=== PATIENT | female | born 1955 | race Caucasian/White ===

== ENCOUNTER 2020-07-20 06:35 | Outpatient (REF) | payer OTHER, SELFPAY | END 2020-07-20 06:36 | disposition home or self-care (01) | LOC: HO.LAB 06:35 | PROVIDERS: Visit Provider Internal Medicine | DX: Z20.828 Contact with and (suspected) exposure to other viral communicable diseases (principal) | CPT/HCPCS: C9803; U0003 ==

== ENCOUNTER 2020-08-06 17:52 | Emergency (ER) | payer BC, SELFPAY ==
[2020-08-06 18:12] VITALS: BP 183/122; PULSE 113; RESP 20; TEMP 36.9; O2SAT 100; BMI 35.5
--- NOTE | 2020-08-06 18:21 | ED.GENADULT ---
HPI - General Adult General Chief complaint: General Medical Stated complaint: Covid Test Time Seen by Provider: 08/06/20 18:16 Source: patient Mode of arrival: ambulatory Limitations: no limitations History of Present Illness HPI narrative: 65-year-old female presents to the emergency department for COVID-19 testing after learning that she has had multiple COVID-19 positive contacts. She does have mild upper respiratory symptoms, nasal congestion, and a dry cough. She does not report any fevers or chills, denies chest pain or pressure, palpitations, shortness of breath, abdominal pain, abdominal distention, dysuria, or hematuria. Onset (ago): day(s) (1) Severity: mild Treatments prior to arrival: NSAID Related Data Previous Rx's Medication Instructions Recorded lisinopril 2.5 mg tablet 2.5 mg PO DAILY 90 Days #90 tab 05/13/20 Allergies Allergy/AdvReac Type Severity Reaction Status Date / Time rivaroxaban [Xarelto] Allergy Unknown confusion Verified 08/06/20 18:11 No Known Allergies Allergy Unverified 04/09/20 17:21 [No Known Allergies*] Review of Systems Review of Systems: Constitutional: No Fever, no Chills, no fatigue, no Malaise ENT/Mouth: No sore throat, positive runny nose Eyes: No Discharge Cardiovascular: No Chest Pain, No SOB Respiratory: Positive Cough, No Sputum, No Wheezing, No Smoke Exposure, No Dyspnea Gastrointestinal: No Nausea, No Vomiting, No Diarrhea Genitourinary: no irregular bleeding, No Dysuria, No Urinary Frequency, No Hematuria, No Urinary Incontinence, No Urgency, No Flank Pain, Musculoskeletal: positive Myalgia Skin: No rash Neuro: No Headache Yes all other systems are reviewed and are negative [facility] Past Medical History Attestation statement: The following information was validated with the patient. Medical History Hypertension Social History Social History Advance Directives: No Advance Directives Information Provided: No Physical Exam Vital Signs: Vital Signs: Last Vital Signs Temp 98.5 F 08/06/20 18:12 Pulse 113 H 08/06/20 18:12 Resp 20 08/06/20 18:12 BP 179/92 H 08/06/20 18:24 Pulse Ox 100 08/06/20 18:12 Body Mass Index 35.5 Appearance: Alert. Oriented X3. Mild distress. Eyes: Pupils equal, round and reactive to light. ENT: Pharynx normal. Neck: Normal inspection. Neck supple. CVS: Normal heart rate and rhythm. Pulses normal. Respiratory: Positive cough, positive nasal congestion, No respiratory distress. Breath sounds normal. Abdomen: Soft and nontender. Skin: Skin warm and dry. Normal skin color. Normal skin turgor. Extremities: No lower extremity edema. Neuro: No motor deficit. No sensory deficit. Course Course Course Narrative: 65-year-old female presents for COVID-19 testing after learning that she has had multiple COVID-19 contacts. She does have a cough and some mild nasal congestion, O2 sats 100% on room air, afebrile and appears nontoxic. Lung sounds are clear, no focal neuro deficit. Plan of care is to test for COVID-19 and discharged home. Patient verbalized understanding of and agrees to plan of care discharge home. Medical Decision Making Differential Diagnosis Differential Diagnosis: Acute viral syndrome, COVID-19, influenza, RSV Medical Records Medical records reviewed: Yes I reviewed the patient's medical records. Lab Data Lab results reviewed: Yes I reviewed the patient's lab results. Labs: Lab Results 08/06/20 Range/Units 18:33 Coronavirus (PCR) NEGATIVE (Negative) Influenza Type A (PCR) NEGATIVE (Negative) Influenza Type B (PCR) NEGATIVE (Negative) RSV RNA Qual (PCR) NEGATIVE (Negative) Discharge Plan Discharge Clinical Impression: COVID-19, Acute viral syndrome, Upper respiratory infection, acute Patient Disposition: Home, Self-Care Instructions: Viral Syndrome (ED), COVID-19 (Coronavirus Disease 2019) (ED) Additional Instructions: You were evaluated for symptoms consistent with COVID-19 and or COVID-19 positive exposure. Please maintain social isolation per State and Federal guidelines. Is your responsibility to maintain these guidelines. Your test results are pending. We will call you with the results. You must treat yourself as if you are positive until your test results come back. Thank you for choosing this emergency department for evaluation. Please follow-up with primary care physician as needed. Return to the emergency department for any new, concerning, or worsening symptoms. Prescriptions: No Action lisinopril 2.5 mg tablet 2.5 mg PO DAILY 90 Days Qty: 90 RF: 3 Interventions: ED Discharge Assessment Last Done: 08/06/20 18:37 Discharge Date/Time: 08/06/20 18:37
[2020-08-06 18:24] VITALS: BP 179/92
[2020-08-06 19:22] LABS: Influenza A PCR NEGATIVE (Negative); Influenza B PCR NEGATIVE (Negative); Resp Syncy Virus RNA Qual PCR NEGATIVE (Negative); SARS COV2 PCR INHOUSE NEGATIVE (Negative)
== END 2020-08-06 18:37 | disposition home or self-care (01) ==
PROVIDERS: Nurse Practitioner Family; Emergency Provider Internal Medicine; PCP Internal Medicine
DX: U07.1 COVID-19 (principal); J06.9 Acute upper respiratory infection, unspecified; R05 Cough; I10 Essential (primary) hypertension; Z79.899 Other long term (current) drug therapy
CPT/HCPCS: 0241U; 36415; 99283

== ENCOUNTER 2022-05-27 07:28 | Outpatient (REF) | payer MEDICARE, SELFPAY ==
[2022-05-27 07:35] LABS: MANUAL DIFF FLAG NO
[2022-05-27 08:10] LABS: Basophils Absolute Auto 0.1 X10*3/uL (0.0-0.2); Eosinophils Absolute Auto 0.1 X10*3/uL (0.0-0.4); Eosinophils Percent Auto 1.1 % (0-4); Hematocrit 52.9 % (37.0-47.0); Hemoglobin 17.2 g/dl (12.0-16.0); Imm Gran Abs Auto 0.03 X10*3/uL (0.00-0.03); Imm Gran Pct Auto 0.3 % (0.0-0.4); Lymphocytes Absolute Auto 2.9 X10*3/uL (1.2-4.9); Lymphocytes Percent Auto 31.1 % (20-40); Mean Corpuscular HGB Conc 32.5 g/dl (31.0-35.0); Mean Corpuscular Hemoglobin 30.4 pg (27.0-33.0); Mean Corpuscular Volume 93.5 fL (80.0-98.0); Mean Platelet Volume 10.3 fL (9.4-12.3); Monocytes Absolute Auto 0.6 X10*3/uL (0.1-1.2); Monocytes Percent Auto 6.9 % (2-11); Neutrophils Absolute Auto 5.5 x10*3/uL (2.0-8.3); Neutrophils Percent Auto 59.6 % (45-73); Platelet Count 209 X10*3/uL (160-400); Red Blood Count 5.66 X10*6/uL (4.20-5.50); Red Cell Distribution Width 13.6 % (11.0-16.0); White Blood Count 9.3 X10*3/uL (4.8-10.8)
[2022-05-27 08:50] LABS: Alanine Aminotransferase 78 U/L (0-31); Albumin Level 3.9 g/dL (3.5-5.0); Alkaline Phosphatase 112 U/L (39-117); Anion Gap 16 (12-20); Aspartate Amino Transferase 23 U/L (5-31); Bilirubin Total 0.6 mg/dL (0.0-1.0); Blood Urea Nitrogen 13 mg/dL (9-16); C Reactive Protein 1.18 mg/dL (< or = 0.50); Calcium 9.2 mg/dL (8.4-10.2); Carbon Dioxide 31 mmol/L (22-29); Chloride 101 mmol/L (96-108); Estimated Glomerular Filt Rate > 60; Glucose Random 104 mg/dL (60-115); Potassium 4.2 mmol/L (3.3-5.1); Sodium 144 mmol/L (135-145); Total Protein 7.1 g/dL (6.5-8.0)
[2022-05-27 08:53] LABS: Erythrocyte Sedimentation Rate 11 MM/HR (0-20)
== END 2022-05-27 07:29 | disposition home or self-care (01) ==
LOC: HO.LAB 07:28
PROVIDERS: PCP Internal Medicine; Visit Provider Internal Medicine Rheumatology
DX: M15.9 Polyosteoarthritis, unspecified (principal); Z79.1 Long term (current) use of non-steroidal anti-inflammatories (NSAID)
CPT/HCPCS: 36415; 80053; 85025; 85652; 86140

== ENCOUNTER 2023-06-27 08:16 | Emergency (ER) | payer MEDICARE, SELFPAY ==
[2023-06-27] VITALS (8 sets, daily range): BP systolic 150–217; BP diastolic 82–108; PULSE 76–115; RESP 14–114; TEMP 36.6–37.2; O2SAT 92–97; BMI 39.2; BMI 39.5
--- NOTE | ~2023-06-27 | CT_ITS ---
STUDY PERFORMED: CTA ABDOMEN, PELVIS AND LOWER EXTREMITY RUNOFF WITH CONTRAST INDICATION: Right lower extremity coldness and numbness. DESCRIPTION: Routine abdominal aorta and lower extremity runoff CTA protocol with contrast was performed. 100 mL of Omnipaque 350 was administered. 3D POSTPROCESSING: Multiple 3-D angiographic images were processed from the initial data set by the [facility] on an independent workstation under concurrent physician supervision. DOSE LOWERING TECHNIQUES: This CT examination was performed using dose optimization techniques as appropriate, variously including the following: - Automated exposure control - Adjustment of mA and/or kV according to patient size (this includes techniques or standardized protocols for targeted exams where dose is matched to indication/reason for exam; i.e. extremities or head) - Use of iterative reconstruction technique DLP: 552 mGycm. COMPARISON: None FINDINGS: Presented to me for interpretation at 1450. VASCULAR: ABDOMINAL AORTA: The included lower thoracic aorta is normal in caliber without thrombus or atherosclerotic disease. The abdominal aorta is normal in caliber with mild infrarenal atherosclerosis. RIGHT LOWER EXTREMITY: - Common Iliac Artery: Normal caliber. Mild disease. - Internal Iliac Artery: Normal caliber. Mild disease. - External Iliac Artery: Normal caliber. Minimal disease. - Common Femoral Artery: Minimal intrinsic disease. There is branching occlusive filling defect at the femoral bifurcation involving the proximal SFA and PFA. - Profunda Femoral Artery: 6 cm long segment nonopacification of the proximal profunda femoral artery with some branch vessel and distal opacification. Area of nonopacification is likely thrombus. - Superficial Femoral Artery: 2 cm long occlusion in the proximal SFA with some distal gradient opacification to nonopacification in the mid and distal SFA. On the delayed images the distal SFA and proximal popliteal artery enhance indicating that some of this upstream nonopacification is related to bolus timing. However on the delayed imaging there is no enhancement of the distal popliteal artery and three-vessel runoff. LEFT LOWER EXTREMITY: - Common Iliac Artery: Normal caliber. Mild disease. - Internal Iliac Artery: Normal caliber. Mild disease. - External Iliac Artery: Normal caliber. Mild disease. - Common Femoral Artery: Normal caliber. Mild disease. - Profunda Femoral Artery: Minimal disease. - Superficial Femoral Artery: Intimal disease. - Popliteal Artery: Minimal disease. - Posterior Tibial Artery: Patent. - Peroneal Artery: Patent. - Anterior Tibial Artery: Patent. CELIOMESENTERIC ARTERIES: The celiac, SMA, CARYN are patent. RENAL ARTERIES: The right renal artery and the left renal artery is patent. NONVASCULAR: Lung Bases: The visualized lung bases are unremarkable. Liver, Gallbladder and Biliary Tree: The liver is normal in size, shape, and attenuation. No focal hepatic lesion or biliary ductal dilatation is present. Cholecystectomy. Pancreas: No discrete pancreatic mass. No ductal dilatation. Spleen: Unremarkable. Adrenal Glands: No adrenal mass. Kidneys and Ureters: The kidneys are normal in size, shape, and attenuation. No hydronephrosis, hydroureter, or definite calculi seen. No perinephric stranding. Simple cyst in the lower pole left kidney. No follow-up imaging is recommended. Bladder: Unremarkable. Gastrointestinal Tract: The small bowel is normal in caliber. Severe diverticulosis of the colon. Abdominal Wall: Ventral hernia repair with mesh. There is a fat-containing hernia to the left of the mesh. Lymph Nodes: No lymphadenopathy. Pelvic Viscera: Unremarkable. Osseous Structures: Degenerative changes in the spine. 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 There is some distal reconstitution of the SFA. On the delayed phase imaging, there is no enhancement of the runoff arteries which may be due to slow flow from upstream disease or thrombosis. THIS REPORT CONTAINS FINDINGS THAT MAY BE CRITICAL TO PATIENT CARE. The exam findings were communicated by me to Tg Tesfaye via telephone conference at 1505 on 06/27/2023. The findings were acknowledged and understood. Patient already transferred to [facility] at time of direct to communication.
--- NOTE | 2023-06-27 09:10 | PC.NURSE ---
UNABLE TO OBTAIN PEDAL PULSES WITH DOPPLER. AWAITING PROVIDER
--- NOTE | 2023-06-27 09:16 | ECG_ITS ---
Test Reason : ?le arterial occlusion Blood Pressure : / mmHG Vent. Rate : 105 BPM Atrial Rate : 000 BPM P-R Int : 000 ms QRS Dur : 100 ms QT Int : 392 ms P-R-T Axes : 000 027 012 degrees QTc Int : 518 ms Atrial fibrillation with rapid ventricular response Abnormal ECG When compared to the previous EKG of 14 dec 2017, lateral T inversion not seen. Referred By: Tg Tesfaye Electronically Signed By:MARGARITA MONTELONGO
--- NOTE | 2023-06-27 09:18 | ED_ITS ---
HPI - Neuro Symptoms/Deficit General Chief Complaint: Neuro Symptoms/Deficit Stated Complaint: R FOOT NUMB/COOL @TOUCH,R THIGH PAIN,1HOUR PER EMS Time Seen by Provider: 06/27/23 09:03 Source: patient and RN notes reviewed Mode of arrival: ambulatory Limitations: no limitations History of Present Illness HPI Narrative: This is a 68-year-old female, with a history of hypertension, presenting to the emergency department with complaints of right lower extremity numbness and coldness since 6:15AM this morning. She states that she was having a normal day which she suddenly felt some numbness to the bottom of her foot as well as some coldness. This has since progressed throughout her entire right foot extending just above her right ankle. She denies any chest pain or shortness of breath. No recent trauma or injury to her leg. No history of similar symptoms in the past. No recent surgery, hospitalizations, no history of blood clots, no history of cancer. She smokes cigarettes. She states that she has no history of atrial fibrillation or irregular heart rate. She states that as a child she thought she had this but was never formally diagnosed or treated for this. She is not anticoagulated. No other complaints or concerns at this time. Onset (ago): day(s) Time: 06:15 Relieving factors: none Exacerbating factors: none On Anticoagulants: No Associated symptoms: denies other symptoms Treatments Prior to Arrival: none Related Data Home Medications Medication Instructions Recorded Confirmed ibuprofen 800 mg tablet 800 mg PO TID 12/31/21 12/31/21 multivitamin 1 tab PO DAILY 12/31/21 12/31/21 Previous Rx's Medication Instructions Recorded lisinopril 2.5 mg tablet 2.5 mg PO DAILY 90 days #90 tabs 12/11/22 metoprolol tartrate 100 mg tablet 100 mg PO BID #180 tabs 04/13/23 Allergies Allergy/AdvReac Type Severity Reaction Status Date / Time rivaroxaban [Xarelto] Allergy Unknown confusion Verified 06/27/23 09:54 Review of Systems 2 Review of Systems: Yes all other systems are reviewed and are negative Constitutional: Constitutional: Reports as per HPI [facility] Past Medical History Attestation statement: The following information was validated with the patient. Medical History COVID-19 Hypertension Social History Social History Alcohol intake: current Alcohol intake frequency: holidays/special occasions only Patient Tobacco Use Status: Current everyday Tobacco user Cigarettes Per Day: 7 Physical Exam 2 Vital Signs: Vital Signs: Last Vital Signs Temp 98.6 F 06/27/23 12:46 Pulse 101 H 06/27/23 13:54 Resp 15 06/27/23 13:54 BP 171/82 H 06/27/23 13:54 Pulse Ox 95 06/27/23 13:22 O2 Del Method Nasal Cannula 06/27/23 13:22 O2 Flow Rate 1 06/27/23 13:22 BMI result Body Mass Index 39.5 Const: General: cooperative, comfortable and no acute distress O rientation/consciousness: patient oriented x3 Limitations: no limitations HEENT: Head: Yes normal to inspection, Yes normocephalic and Yes atraumatic Ears: hearing grossly normal bilaterally General nose exam: Normal external nose present Face and sinus: Yes normal facial exam Mouth: Normal oral and palatal mucosa present, oropharynx normal and moist mucous membranes Throat: Yes posterior oropharynx normal Eyes: General: appearance normal, both eyes and all related structures E yelids: Yes eyelids normal Conjunctivae: conjunctivae normal Sclerae: s clerae normal Pupils: Equal, round and reactive pupils present EOM: EOMs intact bilaterally Neck: Neck: Yes normal visual inspection, Yes full ROM and Yes no lymphadenopathy Lymphatic: no lymphadenopathy noted Chest: Chest palpation & inspection: normal inspection of the chest Resp: Effort & Inspection: normal respiratory effort and able to speak in complete sentences Auscultation: clear to auscultation bilaterally, no crackles, no rales, no rhonchi and no wheezes Cardio: Other: He irregularly irregular Heart sounds: S1 normal heart sound present and S2 normal heart sound present GI: Inspection: Yes normal to inspection Skin: General skin exam: no rashes or lesions noted Trauma: no lacerations or abrasions Wounds: no wounds Neuro: General: patient oriented x3 and moves all extremities Cranial nerves: Yes Equal, round and reactive pupils present Extrem: Other: Right lower extremity is cool to the touch, dusky white, unable to palpate pulses. Patient unable to wiggle toes or Salomon or plantar flex the foot. Patient reporting numbness throughout the entire foot extending to the distal tibia fibula Tenderness to palpation along the right calf, no obvious swelling or deformity. General: Yes normal to inspection Right upper extremity: normal to inspection Left upper extremity: normal to inspection Right lower extremity: normal to inspection Left lower extremity: normal to inspection Course Reevaluation(s) Reevaluation #1: Upon re-evaluation, patient requesting stronger pain medication. Medicated with morphine 4 mg IV. Review of EKG shows atrial fibrillation with RVR at a ventricular rate of 105 beats per minute. PT has no history of a fib. Given findings on EKG, even more concerning for arterial occlusion. Blood pressure elevated at 220/96. Patient did not take her hypertensive medication this mornning. I discussed this with my attending physician who recommends administering diltiazem 10 mg IV. Reevaluation #2: I spoke to Dr. Durham who reviewed the CT scan, he is reporting that the SFA and distal is completely occluded. Given the extensiveness of this finding, patient will need to be transferred for further intervention as we do not have the finer equipment to revascularize. He recommends heparin bolus and drip, which was started. Discussed this with my attending physician, Dr. Louis. Page sent out to [facility]. Time: 11:30 Reevaluation #3: [facility] called, placing page out to vascular surgery. Patient reporting that the pain improved with morphine but still in significant amount of pain. Will medicate with 2nd dose of morphine 4 mg IV. Time: 11:47 Additional Reevaluation(s): 1303 - [facility] still has not called back, reach out to [facility]. Patient was accepted by Dr. Milla damico in [facility]. Blood pressure has improved to 182/84, patient medicated with Dilaudid 1 mg IV. Radiology will put images on disc as well as upload on to image portal for [facility] access. Transfer of care initiated. 1530 - radiologist,Dr. 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 There is some distal reconstitution of the SFA. Sent report over to [facility] Emergency Room for update of this radiologic report. Medications Administered Discontinued Medications Generic Name Dose Route Start Last Admin Trade Name Freq PRN Reason Stop Dose Admin Diltiazem HCl 10 mg 06/27/23 09:48 06/27/23 09:55 Diltiazem Hcl 50 Mg/10 Ml Vial IVPUSH 06/27/23 09:49 10 mg STAT STA Administration Heparin Sodium (Porcine) 8,800 unit 06/27/23 11:31 06/27/23 12:06 Heparin Sodium,Porcine 5,000 Unit/Ml Vial 80 unit/kg (8800 unit) 06/27/23 11:32 8,800 unit IVPUSH Administration ONCE ONE Hydromorphone HCl 1 mg 06/27/23 13:06 06/27/23 13:13 Hydromorphone Hcl 1 Mg/Ml Syringe IVPUSH 06/27/23 13:07 1 mg ONCE ONE Administration Protocol Heparin Sodium/Sodium Chloride 25,000 unit in 250 mls @ 0 mls/hr 06/27/23 12:00 06/27/23 12:17 Heparin Sodium,Porcine/1/2ns IVCONT 14 units/kg/hr .Q0M SAYRA 15.53 mls/hr Administration Protocol Per Protocol Iohexol 100 ml 06/27/23 10:42 06/27/23 10:42 Iohexol 350 Mg/Ml 100 Ml Infus..Btl IV 06/27/23 10:43 100 ml ONCE ONE Administration Morphine Sulfate 4 mg 06/27/23 09:40 06/27/23 09:55 Morphine Sulfate 4 Mg/Ml Cartridge IVPUSH 06/27/23 09:41 4 mg ONCE ONE Administration Protocol Morphine Sulfate 4 mg 06/27/23 11:45 06/27/23 11:57 Morphine Sulfate 4 Mg/Ml Cartridge IVPUSH 06/27/23 11:46 4 mg ONCE ONE Administration Protocol Medical Decision Making Medical Decision Making MDM Narrative: 68-year-old female presenting to the emergency department for evaluation of right lower extremity numbness and coolness 11/26/2014 this morning. I went and evaluated patient at 9:15 a.m. this morning. Blood pressure 202/92, pulse 115. Right lower extremity is very cold to the touch, patient unable to move toes or move ankle. Very concerning for arterial occlusion. Patient has no known risk factors. I discussed this case with my attending physician, Dr. Louis, will obtain basic labs, troponin, coags, EKG, and CT angio abdominal aorta with runoff. Patient medicated with morphine 4 mg IV Plan: Labs, EKG, CT angio with abdominal aorta runoff, coags Differential Diagnosis Differential Diagnoses: The differential diagnosis associated with the presentation includes Arterial occlusion, venous thrombosis, Admission/Observation Consideration of admission/observation: Escalation of care including admission/observation considered Escalation of care including admission, is considered given new onset atrial fibrillation with RVR, patient has no history of this Consult Healthcare Provider Management of the patient was discussed with: African History Professor Dr. Harmon, vascular Lab Data MDM Lab Attestation statement: I reviewed the patient's lab results. H&H 17.6/54.5; hypokalemic at 3.1, BUN 7. 06/27/23 09:24 06/27/23 09:24 Labs: Lab Results 06/27/23 Range/Units 09:24 WBC 10.7 (4.8-10.8) X10*3/uL RBC 6.07 H (4.20-5.50) X10*6/uL Hgb 17.6 H (12.0-16.0) g/dl Hct 54.5 H (37.0-47.0) % MCV 89.8 (80.0-98.0) fL MCH 29.0 (27.0-33.0) pg MCHC 32.3 (31.0-35.0) g/dl RDW 13.8 (11.0-16.0) % Plt Count 201 (160-400) X10*3/uL MPV 10.0 (9.4-12.3) fL Immature Gran % (Auto) 0.6 H (0.0-0.4) % Neut % (Auto) 85.4 H (45-73) % Lymph % (Auto) 8.5 L (20-40) % [place] % (Auto) 4.6 (2-11) % Eos % (Auto) 0.2 (0-4) % Baso % (Auto) 0.7 (0-2) % Lymph # (Auto) 0.9 L (1.2-4.9) X10*3/uL [place] # (Auto) 0.5 (0.1-1.2) X10*3/uL Eos # (Auto) 0.0 (0.0-0.4) X10*3/uL Baso # (Auto) 0.1 (0.0-0.2) X10*3/uL Abs Immat Gran (auto) 0.06 H (0.00-0.03) X10*3/uL Absolute Neuts (auto) 9.1 H (2.0-8.3) x10*3/uL Absolute Nucleated RBC 0.000 (0.0-0.012) X10*3/uL Nucleated RBC % (auto) 0.0 (0.0-0.2) /100WBC PT 12.4 (11.1-13.3) SEC INR 1.0 (0.9-1.1) APTT 27.8 (26.0-36.4) SEC Sodium 142 (135-145) mmol/L Potassium 3.1 L D (3.3-5.1) mmol/L Chloride 104 (96-108) mmol/L Carbon Dioxide 29 (22-29) mmol/L Anion Gap 12 (12-20) BUN 7 L (9-16) mg/dL Creatinine 0.72 (0.5-1.4) mg/dL Estim Creat Clear Calc 94.0 Estimated GFR > 60 Random Glucose 150 H (60-115) mg/dL Calcium 9.3 (8.4-10.2) mg/dL Magnesium 1.7 (1.6-2.6) mg/dL Total Bilirubin 0.6 (0.0-1.0) mg/dL Direct Bilirubin 0.2 (0.0-0.5) mg/dL AST 13 (5-31) U/L ALT 6 (0-31) U/L Alkaline Phosphatase 91 (39-117) U/L Troponin I High Sens 16.7 (<3.5-17.0) ng/L Total Protein 7.7 (6.5-8.0) g/dL Albumin 3.8 (3.5-5.0) g/dL Independent Interpretation I performed an independent interpretation of an: EKG Interpretation: EKG atrial fibrillation with RVR at a ventricular rate of 105, QRS 100 milliseconds, QTC is prolonged at 518 CT was reviewed by myself and vascular surgeon, revealing acute on chronic occlusion, however SFA and distally completely occludes with no flow. Radiology Impression Discussion of test interpretation with radiology: I have reviewed the radiologist's reading. Radiologist Impression: STUDY PERFORMED: CTA ABDOMEN, PELVIS AND LOWER EXTREMITY RUNOFF WITH CONTRAST INDICATION: Right lower extremity coldness and numbness. DESCRIPTION: Routine abdominal aorta and lower extremity runoff CTA protocol with contrast was performed. 100 mL of Omnipaque 350 was administered. 3D POSTPROCESSING: Multiple 3-D angiographic images were processed from the initial data set by the [facility] on an independent workstation under concurrent physician supervision. DOSE LOWERING TECHNIQUES: This CT examination was performed using dose optimization techniques as appropriate, variously including the following: - Automated exposure control - Adjustment of mA and/or kV according to patient size (this includes techniques or standardized protocols for targeted exams where dose is matched to indication/reason for exam; i.e. extremities or head) - Use of iterative reconstruction technique DLP: 552 mGycm. COMPARISON: None FINDINGS: Presented to me for interpretation at 1450. VASCULAR: ABDOMINAL AORTA: The included lower thoracic aorta is normal in caliber without thrombus or atherosclerotic disease. The abdominal aorta is normal in caliber with mild infrarenal atherosclerosis. RIGHT LOWER EXTREMITY: - Common Iliac Artery: Normal caliber. Mild disease. - Internal Iliac Artery: Normal caliber. Mild disease. - External Iliac Artery: Normal caliber. Minimal disease. - Common Femoral Artery: Minimal intrinsic disease. There is branching occlusive filling defect at the femoral bifurcation involving the proximal SFA and PFA. - Profunda Femoral Artery: 6 cm long segment nonopacification of the proximal profunda femoral artery with some branch vessel and distal opacification. Area of nonopacification is likely thrombus. - Superficial Femoral Artery: 2 cm long occlusion in the proximal SFA with some distal gradient opacification to nonopacification in the mid and distal SFA. On the delayed images the distal SFA and proximal popliteal artery enhance indicating that some of this upstream nonopacification is related to bolus timing. However on the delayed imaging there is no enhancement of the distal popliteal artery and three-vessel runoff. LEFT LOWER EXTREMITY: - Common Iliac Artery: Normal caliber. Mild disease. - Internal Iliac Artery: Normal caliber. Mild disease. - External Iliac Artery: Normal caliber. Mild disease. - Common Femoral Artery: Normal caliber. Mild disease. - Profunda Femoral Artery: Minimal disease. - Superficial Femoral Artery: Intimal disease. - Popliteal Artery: Minimal disease. - Posterior Tibial Artery: Patent. - Peroneal Artery: Patent. - Anterior Tibial Artery: Patent. CELIOMESENTERIC ARTERIES: The celiac, SMA, CARYN are patent. RENAL ARTERIES: The right renal artery and the left renal artery is patent. NONVASCULAR: Lung Bases: The visualized lung bases are unremarkable. Liver, Gallbladder and Biliary Tree: The liver is normal in size, shape, and attenuation. No focal hepatic lesion or biliary ductal dilatation is present. Cholecystectomy. Pancreas: No discrete pancreatic mass. No ductal dilatation. Spleen: Unremarkable. Adrenal Glands: No adrenal mass. Kidneys and Ureters: The kidneys are normal in size, shape, and attenuation. No hydronephrosis, hydroureter, or definite calculi seen. No perinephric stranding. Simple cyst in the lower pole left kidney. No follow-up imaging is recommended. Bladder: Unremarkable. Gastrointestinal Tract: The small bowel is normal in caliber. Severe diverticulosis of the colon. Abdominal Wall: Ventral hernia repair with mesh. There is a fat-containing hernia to the left of the mesh. Lymph Nodes: No lymphadenopathy. Pelvic Viscera: Unremarkable. Osseous Structures: Degenerative changes in the spine. 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 There is some distal reconstitution of the SFA. On the delayed phase imaging, there is no enhancement of the runoff arteries which may be due to slow flow from upstream disease or thrombosis. THIS REPORT CONTAINS FINDINGS THAT MAY BE CRITICAL TO PATIENT CARE. The exam findings were communicated by me to Tg Tesfaye via telephone conference at 1505 on 06/27/2023. The findings were acknowledged and understood. Patient already transferred to [facility] at time of direct to communication. Dictated By: Morgan Crowell MD Critical Care Time Critical Care Time Critical Care Time: Yes Total Critical Care Time: 120 Attestation: I have personally provided critical care time exclusive of time spent on separately billable procedures. Time includes review of lab data, radiology results, discussion with consultants, and monitoring for potential decompensation. Intervention performed as documented. Discharge Plan Discharge Clinical Impression: Occlusion of artery of lower extremity Patient Disposition: Xfer [facility] Transfer Details: [facility] Emergency Room - Dr. March Prescriptions: No Action lisinopril 2.5 mg tablet 2.5 mg PO DAILY 90 Days Qty: 90 3RF metoprolol tartrate 100 mg tablet 100 mg PO BID Qty: 180 3RF ibuprofen 800 mg tablet 800 mg PO TID multivitamin Tablet 1 tab PO DAILY Interventions: Acute Care Transfer Worksheet (ED) Last Done: 06/27/23 16:01 Discharge Date/Time: 06/27/23 15:00
[2023-06-27 09:29] LABS: MANUAL DIFF FLAG NO
[2023-06-27 09:32] LABS: Basophils Absolute Auto 0.1 X10*3/uL (0.0-0.2); Basophils Percent Auto 0.7 % (0-2); Eosinophils Percent Auto 0.2 % (0-4); Hematocrit 54.5 % (37.0-47.0); Hemoglobin 17.6 g/dl (12.0-16.0); Imm Gran Abs Auto 0.06 X10*3/uL (0.00-0.03); Imm Gran Pct Auto 0.6 % (0.0-0.4); Lymphocytes Absolute Auto 0.9 X10*3/uL (1.2-4.9); Lymphocytes Percent Auto 8.5 % (20-40); Mean Corpuscular HGB Conc 32.3 g/dl (31.0-35.0); Mean Corpuscular Volume 89.8 fL (80.0-98.0); Monocytes Absolute Auto 0.5 X10*3/uL (0.1-1.2); Monocytes Percent Auto 4.6 % (2-11); Neutrophils Absolute Auto 9.1 x10*3/uL (2.0-8.3); Neutrophils Percent Auto 85.4 % (45-73); Platelet Count 201 X10*3/uL (160-400); Red Blood Count 6.07 X10*6/uL (4.20-5.50); Red Cell Distribution Width 13.8 % (11.0-16.0); White Blood Count 10.7 X10*3/uL (4.8-10.8)
[2023-06-27 09:36] LABS: Prothrombin Time 12.4 SEC (11.1-13.3)
[2023-06-27 09:38] LABS: Partial Thromboplastin Time 27.8 SEC (26.0-36.4)
[2023-06-27 09:45] LABS: Alanine Aminotransferase 6 U/L (0-31); Albumin Level 3.8 g/dL (3.5-5.0); Alkaline Phosphatase 91 U/L (39-117); Anion Gap 12 (12-20); Aspartate Amino Transferase 13 U/L (5-31); Bilirubin Direct 0.2 mg/dL (0.0-0.5); Bilirubin Total 0.6 mg/dL (0.0-1.0); Blood Urea Nitrogen 7 mg/dL (9-16); Calcium 9.3 mg/dL (8.4-10.2); Carbon Dioxide 29 mmol/L (22-29); Chloride 104 mmol/L (96-108); Estimated Glomerular Filt Rate > 60; Glucose Random 150 mg/dL (60-115); Magnesium 1.7 mg/dL (1.6-2.6); Potassium 3.1 mmol/L (3.3-5.1); Sodium 142 mmol/L (135-145); Total Protein 7.7 g/dL (6.5-8.0)
[2023-06-27 09:51] LABS: Troponin-I High Sensitivity 16.7 ng/L (<3.5-17.0)
[2023-06-27] MEDS: Morphine Sulfate 4 MG/ML CARTRIDGE IVPUSH ×2 (09:55→11:57)
[2023-06-27] MEDS: dilTIAZem HCL 50 MG/10 ML VIAL 10 MG IVPUSH (09:55)
[2023-06-27] MEDS: iohexoL 350 MG/ML 100 ML INFUS..BTL IV (10:42)
--- NOTE | 2023-06-27 10:54 | PC.NURSE ---
pt is a/o x 4 no sob/thierry noted speaks in full sentences. pt states that after having her morning coffee she went stand and she noted that the bottom of her r foot was numb and it progressively got worse. pt is now c/o 7/10 r caf/ankle pain. pt is c/o pins/needles at the bottom of her r foot. mlp (anthony) aware.
[2023-06-27] MEDS: Heparin Sodium,Porcine 5,000 UNIT/ML VIAL 8800 UNIT IVPUSH (12:06)
[2023-06-27] MEDS: Heparin Sodium,Porcine/1/2NS 25,000 UNIT/250 ML IV.SOLN 15.53 UNIT IVCONT (12:17)
--- NOTE | 2023-06-27 12:31 | PC.NURSE ---
patient put on 1L of oxygen per [place] oxygen was ranging between 92-95 on room air
[2023-06-27] MEDS: HYDROmorphone HCl 1 MG/ML SYRINGE IVPUSH (13:13)
--- NOTE | 2023-06-27 13:51 | PC.NURSE ---
nurse to nurse given to Divya from [facility] with elevated BP and history of HTN. Heparin instructions given with the time it was hung.
== END 2023-06-27 15:00 | disposition short-term general hospital (02) ==
PROVIDERS: Physician Assistant Medical; Emergency Provider Emergency Medicine Emergency Medical Services; PCP Internal Medicine
DX: I77.1 Stricture of artery (principal); I48.91 Unspecified atrial fibrillation; R20.0 Anesthesia of skin; M79.604 Pain in right leg; Z79.899 Other long term (current) drug therapy
CPT/HCPCS: 36415; 75635; 80048; 80076; 83735; 84484; 85025; 85610; 85730; 93005; 96374; 96375; 96376; 99285; J1170; J1644; J2270; Q9967

== ENCOUNTER → 2023-06-27 09:16 | Outpatient (BNV) | payer MEDICARE, SELFPAY | PROVIDERS: Emergency Provider Emergency Medicine Emergency Medical Services; PCP Internal Medicine; Visit Provider Internal Medicine | DX: I48.91 Unspecified atrial fibrillation (principal); R94.31 Abnormal electrocardiogram [ECG] [EKG] | CPT/HCPCS: 93010 ==

== ENCOUNTER 2023-07-17 13:29 | Emergency (ER) | payer MEDICARE, SELFPAY ==
--- NOTE | ~2023-07-17 | CT_ITS ---
EXAMINATION: CT ANGIOGRAM OF THE CHEST WITH AND WITHOUT CONTRAST (CT PULMONARY ANGIOGRAM FOR PE) CLINICAL INFORMATION: Reason for Exam shortness of breath, hx of afib COMPARISON: Chest x-ray 04/04/2018 TECHNIQUE: Prior to contrast administration, noncontrast localization images were obtained. Subsequently, multidetector volumetric imaging was performed from the thoracic inlet to below the diaphragms following the administration of 80 mL Omnipaque 350 intravenous contrast. No contrast reaction reported Sagittal, coronal, and MIP oblique sagittal reformatted images were obtained on the CT workstation, uploaded to PACS, and reviewed. This CT examination was performed using dose optimization techniques as appropriate, variously including the following: *Automated exposure control *Adjustment of mA and/or kV according to patient size (this includes techniques or standardized protocols for targeted exams where dose is matched to indication/reason for exam; i.e. extremities or head) *Use of iterative reconstruction technique Total exam dose-length product 1177 mGy-cm FINDINGS: QUALITY OF STUDY/CONTRAST BOLUS: Satisfactory. PULMONARY ARTERIES: No pulmonary emboli. THORACIC AORTA: No aneurysm. LUNG: The lungs are expanded without any focal consolidation, nodules or masses. There is platelike atelectasis left lower lobe. PLEURA: No pleural effusion or pneumothorax. MEDIASTINUM: Thyroid lobes are symmetrical. Normal heart size. No pericardial effusion. No hilar or mediastinal lymphadenopathy. Central trachea and the bronchi widely patent. No evidence of septal bowing or right heart strain. CORONARY ARTERY CALCIFICATION: There is mild coronary artery calcification present CHEST WALL/AXILLA: No axillary or internal mammary lymphadenopathy. OSSEOUS STRUCTURES: There is mild ventral spondylosis throughout dorsal spine with degenerative disc changes virtually at every disc level. UPPER ABDOMEN: The gallbladder has been surgically removed. Visualized liver, pancreas and the spleen and bilateral adrenal glands unremarkable. No reflux of contrast into the hepatic veins to suggest elevated right heart pressures. CT/CT angio chest PE protocol IMPRESSION: No evidence of PE. No evidence of aortic aneurysm or dissection. Minimal platelike atelectasis left lung base. VTE: negative
--- NOTE | ~2023-07-17 | CT_ITS ---
EXAMINATION: CT ABDOMEN AND PELVIS WITH CONTRAST CLINICAL INFORMATION: Vomiting. COMPARISON: None available. TECHNIQUE: Multidetector volumetric images were obtained from the superior aspect of the liver through the pubic symphysis following administration 85 mL of Omnipaque 350 intravenous contrast. Sagittal and coronal reformatted images were obtained on the technologist's workstation. Oral contrast: No This CT examination was performed using dose optimization techniques as appropriate, variously including the following: *Automated exposure control *Adjustment of mA and/or kV according to patient size (this includes techniques or standardized protocols for targeted exams where dose is matched to indication/reason for exam; i.e. extremities or head) *Use of iterative reconstruction technique DLP: 717 mGy-cm FINDINGS: LUNG BASES: The visualized lung bases are unremarkable. LIVER, GALLBLADDER, AND BILIARY TREE: The liver is normal in size, shape, and attenuation. No focal hepatic lesion or biliary ductal dilatation is present. There has been a prior cholecystectomy. PANCREAS: Unremarkable. SPLEEN: Unremarkable. ADRENAL GLANDS: There is adrenal gland thickening and nodularity. KIDNEYS AND URETERS: The kidneys are normal in size, shape, and attenuation. No hydronephrosis, hydroureter, or calculi seen. No perinephric stranding. There is a 1.7 cm left mid pole renal calculus. There is a 7 mm calculus lower pole left kidney. There is a 1.8 cm cyst lower pole left kidney. BLADDER: Unremarkable. GASTROINTESTINAL TRACT: There are a few diverticula of the sigmoid colon without diverticulitis. The appendix is unremarkable. ABDOMINAL WALL: No significant hernia is appreciated. LYMPH NODES: Normal. VASCULAR: There is atherosclerotic plaque of the abdominal aorta and proximal branches. PELVIC VISCERA: Unremarkable. OSSEOUS STRUCTURES: There is moderate diffuse thoracolumbar disc degenerative change. CT/CT abdomen pelvis w IV con IMPRESSION: Left renal stones. Mild diverticulosis of the sigmoid colon. No evidence of diverticulitis. No acute intra-abdominal process. Fleischner guidelines were followed.
[2023-07-17 13:50] VITALS: BP 131/57; BP 158/88; PULSE 110; PULSE 76; RESP 18; TEMP 36.8; O2SAT 91; BMI 41.6
--- NOTE | 2023-07-17 14:10 | ED.GENADULT ---
HPI - General Adult General Chief complaint: General Medical Stated complaint: TINGLING IN FINGERS, N/V PER EMS Time Seen by Provider: 07/17/23 14:09 Source: patient and RN notes reviewed Mode of arrival: ambulatory Limitations: no limitations History of Present Illness HPI narrative: This is a 68-year-old female, with a history of new onset AFib on Eliquis and arterial occlusion recently had surgery at [facility] presenting to the emergency department with complaints of feeling lousy since yesterday. patient has a significant past medical history regarding last month. She was seen in the emergency department On June 27 and was diagnosed with a occlusion of her right lower extremity with ischemic limb. She was transferred to [facility] where they perform surgery. She was admitted at [facility] for several days and was then discharged to a rehabilitation center for 9 days. She states that she has been home for about a week. She states that since yesterday she has been feeling lousy reporting very fatigued, sweats, nausea, vomiting,worsening pain in her right leg with increased redness in her right leg. She has also noticed a change in her wound VAC drainage. she denies any chest pain, shortness of breath, or abdominal pain. Denies any urinary symptoms. No other complaints or concerns at this time. MD complaint: Right leg pain, sweats, nausea, vomiting Onset (ago): day(s) Radiation: non-radiation Severity: moderate Pain Consistency: constant Relieving factors: none Exacerbating factors: none Associated symptoms: fever/chills and nausea/vomiting Treatments prior to arrival: none Related Data Home Medications Medication Instructions Recorded Confirmed ibuprofen 800 mg tablet 800 mg PO TID 12/31/21 12/31/21 multivitamin 1 tab PO DAILY 12/31/21 12/31/21 Previous Rx's Medication Instructions Recorded lisinopril 2.5 mg tablet 2.5 mg PO DAILY 90 days #90 tabs 12/11/22 metoprolol tartrate 100 mg tablet 100 mg PO BID #180 tabs 04/13/23 Allergies Allergy/AdvReac Type Severity Reaction Status Date / Time rivaroxaban [Xarelto] Allergy Unknown confusion Verified 07/17/23 13:54 Review of Systems Review of Systems: Yes all other systems are reviewed and are negative Constitutional: Constitutional: Reports as per HPI [facility] Past Medical History Medical History COVID-19 Hypertension Social History Social History Alcohol intake: current Alcohol intake frequency: holidays/special occasions only Patient Tobacco Use Status: Current everyday Tobacco user Cigarettes Per Day: 7 Smoked in Last 30 Days: No Use of substances other than those prescribed or required for medical reasons: No Advance Directives: No Advance Directives Information Provided: No Physical Exam ED Vital Signs: Vital Signs - 24 hr 07/17/23 13:50 07/17/23 15:14 07/17/23 15:23 Temperature 98.2 F 98.3 F Pulse Rate 110 H 116 H Respiratory Rate 18 16 16 Blood Pressure 131/57 L 128/70 Pulse Oximetry 91 L 95 Oxygen Delivery Method Room Air Room Air 07/17/23 17:39 Temperature Pulse Rate 109 H Respiratory Rate 16 Blood Pressure 130/69 Pulse Oximetry 94 Oxygen Delivery Method Room Air BMI result Body Mass Index 41.6 Const General: cooperative, comfortable and no acute distress Orientation/consciousness: patient oriented x3 Limitations: no limitations HENMT Head: Yes normal to inspection, Yes normocephalic and Yes atraumatic Ears: hearing grossly normal bilaterally General nose exam: Normal external nose present Face and sinus: Yes normal facial exam Mouth: Normal oral and palatal mucosa present, oropharynx normal and moist mucous membranes Throat: Yes posterior oropharynx normal Eyes General: appearance normal, both eyes and all related structures Eyelids: Yes eyelids normal Conjunctivae: conjunctivae normal Sclerae: sclerae normal Pupils: Equal, round and reactive pupils present EOM: EOMs intact bilaterally Neck Neck: Yes normal visual inspection, Yes full ROM and Yes no lymphadenopathy Lymphatic: no lymphadenopathy noted Chest Chest palpation & inspection: normal inspection of the chest Resp Effort & Inspection: normal respiratory effort and able to speak in complete sentences Auscultation: clear to auscultation bilaterally, no crackles, no rales, no rhonchi and no wheezes Cardio Other: Irregularly irregular GI Inspection: Yes normal to inspection Skin General skin exam: no rashes or lesions noted Trauma: no lacerations or abrasions Wounds: no wounds Neuro General: patient oriented x3 and moves all extremities Cranial nerves: Yes Equal, round and reactive pupils present Extrem Other: right lower extremity wound vacs noted to both medial and lateral aspect with surrounding erythema warmth. 1+ pitting edema noted. Good DP pulse. distal sensation circulation intact. General: Yes normal to inspection Right upper extremity: normal to inspection Left upper extremity: normal to inspection Right lower extremity: normal to inspection Left lower extremity: normal to inspection Course Reevaluation(s) Reevaluation #1: CT of the chest does not show pulmonary embolism, abdomen and pelvis unremarkable. Her leukocytosis is likely given into to cellulitis. Patient has been treated with IV Zosyn and vancomycin. Lactic acid within normal limits. Patient remains stable. I spoke to the hospitalist, Dr. Castaneda, who given patient has been seen and evaluated at [facility] with surgery, is unclear whether not the appropriate transfer care would be with their hospital or for her to be seen in our hospital to be treated for cellulitis with IV abx. I discussed this case with my attending physician and given sign out Dr. Dodge, who was aware of his case and will recheck to [facility] given circumstances. Time: 17:41 Time: 18:55 Reevaluation #3: I was seeing this patient with the physician emergency medicine physician assistant. The patient is a 68-year-old woman who on June 27 was found to have a new diagnosis of atrial fibrillation and was found to have an ischemic right leg presumably secondary to a thrombus from the atrial fibrillation. She was transferred to [facility] and ultimately had surgery on the right leg. She has 2 surgical wounds on her right lower leg on which she has 2 wound vacs. After discharge from [facility] she went to a rehab facility and about a week ago she was discharged from the rehab facility home. She lives alone. Over the last 2 days she has felt very weak and has also had a sense of fevers as well as nausea and vomiting. She does not think that she has held down any of her medications recently. She says she has not been on antibiotics at home as far she knows. She says the skin around the right lower leg is much better over the last couple of days compared to previous. The patient was tachycardic and looked unwell. We performed a CT pulmonary angiogram as well as a CT of the abdomen and pelvis. These were negative for any acute process which leaves the redness of the right lower leg as the most likely main problem. Presumably she has a cellulitis or wound infection associated with her recent surgery. The right foot itself is well perfused. Our hospitalist felt that given the patient's recent significant surgery at [facility] that the patient would be better served at that hospital. I contacted the [facility] transfer center and the patient has been accepted to the emergency room there and will be transferred by ambulance. Medications Administered Discontinued Medications Generic Name Dose Route Start Last Admin Trade Name Rocio PRN Reason Stop Dose Admin Fentanyl 50 mcg 07/17/23 14:28 07/17/23 15:14 Fentanyl Citrate/Pf 100 Mcg/2 Ml Vial IVPUSH 07/17/23 14:29 50 mcg ONCE ONE Administration Protocol Piperacillin Sod/Tazobactam 50 mls @ 100 mls/hr 07/17/23 15:16 07/17/23 16:01 Sod 3.375 gm/ Sodium Chloride IV 07/17/23 15:45 Infused ONCE ONE Infusion Vancomycin HCl 2,000 mg in 500 mls @ 250 mls/hr 07/17/23 15:16 07/17/23 17:37 Vancomycin/Ns IV 07/17/23 17:15 250 mls/hr ONCE ONE Administration Sodium Chloride 1,000 mls @ 999 mls/hr 07/17/23 15:19 07/17/23 17:37 Ns IV 07/17/23 16:19 Infused .Q1H1M ONE Infusion Medical Decision Making Medical Decision Making MDM Narrative: This is a 68-year-old female, with a history of new onset AFib on Eliquis and arterial occlusion recently had surgery at [facility] presenting to the emergency department with complaints of feeling lousy since yesterday. she endorses nausea, vomiting, sweats, and worsening right lower leg pain, redness, and swelling. On arrival, patient tachycardic in the 110s, oxygen saturation 91% on room air. Given recent diagnosis of atrial fibrillation, just started on Eliquis which she has not been taking due to vomiting, concerning for pulmonary embolism. I discussed case with my attending who agrees with workup. Also endorsing worsening right lower leg pain, with moderate erythema and edema noted surrounding wound vacs. Concerning for cellulitis. Given patient was transferred to [facility], will obtain records for further information. Patient is afebrile. Plan: labs, EKG, viral swabs, CT chest, CT abdomen Differential Diagnosis Differential Diagnoses: The differential diagnosis associated with the presentation includes cellulitis, abscess, PE, ACS, viral syndrome, pneumonia Admission/Observation Consideration of admission/observation: Escalation of care including admission/observation considered escalation of care including admission observation was considered given worsening leg pain, swelling, concerning for cellulitis. Consult Healthcare Provider Management of the patient was discussed with: Hospitalist Dr. Castaneda Lab Data MDM Lab Attestation statement: I reviewed the patient's lab results. Leukocytosis of 25k with left shift 07/17/23 14:19 07/17/23 14:19 Labs: Lab Results 07/17/23 07/17/23 07/17/23 Range/Units 14:19 14:21 14:38 WBC 25.6 H (4.8-10.8) X10*3/uL RBC 4.50 D (4.20-5.50) X10*6/uL Hgb 13.2 D (12.0-16.0) g/dl Hct 39.9 D (37.0-47.0) % MCV 88.7 (80.0-98.0) fL MCH 29.3 (27.0-33.0) pg MCHC 33.1 (31.0-35.0) g/dl RDW 14.8 (11.0-16.0) % Plt Count 252 D (160-400) X10*3/uL MPV 10.3 (9.4-12.3) fL Immature Gran % (Auto) 1.2 H (0.0-0.4) % Neut % (Auto) 92.3 H (45-73) % Lymph % (Auto) 2.8 L (20-40) % [place] % (Auto) 3.5 (2-11) % Eos % (Auto) 0.0 (0-4) % Baso % (Auto) 0.2 (0-2) % Lymph # (Auto) 0.7 L (1.2-4.9) X10*3/uL [place] # (Auto) 0.9 (0.1-1.2) X10*3/uL Eos # (Auto) 0.0 (0.0-0.4) X10*3/uL Baso # (Auto) 0.1 (0.0-0.2) X10*3/uL Abs Immat Gran (auto) 0.31 H (0.00-0.03) X10*3/uL Absolute Neuts (auto) 23.6 H (2.0-8.3) x10*3/uL Absolute Nucleated RBC 0.000 (0.0-0.012) X10*3/uL Nucleated RBC % (auto) 0.0 (0.0-0.2) /100WBC Smear Tech's Comments VERIFIED PT 17.3 H D (11.1-13.3) SEC INR 1.4 H (0.9-1.1) APTT 30.9 (26.0-36.4) SEC Sodium 136 (135-145) mmol/L Potassium 4.1 D (3.3-5.1) mmol/L Chloride 98 (96-108) mmol/L Carbon Dioxide 26 (22-29) mmol/L Anion Gap 16 (12-20) BUN 24 H (9-16) mg/dL Creatinine 0.76 (0.5-1.4) mg/dL Estim Creat Clear Calc 89.0 Estimated GFR > 60 Random Glucose 114 (60-115) mg/dL Lactic Acid 1.3 (0.5-2.0) mmol/L Calcium 9.5 (8.4-10.2) mg/dL Total Bilirubin 0.8 (0.0-1.0) mg/dL Direct Bilirubin 0.4 (0.0-0.5) mg/dL AST 70 H (5-31) U/L ALT 76 H (0-31) U/L Alkaline Phosphatase 218 H (39-117) U/L Troponin I High Sens 8.4 (<3.5-17.0) ng/L Total Protein 6.7 (6.5-8.0) g/dL Albumin 2.7 L (3.5-5.0) g/dL Lipase 5 L (8-78) U/L Influenza Type A (PCR) NEGATIVE (Negative) Influenza Type B (PCR) NEGATIVE (Negative) RSV RNA Qual (PCR) NEGATIVE (Negative) SARS-CoV-2 RNA (RT-PCR) NEGATIVE (Negative) Independent Interpretation I performed an independent interpretation of an: Rhythm Strip Interpretation: a fib with RVR ventricular rate 113, QTC 463. No st elevation or depression. Radiology Impression Discussion of test interpretation with radiology: I have reviewed the radiologist's reading. Radiologist Impression: EXAMINATION: CT ABDOMEN AND PELVIS WITH CONTRAST CLINICAL INFORMATION: Vomiting. COMPARISON: None available. TECHNIQUE: Multidetector volumetric images were obtained from the superior aspect of the liver through the pubic symphysis following administration 85 mL of Omnipaque 350 intravenous contrast. Sagittal and coronal reformatted images were obtained on the technologist's workstation. Oral contrast: No This CT examination was performed using dose optimization techniques as appropriate, variously including the following: *Automated exposure control *Adjustment of mA and/or kV according to patient size (this includes techniques or standardized protocols for targeted exams where dose is matched to indication/reason for exam; i.e. extremities or head) *Use of iterative reconstruction technique DLP: 717 mGy-cm FINDINGS: LUNG BASES: The visualized lung bases are unremarkable. LIVER, GALLBLADDER, AND BILIARY TREE: The liver is normal in size, shape, and attenuation. No focal hepatic lesion or biliary ductal dilatation is present. There has been a prior cholecystectomy. PANCREAS: Unremarkable. SPLEEN: Unremarkable. ADRENAL GLANDS: There is adrenal gland thickening and nodularity. KIDNEYS AND URETERS: The kidneys are normal in size, shape, and attenuation. No hydronephrosis, hydroureter, or calculi seen. No perinephric stranding. There is a 1.7 cm left mid pole renal calculus. There is a 7 mm calculus lower pole left kidney. There is a 1.8 cm cyst lower pole left kidney. BLADDER: Unremarkable. GASTROINTESTINAL TRACT: There are a few diverticula of the sigmoid colon without diverticulitis. The appendix is unremarkable. ABDOMINAL WALL: No significant hernia is appreciated. LYMPH NODES: Normal. VASCULAR: There is atherosclerotic plaque of the abdominal aorta and proximal branches. PELVIC VISCERA: Unremarkable. OSSEOUS STRUCTURES: There is moderate diffuse thoracolumbar disc degenerative change. CT/CT abdomen pelvis w IV con IMPRESSION: Left renal stones. Mild diverticulosis of the sigmoid colon. No evidence of diverticulitis. No acute intra-abdominal process. Fleischner guidelines were followed. Dictated By: Robb Sahni EXAMINATION: CT ANGIOGRAM OF THE CHEST WITH AND WITHOUT CONTRAST (CT PULMONARY ANGIOGRAM FOR PE) CLINICAL INFORMATION: Reason for Exam shortness of breath, hx of afib COMPARISON: Chest x-ray 04/04/2018 TECHNIQUE: Prior to contrast administration, noncontrast localization images were obtained. Subsequently, multidetector volumetric imaging was performed from the thoracic inlet to below the diaphragms following the administration of 80 mL Omnipaque 350 intravenous contrast. No contrast reaction reported Sagittal, coronal, and MIP oblique sagittal reformatted images were obtained on the CT workstation, uploaded to PACS, and reviewed. This CT examination was performed using dose optimization techniques as appropriate, variously including the following: *Automated exposure control *Adjustment of mA and/or kV according to patient size (this includes techniques or standardized protocols for targeted exams where dose is matched to indication/reason for exam; i.e. extremities or head) *Use of iterative reconstruction technique Total exam dose-length product 1177 mGy-cm FINDINGS: QUALITY OF STUDY/CONTRAST BOLUS: Satisfactory. PULMONARY ARTERIES: No pulmonary emboli. THORACIC AORTA: No aneurysm. LUNG: The lungs are expanded without any focal consolidation, nodules or masses. There is platelike atelectasis left lower lobe. PLEURA: No pleural effusion or pneumothorax. MEDIASTINUM: Thyroid lobes are symmetrical. Normal heart size. No pericardial effusion. No hilar or mediastinal lymphadenopathy. Central trachea and the bronchi widely patent. No evidence of septal bowing or right heart strain. CORONARY ARTERY CALCIFICATION: There is mild coronary artery calcification present CHEST WALL/AXILLA: No axillary or internal mammary lymphadenopathy. OSSEOUS STRUCTURES: There is mild ventral spondylosis throughout dorsal spine with degenerative disc changes virtually at every disc level. UPPER ABDOMEN: The gallbladder has been surgically removed. Visualized liver, pancreas and the spleen and bilateral adrenal glands unremarkable. No reflux of contrast into the hepatic veins to suggest elevated right heart pressures. CT/CT angio chest PE protocol IMPRESSION: No evidence of PE. No evidence of aortic aneurysm or dissection. Minimal platelike atelectasis left lung base. VTE: negative Dictated By: Sheldon Petersen MD Chronic Conditions Patient?s care impacted by: Other (a fib on eliquis) Critical Care Time Critical Care Time Critical Care Time: Yes Total Critical Care Time: 35 Attestation: The patient was critically ill with a high probability of imminent or life-threatening deterioration. I spent greater than 30 minutes of discontinuous time evaluating the patient, delivering critical care at the bedside, discussing evaluating data with consultants. Critical care time does not include time spent performing separately billable procedures or teaching. Time spent performing critical care with 35 minutes. Discharge Plan Discharge Clinical Impression: Cellulitis of leg, right Patient Disposition: [facility] Transfer Details: [facility] emergency room, Dr. Duke accepting Prescriptions: No Action lisinopril 2.5 mg tablet 2.5 mg PO DAILY 90 Days Qty: 90 3RF metoprolol tartrate 100 mg tablet 100 mg PO BID Qty: 180 3RF ibuprofen 800 mg tablet 800 mg PO TID multivitamin Tablet 1 tab PO DAILY
--- NOTE | 2023-07-17 14:27 | ECG_ITS ---
Test Reason : AFIBB Blood Pressure : / mmHG Vent. Rate : 113 BPM Atrial Rate : 000 BPM P-R Int : 000 ms QRS Dur : 098 ms QT Int : 338 ms P-R-T Axes : 000 032 013 degrees QTc Int : 463 ms Atrial fibrillation with rapid ventricular response Abnormal ECG When compared with ECG of 27-JUN-2023 09:26, No significant change was found Referred By: Tg Tesfaye Electronically Signed By:MARGARITA MONTELONGO
[2023-07-17 14:30] LABS: Basophils Absolute Auto 0.1 X10*3/uL (0.0-0.2); Basophils Percent Auto 0.2 % (0-2); Hematocrit 39.9 % (37.0-47.0); Hemoglobin 13.2 g/dl (12.0-16.0); Imm Gran Abs Auto 0.31 X10*3/uL (0.00-0.03); Imm Gran Pct Auto 1.2 % (0.0-0.4); Lymphocytes Absolute Auto 0.7 X10*3/uL (1.2-4.9); Lymphocytes Percent Auto 2.8 % (20-40); MANUAL DIFF FLAG SCAN; Mean Corpuscular HGB Conc 33.1 g/dl (31.0-35.0); Mean Corpuscular Hemoglobin 29.3 pg (27.0-33.0); Mean Corpuscular Volume 88.7 fL (80.0-98.0); Mean Platelet Volume 10.3 fL (9.4-12.3); Monocytes Absolute Auto 0.9 X10*3/uL (0.1-1.2); Monocytes Percent Auto 3.5 % (2-11); Neutrophils Absolute Auto 23.6 x10*3/uL (2.0-8.3); Platelet Count 252 X10*3/uL (160-400); Red Cell Distribution Width 14.8 % (11.0-16.0); SCAN SMEAR FLAG 1; White Blood Count 25.6 X10*3/uL (4.8-10.8)
[2023-07-17 14:39] LABS: INTERNATIONAL NORM RATIO 1.4 (0.9-1.1); Prothrombin Time 17.3 SEC (11.1-13.3)
[2023-07-17 14:41] LABS: Partial Thromboplastin Time 30.9 SEC (26.0-36.4)
[2023-07-17 14:45] LABS: Lactic Acid 1.3 mmol/L (0.5-2.0)
[2023-07-17 14:49] LABS: Neutrophils Percent Auto 92.3 % (45-73); SLIDE REVIEW VERIFIED
[2023-07-17 14:51] LABS: Anion Gap 16 (12-20)
[2023-07-17 14:52] LABS: Alanine Aminotransferase 76 U/L (0-31); Albumin Level 2.7 g/dL (3.5-5.0); Alkaline Phosphatase 218 U/L (39-117); Aspartate Amino Transferase 70 U/L (5-31); Bilirubin Direct 0.4 mg/dL (0.0-0.5); Bilirubin Total 0.8 mg/dL (0.0-1.0); Blood Urea Nitrogen 24 mg/dL (9-16); Calcium 9.5 mg/dL (8.4-10.2); Carbon Dioxide 26 mmol/L (22-29); Chloride 98 mmol/L (96-108); Estimated Glomerular Filt Rate > 60; Glucose Random 114 mg/dL (60-115); Lipase 5 U/L (8-78); Potassium 4.1 mmol/L (3.3-5.1); Sodium 136 mmol/L (135-145); Total Protein 6.7 g/dL (6.5-8.0)
[2023-07-17 15:14] VITALS: RESP 16
[2023-07-17] MEDS: fentaNYL citrate/PF 100 MCG/2 ML VIAL 50 MCG IVPUSH (15:14)
[2023-07-17 15:23] VITALS: BP 128/70; PULSE 116; RESP 16; TEMP 36.8; O2SAT 95
--- NOTE | 2023-07-17 15:24 | MHC.EDTECH ---
THIS PCT ASSUMED CARE OF PT AT 1500 ,VITALS TAKEN EKG DONE AND WAS READ BY PROVIDER ,PT WAS INCONIENT OF SMALL AMOUNT OF STOOL ,CARE GIVEN AND BED PAD CHANGE ,CALL [facility] WITHIN PT REACH .
[2023-07-17 15:32] LABS: Influenza A PCR NEGATIVE (Negative); Influenza B PCR NEGATIVE (Negative); Resp Syncy Virus RNA Qual PCR NEGATIVE (Negative); SARS COV2 PCR INHOUSE NEGATIVE (Negative)
[2023-07-17] MEDS: Piperacillin Sodium/Tazobactam 3.375 GM in 0.9 % Sodium Chloride 50 ML IV (15:35)
[2023-07-17 15:36] LABS: Troponin-I High Sensitivity 8.4 ng/L (<3.5-17.0)
[2023-07-17] MEDS: 0.9 % Sodium Chloride 1,000 ML 999 ML IV ×2 (15:38→20:03)
[2023-07-17] MEDS: vancomycin/NS 2,000 MG/500 ML PLAST..BAG 250 MG IV (17:37)
[2023-07-17 17:39] VITALS: BP 130/69; PULSE 109; RESP 16; O2SAT 94
[2023-07-17 18:58] VITALS: BP 141/69; PULSE 106; RESP 17; TEMP 37.1; O2SAT 93
--- NOTE | 2023-07-17 19:03 | PC.NURSE ---
report called to [facility] JASMYNE Reardon pt to be transferred via [facility]
--- NOTE | 2023-07-17 21:10 | PC.NURSE ---
pt transferred to [facility] ED via joan [facility]
== END 2023-07-17 21:13 | disposition short-term general hospital (02) ==
PROVIDERS: Physician Assistant Medical; Emergency Provider Emergency Medicine; PCP Internal Medicine
DX: L03.115 Cellulitis of right lower limb (principal); I70.221 Atherosclerosis of native arteries of extremities with rest pain, right leg; I10 Essential (primary) hypertension; I48.91 Unspecified atrial fibrillation; Z79.01 Long term (current) use of anticoagulants; Z20.822 Contact with and (suspected) exposure to COVID-19; Z20.828 Contact with and (suspected) exposure to other viral communicable diseases
CPT/HCPCS: 0241U; 36415; 71275; 74177; 80048; 80076; 83605; 83690; 84484; 85025; 85610; 85730; 87040; 93005; 96361; 96365; 96375; 99285; J2543; J3010; J3370

== ENCOUNTER → 2023-07-17 14:27 | Outpatient (BNV) | payer MEDICARE, SELFPAY | PROVIDERS: Emergency Provider Emergency Medicine; PCP Internal Medicine; Visit Provider Internal Medicine | DX: I48.91 Unspecified atrial fibrillation (principal) | CPT/HCPCS: 93010 ==

== ENCOUNTER 2023-08-16 11:45 | Outpatient (AMB) | payer OTHER, SELFPAY ==
[2023-08-16 11:54] VITALS: BP 118/72; PULSE 71; O2SAT 94
--- NOTE | 2023-08-16 11:54 | MHC.PC.OV ---
Vital Signs 08/16/23 11:54 Height 5 ft 5 in BMI Reason not done Patient refused/unable BP 118/72 Blood Pressure Location Lt brachial Position Sitting Pulse 71 Pulse Source Pulse Oximeter Pulse Oximetry (%) 94 Oxygen Delivery Method Room Air Intake Visit Reasons: [facility]-ischemia Commercial Print Salesman Required: No Senior Design Engineering Specialist: Not Required per policy Accompanied by: Self / Same As Patient Allergies rivaroxaban [Xarelto] Allergy (Unknown, Verified 08/16/23 11:55) confusion Medication List - Last Reconciled 08/16/23 by LUIZA Barrera ibuprofen 800 mg PO TID lisinopril 2.5 mg PO DAILY 90 days metoprolol tartrate 100 mg PO BID multivitamin 1 tab PO DAILY Tobacco use date assessed: 08/16/23 Fall risk assessment: No Falls in past year Last assessed Fall Risk: 08/16/23 Dental Screening Dental Screen Date: 08/16/23 Did you have a dental visit in the last 12 months?: Yes Did you have a dental problem in the last 6 months where you did not have access to dental care?: No Was dental information given to patient?: Patient has dentist HPI HPI Comments History of Present Illness Details 60-year-old female with history of hypertension who is a current 7 cigarette per day smoker presented to the office today for hospital discharge follow-up. 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 She was also found to be in new onset atrial fibrillation. ED provider did discuss case with vascular surgery recommending transfer to tertiary facility for revascularization and she was started on heparin drip. Ultimately, she was transferred to [facility] and was admitted to the vascular surgery team (Dr. March/Annalise from 06/27-07/04. She was urgently transferred to the OR for open thrombectomy and was transferred to the medical floor without incident postoperatively. Throughout admission, she remained hemodynamically stable. She was started on aspirin and statin and was also started on Eliquis. CK was noted to be greater than 40,000 and was placed on IV fluids with down trend and total CK. Renal function remained stable. There was slight drop in hemoglobin from 16.5-12.1, appropriate per surgery and remained stable. She was able to ambulate without much difficulty. She was discharged to rehab facility with wound vac and was ultimately discharged home after 9 days. However, on 07/17 returned to the ED reporting feeling generally unwell, fatgiued, sweats, n/v, worsening RLE pain and increased redness in the RLE. She was septic with leukocytosis 25.6, tachycardic. No lactic acidosis or end organ damage. She was started on zosyn and vanco empirically. Hospitalist recommended transfer to for further management of severe cellulitis given recent surgery. She was admitted to vascular surgery service from 07/17-08/04 at and continued on empiric vancomycin and Zosyn. She was started on heparin GTT, heparin held and was taken back to the OR for right lower extremity fasciotomy site washout. Postoperatively was transferred back to medical floors without incident and antibiotics changed to vancomycin only. Blood cultures growing Gram-positive cocci in clusters but sterile after 24 hours. Urinalysis was positive for UTI and given 1 dose of Rocephin and vancomycin was ultimately downgraded to Ancef. Cardiology was consulted due to shortness of breath with elevated BNP and she was started on furosemide 40 mg daily and then converted to 40 mg oral. Recommended metoprolol 100 mg twice daily for atrial fibrillation and eventual transition back to Eliquis 5 mg twice daily for anticoagulation. Wound VAC was eventually removed and wet-to-dry dressings were placed and she did return to the OR for additional washout without complication with wound VAC replacement and ultimately returned to the OR with plastic surgery assist who recommended outpatient skin grafting. Throughout admission, remained hemodynamically stable. She was discharged on Augmentin 875 mg twice daily x7 days and recommended to follow-up with cardiology outpatient. She was also discharged on aspirin and Eliquis 5 mg twice daily. She was discharged to [facility] re[facility] but left after one week due to insurance issues and now has [facility] at home for PT and nursing with wound care every 48 hours. She is ambulating but uses wheelchair for transfers only. States her neighbor is also providing assistance at home. She denies any recurrence of fevers, chills, weakness, malaise, erythema, purulent drainage. She is able to wiggle her toes. She states that overall pain is controlled except for occasional severe shooting pains that have been occurring at night which has been requiring Dilaudid which we had been prescribed to be used only prior to dressing changes. She is requesting a short course to cover for additional breakthrough pain. She continues with Hameed catheter at the recommendation of her surgeon until swelling in the right lower extremity improves. She does continue smoking 2 cigarettes per day but has cut back from 7 cigarettes per day. No longer consumes any alcohol but does have history of alcohol use. She states she has not been taking eliquis as prescribed due to insurance issues. [facility] Medical History (Updated 08/29/23 @ 18:40 by LUIZA Barrera) New onset atrial fibrillation Cellulitis of leg, right Peripheral artery disease COVID-19 Hypertension Surgical History (Updated 08/29/23 @ 18:35 by LUIZA Barrera) History of embolectomy Social History Alcohol intake: current Alcohol intake frequency: holidays/special occasions only Patient Tobacco Use Status: Current everyday Tobacco user Cigarettes Per Day: 7 Cognitive needs: No Hearing needs: No Vision needs: No Questionnaire PHQ-9 Over the last 2 weeks, how often have you been bothered by any of the following problems? 1. Little interest or pleasure in doing things: not at all 2. Feeling down, depressed, or hopeless: not at all 3. Trouble falling or staying asleep, or sleeping too much: not at all 4. Feeling tired or having little energy: not at all 5. Poor appetite or overeating: not at all 6. Feeling bad about yourself - or that you are a failure or have let yourself or your family down: not at all 7. Trouble concentrating on things, such as reading the newspaper or watching television: not at all 8. Moving or speaking so slowly that other people could have noticed. Or the opposite - being so fidgety or restless that you have been moving around a lot more than usual: not at all 9. Thoughts that you would be better off or of hurting yourself in some way: not at all Total score: 0 Depression Screening Interpretation: Negative Depression Screening Done: Yes Source: Developed by Drs. Robb Mendoza, Ofelia Aguiar, Gautam Calderón and colleagues, with an educational lasha from [employer]. Thrive Questionnaire Date Thrive assessed: 08/16/23 I am a: Patient What is your living situation today?: I have a steady place to live Within the past 12 months, did the food you bought not last and you didn't have the money to get more?: Never true Within the past 12 months, did you worry whether your food would run out before you got money to buy more?: Never true Do you have trouble paying for medicines?: No Do you have trouble getting transportation to medical appointments?: No Do you have trouble paying your heating and electricity bill?: No Do you have trouble taking care of your child, family member or friend?: No Do you have trouble with day-to-day activities such as bathing, preparing meals, shopping, managing finances, etc.?: No Are you currently unemployed and looking for a job?: No Are you interested in more education?: No Please select the resources that you would like help with: None THRIVE Score: 0 AUDIT C Alcohol Use Questionnaire (AUDIT-C) 1. How often do you have a drink containing alcohol?: Monthly or less 2. How many drinks containing alcohol do you have on a typical day when you are drinking?: 1 or 2 3. How often do you have six or more drinks on one occasion?: Never Total Score: 1 Score Reviewed/Action Taken: Yes MIS-7 AMB Questionnaire MIS-7 Date MIS - 7 assessed: 08/16/23 Feeling nervous, anxious, or on edge: 0 = Not at all Not being able to stop or control worryin = Not at all Worrying too much about different things: 0 = Not at all Trouble relaxin = Not at all Being so restless that it is hard to sit still: 0 = Not at all Becoming easily annoyed or irritable: 0 = Not at all Feeling afraid as if something awful might happen: 0 = Not at all Total MIS-7 score (0-4 normal; 5-9 mild; 10-14 moderate; 15-21 severe): 0 Source: Developed by Drs. Robb Mendoza, Ofelia Aguiar, Gautam Calderón and colleagues, with an educational lasha from [employer]. Review of Systems Const All systems reviewed & are unremarkable except as noted in HPI and below Physical exam (Primary Care) Vital Signs: Last Vital Signs Pulse 71 08/16/23 11:54 BP 118/72 08/16/23 11:54 Pulse Ox 94 08/16/23 11:54 Oxygen Delivery Method Room Air 08/16/23 11:54 Tobacco/Smoking Status: Tobacco use Status Tobacco use date assessed 08/16/23 08/16/23 11:56 Patient Tobacco Use Status Current everyday Tobacco 08/16/23 11:56 PHQ-9: PHQ-9 Score PHQ-9: Total score 0 08/16/23 12:43 Depression Screening Interpretation: Negative Thrive Assessment: Date of Thrive Assessment Date Thrive assessed 08/16/23 08/16/23 11:58 Const Other: Constitutional - Awake and Alert, No apparent distress Eyes - PERRLA, EOMI Cardiovascular - S1S2, RRR Respiratory - Normal lung expansion, Normal respiratory effort, No respiratory distress, CTA bilaterally Extremities - RLE with dressing in place connected to wound vac. Sensation in tact distal in feet, able to wiggle toes. No erythema noted. Foot is warm 1+ pedal pulse difficult to palpate due to edema Skin - Warm/Dry Neurological - Alert & oriented x3 Psychological - Appropriate affect Results Reviewed Results Reviewed: ED report x 2, H&P x 2 (), cardiology consult, discharge summary x2 (), CTA abd w/ runoff Assessment and Plan Assessment & Plan (1) Peripheral artery disease: Comment: s/p open thrombectomy 07/17 due to occlusion of right SFA/PFA without distal recon ( Dr. Woody) Code(s): I73.9 - Peripheral vascular disease, unspecified Plan: s/p open thrombectomy and multiple fasciectomy washouts at [facility]. Complicated by post-operative cellulitis whc has effectively been treated following IV vanco --> ancef and completed outpt course of augmentin 875mg BID x7 days. Wound vac remains in place. Dressings were not removed in office as had just been changed by [facility] RN. However, photos from dressing change on pt phone reviewed and appears clean with good granulation tissue and no purulent drainage. She will continue with dressing changes q48h through [facility]. refill given for dilaudid to take 30 minutes prior to dressing change as recommended by vascular surgery. Overall pain is well controlled but having very occassional shooting pains at bedtime. She is given additional 4 tabs dilaudid to use only if needed for severe breakthrough pain at bed time. MassPat reviewed and is appropriate. Continue gabapenting 300mg TID. Follow up with vascular surgery as scheduled. Follow up with plastic surgery as advised for skin graft outpt. Continue asa. She should also be on eliquis per vascular surgery but had insurance issues. Prescription for eliquis 5mg BID sent to pharmacy and call placed to pharmacy use states that patient will need to pay about 500 dollars this month for prescription but will then have met deductible so medication will be covered next month and moving forward. (2) Cellulitis of leg, right: Code(s): L03.115 - Cellulitis of right lower limb Plan: Resolved. As above. (3) Cigarette smoker: Code(s): F17.210 - Nicotine dependence, cigarettes, uncomplicated Plan: Congratulated on progress with cessation though is advised that she must quit cigarettes entirely as this has very likely contributed to her peripheral artery disease. She declines NRT. (4) Hypertension: Code(s): I10 - Essential (primary) hypertension Plan: Controlled. Continue lisinopril 2.5 mg and metoprolol 100 mg b.i.d.. Low-sodium diet. (5) Hameed catheter in place: Code(s): Z97.8 - Presence of other specified devices Plan: For vascular surgery, continue with Hameed catheter until swelling and right lower extremity resolved. Denies any urinary symptoms. Urine is clear without foul odor. (6) New onset atrial fibrillation: Code(s): I48.91 - Unspecified atrial fibrillation Plan: Initial dx 06/27 at [facility] ED. Pt should be taking eliquis 5mg BID for anticoagulation but states has had insurance issues. Prescription for eliquis 5mg BID sent to pharmacy and call placed to pharmacy use states that patient will need to pay about 500 dollars this month for prescription but will then have met deductible so medication will be covered next month and moving forward. Continue metoprolol 100mg BID for rate control. BP and HR stable in office today. Regular rhythm on exam. Unfortunately, echocardiogram results from [facility] are not available for review but will review requested. She is referred to Cardiology. Medications: New gabapentin Take 1 cap @700, take 1 cap @3pm, take 2 caps @2100 300 mg PO TID 120 caps 0RF hydromorphone Take 1 tab as needed for severe breakthrough pain and 30 minutes prior to dressing changes 2 mg PO DAILY PRN 14 tabs 0RF pain apixaban (Eliquis) 5 mg PO BID 60 tabs 0RF ascorbic acid (vitamin C) 250 mg PO DAILY 90 tabs 0RF Coding Level of Care Code Tele Est Pt Level 5 (25243) Diagnoses Peripheral artery disease I73.9 Cellulitis of leg, right L03.115 Cigarette smoker F17.210 Hypertension I10 Hame[address] catheter in place Z97.8 New onset atrial fibrillation I48.91 Additional Codes PHQ-9 - 83602 - PHQ-9 Billing: ([id number]) Time Spent (min) 60 Comment multiple complex admissions- time spent reviewing as above, exam, document, call w/ pharma
== END 2023-08-16 12:59 | disposition home or self-care (01) ==
PROVIDERS: PCP Internal Medicine; Visit Provider Physician Assistant
DX: I73.9 Peripheral vascular disease, unspecified (principal); L03.115 Cellulitis of right lower limb; I48.91 Unspecified atrial fibrillation; I10 Essential (primary) hypertension; Z97.8 Presence of other specified devices
CPT/HCPCS: 99215

== ENCOUNTER 2023-08-31 03:53 | Inpatient (IN) | payer MEDICARE, SELFPAY ==
[2023-08-31] VITALS (7 sets, daily range): BP systolic 116–139; BP diastolic 48–92; PULSE 84–107; RESP 14–18; TEMP 36.3–36.9; O2SAT 92–96; BMI 37.4
[2023-08-31 04:20] LABS: MANUAL DIFF FLAG NO
[2023-08-31 04:21] LABS: Basophils Absolute Auto 0.1 X10*3/uL (0.0-0.2); Basophils Percent Auto 0.8 % (0-2); Eosinophils Absolute Auto 0.2 X10*3/uL (0.0-0.4); Eosinophils Percent Auto 2.4 % (0-4); Hematocrit 39.1 % (37.0-47.0); Hemoglobin 12.3 g/dl (12.0-16.0); Imm Gran Abs Auto 0.01 X10*3/uL (0.00-0.03); Imm Gran Pct Auto 0.1 % (0.0-0.4); Lymphocytes Absolute Auto 2.7 X10*3/uL (1.2-4.9); Lymphocytes Percent Auto 29.3 % (20-40); Mean Corpuscular HGB Conc 31.5 g/dl (31.0-35.0); Mean Corpuscular Hemoglobin 27.8 pg (27.0-33.0); Mean Corpuscular Volume 88.5 fL (80.0-98.0); Mean Platelet Volume 8.9 fL (9.4-12.3); Monocytes Absolute Auto 0.7 X10*3/uL (0.1-1.2); Monocytes Percent Auto 7.7 % (2-11); Neutrophils Absolute Auto 5.4 x10*3/uL (2.0-8.3); Neutrophils Percent Auto 59.7 % (45-73); Platelet Count 262 X10*3/uL (160-400); Red Blood Count 4.42 X10*6/uL (4.20-5.50); Red Cell Distribution Width 14.6 % (11.0-16.0); White Blood Count 9.1 X10*3/uL (4.8-10.8)
[2023-08-31 04:37] LABS: Alanine Aminotransferase 7 U/L (0-31); Albumin Level 2.8 g/dL (3.5-5.0); Alkaline Phosphatase 92 U/L (39-117); Anion Gap 14 (12-20); Aspartate Amino Transferase 17 U/L (5-31); Bilirubin Total 0.3 mg/dL (0.0-1.0); Blood Urea Nitrogen 17 mg/dL (9-16); Calcium 8.7 mg/dL (8.4-10.2); Carbon Dioxide 25 mmol/L (22-29); Chloride 106 mmol/L (96-108); Creatinine Clr Calc Pharmacy 93.8; Estimated Glomerular Filt Rate > 60; Glucose Random 130 mg/dL (60-115); Potassium 3.5 mmol/L (3.3-5.1); Sodium 141 mmol/L (135-145); Total Protein 6.8 g/dL (6.5-8.0)
--- NOTE | 2023-08-31 04:42 | PC.NURSE ---
Pt ca&ox4, no signs of distress. Pt reports 04/02 rt lower leg pain that has progressively gotten worse since wound vac placed. Pt reports wound vac placed on leg for a clot on 06/27/24. Pt reports she had dressing changed by visiting nurse yesterday and the day before. Pt reports a follow up appt with wound today @ 2pm but states could not wait until then to be seen d/t the pain. Pts family @ bedside. Plan of care ongoing.
--- NOTE | 2023-08-31 06:46 | ED_ITS ---
HPI - General Adult General Chief complaint: Extremity Injury, Lower Stated complaint: extremity pain/inj? 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 Patient states that in June she was found to have an arterial clot in her right lower leg, got transferred to [facility] where it was fixed, and now follows with them for this right lower leg. Patient states that she gets her wound vac on her right lower leg wounds changed every 2 days. Patient states that over the last 2 days she has had significantly more pain in the right lower leg. Patient states that she has not been on any antibiotics since the middle of July. Patient denies any dizziness, lightheadedness, abdominal pain, nausea, vomiting, fever, chills, blurry vision, double vision, loss of vision, chest pain, difficulty breathing, shortness of breath, back pain, night sweats, pain with urination, increased urinary frequency, increased urinary urgency, blood in her urine or stool, syncope or a near syncopal episode, recent trauma or falls, bowel incontinence, bladder incontinence, bowel retention, bladder retention, or any other complaints at this time. Onset (ago): day(s) (2) Location: right and lower extremity Severity: moderate Severity scale (1-10): 4 Quality: aching Pain Consistency: constant Relieving factors: none Exacerbating factors: none Associated symptoms: denies other symptoms Related Data Home Medications Medication Instructions Recorded Confirmed multivitamin 1 tab PO DAILY 12/31/21 08/16/23 apixaban 5 mg tablet (Eliquis) 5 mg PO DAILY 08/31/23 ascorbic acid (vitamin C) 500 mg 500 mg PO DAILY 08/31/23 tablet aspirin 81 mg tablet,delayed 81 mg PO DAILY 08/31/23 release atorvastatin 40 mg tablet 40 mg PO DAILY 08/31/23 furosemide 40 mg tablet 40 mg PO DAILY 08/31/23 lisinopril 5 mg tablet 5 mg PO DAILY 08/31/23 Previous Rx's Medication Instructions Recorded metoprolol tartrate 100 mg tablet 100 mg PO BID #180 tabs 04/13/23 gabapentin 300 mg capsule 300 mg PO TID #120 caps 08/16/23 Allergies Allergy/AdvReac Type Severity Reaction Status Date / Time rivaroxaban [Xarelto] Allergy Unknown confusion Verified 08/31/23 04:03 Review of Systems 2 Constitutional: Constitutional: Reports no additional constitutional complaints, Denies chills, Denies fever(s) and Denies night sweats Eyes: Eyes: Reports no additional eye complaints, Denies blurry vision, Denies change in vision, Denies diplopia, Denies eye discharge, Denies loss of vision and Denies eye pain ENT: Denies dizziness Cardiovascular: Cardiovascular: Reports no additional cardiovascular complaints, Denies chest pain, Denies lightheadedness, Denies Loss of Consciousness and Denies dyspnea Respiratory: Respiratory: Reports no additional respiratory complaints and Denies dyspnea Gastrointestinal: Gastrointestinal: Reports no additional gastrointestinal complaints, Denies abdominal pain, Denies melena, Denies hematochezia, Denies change in bowel habits and Denies change in stool character Genitourinary: Genitourinary: Denies hematuria, Denies urinary frequency, Denies dysuria, Denies urinary incontinence, Denies urinary hesitancy and Denies urinary urgency Musculoskeletal: Musculoskeletal: Reports no additional musculoskeletal complaints, Denies numbness and Denies tingling Comments: right lower leg pain Neurologic: Denies dizziness, Denies loss of vision, Denies numbness and Denies tingling Psychiatric: Psychiatric: Reports no additional psychiatric complaints Endocrine: Endocrine: Reports no additional endocrine complaints Hematologic/Lymphatic: Hematologic/Lymphatic: Reports no additional hematologic/lymphatic complaints Allergic/Immunologic: Allergic/Immunologic: Reports no additional allergic/immunologic complaints [facility] Past Medical History Attestation statement: The following information was validated with the patient. (patient's son provided additional history and confirmed the history provided by the patient. ) Source: old records reviewed, obtained from family (patient's son provided additional history and confirmed the history provided by the patient. ) and nursing notes reviewed Medical History New onset atrial fibrillation Cellulitis of leg, right Peripheral artery disease COVID-19 Hypertension Surgical History History of embolectomy Social History Social History Alcohol intake: current Alcohol intake frequency: holidays/special occasions only Patient Tobacco Use Status: Current everyday Tobacco user Cigarettes Per Day: 7 Smoked in Last 30 Days: Yes Use of substances other than those prescribed or required for medical reasons: No Advance Directives: No Advance Directives Information Provided: Yes Cognitive needs: No Hearing needs: No Vision needs: No Physical Exam ED Vital Signs: Vital Signs - 24 hr 08/31/23 03:55 08/31/23 06:11 08/31/23 08:05 Temperature 97.9 F 98.0 F 98.1 F Pulse Rate 107 H 91 94 Respiratory Rate 14 16 18 Blood Pressure 126/68 132/61 133/56 L Pulse Oximetry 93 95 93 Oxygen Delivery Method Room Air Room Air Room Air BMI result Body Mass Index 37.4 Const General: cooperative, no acute distress, alert and awake Nutritional Appearance: well nourished Orientation/consciousness: patient oriented x3 Limitations: no limitations HENMT Head: Yes normal to inspection and Yes atraumatic Ears: hearing grossly normal bilaterally and external ears normal General nose exam: Normal external nose present, no nasal discharge noted and no epistaxis Face and sinus: Yes normal facial exam, No abrasion and No laceration Mouth: Normal oral and palatal mucosa present, no drooling and no muffled voice Eyes General: appearance normal, both eyes and all related structures Periorbital: periorbital findings normal Eyelids: Yes eyelids normal Conjunctivae: conjunctivae normal Pupils: Equal, round and reactive pupils present EOM: EOMs intact bilaterally Neck Neck: Yes normal visual inspection, Yes full ROM and Yes no lymphadenopathy Chest Chest palpation & inspection: normal inspection of the chest Resp Effort & Inspection: normal respiratory effort and able to speak in complete sentences GI Inspection: Yes normal to inspection Neuro General: patient oriented x3 and moves all extremities Cranial nerves: Yes Equal, round and reactive pupils present Cognition (Neuro): normal cognition Motor exam (neuro): 5/5 motor strength present throughout Sensory Exam: Normal double simultaneous stimulation for sensation Coordination: [id number] test normal Extrem Other: General: Yes full ROM and Yes capillary refill normal Psych Appearance: grossly normal Mental Status: mental status grossly normal Affect: normal affect Attitude: cooperative Thought process: Normal thought process present Thought content: Normal thought content present Insight: Good insight present (Psych) Medications Administered Discontinued Medications Generic Name Dose Route Start Last Admin Trade Name Rocio PRN Reason Stop Dose Admin Piperacillin Sod/Tazobactam 50 mls @ 100 mls/hr 08/31/23 07:19 08/31/23 08:07 Sod 3.375 gm/ Sodium Chloride IV 08/31/23 07:48 100 mls/hr ONCE ONE Administration Sodium Chloride 1,000 mls @ 999 mls/hr 08/31/23 07:30 08/31/23 08:07 Ns IV 08/31/23 08:30 999 mls/hr .Q1H1M SAYRA Administration Morphine Sulfate 4 mg 08/31/23 07:19 08/31/23 08:07 Morphine Sulfate 4 Mg/Ml Cartridge IVPUSH 08/31/23 07:20 4 mg ONCE ONE Administration Protocol Ondansetron HCl 4 mg 08/31/23 07:19 08/31/23 08:07 Ondansetron Hcl 4 Mg/2 Ml Vial IVPUSH 08/31/23 07:20 4 mg ONCE ONE Administration Medical Decision Making Medical Decision Making MDM Narrative: Patient is a 68 year old assigned female at with a 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 Patient's physical exam was as noted in the physical exam portion of this note. Patient's blood work showed an elevated ESR of 56, elevated CRP 6.29, but was otherwise unremarkable. I called and spoke to the covering [facility] vascular surgeon who recommended medical admission at our facility with IV antibiotics. They stated they'd be happy to answer any further questions and if there was concern this case became surgical, to call them back immediately at [phone]. The patient follows with Dr. Woody however, that is not who is covering call today. I spoke to our hospitalist team who agreed to admission. Patient's clinical presentation is most consistent with surgical site cellulitis. Patient's clinical presentation is not consistent with sepsis (@0815). I explained my physical exam findings as well as all test results to the patient and the patient's son. I answered all questions asked by the patient and the patient's son. Patient and the patient's son verbalized agreement and understanding with this treatment plan and admission. Differential Diagnosis Differential Diagnoses: The differential diagnosis associated with the presentation includes Surgical site cellulitis Post surgical inervention Cellulitis Admission/Observation Consideration of admission/observation: Escalation of care including admission/observation considered Patient admitted. Consult Healthcare Provider Management of the patient was discussed with: Hospitalist (Agreed to admission.) and Budder (Spoke to the [facility] vascular surgeon as noted in the [facility] Rationale portion of this note.) Lab Data [facility] Lab Attestation statement: I reviewed the patient's lab results. Patient would have been admitted to the hospital had her work up had any findings where hospital admission was appropriate and her clinical presentation warranted hospital admission. 08/31/23 04:14 08/31/23 04:14 Labs: Lab Results 08/31/23 08/31/23 Range/Units 04:14 07:54 WBC 9.1 (4.8-10.8) X10*3/uL RBC 4.42 (4.20-5.50) X10*6/uL Hgb 12.3 (12.0-16.0) g/dl Hct 39.1 (37.0-47.0) % MCV 88.5 (80.0-98.0) fL MCH 27.8 (27.0-33.0) pg MCHC 31.5 (31.0-35.0) g/dl RDW 14.6 (11.0-16.0) % Plt Count 262 (160-400) X10*3/uL MPV 8.9 L (9.4-12.3) fL Immature Gran % (Auto) 0.1 (0.0-0.4) % Neut % (Auto) 59.7 (45-73) % Lymph % (Auto) 29.3 (20-40) % Meagher % (Auto) 7.7 (2-11) % Eos % (Auto) 2.4 (0-4) % Baso % (Auto) 0.8 (0-2) % Lymph # (Auto) 2.7 (1.2-4.9) X10*3/uL Meagher # (Auto) 0.7 (0.1-1.2) X10*3/uL Eos # (Auto) 0.2 (0.0-0.4) X10*3/uL Baso # (Auto) 0.1 (0.0-0.2) X10*3/uL Abs Immat Gran (auto) 0.01 (0.00-0.03) X10*3/uL Absolute Neuts (auto) 5.4 (2.0-8.3) x10*3/uL Absolute Nucleated RBC 0.000 (0.0-0.012) X10*3/uL Nucleated RBC % (auto) 0.0 (0.0-0.2) /100WBC ESR 56 H (0-20) MM/HR Sodium 141 (135-145) mmol/L Potassium 3.5 (3.3-5.1) mmol/L Chloride 106 (96-108) mmol/L Carbon Dioxide 25 (22-29) mmol/L Anion Gap 14 (12-20) BUN 17 H (9-16) mg/dL Creatinine 0.68 (0.5-1.4) mg/dL Estim Creat Clear Calc 93.8 Estimated GFR > 60 Random Glucose 130 H (60-115) mg/dL Lactic Acid 0.9 (0.5-2.0) mmol/L Calcium 8.7 D (8.4-10.2) mg/dL Total Bilirubin 0.3 (0.0-1.0) mg/dL AST 17 (5-31) U/L ALT 7 (0-31) U/L Alkaline Phosphatase 92 (39-117) U/L C-Reactive Protein 6.29 H (< or = 0.50) mg/dL Total Protein 6.8 (6.5-8.0) g/dL Albumin 2.8 L (3.5-5.0) g/dL Independent Historian Clinical information obtained from an independent historian. History obtained from or confirmed by: Other (patient's son provided additional history and confirmed the history provided by the patient. ) Chronic Conditions Patient?s care impacted by: Hypertension Critical Care Time Critical Care Time Critical Care Time: Yes Total Critical Care Time: 45 Attestation: I spent 45 minutes of Critical Care Time with this patient. This does not include time spent on separately reported billable procedures. Discharge Plan Discharge Clinical Impression: Cellulitis Patient Disposition: Admitted As Inpatient
[2023-08-31] MEDS: 0.9 % Sodium Chloride 1,000 ML 999 ML IV (08:07)
[2023-08-31] MEDS: Morphine Sulfate 4 MG/ML CARTRIDGE IVPUSH ×2 (08:07→12:27)
[2023-08-31] MEDS: ondansetron HCL 4 MG/2 ML VIAL IVPUSH (08:07)
[2023-08-31] MEDS: Piperacillin Sodium/Tazobactam 3.375 GM in 0.9 % Sodium Chloride 50 ML IV ×3 (08:07→21:17)
[2023-08-31 08:15] LABS: Lactic Acid 0.9 mmol/L (0.5-2.0)
[2023-08-31 08:17] LABS: C Reactive Protein 6.29 mg/dL (< or = 0.50)
--- NOTE | 2023-08-31 08:26 | PC.NURSE ---
IV established, labs drawn and sent. fluids/antibiotics infusing. patient continues to endorse pain in right lower leg. vss. patient provided with serena walters, call bishop remains in place
[2023-08-31 08:46] LABS: Erythrocyte Sedimentation Rate 56 MM/HR (0-20)
--- NOTE | 2023-08-31 09:36 | PHA.MEDREC ---
Pharmacy Consult ? Medication Reconciliation Pharmacy has completed the medication reconciliation.Patient confirmed medications. Patient able to list most medications on her own but also used list sent from [facility] [employer]. Patient also reports that she only takes 1 5mg tablet of Eliquis instead of prescribed BID order due to cost. Also reports to taking an extra tablet of Gabapentin 300mg at night for a total of 1200mg daily.
--- NOTE | 2023-08-31 11:16 | PM.IMHP ---
History of Present Illness Date of Service: 08/31/23 Attending physician on admission: Stas Castaneda Chief Complaint: Right lower leg redness Pt is a 68-year-old female with a PMH significant for?PAD, HTN, persistent AFib on Eliquis, and recent ischemic limb who presents to the ED for evaluation of possible right lower leg cellulitis. Patient has a long and complicated recent history of right lower leg injury. Patient was seen in our ED on 06/27/23 and diagnosed with occlusion of her right lower extremity with ischemic limb. Patient was then transferred to [facility] where she had a fasciotomy and revascularization. Patient was then discharged with wound VAC to rehab for 1-2 weeks and then sent home. Patient then re-presented to our ED on 07/17 for cellulitis around wound vacs and was transferred again to [facility] where stayed until 08/04 and treated with IV abx. Patient was again discharged to [facility] but sent home after only 5 days due to insurance problems. Patient presents today at the suggestion of her visiting nurse who thought her leg looked infected. Patient states she has had increased swelling in her right leg for the past few days. Endorses chills, but no fever. Reports right leg is painful, but no more than normal. Denies nausea, vomiting, abdominal pain. No chest pain/pressure, palpitations. No shortness of breath. ED clinicians today called and spoke to the covering [facility] vascular surgeon who recommended medical admission at our facility with IV antibiotics. They stated they'd be happy to answer any further questions, and if there was concern this case became surgical, to call them back immediately at [phone]. The patient follows with Dr. Woody. Of note, patient states her wound VAC is replaced every 2 days, last replaced yesterday. In the ED pt was afebrile but tachycardic up to 107, vitals otherwise WNL Labs were significant for ESR 56, C-reactive protein of 6.29, and albumin 2.8, otherwise grossly unremarkable. No leukocytosis. H&H stable. No electrolyte abnormalities. Renal and hepatic functions baseline. Lactic acid WNL at 0.9. EKG demonstrated AFib with RVR of [address] elevations or depressions. Pt was treated with Zosyn, morphine, ondansetron, and IVF. Pt will be admitted to the hospital for treatment further evaluation of bright leg cellulitis. Review of Systems Review of Systems: Lower right leg redness, warmth, and swelling Chills, no fever Denies nausea, vomiting, abdominal pain Denies chest pain/pressure, palpitations No shortness of breath [facility] Medical History New onset atrial fibrillation Cellulitis of leg, right Peripheral artery disease COVID-19 Hypertension Surgical History History of embolectomy Social History Household Members: None Housing: Apartment Do you presently have visiting nurse or other home services: Yes ([facility] for wound vac changes every other day, PT/OT 1-2x/week) Alcohol intake: current Alcohol intake frequency: holidays/special occasions only Patient Tobacco Use Status: Current everyday Tobacco user Tobacco use type: Cigarette Cigarettes Per Day: 2 Smoked in Last 30 Days: Yes Patient Interested in Nicotine Replacement: No Use of substances other than those prescribed or required for medical reasons: No Currently Displaying Signs/Symptoms of Drug Intoxication Withdrawal: No Have you been hit, kicked, punched, or otherwise hurt by someone within the past year? If so, by whom?: No Do you feel safe in your current relationship?: No Current Relationship Is there a partner from a previous relationship who is making you feel unsafe now?: No Are you made to feel afraid or neglected: No Advance Directives: No Advance Directives Information Provided: Yes Do you have thoughts of harming others: None Do you have a plan to hurt others: No Plan Recently lost weight without trying: No Eating poorly because of decreased appetite: No Nutrition Risks: No Nutritional Risk and Difficulty chewing Patient : No : No Poor oral hygiene: No Cognitive needs: No Hearing needs: No Vision needs: No Meds Allergies Allergy/AdvReac Type Severity Reaction Status Date / Time rivaroxaban [Xarelto] Allergy Unknown confusion Verified 08/31/23 04:03 Active Medications: Current Medications Vancomycin HCl (Vancomycin/Ns) 2,000 mg in 500 mls @ 250 mls/hr IV ONCE ONE Stop: 08/31/23 12:44 Home Medications Medication Instructions Recorded Confirmed Last Taken Type multivitamin 1 tab PO DAILY 12/31/21 08/31/23 08/30/23 History apixaban 5 mg tablet (Eliquis) 5 mg PO DAILY 08/31/23 08/31/23 08/30/23 History ascorbic acid (vitamin C) 500 mg 500 mg PO DAILY 08/31/23 08/31/23 08/30/23 History tablet aspirin 81 mg tablet,delayed 81 mg PO DAILY 08/31/23 08/31/23 08/30/23 History release atorvastatin 40 mg tablet 40 mg PO DAILY 08/31/23 08/31/23 08/30/23 History furosemide 40 mg tablet 40 mg PO DAILY 08/31/23 08/31/23 08/30/23 History gabapentin 300 mg capsule 300 mg PO BID@0900,1300 08/31/23 08/31/23 Unknown History gabapentin 300 mg capsule 600 mg PO BEDTIME 08/31/23 08/31/23 Unknown History lisinopril 5 mg tablet 5 mg PO DAILY 08/31/23 08/31/23 08/30/23 History Physical Exam Vital Signs and Narrative: Vital Signs: Last Vital Signs Temp 98.1 F 08/31/23 08:05 Pulse 94 08/31/23 08:05 Resp 18 08/31/23 08:05 BP 133/56 L 08/31/23 08:05 Pulse Ox 93 08/31/23 08:05 O2 Del Method Room Air 08/31/23 08:05 BMI result Body Mass Index 37.4 Constitutional: Alert, in no acute distress. Mental Status: Oriented to person, place and time. Eyes: Pupils are equal, round, and reactive to light. Ear, Nose, and Throat: Oropharynx clear, mucous membranes moist. Ears and nose without deformities. Trachea midline. Respiratory: Clear to auscultation bilaterally though diminished. No wheezing, rales, or rhonchi. Cardiovascular: Irregularly irregular rhythm. No murmurs, rubs, or gallops. Gastrointestinal: Abdomen soft, non-tender, non-distended. Normal bowel sounds. Neurologic: Cranial nerves II-XII are grossly intact bilaterally. No focal neurological deficits. Moves all extremities spontaneously. Skin: Warm, dry. Musculoskeletal: No cyanosis or clubbing. Extremities: 2+ bilateral pitting edema. Redness, swelling, warmth surrounding wound VAC right lower extremity. See pictures below Psychiatric: Normal mood and affect. Results Labs 08/31/23 04:14 08/31/23 04:14 Labs: Laboratory Results - last 24 hr 08/31/23 08/31/23 04:14 07:54 MCV 88.5 MCH 27.8 MCHC 31.5 RDW 14.6 Plt Count 262 MPV 8.9 L Immature Gran % (Auto) 0.1 Neut % (Auto) 59.7 Lymph % (Auto) 29.3 Terrell % (Auto) 7.7 Eos % (Auto) 2.4 Baso % (Auto) 0.8 Lymph # (Auto) 2.7 Terrell # (Auto) 0.7 Eos # (Auto) 0.2 Baso # (Auto) 0.1 Abs Immat Gran (auto) 0.01 Absolute Neuts (auto) 5.4 Absolute Nucleated RBC 0.000 Nucleated RBC % (auto) 0.0 ESR 56 H Anion Gap 14 Estim Creat Clear Calc 93.8 Estimated GFR > 60 Random Glucose 130 H Lactic Acid 0.9 Calcium 8.7 D Total Bilirubin 0.3 AST 17 ALT 7 Alkaline Phosphatase 92 C-Reactive Protein 6.29 H Total Protein 6.8 Albumin 2.8 L Assessment and Plan (1) Cellulitis of leg, right: Status: Acute Plan Pt is a 68-year-old female with a PMH significant for?PAD, HTN, persistent AFib on Eliquis, and recent ischemic limb who presents to the ED for evaluation of possible right lower leg cellulitis. Pt will be admitted to the hospital for treatment further evaluation of lower right leg cellulitis. Right lower leg cellulitis in the setting of s/p fasciotomy and revascularization for ischemic limb Redness swelling, surrounding wound VAC Patient previously hospitalized at [facility] on 07/17-08/04 for similar infection Patient does not meet sepsis criteria: Tachycardia, but no tachypnea, fever, or leukocytosis; lactic acid WNL at 0.9 Patient started on broad-spectrum antibiotics in the ED Will treat with Zosyn and vancomycin, started 08/31/2023 Continue wound VAC Wound care consult Vascular surgery consult PT evaluation Persistent AFib Continue metoprolol Eliquis PAD Continue aspirin, statin HTN Continue lisinopril Chronic lower leg edema Continue furosemide Obesity class II Weight loss encouraged DNR/DNI, confirmed with pt Attending:?Dr. Castaneda DVT Prophylaxis: On Eliquis Pt will require a hospitalization of at least two nights for treatment and further evaluation of right lower leg cellulitis in the setting of patient s/p fasciotomy and revascularization for ischemic limb. Given patient's significant comorbidities and history of complications at this site that required prolonged hospitalizations, patient requires hospitalized care for administration of IV antibiotics and specialist consultation for potential surgical intervention. Quality Stroke Does the patient have a stroke diagnosis?: No VTE Prior VTE?: No VTE Risk Level:: Medical - moderate - high VTE Device Contraindication: Treatment Not Indicated VTE Drug Contraindication: N/A - Med Ordered
[2023-08-31] MEDS: vancomycin/NS 2,000 MG/500 ML PLAST..BAG 250 MG IV (12:26)
--- NOTE | 2023-08-31 12:26 | MHC.CM.ED ---
Patient currently in ER. Received notification from [facility] that patient is active with their agency. Referral made in [facility] so they can follow for d/c needs.
[2023-08-31] MEDS: Aspirin Enteric Coated 81 MG TABLET.DR PO (15:29)
[2023-08-31] MEDS: Atorvastatin Calcium 40 MG TABLET PO (15:29)
[2023-08-31] MEDS: Metoprolol Tartrate 100 MG TABLET PO ×2 (15:30→21:17)
[2023-08-31] MEDS: Ascorbic Acid 500 MG TABLET PO (15:30)
[2023-08-31] MEDS: Multivitamin TABLET 1 TAB PO (15:30)
[2023-08-31] MEDS: Apixaban 5 MG TABLET PO (15:30)
[2023-08-31] MEDS: Furosemide 40 MG TABLET PO (15:30)
[2023-08-31] MEDS: Acetaminophen 325 MG TABLET 650 MG PO ×2 (16:04→21:50)
--- NOTE | 2023-08-31 19:04 | PHA.PROG ---
Admission Date/Time: August 31, 2023 13:48 Indication: skin Weight in k.058 kg Obesity Dosing Indication % IBW: Obese Serum Creatinine - Last 168 Hours 08/31/23 04:14 Creatinine 0.68 Estimated CrCl and GFR - Last 168 Hours 08/31/23 04:14 Estim Creat Clear Calc 93.8 Estimated GFR > 60 Vancomycin Loading Dose: 2000 mg Current Vancomycin Dosing Regimen: 1250 mg Q12H Vancomycin Monitoring using AUC goal of 400 - 600 range with trough as surrogate marker: 524 Date and Time for next Vancomycin Level to be drawn: 09/02 @1000 Pharmacist Comments on Vancomycin Plan: Vancomycin dosing will take advantage of [employer] as a clinical decision support tool that uses Bayesian modeling to calculate individual patient's pharmacokinetic parameters and forecast the patient's drug concentration time course with the target goal AUC 24 range of 400 - 600 mg/L/hr.
[2023-08-31] MEDS: Gabapentin 300 MG CAPSULE 600 MG PO (21:17)
[2023-08-31] MEDS: 0.9 % Sodium Chloride Flush 3 ML SYRINGE IVFLUSH (21:51)
[2023-08-31] MEDS: vancomycin HCL 1,250 MG in 0.9 % Sodium Chloride 250 ML 166.67 MG IV (23:48)
[2023-09-01] MEDS: Piperacillin Sodium/Tazobactam 3.375 GM in 0.9 % Sodium Chloride 50 ML IV ×2 (03:43→09:11)
[2023-09-01 03:46] VITALS: BP 128/65; PULSE 94; RESP 18; TEMP 36.2; O2SAT 94
[2023-09-01 06:58] LABS: Estimated Glomerular Filt Rate > 60
[2023-09-01 07:43] LABS: Hematocrit 37.4 % (37.0-47.0); Hemoglobin 11.3 g/dl (12.0-16.0); Mean Corpuscular HGB Conc 30.2 g/dl (31.0-35.0); Mean Corpuscular Hemoglobin 27.9 pg (27.0-33.0); Mean Corpuscular Volume 92.3 fL (80.0-98.0); Mean Platelet Volume 9.8 fL (9.4-12.3); Platelet Count 259 X10*3/uL (160-400); Red Blood Count 4.05 X10*6/uL (4.20-5.50); Red Cell Distribution Width 14.8 % (11.0-16.0); White Blood Count 5.9 X10*3/uL (4.8-10.8)
[2023-09-01 07:49] VITALS: BP 129/58; PULSE 86; RESP 18; TEMP 36.2; O2SAT 91
[2023-09-01 08:17] VITALS: BP 129/58; PULSE 86; O2SAT 91
[2023-09-01 08:36] VITALS: BP 129/58; PULSE 86; O2SAT 91
[2023-09-01] MEDS: Furosemide 40 MG TABLET PO (09:10)
[2023-09-01] MEDS: 0.9 % Sodium Chloride Flush 3 ML SYRINGE IVFLUSH (09:10)
[2023-09-01] MEDS: Atorvastatin Calcium 40 MG TABLET PO (09:10)
[2023-09-01] MEDS: Metoprolol Tartrate 100 MG TABLET PO (09:10)
[2023-09-01] MEDS: Aspirin Enteric Coated 81 MG TABLET.DR PO (09:10)
[2023-09-01] MEDS: Gabapentin 300 MG CAPSULE PO ×2 (09:10→12:40)
[2023-09-01] MEDS: Apixaban 5 MG TABLET PO (09:10)
[2023-09-01] MEDS: Ascorbic Acid 500 MG TABLET PO (09:10)
[2023-09-01] MEDS: lisinopriL 5 MG TABLET PO (09:11)
[2023-09-01] MEDS: Multivitamin TABLET 1 TAB PO (09:11)
--- NOTE | 2023-09-01 09:34 | MHC.CM.PN ---
per pt she lives alone has hvns has a ride home is requesting homemaker help task sent
[2023-09-01] MEDS: Morphine Sulfate 2 MG/ML CARTRIDGE IVPUSH (09:50)
--- NOTE | 2023-09-01 11:18 | HO.WOUND ---
Wound Consult: Initial 68yr old?F admitted to [facility] on 08/31/23 - See progress notes and H&P for detailed history.? Wound consult placed for Wound vac to right leg.? Patient agreeable to assessment and photo documentation.? Patient reports and chart review confirms wound vac placed after Fasciotomy surgery by Dr. Woody from [facility]. Patient admitted to [facility] for cellulitis to right leg - best practice is to remove wound vac for wound bed assessment. Spoke to Dr. Durham who is also consulted on the patient and confirmed wound vac removal and assessment and wet to dry until he is able to assess patient. Right Medial Leg wound vac removed - 1 piece of black sponge removed no white sponge and no tunneling noted. 21cm 7cm x 0.5cm The wound bed appears to be granulating well - red healthy viable tissue with small approximately 5% adherent yellow marquez slough at the 5 o'clock location. Mild odor noted - no excessive bleeding noted - canister with small amount of pink red cloudy drainage. Edges are rolled. Periwound has mild red pink to wound edges, + swelling and mildly tender to touch. No induration no fluctruance noted. Patient was premedicated prior to wound vac removal. Right Lateral Leg wound vac removed - 1 piece of black sponge removed no white sponge and no tunneling noted. 22cm 6cm x 0.8cm The wound bed appears to be granulating well - no slough noted. Mild odor noted - no excessive bleeding noted - canister with small amount of pink red cloudy drainage. Edges are rolled. Periwound has mild red pink to wound edges and swelling noted and mildly tender to touch. No induration no fluctruance noted. Patient was premedicated prior to wound vac removal. Right Foot Anterior wound and Heel wounds noted. Anterior site appears to be resolving at this time - pt reports she is unsure of the etiology of the wound. The heel is a stage 3 pressure injury with scattered adherent yellow slough - moist wound bed - pink erythema to the periwound - pt reports pain. Recommend off loading pressure and recommend durafiber AG for moisture management and autolytic debridement. TT sent to Dr. Durham with photos. Patient remains a good candidate for continue NPWT (Negative Pressure Wound Therapy) Recommend Wound vac placement at time of discharge or after Dr. Durham assessment. Current wet to dry applied. Samia JARRETT updated as well. Recommendations: 1. Turn and Reposition every 2 hours and as needed for patient comfort.? Use pillows or wedges to support off loading positions. 2. Off Load all bony prominences with use of pillows and heel boots if needed.? Apply Preventative foams where needed. ? 3. Monitor for incontinence and moisture control, use barrier creams when needed for prevention and treatment. 4. Provide adequate and supplemental nutrition.? 5. Order low air loss mattress. 6. Right Leg - Elevate heel off of bed surface - Cleanse wound bed with NS moist gauze. Apply skin prep to periwound - Apply NS wet gauze to wound bed cover with dry gauze, ABD pad and gauze wrap. Change Daily. 7. Right Anterior Foot and Heel - Cleanse with NS, apply cut to size Durafiber AG cover with foam dressing. Change every other day. Re-consult wound care Nurse for wound deterioration or wound changes.
[2023-09-01] MEDS: Acetaminophen 325 MG TABLET 650 MG PO (12:40)
--- NOTE | 2023-09-01 13:23 | PM.CNGS ---
History of Present Illness Consult details Consult date: 09/01/23 Reason for consult: wound care Narrative: Very pleasant 68-year-old female presents for evaluation regarding nonhealing right lower extremity wound. Appears to be a fasciotomy site. She had an ischemic leg which appears to have undergone treatment at [facility] by Dr. Torsten Woody. She appeared to be doing relatively well. She had been seen by visiting nurses that was concerned about infection. She was sent into the hospital for evaluation. She was started on antibiotics and appears to be doing relatively well. She now presents for vascular evaluation Review of Systems Review of Systems: Yes all other systems are reviewed and are negative Constitutional: Constitutional: Reports no additional constitutional complaints ENT: Reports Normal hearing present Cardiovascular: Cardiovascular: Denies chest pain, Denies chest pain at rest, Denies chest pain with activity and Denies pedal edema Respiratory: Respiratory: Denies cough Gastrointestinal: Gastrointestinal: Denies abdominal pain Musculoskeletal: Musculoskeletal: Denies abnormal gait, Denies muscle cramps and Denies radiating pain into limb Integumentary/Breasts: Skin/Breast: Denies skin ulcer and Denies wounds Neurologic: Reports Normal hearing present and Denies abnormal gait Psychiatric: Psychiatric: Reports no additional psychiatric complaints [facility] Past Medical History Medical History New onset atrial fibrillation Cellulitis of leg, right Peripheral artery disease COVID-19 Hypertension Surgical History Surgical History History of embolectomy Social History Social History Household Members: None Housing: Apartment Do you presently have visiting nurse or other home services: Yes ([facility] for wound vac changes every other day, PT/OT 1-2x/week) Alcohol intake: current Alcohol intake frequency: holidays/special occasions only Patient Tobacco Use Status: Current everyday Tobacco user Tobacco use type: Cigarette Cigarettes Per Day: 2 Smoked in Last 30 Days: Yes Patient Interested in Nicotine Replacement: No Use of substances other than those prescribed or required for medical reasons: No Currently Displaying Signs/Symptoms of Drug Intoxication Withdrawal: No Have you been hit, kicked, punched, or otherwise hurt by someone within the past year? If so, by whom?: No Do you feel safe in your current relationship?: No Current Relationship Is there a partner from a previous relationship who is making you feel unsafe now?: No Are you made to feel afraid or neglected: No Advance Directives: No Advance Directives Information Provided: Yes Do you have thoughts of harming others: None Do you have a plan to hurt others: No Plan Recently lost weight without trying: No Eating poorly because of decreased appetite: No Nutrition Risks: No Nutritional Risk and Difficulty chewing Patient : No : No Poor oral hygiene: No service: No Cognitive needs: No Hearing needs: No Vision needs: No Meds Allergies Allergy/AdvReac Type Severity Reaction Status Date / Time rivaroxaban [Xarelto] Allergy Unknown confusion Verified 08/31/23 04:03 Active Medications: Current Medications Acetaminophen (Acetaminophen 325 Mg Tablet) 650 mg PO Q6H PRN PRN Reason: Pain, Mild (Pain Scale 1-3) Last Admin: 09/01/23 12:40 Dose: 650 mg Apixaban (Apixaban 5 Mg Tablet) 5 mg PO DAILY [facility] Last Admin: 09/01/23 09:10 Dose: 5 mg Ascorbic Acid (Ascorbic Acid 500 Mg Tablet) 500 mg PO DAILY [facility] Last Admin: 09/01/23 09:10 Dose: 500 mg Aspirin (Aspirin Enteric Coated 81 Mg Tablet.Dr) 81 mg PO DAILY [facility] Last Admin: 09/01/23 09:10 Dose: 81 mg Atorvastatin Calcium (Atorvastatin Calcium 40 Mg Tablet) 40 mg PO DAILY [facility] Last Admin: 09/01/23 09:10 Dose: 40 mg Benzonatate (Benzonatate 100 Mg Capsule) 100 mg PO TID PRN PRN Reason: Cough Docusate Sodium (Docusate Sodium 100 Mg Capsule) 100 mg PO DAILY PRN PRN Reason: Constipation Furosemide (Furosemide 40 Mg Tablet) 40 mg PO DAILY [facility]; Protocol Last Admin: 09/01/23 09:10 Dose: 40 mg Gabapentin (Gabapentin 300 Mg Capsule) 300 mg PO BID@0900,1300 [facility] Last Admin: 09/01/23 12:40 Dose: 300 mg Gabapentin (Gabapentin 300 Mg Capsule) 600 mg PO BEDTIME [facility] Last Admin: 08/31/23 21:17 Dose: 600 mg Lisinopril (Lisinopril 5 Mg Tablet) 5 mg PO DAILY [facility]; Protocol Last Admin: 09/01/23 09:11 Dose: 5 mg Melatonin (Melatonin 3 Mg Tablet) 6 mg PO BEDTIME PRN PRN Reason: Insomnia Metoprolol Tartrate (Metoprolol Tartrate 100 Mg Tablet) 100 mg PO BID [facility]; Protocol Last Admin: 09/01/23 09:10 Dose: 100 mg Morphine Sulfate (Morphine Sulfate 2 Mg/Ml Cartridge) 2 mg IVPUSH Q4H PRN; Protocol PRN Reason: Pain, Severe (Pain Scale 7-10) Last Admin: 09/01/23 09:50 Dose: 2 mg Multivitamins/Vitamin C (Multivitamin Tablet) 1 tab PO DAILY [facility] Last Admin: 09/01/23 09:11 Dose: 1 tab Ondansetron HCl (Ondansetron Hcl 4 Mg/2 Ml Vial) 4 mg IVPUSH Q8H PRN PRN Reason: Nausea and Vomiting Sodium Chloride (0.9 % Sodium Chloride Flush 3 Ml Syringe) 3 ml IVFLUSH QSHIFT [facility] Last Admin: 09/01/23 09:10 Dose: 3 ml Home Medications Medication Instructions Recorded Confirmed Last Taken Type multivitamin 1 tab PO DAILY 12/31/21 08/31/23 08/30/23 History apixaban 5 mg tablet (Eliquis) 5 mg PO DAILY 08/31/23 08/31/23 08/30/23 History ascorbic acid (vitamin C) 500 mg 500 mg PO DAILY 08/31/23 08/31/23 08/30/23 History tablet aspirin 81 mg tablet,delayed 81 mg PO DAILY 08/31/23 08/31/23 08/30/23 History release atorvastatin 40 mg tablet 40 mg PO DAILY 08/31/23 08/31/23 08/30/23 History furosemide 40 mg tablet 40 mg PO DAILY 08/31/23 08/31/23 08/30/23 History gabapentin 300 mg capsule 300 mg PO BID@0900,1300 08/31/23 08/31/23 Unknown History gabapentin 300 mg capsule 600 mg PO BEDTIME 08/31/23 08/31/23 Unknown History lisinopril 5 mg tablet 5 mg PO DAILY 08/31/23 08/31/23 08/30/23 History Physical Exam Vital Signs: Vital Signs: Last Vital Signs Temp 97.1 F 09/01/23 07:49 Pulse 86 09/01/23 08:36 Resp 18 09/01/23 07:49 BP 129/58 L 09/01/23 08:36 Pulse Ox 91 L 09/01/23 08:36 O2 Del Method Room Air 09/01/23 07:49 BMI result Body Mass Index 37.4 Const: General: cooperative, healthy appearing and comfortable Orientation/consciousness: oriented to person, oriented to place and oriented to time HEENT: Head: Yes normal to inspection Neck: Neck: Yes normal visual inspection Carotids: no bruits Chest: Chest palpation & inspection: normal inspection of the chest Resp: Effort & Inspection: normal respiratory effort and able to speak in complete sentences Auscultation: clear to auscultation bilaterally, no crackles, no rales, no rhonchi and no wheezes Cardio: Other: DP signal Rate: regular rate Rhythm: regular rhythm Heart sounds: S1 normal heart sound present and S2 normal heart sound present Bruits: no carotid bruits Peripheral pulses: Peripheral pulses 2+ throughout GI: Inspection: Yes normal to inspection Skin: Other: Right lateral calf opening covered by wound VAC which was removed. Excellent granulation base. Wound on dorsum of the foot relatively clean as well. Wounds: no wounds Hair: normal Neuro: General: oriented to person, oriented to place and oriented to time Cranial nerves: Yes CN's II-XII intact bilaterally and Yes Normal hearing present Cognition (Neuro): normal cognition Motor exam (neuro): 5/5 motor strength present throughout Extrem: Other: venous exam: No significant superficial varicosities or spider telangiectasias, minimal edema General: No clubbing, No cyanosis and No edema Psych: Appearance: grossly normal Mental Status: mental status grossly normal Speech and movement: Normal speech and movement present Results Labs 09/01/23 06:22 09/01/23 05:57 Labs: Abnormal lab results 09/01/23 Range/Units 06:22 RBC 4.05 L (4.20-5.50) X10*6/uL Hgb 11.3 L (12.0-16.0) g/dl MCHC 30.2 L (31.0-35.0) g/dl Short CBC 09/01/23 Range/Units 06:22 WBC 5.9 (4.8-10.8) X10*3/uL Hgb 11.3 L (12.0-16.0) g/dl Hct 37.4 (37.0-47.0) % Plt Count 259 (160-400) X10*3/uL BMP 09/01/23 05:57 Creatinine 0.70 All other labs normal. Assessment and Plan (1) Peripheral artery disease: Status: Acute Plan In short patient is doing well in terms of her right lower extremity. Would be stable from my perspective for discharge. Would recommend 10 days of p.o. Keflex. She can follow up with vascular surgery at [facility]. We will follow up on an as-needed basis. Thank you for allowing us to assist in her care. Procedures Date of Service Date of Service: 09/01/23
--- NOTE | 2023-09-01 13:36 | P.DS_ITS ---
DS: Providers Provider Date of Service: 09/01/23 Date of admission: 08/31/23 13:48 Date of discharge: 09/01/23 Primary care physician: Gabby Hernandez MD Consults: 08/31/23 13:48 Consult to Wound Care Routine Reason for consultation: Right leg wound vac s/p fasciotomy fasciotomy 08/31/23 13:56 Consult to Vascular Surgery Routine Consulting Provider: [facility] Reason for consultation: Hx of right LE ishemic limb s/p fasciotomy w/ wound vac, now cellulitis Attending physician on discharge: Primitivo Roy Discharging clinician: Samia Alvarez DS: Diagnosis Discharge Diagnosis (1) Peripheral artery disease: Status: Acute DS: Summary Hospital Course Hospital Course: From H&P on day of admission Pt is a 68-year-old female with a PMH significant for?PAD, HTN, persistent AFib on Eliquis, and recent ischemic limb who presents to the ED for evaluation of possible right lower leg cellulitis. Patient has a long and complicated recent history of right lower leg injury. Patient was seen in our ED on 06/27/23 and diagnosed with occlusion of her right lower extremity with ischemic limb. Patient was then transferred to [facility] where she had a fasciotomy and revascularization. Patient was then discharged with wound VAC to rehab for 1-2 weeks and then sent home. Patient then re-presented to our ED on 07/17 for cellulitis around wound vacs and was transferred again to [place] where stayed until 08/04 and treated with IV abx. Patient was again discharged to [facility] but sent home after only 5 days due to insurance problems. Patient presents today at the suggestion of her visiting nurse who thought her leg looked infected. Patient states she has had increased swelling in her right leg for the past few days. Endorses chills, but no fever. Reports right leg is painful, but no more than normal. Denies nausea, vomiting, abdominal pain. No chest pain/pressure, palpitations. No shortness of breath. ED clinicians today called and spoke to the covering [facility] vascular surgeon who recommended medical admission at our facility with IV antibiotics. They stated they'd be happy to answer any further questions, and if there was concern this case became surgical, to call them back immediately at [phone]. The patient follows with Dr. Woody. Of note, patient states her wound VAC is replaced every 2 days, last replaced yesterday. In the ED pt was afebrile but tachycardic up to 107, vitals otherwise WNL Labs were significant for ESR 56, C-reactive protein of 6.29, and albumin 2.8, otherwise grossly unremarkable. No leukocytosis. H&H stable. No electrolyte abnormalities. Renal and hepatic functions baseline. Lactic acid WNL at 0.9. EKG demonstrated AFib with RVR of [address] elevations or depressions. Pt was treated with Zosyn, morphine, ondansetron, and IVF. Pt will be admitted to the hospital for treatment further evaluation of bright leg cellulitis. Right lower leg cellulitis in the setting of s/p fasciotomy and revascularization for ischemic limb Redness swelling, surrounding wound VAC. Patient previously hospitalized at [facility] on 07/17-08/04 for similar infection. No evidence of sepsis. originally started on IV zosyn and vancomycin. Seen by vascular surgery and wound vac removed and wound evaluated, appears to be healing well. Recommend 10 days of oral keflex and outpatient follow up with vascular surgery. Seen by wound care nurse, also recommended wet to dry dressings until wound vac is replaced as per previous orders from [facility]. Patient also reported difficulty paying for [employer] - case management to give information about assistance for payments. She reports that she is unable to take xarelto and doesn't want to take coumadin. Recommend outpatient follow up with vascular surgeon to discuss options. Time Attestation Discharge coordination time: Greater than 30 minutes Quality: Safe Use of Opioids Does Pt have an Active Cancer Diagnosis on the Problem List?: No Quality: Stroke Does the patient have a stroke diagnosis?: No Physical Exam Vital Signs: Vital Signs: Last Vital Signs Temp 97.1 F 09/01/23 07:49 Pulse 86 09/01/23 08:36 Resp 18 09/01/23 07:49 BP 129/58 L 09/01/23 08:36 Pulse Ox 91 L 09/01/23 08:36 O2 Del Method Room Air 09/01/23 07:49 BMI result Body Mass Index 37.4 Const: General: cooperative, comfortable, no acute distress, alert and awake Nutritional Appearance: obese Orientation/consciousness: patient oriented x3 Resp: Effort & Inspection: normal respiratory effort, able to speak in complete sentences, no respiratory distress and no use of accessory muscles Cardio: Rate: regular rate GI: Inspection: No distended Palpation (GI): Soft to palpation and nontender Skin: Other: b/l RLE wounds appear to be healing well. Neuro: General: patient oriented x3, moves all extremities and CN's II-XI i ntact bilaterally DS: Data Data Completed and Pending Labs on day of discharge: Laboratory Results - last 24 hr 09/01/23 09/01/23 05:57 06:22 WBC 5.9 RBC 4.05 L Hgb 11.3 L Hct 37.4 MCV 92.3 MCH 27.9 MCHC 30.2 L RDW 14.8 Plt Count 259 MPV 9.8 Absolute Nucleated RBC 0.000 Nucleated RBC % (auto) 0.0 Hold Purple Top SEE NOTE Creatinine 0.70 Estim Creat Clear Calc 91.0 Estimated GFR > 60 Preliminary micro results at discharge 08/31/23 08:02 Blood Culture - Preliminary Blood - Venous No growth after 24 hours. 08/31/23 07:54 Blood Culture - Preliminary Blood - Venous No growth after 24 hours. Discharge Plan Discharge Anticipated Discharge Date/Time: 09/01/23 13:33 Patient Disposition: Home Health Service Discharge Diagnosis: Right leg cellulitis Referrals: [facility] [Other] - 1 Week Gabby Covarrubias MD [Primary Care Provider] - 1 Week Discharge Medications: New cephalexin 500 mg tablet 500 mg PO Q12H 10 Days Qty: 20 0RF Continued metoprolol tartrate 100 mg tablet 100 mg PO BID Qty: 180 3RF furosemide 40 mg Tablet 40 mg PO DAILY atorvastatin 40 mg Tablet 40 mg PO DAILY aspirin 81 mg Tablet,Delayed Release (Dr/Ec) 81 mg PO DAILY ascorbic acid (vitamin C) 500 mg Tablet 500 mg PO DAILY lisinopril 5 mg Tablet 5 mg PO DAILY gabapentin 300 mg Capsule 600 mg PO BEDTIME gabapentin 300 mg Capsule 300 mg PO BID@0900,1300 Eliquis 5 mg tablet 5 mg PO BID Qty: 30 0RF multivitamin Tablet 1 tab PO DAILY Discharge Orders: Discharge Order (Routine); Ordered 09/01/23 Ordered By: Samia Alvarez Activity on Discharge: As tolerated Stand Alone Forms: Patient Portal Discharge page Care Plan Goals: see below Health Concerns: right leg cellulitis Plan of Treatment: take po antibiotics as prescribed call to schedule follow up appointment with vascular surgery at [facility] take eliquis twice daily as prescribed Assessment: see discharge summary
== END 2023-09-01 14:30 | disposition home health service (06) | DRG 863 ==
LOC: HO.ED 11:55 → HO.EDOVER 13:56 → HO.S3 15:14
PROVIDERS: Physician Assistant Medical; Admitting Provider Student in an Organized Health Care Education/Training Program; Emergency Provider Emergency Medicine; PCP Internal Medicine; Visit Provider Physician Assistant Medical
DX: T81.41XA Infection following a procedure, superficial incisional surgical site, initial encounter (principal); L03.115 Cellulitis of right lower limb; I48.19 Other persistent atrial fibrillation; Z66 Do not resuscitate; I73.9 Peripheral vascular disease, unspecified; I10 Essential (primary) hypertension; E66.8 Other obesity; Z68.37 Body mass index [BMI] 37.0-37.9, adult; Z79.01 Long term (current) use of anticoagulants; Z79.82 Long term (current) use of aspirin; Z79.899 Other long term (current) drug therapy
CPT/HCPCS: 36415; 80053; 82565; 83605; 85025; 85027; 85652; 86140; 87040; 97116; 97162; 99285; J2270; J2405; J2543; J3370; J3371

== ENCOUNTER → 2023-08-31 13:48 | Outpatient (BNV) | payer MEDICARE, SELFPAY | PROVIDERS: Admitting Provider Student in an Organized Health Care Education/Training Program; Emergency Provider Emergency Medicine; PCP Internal Medicine; Visit Provider Surgery Vascular Surgery | DX: I73.9 Peripheral vascular disease, unspecified (principal) | CPT/HCPCS: 99222 ==

== ENCOUNTER → 2023-08-31 13:48 | Outpatient (BNV) | payer MEDICARE, SELFPAY | PROVIDERS: Admitting Provider Student in an Organized Health Care Education/Training Program; Emergency Provider Emergency Medicine; PCP Internal Medicine; Visit Provider Physician Assistant Medical | DX: I73.9 Peripheral vascular disease, unspecified (principal) | CPT/HCPCS: 99223; 99238 ==

== ENCOUNTER 2023-09-20 13:05 | Outpatient (AMB) | payer MEDICARE, SELFPAY ==
--- NOTE | 2023-09-20 13:12 | MHC.OFFVIS ---
Intake Vital Signs 09/20/23 13:19 Height 5 ft 5 in Weight 229 lb 4.492 oz BMI 38.2 BP 128/60 Pulse 68 Intake Visit Reasons: [facility] Intake Note: pt needed to be seen for meds Allergies rivaroxaban [Xarelto] Allergy (Unknown, Verified 08/31/23 04:03) confusion Medication List - Last Reconciled 09/20/23 by Kenji Hannon MD apixaban (Eliquis) 5 mg PO BID ascorbic acid (vitamin C) 500 mg PO DAILY aspirin 81 mg PO DAILY atorvastatin 40 mg PO DAILY furosemide 40 mg PO DAILY lisinopril 5 mg PO DAILY metoprolol tartrate 100 mg PO BID multivitamin 1 tab PO DAILY HPI HPI Comments History of Present Illness Details Chacha was referred here by [facility] vascular surgeon Dr. Woody after she was admitted to [facility] and then transferred emergently to [facility] for acute arterial occlusion at the popliteal level in the right lower extremity related to atrial fibrillation, having to undergo emergent embolectomy and fasciotomy and prolonged hospitalization. Patient subsequently had wound infection and open wounds and has planned to undergo plastic surgery with skin grafting. Continue same leg swelling in the lower extremity. During hospitalization she was noted to have congestive heart failure, echocardiogram showing normal LV ejection fraction with severe LVH and biatrial enlargement although the size of the atrium is not mentioned. Patient was then diuresed in the hospital as per the note diuresed about 4.2 L with IV diuresis and started on Lasix. Patient not aware of any other diagnosis. She said prior to the ED presentation with the acute occlusion in the right popliteal artery she had not seen a physician for many many years. She has prior history of atrial fibrillation although it seems like the history was more paroxysmal atrial fibrillation and was supposed to be seen by news assignment editor but never ended up seeing a news assignment editor. She also did not see a primary care physician for long time. She has prior history of hypertension but not treated. She has a long-time smoker. She was not on any oral anticoagulation prior to this incident. She is currently taking Eliquis but says that this is going to be difficult for her to afford. He is also on low-dose aspirin therapy currently started by vascular surgery post vascular intervention. She also currently on Lasix, metoprolol as well as lisinopril. She has exertional shortness of breath but no orthopnea, PND, worsening leg edema, abdominal distension. Denies any palpitations or irregular heartbeat. No exertional chest pain. [facility] Medical History CHF (congestive heart failure), NYHA class I Persistent atrial fibrillation New onset atrial fibrillation Cellulitis of leg, right Peripheral artery disease COVID-19 Hypertension Surgical History History of embolectomy Social History Household Members: None Housing: Apartment Do you presently have visiting nurse or other home services: Yes (VNA for wound vac changes every other day, PT/OT 1-2x/week) Alcohol intake: current Alcohol intake frequency: holidays/special occasions only Patient Tobacco Use Status: Current everyday Tobacco user Tobacco use type: Cigarette Cigarettes Per Day: 2 service: No Cognitive needs: No Hearing needs: No Vision needs: No Review of Systems Const Denies chills, Denies daytime sleepiness, Denies fatigue, Denies fever(s), Denies frequent falls, Denies poor appetite, Denies snoring, Denies stops breathing during sleep, Denies weakness, Denies weight gain and Denies weight loss Eyes Denies loss of vision ENT Denies dizziness and Denies hearing loss Card Denies chest pain, Denies claudication, Denies leg edema, Denies lightheadedness, Denies palpitations, Denies dyspnea, Denies dyspnea on exertion and Denies orthopnea Resp Denies cough, Denies excessive phlegm production, Denies dyspnea, Denies dyspnea on exertion, Denies snoring and Denies wheezing GI Denies abdominal pain, Denies hematochezia, Denies change in bowel habits, Denies nausea and Denies vomiting Denies urinary frequency and Denies dysuria Musc Denies arthralgias, Denies muscle weakness, Denies numbness and Denies other (frequent falls) Skin/Breast Denies nail changes and Denies rash Neuro Denies Abnormal speech present, Denies dizziness, Denies frequent falls, Denies loss of vision, Denies memory loss, Denies numbness and Denies weakness Psych Denies depression and Denies memory loss Endo Denies fatigue and Denies palpitations Feliciano/Lymph Reports easy bruising and Reports other (anemia) Aller/Immun Denies wheezing Physical Exam Vital Signs: Last Vital Signs Pulse 68 09/20/23 13:19 BP 128/60 09/20/23 13:19 BMI result Body Mass Index 38.2 Const General: cooperative, comfortable, no acute distress, alert and awake Nutritional Appearance: obese Orientation/consciousness: patient oriented x3 Limitations: ambulation with walker HEENT Head: Yes normocephalic and Yes atraumatic Neck Neck: Yes trachea midline, Yes supple and Yes no JVD Resp Effort & Inspection: normal respiratory effort Auscultation: no rales, no wheezes and diminished lung sounds Cardio Jugular venous distension: no JVD Rate: regular rate Rhythm: abnormal rhythm irregularly irregular Heart sounds: S1 normal heart sound present, S2 normal heart sound present, no click, no gallops, no murmurs and no rubs GI Inspection: Yes obesity Auscultation: normal bowel sounds Skin General skin exam: no rashes or lesions noted Neuro General: patient oriented x3 and no focal motor deficits Speech: No Abnormal speech present Extrem General: No clubbing, No cyanosis, Yes edema (2+ edema in the right lower extremity below knee at the surgical site. ) and Yes other (1+ edema around the ankle on the left) Office Procedures EKG Details: EKG shows atrial fibrillation 77 beats per minute [id number], Complete Assessment & Plan Assessment & Plan (1) Persistent atrial fibrillation: Code(s): I48.19 - Other persistent atrial fibrillation Plan: Persistent atrial fibrillation with recent embolic complication with acute occlusion of right popliteal artery undergoing major surgery. Patient now is on oral anticoagulation therapy.CHADSVASc score of 5. Should be on lifelong oral anticoagulation to reduce thromboembolic complication. We discussed about various options including continued Eliquis use, patient will find out about her own cost. Have given her written prescription. If she can not afford Eliquis I would suggest her to start on warfarin therapy and be referred to [facility]. Target INR between 2 and 3. Low-dose aspirin surgery to continue till vascular surgery requires, long-term just needs oral anticoagulation therapy. Rate is adequately controlled on metoprolol therapy. Duration of atrial fibrillation unknown although appears to be long standing. She has significant LVH, unknown left atrial and right atrial chamber size. Data suggest to pursue rhythm control approach although if she has significant biatrial enlargement likelihood of pursuing rhythm control approach will be low. High likelihood of underlying sleep apnea and this needs to be worked up. (2) CHF (congestive heart failure), NYHA class I: Code(s): I50.9 - Heart failure, unspecified Plan: Heart failure with preserved ejection fraction with severe LVH most likely related hypertensive heart disease. Failure to heart disease may need to be evaluated although blood pressure is currently well optimized on therapy with metoprolol the Cipro. Importance of good control blood pressure was discussed. Clinically appears to be euvolemic. Will obtain BMP and BNP today. Continue current diuretic dose. Daily weight monitoring avoidance of salt loading was discussed additional Lasix as need be. Workup for sleep apnea. Participate in aggressive weight loss program. Smoking cessation and treatment for underlying possible lung disease needs to be pursued. Will suggest a stress test to evaluate for myocardial ischemia. Follow up in the clinic in 6 weeks time, sooner p.r.n.. Thank you for allowing me to partake in the care Orders: Orders Complete Blood Count no Diff Today I48.19 - Other persistent atrial fibrillation B Type Natriuretic Peptide Today I48.19 - Other persistent atrial fibrillation CA lexiscan stress w madina Today I50.9 - Heart failure, unspecified Basic Metabolic Panel Today I48.19 - Other persistent atrial fibrillation ECG holter monitor 48 hour Today I48.19 - Other persistent atrial fibrillation Medications: Refilled apixaban (Eliquis) 5 mg PO BID 60 tabs 2RF Coding Level of Care Code New Pt Level 4 (18908) Diagnoses Persistent atrial fibrillation I48.19 CHF (congestive heart failure), NYHA class I I50.9 CPT Codes EKG - CPT: 50356-[id number], Complete ([id number])
[2023-09-20 13:19] VITALS: BP 128/60; PULSE 68; BMI 38.2
== END 2023-09-20 14:07 | disposition home or self-care (01) ==
PROVIDERS: PCP Internal Medicine; Visit Provider Internal Medicine Cardiovascular Disease
DX: I48.19 Other persistent atrial fibrillation (principal); I50.9 Heart failure, unspecified
CPT/HCPCS: 93010; 99204

== ENCOUNTER → 2023-09-20 13:05 | Outpatient (BNVA) | payer MEDICARE, SELFPAY | PROVIDERS: PCP Internal Medicine; Visit Provider Internal Medicine Cardiovascular Disease | DX: I48.19 Other persistent atrial fibrillation (principal); I50.9 Heart failure, unspecified | CPT/HCPCS: 93005; 99202 ==

== ENCOUNTER 2023-11-22 12:20 | Outpatient (AMB) | payer MEDICARE, SELFPAY ==
--- NOTE | 2023-11-22 12:22 | A.OFFPC_ITS ---
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: No Accompanied by: Self / Same As Patient Allergies rivaroxaban [Xarelto] Allergy (Unknown, Verified 11/22/23 12:40) confusion Medication List - Last Reconciled 11/22/23 by Gabby Hernandez MD apixaban (Eliquis) 5 mg PO BID ascorbic acid (vitamin C) 500 mg PO DAILY aspirin 81 mg PO DAILY furosemide 40 mg PO DAILY lisinopril 5 mg PO DAILY metoprolol tartrate 100 mg PO BID multivitamin 1 tab PO DAILY Tobacco use date assessed: 08/16/23 Fall risk assessment: No Falls in past year Dental Screening Dental Screen Date: 08/16/23 HPI HPI Comments History of Present Illness Details This is a 68-year-old female with persistent atrial fibrillation, congestive heart failure, obesity and hypertension that comes today to establish care. Had a skin graft done 10/18/2023 on the right leg that looks like it is healing well. Use a wheelchair to come today and use a cane at home. Atrial fibrillation stable with metoprolol and is on Doacs. Use furosemide as needed for her congestive heart failure and has not gain 5 lb in a week. Atrial fibrillation and congestive heart failure are follow by cardiology. Blood pressure well controlled with lisinopril. She is obese with a BMI of 38.4 and was advised to start diet. Declines mammogram, colonoscopy and any other type of test for screening of colon cancer. She has anemia but she declines to repeat a CBC. She denies any blood loss. She said she had elevated cholesterol in 2019 and she also declines to repeat the lipid panel. Complains of shortness of breath occasionally with some wheezing and would like a rescue inhaler. I advised her that rescue inhaler can cause palpitations and that is the reason is not obstruction it might not work for her. [facility] Medical History CHF (congestive heart failure), NYHA class I Persistent atrial fibrillation New onset atrial fibrillation Cellulitis of leg, right Peripheral artery disease COVID-19 Hypertension Surgical History History of embolectomy Social History (Updated 11/22/23 @ 12:46 by Gabby Hernandez MD) Household Members: None Housing: Apartment Do you presently have visiting nurse or other home services: Yes (VNA for wound vac changes every other day, PT/OT 1-2x/week) Alcohol intake: current Alcohol intake frequency: holidays/special occasions only Patient Tobacco Use Status: Current everyday Tobacco user Tobacco use type: Cigarette Cigarettes Per Day: 7 e-Cigarette/Vaping Use: Never Used Second Hand Smoke Exposure: No service: No Current occupational status: retired Cognitive needs: Yes Hearing needs: No Vision needs: No Questionnaire PHQ-9 Over the last 2 weeks, how often have you been bothered by any of the following problems? 1. Little interest or pleasure in doing things: not at all 2. Feeling down, depressed, or hopeless: not at all 3. Trouble falling or staying asleep, or sleeping too much: not at all 4. Feeling tired or having little energy: not at all 5. Poor appetite or overeating: not at all 6. Feeling bad about yourself - or that you are a failure or have let yourself or your family down: not at all 7. Trouble concentrating on things, such as reading the newspaper or watching television: not at all 8. Moving or speaking so slowly that other people could have noticed. Or the opposite - being so fidgety or restless that you have been moving around a lot more than usual: not at all 9. Thoughts that you would be better off or of hurting yourself in some way: not at all Total score: 0 Depression Screening Interpretation: Negative Depression Screening Done: Yes 08881 - PHQ-9 Billing: Yes Source: Developed by Drs. Robb Mendoza, Ofelia Aguiar, Gautam Calderón and colleagues, with an educational lasha from [employer]. Thrive Questionnaire Date Thrive assessed: 09/01/23 MIS-7 AMB Questionnaire MIS-7 Date MIS - 7 assessed: 11/22/23 Feeling nervous, anxious, or on edge: 0 = Not at all Not being able to stop or control worryin = Not at all Worrying too much about different things: 0 = Not at all Trouble relaxin = Not at all Being so restless that it is hard to sit still: 0 = Not at all Becoming easily annoyed or irritable: 0 = Not at all Feeling afraid as if something awful might happen: 0 = Not at all Total MIS-7 score (0-4 normal; 5-9 mild; 10-14 moderate; 15-21 severe): 0 Source: Developed by Drs. Robb Mendoza, Ofelia Aguiar, Gautam Calderón and colleagues, with an educational lasha from [employer]. MIS-7 Assessment Billing MIS-7 Assessment Tool: MIS-7 Assessment 31425 Review of Systems Const All systems reviewed & are unremarkable except as noted in HPI and below Card Denies chest pain at rest, Denies chest pain with activity, Denies edema, Denies irregular heart rhythm, Denies claudication, Reports dyspnea, Denies dyspnea on exertion, Denies orthopnea, Denies paroxysmal nocturnal dyspnea and Denies slow heart rate Resp Denies cough, Reports dyspnea and Denies dyspnea on exertion Physical exam (Primary Care) Vital Signs: Last Vital Signs BP 122/78 11/22/23 12:24 BMI result Body Mass Index 38.4 Tobacco/Smoking Status: Tobacco use Status Tobacco use date assessed 08/16/23 11/22/23 12:31 Patient Tobacco Use Status Current everyday Tobacco 11/22/23 12:31 Tobacco use type Cigarette 11/22/23 12:31 e-Cigarette/Vaping Use Never Used 11/22/23 12:31 PHQ-9: PHQ-9 Score PHQ-9: Total score 0 11/22/23 12:31 Depression Screening Interpretation: Negative Thrive Assessment: Date of Thrive Assessment Date Thrive assessed 09/01/23 11/22/23 12:31 Resp Effort & Inspection: normal respiratory effort Auscultation: clear to auscultation bilaterally Cardio Jugular venous distension: no JVD Rate: regular rate Rhythm: regular rhythm Heart sounds: S1 normal heart sound present and S2 normal heart sound present Assessment and Plan Assessment & Plan (1) Persistent atrial fibrillation: Code(s): I48.19 - Other persistent atrial fibrillation Plan: Continue metoprolol and Eliquis. Follow-up with Cardiology. The goal is heart rate control. (2) CHF (congestive heart failure), NYHA class I: Code(s): I50.9 - Heart failure, unspecified Plan: Continue furosemide. Follow-up with Cardiology. The goal is to not gain 5 lb in a week. (3) Hypertension: Code(s): I10 - Essential (primary) hypertension Plan: Continue lisinopril. Blood pressure goal is equal or less than 130/80. (4) Class 2 obesity with body mass index (BMI) of 38.0 to 38.9 in adult: Code(s): E66.9 - Obesity, unspecified; Z68.38 - Body mass index [BMI] 38.0-38.9, adult Plan: Advised to do diet. BMI goal is less than 30. Medications: New Ventolin HFA 90 mcg/actuation (albuterol sulfate) 2 puffs inhalation Q6H 30 days PRN 8 grams 0RF shortness of breath or wheezing NS Coding Level of Care Code Est Pt Level 4 (92437) Diagnoses Persistent atrial fibrillation I48.19 CHF (congestive heart failure), NYHA class I I50.9 Hypertension I10 Class 2 obesity with body mass index (BMI) of 38.0 to 38.9 in adult E66.9; Z68.38 Additional Codes MIS-7 Assessment Billing - MIS-7 Assessment Tool: MIS-7 Assessment 53298 ([id number]) Time Spent (min) 23
[2023-11-22 12:24] VITALS: BP 122/78; BMI 38.4
== END 2023-11-22 12:56 | disposition home or self-care (01) ==
PROVIDERS: PCP Internal Medicine; Visit Provider Internal Medicine
DX: I48.19 Other persistent atrial fibrillation (principal); I11.0 Hypertensive heart disease with heart failure; I50.9 Heart failure, unspecified
CPT/HCPCS: 99214

== ENCOUNTER 2024-07-25 06:39 | Outpatient (REF) | payer MEDICARE, SELFPAY ==
[2024-07-25 07:03] LABS: MANUAL DIFF FLAG NO
[2024-07-25 07:37] LABS: Basophils Absolute Auto 0.1 X10*3/uL (0.0-0.2); Basophils Percent Auto 0.9 % (0-2); Eosinophils Absolute Auto 0.1 X10*3/uL (0.0-0.4); Eosinophils Percent Auto 0.9 % (0-4); Hematocrit 53.5 % (37.0-47.0); Hemoglobin 17.7 g/dl (12.0-16.0); Imm Gran Abs Auto 0.05 X10*3/uL (0.00-0.03); Imm Gran Pct Auto 0.6 % (0.0-0.4); Lymphocytes Absolute Auto 2.6 X10*3/uL (1.2-4.9); Lymphocytes Percent Auto 30.2 % (20-40); Mean Corpuscular HGB Conc 33.1 g/dl (31.0-35.0); Mean Corpuscular Hemoglobin 29.8 pg (27.0-33.0); Mean Corpuscular Volume 90.2 fL (80.0-98.0); Mean Platelet Volume 10.4 fL (9.4-12.3); Monocytes Absolute Auto 0.6 X10*3/uL (0.1-1.2); Monocytes Percent Auto 6.4 % (2-11); Neutrophils Absolute Auto 5.3 x10*3/uL (2.0-8.3); Platelet Count 202 X10*3/uL (160-400); Red Blood Count 5.93 X10*6/uL (4.20-5.50); Red Cell Distribution Width 14.1 % (11.0-16.0); White Blood Count 8.8 X10*3/uL (4.8-10.8)
[2024-07-25 08:14] LABS: Erythrocyte Sedimentation Rate 7 MM/HR (0-20)
[2024-07-25 08:31] LABS: Alanine Aminotransferase 11 U/L (0-31); Albumin Level 3.6 g/dL (3.5-5.0); Alkaline Phosphatase 89 U/L (39-117); Anion Gap 13 (12-20); Aspartate Amino Transferase 15 U/L (5-31); Bilirubin Total 0.4 mg/dL (0.0-1.0); Blood Urea Nitrogen 15 mg/dL (9-16); C Reactive Protein 1.27 mg/dL (< or = 0.50); Carbon Dioxide 30 mmol/L (22-29); Chloride 104 mmol/L (96-108); Estimated Glomerular Filt Rate > 60; Glucose Random 106 mg/dL (60-115); Potassium 4.3 mmol/L (3.3-5.1); Sodium 143 mmol/L (135-145)
== END 2024-07-25 06:40 | disposition home or self-care (01) ==
LOC: HO.LAB 06:39
PROVIDERS: PCP Internal Medicine; Visit Provider Internal Medicine Rheumatology
DX: M17.0 Bilateral primary osteoarthritis of knee (principal); Z79.1 Long term (current) use of non-steroidal anti-inflammatories (NSAID)
CPT/HCPCS: 36415; 80053; 85025; 85652; 86140

== ENCOUNTER 2024-09-05 17:41 | Inpatient (IN) | payer MEDICARE, SELFPAY ==
[2024-09-05] VITALS (8 sets, daily range): BP systolic 94–158; BP diastolic 38–78; PULSE 93–108; RESP 16–28; TEMP 37.4–39.3; O2SAT 88–97; BMI 38.1; BMI 50.7
--- NOTE | ~2024-09-05 | FL_ITS ---
EXAMINATION: XR FLUOROSCOPY WITH IMAGES CLINICAL INFORMATION: Left retrograde ureteroscopy and stent placement. COMPARISON: Correlation made with CT abdomen and pelvis 09/06/2024. TECHNIQUE: Fluoroscopy provided to: Dr. Bautista Fluoroscopy time: 49.4 seconds Dose: 35.14 mGy Images: 2 FINDINGS: 2 spot images taken during left retrograde ureteroscopy with stent placement. Refer to the full operative report for details. FL/FL guidance in OR IMPRESSION: Fluoroscopic guidance. Electronically signed by: Gato Hernandez MD 09/11/2024 08:23 AM [facility]
--- NOTE | ~2024-09-05 | CT_ITS ---
CLINICAL HISTORY: fever, sob CT chest without contrast Comparison: CT/REG/SR - CT ANGIO CHEST PE PROTOCOL - 07/17/23 16:18 EST Findings: Moderate cardiomegaly. Coronary artery calcifications present. The visualized thyroid and mediastinum are unremarkable. The lungs are clear. The upper abdomen is unremarkable. No acute fractures. Multilevel degenerative change of the thoracic spine. IMPRESSION: 1. Unremarkable chest CT. This document has been electronically signed by: Wayne Velasquez MD on 09/05/2024 22:09:35
--- NOTE | ~2024-09-05 | CT_ITS ---
EXAMINATION: CT ABDOMEN PELVIS WITHOUT IV CONTRAST HISTORY: Left flank pain, rule out stone COMPARISON: Comparison is made with the prior examination dated 07/17/2023. TECHNIQUE: CT scan of the abdomen and pelvis was performed without contrast using standard departmental protocol. Coronal and sagittal reformatted images were generated and reviewed. Oral contrast material was not administered per department protocol. This CT exam was performed with one or more of the following dose reduction techniques: automated exposure control, adjustment of the mA and/or kV according to patient size, use of iterative reconstruction technique. DLP: 807 mGy-cm FINDINGS: LOWER CHEST: The visualized lung bases are clear. There is no pleural effusion. CARDIOVASCULATURE: The heart is normal in size. There is no pericardial effusion. LIVER: The liver is normal in size and contour. The liver has an unremarkable unenhanced appearance. GALLBLADDER / BILE DUCTS: The gallbladder is surgically absent. There is no intra or extrahepatic biliary ductal dilatation. SPLEEN: The spleen is normal in size and has an unremarkable unenhanced appearance. PANCREAS: The pancreas has an unremarkable unenhanced appearance. ADRENAL GLANDS: Unremarkable. KIDNEYS/RETROPERITONEUM: There is a 2 mm nonobstructing calculus at the upper pole of the right kidney. There is no right hydronephrosis. There is a 1.7 cm calcification at the upper pole of the left kidney and multiple additional lower pole calculi measuring up to 11 mm in size. There is mild left hydronephrosis secondary to a 2.1 x 1.0 cm calculus at the UPJ. The distal ureters are collapsed. LYMPH NODES: No retroperitoneal lymphadenopathy is identified in the abdomen or pelvis. VASCULATURE: The abdominal aorta demonstrates atherosclerotic calcification, but is normal in caliber. MESENTERY/PERITONEUM: No free fluid. No masses. There is no free intraperitoneal gas. STOMACH: The stomach is collapsed, limiting evaluation. SMALL BOWEL: The small bowel is normal in caliber. COLON: There is diverticulosis of the descending and sigmoid colon, without evidence of diverticulitis. APPENDIX: Normal. URINARY BLADDER/PELVIC ORGANS: The urinary bladder is unremarkable. The uterus has an unremarkable unenhanced appearance. BONES / SOFT TISSUES: An abdominal wall mesh is seen in place. There is degenerative disc disease of the spine. CT/CT abdomen pelvis wo IV con IMPRESSION: 1. Mild left hydronephrosis secondary to a 2.1 x 1.0 cm UPJ calculus. 2. Bilateral nephrolithiasis as described. 3. Diverticulosis of the descending and sigmoid colon, without evidence of diverticulitis. Electronically signed by: Robb Silver MD 09/06/2024 11:10 AM [facility]
--- NOTE | ~2024-09-05 | XR_ITS ---
CLINICAL HISTORY: sob fever 1 view chest x-ray Comparison: CR - CHEST 2 VIEWS - 04/03/18 15:13 EDT Findings: The lungs are clear. Moderate cardiomegaly. No acute fracture. No focal infiltrate. IMPRESSION: 1. No acute findings. This document has been electronically signed by: Wayne Velasquez MD on 09/05/2024 18:57:05
--- NOTE | 2024-09-05 18:17 | ECG_ITS ---
Test Reason : CHEST PAIN/SOB Blood Pressure : */* mmHG Vent. Rate : 103 BPM Atrial Rate : * BPM P-R Int : * ms QRS Dur : 94 ms QT Int : 354 ms P-R-T Axes : * 24 40 degrees QTcB Int : 463 ms Atrial fibrillation with rapid ventricular response with premature ventricular or aberrantly conducted complexes Low voltage QRS Abnormal ECG When compared with ECG of 17-Jul-2023 15:21, Nonspecific T wave abnormality no longer evident in Inferior leads Referred By: Colleen Grove Electronically Signed By: BRIAN JONES MD
--- NOTE | 2024-09-05 18:26 | ED.GENADULT ---
HPI - General Adult General Chief complaint: Weakness Stated complaint: fall, bi lat knee pain Time Seen by Provider: 09/05/24 18:14 Source: patient and EMS Mode of arrival: EMS Limitations: no limitations History of Present Illness ED Provider: Dr. Colleen Grove HPI narrative: Patient comes to emergency room via ambulance from home. Initially, patient came in reporting fall landing on her knees. Patient believes that it was secondary to weakness, no obvious mechanical reason. Patient called EMS. It was noted that patient's oxygen saturation was 88% on room air, patient to her knowledge has not been diagnosed with COPD but she admits being a smoker, does not use O2 at home. Patient is any chest pain, but admits that she is short of breath. Patient is known to have AFib and is supposed to be on Eliquis. However, patient states that she has not taking any of her meds for over 8 months because she can not afford the co-payment. Related Data Home Medications ?Medication ?Instructions ?Recorded ?Confirmed multivitamin 1 tab PO DAILY 12/31/21 11/22/23 ascorbic acid (vitamin C) 500 mg 500 mg PO DAILY 08/31/23 11/22/23 tablet aspirin 81 mg tablet,delayed 81 mg PO DAILY 08/31/23 11/22/23 release furosemide 40 mg tablet 40 mg PO DAILY 08/31/23 11/22/23 Previous Rx's ?Medication ?Instructions ?Recorded apixaban 5 mg tablet (Eliquis) 5 mg PO BID #60 tabs 09/20/23 Ventolin HFA 90 mcg/actuation 2 puff inhalation Q6H PRN 11/22/23 aerosol inhaler (albuterol sulfate) shortness of breath or wheezing 30 days #8 grams lisinopril 2.5 mg tablet 2.5 mg PO DAILY 90 days #90 tabs 01/31/24 metoprolol tartrate 100 mg tablet 100 mg PO BID #180 tabs 08/11/24 Allergies Allergy/AdvReac Type Severity Reaction Status Date / Time rivaroxaban [Xarelto] Allergy Unknown confusion Verified 09/05/24 18:09 Review of Systems Review of Systems: Constitutional : No Weight loss, No Fever, No Chills, No Night Sweats, No Fatigue, No Malaise ENT/Mouth : No Hearing loss, No Ear Pain, No Nasal Congestion, No Sinus Pain, No Hoarseness, No sore throat, No Rhinorrhea, No Swallowing Difficulty Eyes: No Eye Pain, No Swelling, No Redness, No Foreign Body, No Discharge, No Vision Changes Cardiovascular : No Chest Pain, complaining of mild shortness of breath, no orthopnea, intermittent palpitations Respiratory : Denies cough, complaining of wheezing and shortness of breath Gastrointestinal : No Nausea, No Vomiting, No Diarrhea, No Constipation, No abdominal Pain, No Hematochezia, No Melena Genitourinary : no irregular bleeding, No Dysuria, No Urinary Frequency, No Hematuria, No Urinary Incontinence, No Urgency, No Flank Pain, No Urinary Flow Changes, No Hesitancy Musculoskeletal : Complaining of bilateral knee discomfort No Myalgias, No Joint Swelling Skin : No Skin Lesions, No rash Neuro : No Weakness, No Numbness, No Paresthesias, No Loss of Consciousness, No Dizziness, No Headache Psych : No Anxiety/Panic, No Depression, No SI/HI/AH/VH, No Social Issues, Heme/Lymph: No Bruising, No Bleeding,No Lymphadenopathy Endocrine : No Polyuria, No Polydipsia, No Temperature Intolerance [facility] Past Medical History Medical History CHF (congestive heart failure), NYHA class I Persistent atrial fibrillation New onset atrial fibrillation Cellulitis of leg, right Peripheral artery disease COVID-19 Hypertension Surgical History History of embolectomy Social History Social History (Updated 11/22/23 @ 12:46 by Gabby Hernandez MD) Household Members: None Housing: Apartment Do you presently have visiting nurse or other home services: Yes ([facility] for wound vac changes every other day, PT/OT 1-2x/week) Unable to assess alcohol history related to: Unknown Alcohol intake: current Alcohol intake frequency: holidays/special occasions only Patient Tobacco Use Status: Current everyday Tobacco user Tobacco use type: Cigarette Cigarettes Per Day: 7 Smoked in Last 30 Days: No e-Cigarette/Vaping Use: Never Used Second Hand Smoke Exposure: No Use of substances other than those prescribed or required for medical reasons: Unknown Advance Directives: No Advance Directives Information Provided: No service: No Current occupational status: retired Cognitive needs: Yes Hearing needs: No Vision needs: No Physical Exam ED Vital Signs: Vital Signs - 24 hr 09/05/24 18:06 09/05/24 18:07 09/05/24 18:43 Temperature 99.7 F 102.7 F H 100.7 F H Pulse Rate 102 H 108 H Respiratory Rate 28 H 18 Blood Pressure 158/68 H 158/68 H Pulse Oximetry 94 88 L Oxygen Delivery Method Nasal Cannula Room Air Oxygen Flow Rate 09/05/24 19:27 09/05/24 22:25 09/05/24 22:27 Temperature 102.0 F H 99.3 F Pulse Rate 99 93 Respiratory Rate 18 16 Blood Pressure 158/68 H 101/45 L 98/38 L Pulse Oximetry 97 94 Oxygen Delivery Method Nasal Cannula Room Air Oxygen Flow Rate 2 09/05/24 22:28 Temperature Pulse Rate Respiratory Rate Blood Pressure 94/45 L Pulse Oximetry Oxygen Delivery Method Oxygen Flow Rate BMI result Body Mass Index 50.7 Const Other: Appearance: Alert. Oriented X3. No acute distress. Eyes: Pupils equal, round and reactive to light. ENT: Pharynx normal. Neck: Normal inspection. Neck supple. No lymph nodes noted. No crepitus CVS: Irregularly irregular heart rate between 100 and 110, Pulses normal. Normal S1 and S2 Respiratory: No respiratory distress. Breath sounds normal. No Wheezing. No rales Abdomen: Soft and nontender. No rigidity. No distention. Skin: Skin warm and dry. Flushed skin color. Normal skin turgor. Extremities: No lower extremity edema. No Lacerations. No Rash Neuro: Oriented X 3. No motor deficit. No sensory deficit. Moving all extremities. No slurred speech. CN 2 through 12 grossly intact Psych: calm, cooperative, normal affect Course Course Course Narrative: On arrival, patient has a fever of 102.7. I was informed by the patient's nurse that when patient arrived she was on nasal cannula saturating 94. Patient is not O2 dependent. 0 2 was shut off and oxygen saturation dropped to 88% on room air at rest. On physical exam patient has a heart rate between 100 110, irregularly irregular, likely secondary to AFib, patient has not been on any medications for several months due to inability to afford the medication co-payment. Blood pressure in the 150s systolic. To patient's knowledge, she has not been exposed to anyone sick. Medications Administered Generic Name Dose Route Start Last Admin Trade Name Frebean PRN Reason Stop Dose Admin Sodium Chloride 2,000 mls @ 999 mls/hr 09/05/24 22:45 09/05/24 22:56 Ns IVCONT 09/06/24 00:45 Not Given .Q2H1M ONE Discontinued Medications Generic Name Dose Route Start Last Admin Trade Name Rocio PRN Reason Stop Dose Admin Acetaminophen 975 mg 09/05/24 19:36 09/05/24 19:49 Acetaminophen 325 Mg Tablet PO 09/05/24 19:37 975 mg ONCE ONE Administration Ceftriaxone Sodium 1 gm 09/05/24 18:17 09/05/24 18:59 Ceftriaxone Sodium 1 Gm Vial IVPUSH 09/05/24 18:18 1 gm ONCE ONE Administration Sodium Chloride 1,000 mls @ 999 mls/hr 09/05/24 18:16 09/05/24 19:56 Ns IVCONT 09/05/24 19:16 Infused .Q1H1M ONE Infusion Azithromycin 500 mg/ Sodium 250 mls @ 125 mls/hr 09/05/24 18:17 09/05/24 22:30 Chloride IV 09/05/24 20:16 Infused ONCE ONE Infusion Metoprolol Tartrate 25 mg 09/05/24 18:42 09/05/24 18:59 Metoprolol Tartrate 25 Mg Tablet PO 09/05/24 18:43 25 mg ONCE ONE Administration Protocol Medical Decision Making Medical Decision Making [facility] Narrative: Patient has AFib with RVR, patient has been off her medications for at least 8 months due to medication noncompliance, can not afford meds/co-payment Patient was given 25 mg of p.o. metoprolol. My interpretation of labs: Patient's white blood cell count 16, patient has elevated hemoglobin/hematocrit a platelets 147. Chemistry does not show any acute abnormality. Troponin 1. 57.1, troponin 2. Similar, 60.0. BNP 311 which is at baseline. Patient has no chest pain or shortness of breath. Patient has elevated troponin was likely secondary to being in AFib with RVR. Earlier today, patient was complaining of shortness of breath. Chest x-ray negative, CT of the chest negative. Negative for influenza COVID and RSV. It is possible that the shortness of breath was likely secondary to the AFib with RVR. Once patient was better controlled, no longer having shortness of breath. Patient's urinalysis is positive for UTI. Earlier today, when patient arrived to the emergency room, pneumonia was suspected, was empirically treated with azithromycin and ceftriaxone. Patient was given 1 L of normal saline. Patient has CHF. However sepsis is not suspected. Patient has not had any episodes of hypotension, lactic acid normal. As mentioned above, patient's fall likely secondary to UTI, weakness. And patient's shortness of breath likely secondary to AFib with RVR. I discussed the patient with Dr. Giles, patient being admitted Differential Diagnosis Differential Diagnoses: The differential diagnosis associated with the presentation includes (Influenza, COVID, pneumonia, CHF, AFib with RVR, UTI) Admission/Observation Consideration of admission/observation: Escalation of care including admission/observation considered Consult Healthcare Provider Management of the patient was discussed with: Hospitalist Lab Data MDM Lab Attestation statement: I reviewed the patient's lab results. 09/05/24 18:58 09/05/24 18:58 Labs: Lab Results 09/05/24 09/05/24 09/05/24 Range/Units 18:58 19:03 21:50 WBC 16.0 H (4.8-10.8) X10*3/uL RBC 5.84 H (4.20-5.50) X10*6/uL Hgb 17.6 H (12.0-16.0) g/dl Hct 50.8 H (37.0-47.0) % MCV 87.0 (80.0-98.0) fL MCH 30.1 (27.0-33.0) pg MCHC 34.6 (31.0-35.0) g/dl RDW 14.0 (11.0-16.0) % Plt Count 147 L D (160-400) X10*3/uL MPV 10.1 (9.4-12.3) fL Immature Gran % (Auto) 0.5 H (0.0-0.4) % Neut % (Auto) 92.0 H (45-73) % Lymph % (Auto) 2.5 L (20-40) % Morris % (Auto) 4.7 (2-11) % Eos % (Auto) 0.0 (0-4) % Baso % (Auto) 0.3 (0-2) % Lymph # (Auto) 0.4 L (1.2-4.9) X10*3/uL Morris # (Auto) 0.8 (0.1-1.2) X10*3/uL Eos # (Auto) 0.0 (0.0-0.4) X10*3/uL Baso # (Auto) 0.1 (0.0-0.2) X10*3/uL Abs Immat Gran (auto) 0.08 H (0.00-0.03) X10*3/uL Absolute Neuts (auto) 14.7 H (2.0-8.3) x10*3/uL Absolute Nucleated RBC 0.000 (0.0-0.012) X10*3/uL Nucleated RBC % (auto) 0.0 (0.0-0.2) /100WBC Smear Tech's Comments VERIFIED PT 14.0 H (10.9-12.4) SEC INR 1.2 H (0.9-1.1) VBG pH 7.45 H (7.32-7.43) VBG pCO2 34 mmHg VBG pO2 42 mmHg VBG HCO3 23 (22-26) mmol/L VBG O2 Saturation 76.0 % VBG Base Excess 0.5 mmol/L Sodium 133 L (135-145) mmol/L Potassium 4.0 (3.3-5.1) mmol/L Chloride 101 (96-108) mmol/L Carbon Dioxide 21 L (22-29) mmol/L Anion Gap 15 (12-20) BUN 18 H (9-16) mg/dL Creatinine 1.06 (0.5-1.4) mg/dL Estim Creat Clear Calc 70.7 Estimated GFR 51 Random Glucose 145 H (60-115) mg/dL Lactic Acid 1.3 (0.5-2.0) mmol/L Calcium 8.8 (8.4-10.2) mg/dL Magnesium 1.7 (1.6-2.6) mg/dL Total Bilirubin 0.6 (0.0-1.0) mg/dL Direct Bilirubin 0.3 (0.0-0.5) mg/dL AST 46 H (5-31) U/L ALT 33 H (0-31) U/L Alkaline Phosphatase 94 (39-117) U/L Troponin I High Sens 57.1 H* D 60.4 H* (<3.5-17.0) ng/L B-Natriuretic Peptide 311 H (<100) pg/mL Total Protein 7.0 (6.5-8.0) g/dL Albumin 3.3 L (3.5-5.0) g/dL Urine Color Urine Appearance Urine pH (5.0-9.0) Ur Specific [place] (1.005-1.025) Urine Protein (Neg-Trace) mg/dL Urine Glucose (UA) (Negative) mg/dL Urine Ketones (Negative) mg/dL Urine Blood (Negative) Urine Nitrite (Negative) Ur Leukocyte Esterase (Negative) Urine RBC (0-2) /HPF Urine WBC (0-5) /HPF Ur Squamous Epith Cells (0-2) /HPF Urine Bacteria (None Seen) Hyaline Casts (0-2) /LPF Influenza Type A (PCR) NEGATIVE (Negative) Influenza Type B (PCR) NEGATIVE (Negative) RSV RNA Qual (PCR) NEGATIVE (Negative) SARS-CoV-2 RNA (RT-PCR) NEGATIVE (Negative) 09/05/24 Range/Units 22:54 WBC (4.8-10.8) X10*3/uL RBC (4.20-5.50) X10*6/uL Hgb (12.0-16.0) g/dl Hct (37.0-47.0) % MCV (80.0-98.0) fL MCH (27.0-33.0) pg MCHC (31.0-35.0) g/dl RDW (11.0-16.0) % Plt Count (160-400) X10*3/uL MPV (9.4-12.3) fL Immature Gran % (Auto) (0.0-0.4) % Neut % (Auto) (45-73) % Lymph % (Auto) (20-40) % Morris % (Auto) (2-11) % Eos % (Auto) (0-4) % Baso % (Auto) (0-2) % Lymph # (Auto) (1.2-4.9) X10*3/uL Morris # (Auto) (0.1-1.2) X10*3/uL Eos # (Auto) (0.0-0.4) X10*3/uL Baso # (Auto) (0.0-0.2) X10*3/uL Abs Immat Gran (auto) (0.00-0.03) X10*3/uL Absolute Neuts (auto) (2.0-8.3) x10*3/uL Absolute Nucleated RBC (0.0-0.012) X10*3/uL Nucleated RBC % (auto) (0.0-0.2) /100WBC Smear Tech's Comments PT (10.9-12.4) SEC INR (0.9-1.1) VBG pH (7.32-7.43) VBG pCO2 mmHg VBG pO2 mmHg VBG HCO3 (22-26) mmol/L VBG O2 Saturation % VBG Base Excess mmol/L Sodium (135-145) mmol/L Potassium (3.3-5.1) mmol/L Chloride (96-108) mmol/L Carbon Dioxide (22-29) mmol/L Anion Gap (12-20) BUN (9-16) mg/dL Creatinine (0.5-1.4) mg/dL Estim Creat Clear Calc Estimated GFR Random Glucose (60-115) mg/dL Lactic Acid (0.5-2.0) mmol/L Calcium (8.4-10.2) mg/dL Magnesium (1.6-2.6) mg/dL Total Bilirubin (0.0-1.0) mg/dL Direct Bilirubin (0.0-0.5) mg/dL AST (5-31) U/L ALT (0-31) U/L Alkaline Phosphatase (39-117) U/L Troponin I High Sens (<3.5-17.0) ng/L B-Natriuretic Peptide (<100) pg/mL Total Protein (6.5-8.0) g/dL Albumin (3.5-5.0) g/dL Urine Color Dark Yellow Urine Appearance Cloudy Urine pH 6.0 (5.0-9.0) Ur Specific [place] 1.025 (1.005-1.025) Urine Protein 300 (3+) H (Neg-Trace) mg/dL Urine Glucose (UA) Negative (Negative) mg/dL Urine Ketones 40 (Negative) mg/dL Urine Blood Large (3+) H (Negative) Urine Nitrite Positive H (Negative) Ur Leukocyte Esterase Moderate (2+) H (Negative) Urine RBC 6-10 H (0-2) /HPF Urine WBC >50 H (0-5) /HPF Ur Squamous Epith Cells 3-5 (0-2) /HPF Urine Bacteria Trace (None Seen) Hyaline Casts 3-5 (0-2) /LPF Influenza Type A (PCR) (Negative) Influenza Type B (PCR) (Negative) RSV RNA Qual (PCR) (Negative) SARS-CoV-2 RNA (RT-PCR) (Negative) Independent Interpretation I performed an independent interpretation of an: Plain X-Ray and CT Scan Radiology Impression Discussion of test interpretation with radiology: I have reviewed the radiologist's reading. Radiologist Impression: Moderate cardiomegaly. Coronary artery calcifications present. The visualized thyroid and mediastinum are unremarkable. The lungs are clear. The upper abdomen is unremarkable. No acute fractures. Multilevel degenerative change of the thoracic spine. IMPRESSION: 1. Unremarkable chest CT The lungs are clear. Moderate cardiomegaly. No acute fracture. No focal infiltrate. IMPRESSION: 1. No acute findings Critical Care Time Critical Care Time Critical Care Time: Yes Total Critical Care Time: 60 Attestation: I have personally provided critical care time. Time includes review of lab data, radiology results, discussion with consultants, and monitoring for potential decompensation. Intervention performed as documented. Discharge Plan Discharge Clinical Impression: Atrial fibrillation with RVR, Acute UTI, Weakness Patient Disposition: Admitted As Inpatient Print Language: Eritrean
--- OUTSIDE RECORDS SUMMARY | 2024-09-05 18:30 | XMS_ITS | Encounter Summary ---
Author Organization [facility] Address [address] [place] [address] Care Team Providers Care Lot Attendant Name Role Phone Gabby Covarrubias MD Primary Care Provider [phone] Encounter Details Date Type Department Care Team (Late st Contact Info) Description 08/21/2023 Scanned Document GENERIC EXTERNAL DATA DEPARTMENT Provider, Generic External Data Social History Tobacco Use Types Packs/Day Years Used Date Smoking Tobacco: Every Day Cigarettes Smokeless Tobacco: Never Comments:3 cig a day Pt states she smokes weed [facility] Utilities Answer Date Recorded In the past 12 months has [employer] electric, gas, oil, or water [employer] threatened to shut off services in your home? No 07/19/2023 AUDIT-C Answer Date Recorded Q1: How often do you have a drink containing alcohol? Never 07/18/2023 Q2: How many drinks containi ng alcohol do you have on a typical day when you are drinking? Patient does not drink Q3: How often do you have si x or more drinks on one occasion? Never 07/18/2023 Overall Financial Resource Strain (CARDIA) Answe r Date Recorded How hard is it for you to pa y for the very basics like food, housing, medical care, and heating? Not very hard 07/19/2023 PHQ-2 Answer Date Recorded PHQ-2 Total Score 0 06/28/2023 Hunger Vital Sign Answer Date Recorded Within the past 12 months, y ou worried that your food would run out before you got the money to buy more. Never true 07/19/20 23 Within the past 12 months, t he food you bought just didn't last and you didn't have money to get more. Never true 07/19/2023 PRAPARE - Transportation Answer Date Re corded In the past 12 months, has l ack of transportation kept you from medical appointments or from getting medications? No 06/24 In the past 12 months, has l ack of transportation kept you from meetings, work, or from getting things needed for daily living? Yes 07/19/2023 Housing Stability Vital Sign Answer Bon e Recorded In the last 12 months, was t here a time when you were not able to pay the mortgage or rent on time? No 07/19/2023 In the last 12 months, how many places have you lived? 1 07/19/2023 In the last 12 months, was t here a time when you did not have a steady place to sleep or slept in a usp (including now)? No 07/19/2023 Sex and Gender Information Value Date Recorded Sex Assigned at Female 07/05/2023 3:24 PM EST Gender Identity Female 07/05/2023 3:24 PM EST Sexual Orientation Choose not to disclose 2022 3:24 PM EST documented as of this encounter Plan of Treatment Not on file documented as of this encounter Visit Diagnoses Not on filedocumented in this encounter Care Teams Lot Attendant Relationship Specialty Start Date End Date Gabby Covarrubias MD [address] [place] [address] PCP - General Family Medicine 06/27/23 documented as of this encounter
--- OUTSIDE RECORDS SUMMARY | 2024-09-05 18:30 | XMS_ITS ---
Author Name [facility] Organization Unknown History of Medication Use Medication Directions Dispensed Refills Start Date End Date Stat us furosemide (LASIX) 40 MG tablet Take 1 tablet (40 mg total) by mouth daily. 08/05/2023 09/05/2023 active gabapentin (NEURONTIN) 300 MG capsule Take 1 capsule (300 mg total) by mouth 3 (three) times a day. 08/04/2023 09/04/2023 active lisinopril (PRINIVIL,ZeSTRIL) 2.5 MG tablet Take 1 tablet (2.5 mg total) by mouth daily. active multivitamin with minerals (Oncovite) Tab tablet Take 1 tablet by mouth daily. active acetaminophen (TYLENOL) 325 MG tablet Take 2 tablets (650 mg total) by mouth 4 times daily (every 6 hours) as needed for mild pain. 08/04/2023 09/04/2023 active apixaban (ELIQUIS) 5 MG tablet Take 1 tablet (5 mg total) by mouth 2 (two) times a day. Do not start before July 07, 2023. 07/07/2023 active ascorbic acid (VITAMIN C) 500 MG tablet Take 1 tablet (500 mg total) by mouth daily. 08/11/2023 active Problems Problem Status Onset Date Problem Type Date of Resoluti on Source Non-healing surgical wound active 2023-09-20 [facility] Atherosclerosis of [place] artery of right lower extremity with intermittent claudication active 2023-10-12 [facility] Wound infection after surgery active 2023-07-18 [facility] Ischemia of right lower extremity active 2023-06-27 ProblemAct [facility]
--- OUTSIDE RECORDS SUMMARY | 2024-09-05 18:30 | XMS_ITS | Encounter Summary ---
Author Organization [facility] Address [address] [place] [address] Care Team Providers Care Editor Publications Name Role Phone Gabby Covarrubias MD Primary Care Provider [phone] Encounter Details Date Type Department Care Team (Late st Contact Info) Description 09/04/2023 Telephone [facility] Vascular & Endovascular Surgery [place] [address] [place] [phone] Torsten Woody MD [address] [place] [address] Social History Tobacco Use Types Packs/Day Years Used Date Smoking Tobacco: Every Day Cigarettes Smokeless Tobacco: Never Comments:3 cig a day Pt states she smokes weed [facility] Utilities Answer Date Recorded In the past 12 months has [employer] electric, gas, oil, or water company threatened to shut off services in your [...] money to buy more. Never true 07/19/20 Within the past 12 months, t he [...] place to sleep or slept in a correction (including now)? No 07/19/2023 Sex and Gender Information Value Date Recorded Sex Assigned at Female 07/05/2023 3:24 PM EST Gender Identity Female 07/05/2023 3:24 PM EST Sexual Orientation Choose not to disclose 2022 3:24 PM EST documented as of this encounter Plan of Treatment Not on file documented as of this encounter Visit Diagnoses Not on filedocumented in this encounter Care Teams Editor Publications Relationship Specialty Start Date End Date Gabby Covarrubias MD [address] [place] [address] PCP - General Family Medicine 06/27/23 documented as of this encounter
--- OUTSIDE RECORDS SUMMARY | 2024-09-05 18:30 | XMS_ITS | Encounter Summary ---
Author Organization [facility] Address [address] [place] [address] Care Team Providers Care Talkback Host Name Role Phone Gabby Covarrubias MD Primary Care Provider [phone] Encounter Details Date Type Department Care Team (Late st Contact Info) Description 08/22/2023 Telephone [facility] Vascular & Endovascular Surgery [place] [address] [place] [phone] Torsten Woody MD [address] [place] [address] Social History Tobacco Use Types Packs/Day Years Used Date Smoking Tobacco: Every Day Cigarettes Smokeless Tobacco: Never Comments:3 cig a day Pt states she smokes weed [facility] Utilities Answer Date Recorded In the past 12 months has [employer] electric, gas, oil, or water company threatened [...] place to sleep or slept in a chcf (including now)? No 07/19/2023 Sex and Gender Information Value Date Recorded Sex Assigned at Female 07/05/2023 3:24 PM EST Gender Identity Female 07/05/2023 3:24 PM EST Sexual Orientation Choose not to disclose 2022 3:24 PM EST documented as of this encounter Plan of Treatment Not on file documented as of this encounter Visit Diagnoses Not on filedocumented in this encounter Care Teams Talkback Host Relationship Specialty Start Date End Date Gabby Covarrubias MD [address] [place] [address] PCP - General Family Medicine 06/27/23 documented as of this encounter
--- OUTSIDE RECORDS SUMMARY | 2024-09-05 18:30 | XMS_ITS | Encounter Summary ---
Author Organization [facility] Address [address] [place] [address] Care Team Providers Care General Forecaster Name Role Phone Gabby Covarrubias MD Primary Care Provider [phone] Encounter Details Date Type Department Care Team (Late st Contact Info) Description 09/14/2023 Scanned Document [facility] Vascular & Endovascular Surgery [address] [place] [phone] Vascular Surgery, Scan Social History Tobacco Use Types Packs/Day Years Used Date Smoking Tobacco: Every Day Cigarettes Smokeless Tobacco: Never Comments:3 cig a day Pt states she smokes weed [facility] Utilities Answer Date Recorded In the past 12 months has [employer] electric, gas, oil, or water company threatened [...] place to sleep or slept in a care home (including now)? No 07/19/2023 Sex and Gender Information Value Date Recorded Sex Assigned at Female 07/05/2023 3:24 PM EST Gender Identity Female 07/05/2023 3:24 PM EST Sexual Orientation Choose not to disclose 2022 3:24 PM EST documented as of this encounter Plan of Treatment Not on file documented as of this encounter Visit Diagnoses Not on filedocumented in this encounter Care Teams General Forecaster Relationship Specialty Start Date End Date Gabby Covarrubias MD [address] [place] [address] PCP - General Family Medicine 06/27/23 documented as of this encounter
--- OUTSIDE RECORDS SUMMARY | 2024-09-05 18:30 | XMS_ITS | Clinical Summary ---
Author Organization Formerly [facility] Address [address] [place] [address] Care Team Providers Care School Standards Coach Name Role Phone Gabby Covarrubias MD Primary Care Provider Allergies Active Allergy Reactions Criticality Noted Date Comments Rivaroxaban Delirium/Confusion/Psychosis Low 2022 Medications Medication Sig Dispensed Refills Start Date End Date Status lisinopril (PRINIVIL,ZeSTRIL) 2.5 MG tabletIndications: Hypertension Take 1 tablet (2.5 mg total) by mouth daily. Active metoPROLOL TARTRATE (LOPRESSOR) 100 MG tabletIndications: Hypertension Take 1 tablet (100 mg total) by mouth 2 (two) times a day. Active apixaban (ELIQUIS) 5 MG tabletIndications: Critical limb ischemia of right lower extremity (HCC) Take 1 tablet (5 mg total) by mouth 2 (two) times a day. Do not start before July 07, 2023. 60 tablet 07/07/2023 Active aspirin enteric coated (ECOTRIN LOW STRENGTH) 81 MG EC tabletIndications: Critical limb ischemia of right lower extremity (HCC) Take 1 tablet (81 mg total) by mouth daily. 30 tablet 3 07/05/2023 Active atorvastatin (LIPITOR) 40 MG tabletIndications: Critical limb ischemia of right lower extremity (HCC) Take 1 tablet (40 mg total) by mouth daily. 30 tablet 07/05/2023 Active acetaminophen (TYLENOL) 325 MG tabletIndications: Wound infection after surgery Take 2 tablets (650 mg total) by mouth 4 times daily (every 6 hours) as needed for mild pain. 08/04/2023 Active furosemide (LASIX) 40 MG tabletIndications: Wound infection after surgery Take 1 tablet (40 mg total) by mouth daily. 08/05/2023 Active gabapentin (NEURONTIN) 300 MG capsuleIndications :Wound infection after surgery Take 1 capsule (300 mg total) by mouth 3 (three) times a day. 08/04/2023 Active multivitamin with minerals (Oncovite) Tab tablet Take 1 tablet by mouth daily. Active ascorbic acid (VITAMIN C) 500 MG tablet Take 1 tablet (500 mg total) by mouth daily. 08/11/2023 Active HYDROmorphone (DILAUDID) 2 MG tablet TAKE ONE TABLET BY MOUTH ONCE A DAY NEEDED FOR SEVERE BREAKTHROUGH PAIN AND TAKE ONE ADDITIONAL TABLET BY MOUTH THREE TIMES PER WEEK 30 M 08/16/2023 Active Active Problems Problem Noted Date Diagnosed Date Atherosclerosis of [place] of right lower extremity with intermittent claudication 10/12/2023 Non-healing surgical wound 09/20/2023 Wound infection after surgery 07/18/2023 Ischemia of right lower extremity 06/27/2023 Social History Tobacco Use Types Packs/Day Years Used Date Smoking Tobacco: Every Day Cigarettes Smokeless Tobacco: Never Comments:3 cig a day Pt states she smokes weed [facility] [employer] Answer Date Recorded In the past 12 months has [employer], gas, oil, or water [employer] threatened to shut off services in your [...] place to sleep or slept in a [facility] (including now)? No 07/19/2023 Sex and Gender Information Value Date Recorded Sex Assigned at Female 07/05/2023 3:24 PM EST Gender Identity Female 07/05/2023 3:24 PM EST Sexual Orientation Choose not to disclose 2022 3:24 PM EST Last Filed Vital Signs Vital Sign Reading Time Taken Comments Blood Pressure 126/74 10/12/2023 10:12 AM EDT L ARM 128/70 Pulse 78 10/12/2023 10:12 AM EDT Temperature 35.9 ??C (96.7 ??F) 08/04/2023 11:[address] Respiratory Rate 18 08/04/2023 11:44 AM EST Oxygen Saturation 98% 10/12/2023 10:12 AM EDT Inhaled Oxygen Concentration - - Weight 105 kg (232 lb) 10/12/2023 10:12 AM EDT Height 165.1 cm (5' 5 ) 10/12/2023 10:12 AM EDT Body Mass Index 38.61 10/12/2023 10:12 AM EDT Plan of Treatment Health Maintenance Due Date Last Done Comments Hepatitis C Virus Screening 1955 DTaP/Tdap/Td Vaccines (1 - Tdap) 1974 Pneumococcal Vaccines 50+ (1 of 2 - PCV) 1974 Mammogram 1995 Colonoscopy 2000 Zoster (Shingles) Vaccine (1 of 2) 2005 DXA Bone Density (Females,Ag es 65 and older) 2020 Influenza Vaccine 02/22/2024 COVID-19 Vaccine ( - 2023-2 5 season) 2024 RSV Vaccine 60 years and old er and Patients (1 - 1-dose 75+ series) 2030 Hepatitis B Vaccines Aged Out No long er eligible based on patient's age to complete this topic Advance Directives * Full Code (Latest Code Status on File) Date Activated Date Inactivated Comments 08/01/2023 2:51 PM * Full Code Date Activated Date Inactivated Comments 07/27/2023 3:52 PM 08/01/2023 2:51 PM * Full Code Date Activated Date Inactivated Comments 07/25/2023 6:21 PM 07/27/2023 3:52 PM * Full Code Date Activated Date Inactivated Comments 07/23/2023 2:47 PM 07/25/2023 6:21 PM * Full Code Date Activated Date Inactivated Comments 07/18/2023 4:20 AM 07/23/2023 2:47 PM Healthcare Agents on File Name Relationship [facility] Kiel Rothmarco antonio Adult child 4. Next of Kin ( Spouse, Adult Child, Parent, Adult Sibling, Grandparent) Sung Mcclure Adult child 4. Next of Kin ( Spouse, Adult Child, Parent, Adult Sibling, Grandparent) Care Teams School Standards Coach Relationship Specialty Start Date End Date Gabby Covarrubias MD [address] [place], [place] [id number] PCP - General Family Medicine 06/27/23
--- OUTSIDE RECORDS SUMMARY | 2024-09-05 18:30 | XMS_ITS | Encounter Summary ---
Author Organization [facility] Address [address] [place] [address] Care Team Providers Care Capital Equipment Specialist Name Role Phone Gabby Covarrubias MD Primary Care Provider [phone] Encounter Details Date Type Department Care Team (Late st Contact Info) Description 09/29/2023 Scanned Document [facility] End[facility] Surgery [address] [place] [address] Vascular Surgery, Scan Social History Tobacco Use Types Packs/Day Years Used Date Smoking Tobacco: Every Day Cigarettes Smokeless Tobacco: Never Comments:3 cig a day Pt states she smokes weed [facility] Utilities Answer Date Recorded In the past 12 months has [employer], gas, oil, or water company threatened [...] place to sleep or slept in a senior living (including now)? No 07/19/2023 Sex and Gender Information Value Date Recorded Sex Assigned at Female 07/05/2023 3:24 PM EST Gender Identity Female 07/05/2023 3:24 PM EST Sexual Orientation Choose not to disclose 2022 3:24 PM EST documented as of this encounter Plan of Treatment Not on file documented as of this encounter Visit Diagnoses Not on filedocumented in this encounter Care Teams Capital Equipment Specialist Relationship Specialty Start Date End Date Gabby Covarrubias MD [address] [place] [address] PCP - General Family Medicine 06/27/23 documented as of this encounter
[2024-09-05] MEDS: 0.9 % Sodium Chloride 1,000 ML 999 ML IVCONT (18:36)
[2024-09-05] MEDS: Metoprolol Tartrate 25 MG TABLET PO (18:59)
[2024-09-05] MEDS: cefTRIAXone sodium 1 GM VIAL IVPUSH (18:59)
[2024-09-05 19:05] LABS: Basophils Absolute Auto 0.1 X10*3/uL (0.0-0.2); Basophils Percent Auto 0.3 % (0-2); Hematocrit 50.8 % (37.0-47.0); Hemoglobin 17.6 g/dl (12.0-16.0); Imm Gran Abs Auto 0.08 X10*3/uL (0.00-0.03); Imm Gran Pct Auto 0.5 % (0.0-0.4); Lymphocytes Absolute Auto 0.4 X10*3/uL (1.2-4.9); Lymphocytes Percent Auto 2.5 % (20-40); MANUAL DIFF FLAG SCAN; Mean Corpuscular HGB Conc 34.6 g/dl (31.0-35.0); Mean Corpuscular Hemoglobin 30.1 pg (27.0-33.0); Mean Platelet Volume 10.1 fL (9.4-12.3); Monocytes Absolute Auto 0.8 X10*3/uL (0.1-1.2); Monocytes Percent Auto 4.7 % (2-11); Neutrophils Absolute Auto 14.7 x10*3/uL (2.0-8.3); Platelet Count 147 X10*3/uL (160-400); Red Blood Count 5.84 X10*6/uL (4.20-5.50); SCAN SMEAR FLAG 1
[2024-09-05 19:09] LABS: VBG Base Excess 0.5 mmol/L; VBG HCO3 23 mmol/L (22-26); VBG pCO2 34 mmHg; VBG pH 7.45 (7.32-7.43); VBG pO2 42 mmHg
[2024-09-05 19:10] LABS: Venous Blood Gas Refer to POC result
[2024-09-05 19:11] LABS: INTERNATIONAL NORM RATIO 1.2 (0.9-1.1)
[2024-09-05 19:19] LABS: Alanine Aminotransferase 33 U/L (0-31); Albumin Level 3.3 g/dL (3.5-5.0); Alkaline Phosphatase 94 U/L (39-117); Anion Gap 15 (12-20); Aspartate Amino Transferase 46 U/L (5-31); Bilirubin Direct 0.3 mg/dL (0.0-0.5); Bilirubin Total 0.6 mg/dL (0.0-1.0); Blood Urea Nitrogen 18 mg/dL (9-16); Calcium 8.8 mg/dL (8.4-10.2); Carbon Dioxide 21 mmol/L (22-29); Chloride 101 mmol/L (96-108); Creatinine Clr Calc Pharmacy 70.7; Estimated Glomerular Filt Rate 51; Glucose Random 145 mg/dL (60-115); Lactic Acid 1.3 mmol/L (0.5-2.0); Magnesium 1.7 mg/dL (1.6-2.6); Sodium 133 mmol/L (135-145)
[2024-09-05 19:25] LABS: B Type Natriuretic Peptide 311 pg/mL (<100)
[2024-09-05 19:26] LABS: SLIDE REVIEW VERIFIED
[2024-09-05] MEDS: Azithromycin 500 MG in 0.9 % Sodium Chloride 250 ML 125 MG IV (19:27)
[2024-09-05 19:32] LABS: Troponin-I High Sensitivity 57.1 ng/L (<3.5-17.0)
[2024-09-05 19:42] LABS: Influenza A PCR NEGATIVE (Negative); Influenza B PCR NEGATIVE (Negative); Resp Syncy Virus RNA Qual PCR NEGATIVE (Negative); SARS COV2 PCR INHOUSE NEGATIVE (Negative)
[2024-09-05] MEDS: Acetaminophen 325 MG TABLET 975 MG PO (19:49)
--- NOTE | 2024-09-05 19:52 | PC.NURSE ---
remains fatigued, slightly labored resp at rest in bed. flush. Awaits CTA of chest.
[2024-09-05 22:23] LABS: Troponin-I High Sensitivity 60.4 ng/L (<3.5-17.0)
--- NOTE | 2024-09-05 22:40 | PC.NURSE ---
axox3. denies lightheadedness. skin pwd. unlabored resp. reports feeling better now that fever has broken. Provider is aware of BP trending down.
[2024-09-05 23:00] LABS: Appearance Urine Cloudy; Color Urine Dark Yellow; Glucose Urine UA Negative (Negative); Leukocyte Esterase Urine Moderate (2+) (Negative); Nitrite Urine Positive (Negative); Specific Gravity - Urine 1.025 (1.005-1.025); UMIC TRIGGER UACC YES; Urine Blood Large (3+) (Negative); Urine Ketones 40 mg/dL (Negative); Urine Protein 300 (3+) mg/dL (Neg-Trace)
[2024-09-05 23:12] LABS: Bacteria Urine Trace (None Seen); UACC Culture Trigger YES; WBC Urine >50 /HPF (0-5)
[2024-09-06] VITALS (13 sets, daily range): BP systolic 130–185; BP diastolic 53–93; PULSE 83–114; RESP 16–34; TEMP 36.2–38.3; O2SAT 91–99
--- NOTE | 2024-09-06 00:49 | P.HPHOSP_ITS ---
History of Present Illness Date of Service: 09/06/24 Chief Complaint: Weakness This is a 69-year-old female with pertinent history of AFib on Eliquis, hypertension, obesity, tobacco use disorder who presents to the emergency department for evaluation of weakness. Patient states she has had malaise and easy fatigability that has been ongoing for a while. She fell on the day of presentation and could not get up. Denies dizziness or lightheadedness prior to the fall. Did not pass out. No loss of consciousness. No jerking movement of extremities. No tongue bite or urinary or bowel incontinence. Does endorse fevers and chills. Also noticed increased urinary urgency and change in color of urine. States he has not taken her Eliquis in more than 6 months. Denies chest pain, shortness of breath. In the emergency department, patient was found to be septic and urine concerning for UTI. Review of Systems 2 Constitutional: Constitutional: Reports fatigue, Reports malaise, Reports poor appetite and Reports weakness Cardiovascular: Cardiovascular: Reports no additional cardiovascular complaints Respiratory: Respiratory: Reports no additional respiratory complaints Gastrointestinal: Gastrointestinal: Reports no additional gastrointestinal complaints Genitourinary: Genitourinary: Reports urinary urgency Neurologic: Reports weakness Endocrine: Endocrine: Reports fatigue [facility] Medical History (Updated 09/06/24 @ 00:55 by Flavio Giles MD) Persistent atrial fibrillation New onset atrial fibrillation Cellulitis of leg, right Peripheral artery disease COVID-19 Hypertension Surgical History History of embolectomy Social History Household Members: None Housing: Apartment Do you presently have visiting nurse or other home services: Yes ([facility]NA for wound vac changes every other day, PT/OT 1-2x/week) Unable to assess alcohol history related to: Unknown Alcohol intake: current Alcohol intake frequency: holidays/special occasions only Patient Tobacco Use Status: Current everyday Tobacco user Tobacco use type: Cigarette Cigarettes Per Day: 7 Smoked in Last 30 Days: No e-Cigarette/Vaping Use: Never Used Second Hand Smoke Exposure: No Use of substances other than those prescribed or required for medical reasons: Unknown Advance Directives: No Advance Directives Information Provided: No service: No Current occupational status: retired Cognitive needs: Yes Hearing needs: No Vision needs: No Meds Allergies Allergy/AdvReac Type Severity Reaction Status Date / Time rivaroxaban [Xarelto] Allergy Unknown confusion Verified 09/05/24 18:09 Home Medications ?Medication ?Instructions ?Recorded ?Confirmed ?Last Taken ?Type multivitamin 1 tab PO DAILY 12/31/21 11/22/23 08/30/23 History ascorbic acid (vitamin C) 500 mg 500 mg PO DAILY 08/31/23 11/22/23 08/30/23 History tablet aspirin 81 mg tablet,delayed 81 mg PO DAILY 08/31/23 11/22/23 08/30/23 History release furosemide 40 mg tablet 40 mg PO DAILY 08/31/23 11/22/23 08/30/23 History Physical Exam 2 Vital Signs and Narrative: Vital Signs: Last Vital Signs Temp 99.3 F 09/05/24 22:25 Pulse 93 09/05/24 22:25 Resp 16 09/05/24 22:25 BP 94/45 L 09/05/24 22:28 Pulse Ox 94 09/05/24 22:25 O2 Del Method Room Air 09/05/24 22:25 O2 Flow Rate 2 09/05/24 19:27 Oxygen Flow Rate 2 09/05/24 18:06 BMI result Body Mass Index 50.7 Middle-aged female lying in bed in no distress Neck supple, no JVD Regular rate and rhythm, S1-S2 heard Regular breath sounds bilaterally, no wheezing or crackles appreciated Abdomen soft nontender, no guarding, no rigidity Patient is awake, alert and oriented to self, place, time and person ; no focal motor deficit Psych: Normal mood No pedal edema Results Labs 09/05/24 18:58 09/05/24 18:58 Labs: Laboratory Results - last 24 hr 09/05/24 09/05/24 09/05/24 18:58 19:03 22:54 MCV 87.0 MCH 30.1 MCHC 34.6 RDW 14.0 Plt Count 147 L D MPV 10.1 Immature Gran % (Auto) 0.5 H Neut % (Auto) 92.0 H Lymph % (Auto) 2.5 L Parke % (Auto) 4.7 Eos % (Auto) 0.0 Baso % (Auto) 0.3 Lymph # (Auto) 0.4 L Parke # (Auto) 0.8 Eos # (Auto) 0.0 Baso # (Auto) 0.1 Abs Immat Gran (auto) 0.08 H Absolute Neuts (auto) 14.7 H Absolute Nucleated RBC 0.000 Nucleated RBC % (auto) 0.0 Smear Tech's Comments VERIFIED PT 14.0 H INR 1.2 H VBG pH 7.45 H VBG pCO2 34 VBG pO2 42 VBG HCO3 23 VBG O2 Saturation 76.0 VBG Base Excess 0.5 Anion Gap 15 Estim Creat Clear Calc 70.7 Estimated GFR 51 Random Glucose 145 H Lactic Acid 1.3 Calcium 8.8 Magnesium 1.7 Total Bilirubin 0.6 Direct Bilirubin 0.3 AST 46 H ALT 33 H Alkaline Phosphatase 94 B-Natriuretic Peptide 311 H Total Protein 7.0 Albumin 3.3 L Urine Color Dark Yellow Urine Appearance Cloudy Urine pH 6.0 Ur Specific [place] 1.025 Urine Protein 300 (3+) H Urine Glucose (UA) Negative Urine Ketones 40 Urine Blood Large (3+) H Urine Nitrite Positive H Ur Leukocyte Esterase Moderate (2+) H Urine RBC 6-10 H Urine WBC >50 H Ur Squamous Epith Cells 3-5 Urine Bacteria Trace Hyaline Casts 3-5 Influenza Type A (PCR) NEGATIVE Influenza Type B (PCR) NEGATIVE RSV RNA Qual (PCR) NEGATIVE SARS-CoV-2 RNA (RT-PCR) NEGATIVE Assessment and Plan (1) Acute UTI: Status: Acute (2) Weakness: Status: Acute Plan This is a 69-year-old female with pertinent history of AFib on Eliquis, hypertension, obesity, tobacco use disorder who presents to the emergency department for evaluation of weakness. #. Sepsis due to acute UTI: Will admit patient and initiate IV ceftriaxone. Resuscitated with IV crystalloids. Lactic acid and blood culture obtained #. Elevated troponin, likely type 2 in the setting of above. Trend troponin. Patient anticoagulated with Eliquis #. Persistent atrial fibrillation: Resume home beta-mary and Eliquis #. Hypertension: Hold due to low normal blood pressure in the setting of sepsis #. Obesity: Counseled regarding diet and exercise #. Tobacco use disorder: Counseled regarding cessation Med rec pending DVT prophylaxis: Eliquis Full code Admit as inpatient and will require two night minimum hospital stay for IV antibiotics (as above), which is not possible in a lesser acute setting. Quality Stroke Does the patient have a stroke diagnosis?: No VTE Prior VTE?: No VTE Risk Level:: Medical - moderate - high VTE Device Contraindication: Treatment Not Indicated VTE Drug Contraindication: N/A - Med Ordered
[2024-09-06] MEDS: Apixaban 5 MG TABLET PO ×2 (01:21→09:44)
[2024-09-06 04:41] LABS: MANUAL DIFF FLAG NO
[2024-09-06 04:45] LABS: Basophils Percent Auto 0.3 % (0-2); Hematocrit 48.8 % (37.0-47.0); Imm Gran Abs Auto 0.09 X10*3/uL (0.00-0.03); Imm Gran Pct Auto 0.6 % (0.0-0.4); Lymphocytes Absolute Auto 0.5 X10*3/uL (1.2-4.9); Lymphocytes Percent Auto 3.3 % (20-40); Mean Corpuscular HGB Conc 34.8 g/dl (31.0-35.0); Mean Corpuscular Hemoglobin 30.1 pg (27.0-33.0); Mean Corpuscular Volume 86.5 fL (80.0-98.0); Mean Platelet Volume 10.5 fL (9.4-12.3); Monocytes Absolute Auto 0.9 X10*3/uL (0.1-1.2); Monocytes Percent Auto 6.2 % (2-11); Neutrophils Absolute Auto 13.5 x10*3/uL (2.0-8.3); Neutrophils Percent Auto 89.6 % (45-73); Platelet Count 129 X10*3/uL (160-400); Red Blood Count 5.64 X10*6/uL (4.20-5.50); White Blood Count 15.1 X10*3/uL (4.8-10.8)
[2024-09-06 05:01] LABS: Anion Gap 15 (12-20); Blood Urea Nitrogen 19 mg/dL (9-16); Calcium 8.6 mg/dL (8.4-10.2); Carbon Dioxide 20 mmol/L (22-29); Chloride 103 mmol/L (96-108); Creatinine Clr Calc Pharmacy 74.3; Estimated Glomerular Filt Rate 54; Glucose Random 135 mg/dL (60-115); Potassium 3.7 mmol/L (3.3-5.1); Sodium 134 mmol/L (135-145)
[2024-09-06 05:05] LABS: Troponin-I High Sensitivity 34.1 ng/L (<3.5-17.0)
--- NOTE | 2024-09-06 09:53 | PC.NURSE ---
this nurse took over patient care at 9am from [facility], pt a&ox3, alarm security or surveillance monitor intact-afib on monitor, lungs clear/dim, rr equal/non labored, pt c/o lt flank pain 04/02 states she has a history of kidney stones- dr alonso was notified in person in the ED- he stated he would order a CT scan for the patient. call bishop within reach, plan of care is ongoing
--- NOTE | 2024-09-06 10:24 | PHA.MEDREC ---
Addendum entered by Rehan Durham RPh 09/06/24 10:33: [facility] confirmed meds and directions with Christine. Med rec was reviewed by [facility]. Original Note: Pharmacy Consult ? Medication Reconciliation Pharmacy has completed the medication reconciliation. Spoke to patient to confirm med list. Patent states she dose not take Eliquis 5 mg ( never picked up from pharmacy 08/16/23) Vitamin C 500 mg, Furosemide 40 mg, and Ventolin HFA inhaler. didn't see any claims. Patient says she fills at [facility] in [place] [phone]. Called [facility] and they confirm Metoprolol Tart 100 mg and Lisinopril 2.5 mg.
--- NOTE | 2024-09-06 12:08 | PM.EVENT ---
Event Note Date of Service: 09/06/24 Event Note: Admitted this morning. Seen and examined, labs, medication, images reviewed. Vitals reviewed. She has complained about leg flank pain and concern of kidney stone. 69/F w/ chronic AFib on Eliquis, hypertension, obesity, tobacco use disorder who presents to the emergency department for evaluation of weakness, fever and found sepsis d/t UTi Sepsis due to acute UTI, concern for infected stone continue ceftriaxone follow cultures CT show 1. Mild left hydronephrosis secondary to a 2.1 x 1.0 cm UPJ calculus. 2. Bilateral nephrolithiasis as described. consult urology consult Elevated troponin, likely type 2 in the setting of above, has trended down Persistent atrial fibrillation: unclear if on eliquis Hypertension: hold meds d/t sepsis Obesity: Counseled regarding diet and exercise Tobacco use disorder: Counseled regarding cessation DVT prophylaxis: lovenox Full code Admit as inpatient and will require two night minimum hospital stay for IV antibiotics (as above), which is not possible in a lesser acute setting. Time Spent With Patient Time: Total time managing care of this patient today ____ minutes.
--- NOTE | 2024-09-06 13:49 | MHC.CM.PN ---
[place] MET WITH PT IN ED PT STATES SHE LIVES ALONE PT STATES SHE RECEIVES MEALS ON WHEELS AND WOUND CARE PT STATES SHE USES A WALKER PT STATES HER PCP IS NEEMA QUINONES HCP ON FILE INS IS MEDICARE, [facility] DELIVERED DCP- HOME CONT[facility]UE SERVICES
--- NOTE | 2024-09-06 15:02 | PM.UROCN ---
History of Present Illness Consult details Consult date: 09/06/24 Narrative: CC: Left obstructing renal stone with pyuria 69-year-old female Presentation with desaturation and oxygen sats 88% on room air Fall at home Found with elevated white count 15.1, positive nitrite, SIRS features Denies prior history of stones Imaging - There is a 1.7 cm calcification at the upper pole of the left kidney and multiple additional lower pole calculi measuring up to 11 mm in size. There is mild left hydronephrosis secondary to a 2.1 x 1.0 cm calculus at the UPJ. Recommend cystoscopy, left retrograde, left stent placement. Review of Systems Constitutional: Constitutional: Reports as per HPI and Reports no additional constitutional complaints Cardiovascular: Cardiovascular: Reports as per HPI and Reports no additional cardiovascular complaints Respiratory: Respiratory: Reports as per HPI and Reports no additional respiratory complaints Gastrointestinal: Gastrointestinal: Reports as per HPI and Reports no additional gastrointestinal complaints Genitourinary: Genitourinary: Reports as per HPI Musculoskeletal: Musculoskeletal: Reports no additional musculoskeletal complaints and Reports as per HPI Neurologic: Reports system reviewed and no additional complaints, except as documented and Reports as per HPI [facility] Past Medical History Medical History (Updated 09/06/24 @ 15:06 by Kieran Bautista MD) Persistent atrial fibrillation New onset atrial fibrillation Cellulitis of leg, right Peripheral artery disease COVID-19 Hypertension Surgical History Surgical History History of embolectomy Social History Social History Household Members: None Housing: Apartment Do you presently have visiting nurse or other home services: Yes ([facility] for wound vac changes every other day, PT/OT 1-2x/week) Unable to assess alcohol history related to: Unknown Alcohol intake: current Alcohol intake frequency: holidays/special occasions only Patient Tobacco Use Status: Never used Tobacco Tobacco use type: Cigarette Cigarettes Per Day: 7 Smoked in Last 30 Days: No e-Cigarette/Vaping Use: Never Used Second Hand Smoke Exposure: No Use of substances other than those prescribed or required for medical reasons: Unknown Advance Directives: No Advance Directives Information Provided: No Nutrition Risks: No Nutritional Risk service: No Current occupational status: retired Cognitive needs: Yes Hearing needs: No Vision needs: No Meds Allergies Allergy/AdvReac Type Severity Reaction Status Date / Time rivaroxaban [Xarelto] Allergy Unknown confusion Verified 09/05/24 18:09 Active Medications: Current Medications Acetaminophen (Acetaminophen 325 Mg Tablet) 650 mg PO Q6H PRN PRN Reason: Pain, Mild 1-3,fever,headache Aspirin (Aspirin Enteric Coated 81 Mg Tablet.Dr) 81 mg PO DAILY [facility] Calcium Carbonate (Calcium Carbonate 750 Mg Tab.Chew) 750 mg PO Q4H PRN PRN Reason: Heartburn Ceftriaxone Sodium (Ceftriaxone Sodium 1 Gm Vial) 1 gm IVPUSH Q24H [facility] Magnesium Hydroxide (Milk Of Magnesia 30 Ml Oral.Susp) 30 ml PO DAILY PRN PRN Reason: Constipation Melatonin (Melatonin 3 Mg Tablet) 6 mg PO BEDTIME PRN PRN Reason: Insomnia Multivitamins/Vitamin C (Multivitamin Tablet) 1 tab PO DAILY [facility] Ondansetron HCl (Ondansetron Hcl 4 Mg/2 Ml Vial) 4 mg IVPUSH Q8H PRN PRN Reason: Nausea and Vomiting Sodium Chloride (0.9 % Sodium Chloride Flush 3 Ml Syringe) [facility] Last Admin: 09/06/24 09:20 Dose: Not Given Home Medications ?Medication ?Instructions ?Recorded ?Confirmed ?Last Taken ?Type multivitamin 1 tab PO DAILY 12/31/21 09/06/24 09/05/24 History aspirin 81 mg tablet,delayed 81 mg PO DAILY 08/31/23 09/06/24 09/05/24 History release Physical Exam Vital Signs: Vital Signs: Last Vital Signs Temp 99.3 F 09/06/24 14:45 Pulse 110 H 09/06/24 14:45 Resp 20 09/06/24 14:45 BP 138/84 09/06/24 14:45 Pulse Ox 92 09/06/24 14:45 O2 Del Method Nasal Cannula 09/06/24 14:45 O2 Flow Rate 1 09/06/24 14:45 Oxygen Flow Rate 2 09/05/24 18:06 BMI result Body Mass Index 50.7 Const: General: cooperative, healthy appearing, comfortable and no acute distress Orientation/consciousness: patient oriented x3 HEENT: Face and sinus: Yes normal facial exam Mouth: moist mucous membranes Neck: Neck: Yes normal visual inspection, Yes full ROM and Yes trachea midline Chest: Chest palpation & inspection: normal inspection of the chest Resp: Effort & Inspection: normal respiratory effort, able to speak in complete sentences and no respiratory distress GI: Inspection: Yes normal to inspection Back/Spine/Pelvis: Cervical Spine: normal cervical lordosis Thoracic/Lumbar Spine: thoracic and lumbar spine normal to inspection Skin: General skin exam: no rashes or lesions noted Neuro: General: patient oriented x3, tone normal and moves all extremities Extrem: General: Yes normal to inspection and Yes capillary refill normal Results Labs 09/06/24 04:21 09/06/24 04:21 Labs: Abnormal lab results 09/05/24 09/05/24 09/05/24 Range/Units 18:58 19:03 21:50 WBC 16.0 H (4.8-10.8) X10*3/uL RBC 5.84 H (4.20-5.50) X10*6/uL Hgb 17.6 H (12.0-16.0) g/dl Hct 50.8 H (37.0-47.0) % Plt Count 147 L D (160-400) X10*3/uL Immature Gran % (Auto) 0.5 H (0.0-0.4) % Neut % (Auto) 92.0 H (45-73) % Lymph % (Auto) 2.5 L (20-40) % Lymph # (Auto) 0.4 L (1.2-4.9) X10*3/uL Abs Immat Gran (auto) 0.08 H (0.00-0.03) X10*3/uL Absolute Neuts (auto) 14.7 H (2.0-8.3) x10*3/uL PT 14.0 H (10.9-12.4) SEC INR 1.2 H (0.9-1.1) VBG pH 7.45 H (7.32-7.43) Sodium 133 L (135-145) mmol/L Carbon Dioxide 21 L (22-29) mmol/L BUN 18 H (9-16) mg/dL Random Glucose 145 H (60-115) mg/dL AST 46 H (5-31) U/L ALT 33 H (0-31) U/L Troponin I High Sens 57.1 H* D 60.4 H* (<3.5-17.0) ng/L B-Natriuretic Peptide 311 H (<100) pg/mL Albumin 3.3 L (3.5-5.0) g/dL Urine Protein (Neg-Trace) mg/dL Urine Blood (Negative) Urine Nitrite (Negative) Ur Leukocyte Esterase (Negative) Urine RBC (0-2) /HPF Urine WBC (0-5) /HPF 09/05/24 09/06/24 Range/Units 22:54 04:21 WBC 15.1 H (4.8-10.8) X10*3/uL RBC 5.64 H (4.20-5.50) X10*6/uL Hgb 17.0 H (12.0-16.0) g/dl Hct 48.8 H (37.0-47.0) % Plt Count 129 L (160-400) X10*3/uL Immature Gran % (Auto) 0.6 H (0.0-0.4) % Neut % (Auto) 89.6 H (45-73) % Lymph % (Auto) 3.3 L (20-40) % Lymph # (Auto) 0.5 L (1.2-4.9) X10*3/uL Abs Immat Gran (auto) 0.09 H (0.00-0.03) X10*3/uL Absolute Neuts (auto) 13.5 H (2.0-8.3) x10*3/uL PT (10.9-12.4) SEC INR (0.9-1.1) VBG pH (7.32-7.43) Sodium 134 L (135-145) mmol/L Carbon Dioxide 20 L (22-29) mmol/L BUN 19 H (9-16) mg/dL Random Glucose 135 H (60-115) mg/dL AST (5-31) U/L ALT (0-31) U/L Troponin I High Sens 34.1 H (<3.5-17.0) ng/L B-Natriuretic Peptide (<100) pg/mL Albumin (3.5-5.0) g/dL Urine Protein 300 (3+) H (Neg-Trace) mg/dL Urine Blood Large (3+) H (Negative) Urine Nitrite Positive H (Negative) Ur Leukocyte Esterase Moderate (2+) H (Negative) Urine RBC 6-10 H (0-2) /HPF Urine WBC >50 H (0-5) /HPF Short CBC 09/05/24 09/06/24 Range/Units 18:58 04:21 WBC 16.0 H 15.1 H (4.8-10.8) X10*3/uL Hgb 17.6 H 17.0 H (12.0-16.0) g/dl Hct 50.8 H 48.8 H (37.0-47.0) % Plt Count 147 L D 129 L (160-400) X10*3/uL BMP 09/05/24 09/06/24 18:58 04:21 Sodium 133 L 134 L Potassium 4.0 3.7 Chloride 101 103 Carbon Dioxide 21 L 20 L BUN 18 H 19 H Creatinine 1.06 1.01 Calcium 8.8 8.6 Liver Function 09/05/24 Range/Units 18:58 Total Bilirubin 0.6 (0.0-1.0) mg/dL Direct Bilirubin 0.3 (0.0-0.5) mg/dL AST 46 H (5-31) U/L ALT 33 H (0-31) U/L Alkaline Phosphatase 94 (39-117) U/L Albumin 3.3 L (3.5-5.0) g/dL Urine 09/05/24 Range/Units 22:54 Urine Color Dark Yellow Urine Appearance Cloudy Urine pH 6.0 (5.0-9.0) Ur Specific [place] 1.025 (1.005-1.025) Urine Protein 300 (3+) H (Neg-Trace) mg/dL Urine Glucose (UA) Negative (Negative) mg/dL All other labs normal. Assessment and Plan (1) Nephrolithiasis: Status: Acute (2) Pyelonephritis: Status: Acute Plan Risks, benefits and alternatives to therapy were discussed. These include but are not limited to infection, bleeding, damage to local organs and tissues, need for further interventions. Anesthetic risks regarding cardiac arrhythmia, blood clots, and potential mortality were discussed. The patient understands the typical recovery time and the outpatient nature of the procedure. After consideration of these risks the patient gives full informed consent and they wish to move ahead with the procedure. - cystoscopy, left retrograde, left stent placement Procedures Date of Service Date of Service: 09/06/24
[2024-09-06] MEDS: Metoprolol Tartrate 50 MG TABLET PO (16:24)
--- NOTE | 2024-09-06 16:30 | PC.NURSE ---
Admitted to room 346. A&O. Appears flushe but afebrile. Tachy 110's-120's. RR 22. Hypertensive. Dr. Zepeda notified. Takes metoprolol at home and not given today. 1x order given with sip of H2O. Telemonitor ordered. Afib on monitor. Denies pain. Incontinent lg amt urine and had moderate soft stool. Remains NPO. Report given to SSS. Tacho sent down to pre-op with patient.
--- NOTE | 2024-09-06 17:19 | HO.ANESPROP2 ---
HPI - Anesthesia Eval Consult details Narrative: Left ureter obstruction PMFSH Active Problems Active Problems: All Active Problems Pyelonephritis (Acute) Nephrolithiasis (Acute) Weakness (Acute) Acute UTI (Acute) Atrial fibrillation with RVR (Acute) Class 2 obesity with body mass index (BMI) of 38.0 to 38.9 in adult (Acute) CHF (congestive heart failure), NYHA class I (Acute) Hameed catheter in place (Acute) Edema (Acute) Obesity (BMI 30-39.9) (Acute) Adult general medical exam (Acute) Cigarette smoker (Acute) Screening for hyperlipidemia (Acute) Screening for diabetes mellitus (Acute) Bilateral knee pain (Acute) Persistent atrial fibrillation (Acute) Cellulitis of leg, right (Acute) Hypertension (Acute) Past Medical History Medical History (Updated 09/06/24 @ 15:06 by Kieran Bautista MD) Persistent atrial fibrillation New onset atrial fibrillation Peripheral artery disease Cellulitis of leg, right COVID-19 Hypertension Family History Family history of problems with anesthesia: No Surgical History Surgical History (Updated 09/06/24 @ 17:08 by Mary Cuba RN) History of hernia surgery History of embolectomy History of Problems with Anesthesia: No Social History Social History Household Members: None Housing: Apartment Are you a primary career discovery teacher to a significant other at home: No Do you presently have visiting nurse or other home services: No Unable to assess alcohol history related to: Unknown Alcohol intake: current Alcohol intake frequency: does not drink Patient Tobacco Use Status: Current everyday Tobacco user Tobacco use type: Cigarette Cigarette Packs Per Day: 0.25 Cigarettes Per Day: 3 Years Smoked: 20 e-Cigarette/Vaping Use: Never Used Second Hand Smoke Exposure: No Substance Use Type: Marijuana service: No Current occupational status: retired Cognitive needs: Yes Hearing needs: No Vision needs: No Meds Allergies Allergy/AdvReac Type Severity Reaction Status Date / Time rivaroxaban [Xarelto] Allergy Severe confusion Verified 09/06/24 17:08 Active Medications: Current Medications Acetaminophen (Acetaminophen 325 Mg Tablet) 650 mg PO Q6H PRN PRN Reason: Pain, Mild 1-3,fever,headache Aspirin (Aspirin Enteric Coated 81 Mg Tablet.Dr) 81 mg PO DAILY [facility] Calcium Carbonate (Calcium Carbonate 750 Mg Tab.Chew) 750 mg PO Q4H PRN PRN Reason: Heartburn Ceftriaxone Sodium (Ceftriaxone Sodium 1 Gm Vial) 1 gm IVPUSH Q24H [facility] Magnesium Hydroxide (Milk Of Magnesia 30 Ml Oral.Susp) 30 ml PO DAILY PRN PRN Reason: Constipation Melatonin (Melatonin 3 Mg Tablet) 6 mg PO BEDTIME PRN PRN Reason: Insomnia Multivitamins/Vitamin C (Multivitamin Tablet) 1 tab PO DAILY [facility] Ondansetron HCl (Ondansetron Hcl 4 Mg/2 Ml Vial) 4 mg IVPUSH Q8H PRN PRN Reason: Nausea and Vomiting Sodium Chloride (0.9 % Sodium Chloride Flush 3 Ml Syringe) 3 ml IVFLUSH QSHIFT [facility] Last Admin: 09/06/24 09:20 Dose: Not Given Home Medications ?Medication ?Instructions ?Recorded ?Confirmed ?Last Taken ?Type multivitamin 1 tab PO DAILY 12/31/21 09/06/24 09/05/24 History aspirin 81 mg tablet,delayed 81 mg PO DAILY 08/31/23 09/06/24 09/05/24 History release Exam Height,Weight and Vital Signs: Height 5 ft 5 in Weight 138.346 kg Last Vital Signs Temp 98.9 F 09/06/24 15:29 Pulse 114 H 09/06/24 15:29 Resp 18 09/06/24 15:29 BP 168/79 H 09/06/24 15:29 Pulse Ox 93 09/06/24 15:29 O2 Del Method Nasal Cannula 09/06/24 15:29 O2 Flow Rate 1.0 09/06/24 15:29 Oxygen Flow Rate 2 09/05/24 18:06 Pertinent Lab Results Pertinent Lab Results: Laboratory Tests 09/05/24 09/05/24 09/05/24 18:58 19:03 21:50 WBC 16.0 H RBC 5.84 H Hgb 17.6 H Hct 50.8 H MCV 87.0 MCH 30.1 MCHC 34.6 RDW 14.0 Plt Count 147 L D MPV 10.1 Immature Gran % (Auto) 0.5 H Neut % (Auto) 92.0 H Lymph % (Auto) 2.5 L [place] % (Auto) 4.7 Eos % (Auto) 0.0 Baso % (Auto) 0.3 Lymph # (Auto) 0.4 L [place] # (Auto) 0.8 Eos # (Auto) 0.0 Baso # (Auto) 0.1 Abs Immat Gran (auto) 0.08 H Absolute Neuts (auto) 14.7 H Absolute Nucleated RBC 0.000 Nucleated RBC % (auto) 0.0 Smear Tech's Comments VERIFIED PT 14.0 H INR 1.2 H VBG pH 7.45 H VBG pCO2 34 VBG pO2 42 VBG HCO3 23 VBG O2 Saturation 76.0 VBG Base Excess 0.5 Sodium 133 L Potassium 4.0 Chloride 101 Carbon Dioxide 21 L Anion Gap 15 BUN 18 H Creatinine 1.06 Estim Creat Clear Calc 70.7 Estimated GFR 51 Random Glucose 145 H Lactic Acid 1.3 Calcium 8.8 Magnesium 1.7 Total Bilirubin 0.6 Direct Bilirubin 0.3 AST 46 H ALT 33 H Alkaline Phosphatase 94 Troponin I High Sens 57.1 H* D 60.4 H* B-Natriuretic Peptide 311 H Total Protein 7.0 Albumin 3.3 L Urine Color Urine Appearance Urine pH Ur Specific [place] Urine Protein Urine Glucose (UA) Urine Ketones Urine Blood Urine Nitrite Ur Leukocyte Esterase Urine RBC Urine WBC Ur Squamous Epith Cells Urine Bacteria Hyaline Casts Influenza Type A (PCR) NEGATIVE Influenza Type B (PCR) NEGATIVE RSV RNA Qual (PCR) NEGATIVE SARS-CoV-2 RNA (RT-PCR) NEGATIVE 09/05/24 09/06/24 22:54 04:21 WBC 15.1 H RBC 5.64 H Hgb 17.0 H Hct 48.8 H MCV 86.5 MCH 30.1 MCHC 34.8 RDW 14.0 Plt Count 129 L MPV 10.5 Immature Gran % (Auto) 0.6 H Neut % (Auto) 89.6 H Lymph % (Auto) 3.3 L [place] % (Auto) 6.2 Eos % (Auto) 0.0 Baso % (Auto) 0.3 Lymph # (Auto) 0.5 L [place] # (Auto) 0.9 Eos # (Auto) 0.0 Baso # (Auto) 0.0 Abs Immat Gran (auto) 0.09 H Absolute Neuts (auto) 13.5 H Absolute Nucleated RBC 0.000 Nucleated RBC % (auto) 0.0 Smear Tech's Comments PT INR VBG pH VBG pCO2 VBG pO2 VBG HCO3 VBG O2 Saturation VBG Base Excess Sodium 134 L Potassium 3.7 Chloride 103 Carbon Dioxide 20 L Anion Gap 15 BUN 19 H Creatinine 1.01 Estim Creat Clear Calc 74.3 Estimated GFR 54 Random Glucose 135 H Lactic Acid Calcium 8.6 Magnesium Total Bilirubin Direct Bilirubin AST ALT Alkaline Phosphatase Troponin I High Sens 34.1 H B-Natriuretic Peptide Total Protein Albumin Urine Color Dark Yellow Urine Appearance Cloudy Urine pH 6.0 Ur Specific [place] 1.025 Urine Protein 300 (3+) H Urine Glucose (UA) Negative Urine Ketones 40 Urine Blood Large (3+) H Urine Nitrite Positive H Ur Leukocyte Esterase Moderate (2+) H Urine RBC 6-10 H Urine WBC >50 H Ur Squamous Epith Cells 3-5 Urine Bacteria Trace Hyaline Casts 3-5 Influenza Type A (PCR) Influenza Type B (PCR) RSV RNA Qual (PCR) SARS-CoV-2 RNA (RT-PCR) Airway Mallampati Class: II TM Dist: >3cm Neck ROM: Full Loose/Missing/Broken Teeth: No Heart: IRRR Lungs: CTA Assessment and Plan Assessment Anesthesia Assessment: Anesthesia Plan Discussed and Chart Reviewed Final Anesthetic Review Family History of Problems with Anesthesia: No History of Problems with Anesthesia: No NPO: Yes ASA Class: IV and Emergency Final Preanesthetic Review: No Changes in Pt Med Stat, Meds/Allgs Chart Reviewed, Consent Obtained/Reviewed and Anes Risks/Benef Reviewed Patient Risk: High Procedure Risk: Low Anesthetic Plan Anesthetic Plan: GA Disposition: Standard PACU
[2024-09-06] MEDS: cefTRIAXone sodium 1 GM VIAL IVPUSH (17:26)
--- NOTE | 2024-09-06 17:29 | MHC.SHP ---
Pre-Procedural Eval Section A - 24 Hr Update-Section A only Date of Service: 09/06/24 The patient is an INPATIENT: Yes Changes since office visit: No Cold of Flu in the past 2 weeks, No New Medical Problems, No Changes in Medication and No Patient answered all questions The patient has been examined within 24 hours of the surgical procedure. The History & Physical has been completed within 30 days and I have reviewed it.: Yes Section B - Complete if H&P > 30 days Chief Complaint: Malaise & Weakness Details of Present Illness: Cystoscopy, left retrograde, left stent placement Present Medications: see Short Stay Collaborative assessment Medical History: Significant History History of Previous Operations: Relevant previous surgery/procedure and date(s) Allergies: Allergies Allergy/AdvReac Type Severity Reaction Status Date / Time rivaroxaban [Xarelto] Allergy Severe confusion Verified 09/06/24 17:08 Review of Systems Sugical H&P ROS: Negative: Constitution, Cardiovascular, Respiratory, Neurological, Psychiatric, Hem-Onc, Allergic/Immunologic, Gastrointestinal, Genitourinary, Musculoskeletal, Integumentary, Endocrine and Eyes/Ears/Nose/Throat Exam Surgical H&P Exam: Normal: HEENT, Normal: Heart, Normal: Lungs, Normal: Extremities, Normal: Abdomen, Normal: Skin and Normal: Neurological Plan Diagnosis/Plan: Unchanged (See above) I have reviewed the history and physical and performed a pertinent physical examination on my patient. No changes have occurred unless specified. Time Spent With Patient Time: Total time managing care of this patient today ____ minutes.
--- NOTE | 2024-09-06 17:30 | PC.NURSE ---
Patient took Eliquis PO today in ED. Dr. Bautista made aware. Okay to proceed with surgery at this time.
--- NOTE | 2024-09-06 17:35 | PM.EVENT ---
Event Note Date of Service: 09/06/24 Event Note: patient requesting to change to DNR/DNI Time Spent With Patient Time: Total time managing care of this patient today ____ minutes.
--- NOTE | 2024-09-06 17:50 | PC.NURSE ---
Patient in preop. States she is a DNR and has paperwork at home regarding this. When this nurse asked If your heart stopped right now would you want to be resuscitated? , Patient stated No . DNR is active. Call placed to hospitalist Dr. Zepeda/. This discussed with Dr. Cota who changed the code status order in the computer to DNR/DNI. Patient aware.
--- NOTE | 2024-09-06 18:23 | W.PM.OPN ---
Operative Note Operative Note Date of Service: 09/06/24 Narrative: PreOperative Diagnosis: Obstructing left UPJ stone with hydro uretero nephrosis Post Operative Diagnosis: Obstructing left UPJ stone with hydro uretero nephrosis and pyelonephritis Procedure: Cystoscopy, left retrograde, left renal aspiration, left stent placement Surgeon: Dr Kieran Bautista Anesthesia: LMA Indications for procedure: High white count with labile blood pressure in setting of infected stone Procedure: After informed consent was verified the patient was brought to the operating room and placed in a supine position. Anesthesia was administered per protocol. The patient was placed in modified dorsal lithotomy position and prepped and draped in a sterile fashion. A safety pause time-out was performed. Laterality of procedure and antibiotics were confirmed, appropriate imaging was available A 22 Mongolian cystoscope was introduced per urethra. No abnormality was noted of urethra or bladder. Both ureteric orifices were seen in a normal position. The left ureter was cannulated with an open ended catheter and a retrograde examination was performed. Filling defects seen at upper ureter . A Sensor guidewire was placed under fluoroscopy and a good coil was seen within the renal pelvis. The open-ended catheter was advanced over the wire and the renal pelvis aspirated with purulent material. This is sent for culture. A 6 Mongolian by variable length double J stent was advanced over the wire and up to the level of the renal pelvis under fluoroscopic and direct visualization. The stent was seen with appropriate coil within the renal pelvis and in the bladder after deployment. 16 Mong[place]ian Hameed catheter with 5 cc balloon inserted to allow continuous bladder drainage The patient tolerated the procedure well and was transferred in a stable condition to the recovery area. Pathology: Aspiration as above Drains: As above
[2024-09-06] MEDS: Acetaminophen 1,000 MG/100 ML PIGGYBACK 400 MG IV (18:51)
[2024-09-06] MEDS: Lactated Ringers 1,000 ML 125 ML IVCONT (20:12)
[2024-09-06] MEDS: Piperacillin Sodium/Tazobactam 3.375 GM in 0.9 % Sodium Chloride 50 ML IV (20:12)
[2024-09-06] MEDS: vancomycin/NS 2,000 MG/500 ML PLAST..BAG 250 MG IV (20:45)
[2024-09-07] MEDS: Piperacillin Sodium/Tazobactam 3.375 GM in 0.9 % Sodium Chloride 50 ML IV ×4 (02:08→19:23)
[2024-09-07] MEDS: Lactated Ringers 1,000 ML 125 ML IVCONT ×2 (06:06→17:11)
[2024-09-07 06:19] LABS: Creatinine Clr Calc Pharmacy 101.4; Estimated Glomerular Filt Rate > 60
[2024-09-07] MEDS: Acetaminophen 325 MG TABLET 650 MG PO ×3 (06:44→23:53)
[2024-09-07 07:30] LABS: MANUAL DIFF FLAG NO
[2024-09-07 07:37] LABS: Basophils Percent Auto 0.2 % (0-2); Eosinophils Percent Auto 0.1 % (0-4); Hematocrit 46.9 % (37.0-47.0); Hemoglobin 15.9 g/dl (12.0-16.0); Imm Gran Abs Auto 0.06 X10*3/uL (0.00-0.03); Imm Gran Pct Auto 0.4 % (0.0-0.4); Lymphocytes Absolute Auto 0.7 X10*3/uL (1.2-4.9); Lymphocytes Percent Auto 4.7 % (20-40); Mean Corpuscular HGB Conc 33.9 g/dl (31.0-35.0); Mean Corpuscular Hemoglobin 30.2 pg (27.0-33.0); Monocytes Absolute Auto 1.2 X10*3/uL (0.1-1.2); Monocytes Percent Auto 8.7 % (2-11); Neutrophils Absolute Auto 11.9 x10*3/uL (2.0-8.3); Neutrophils Percent Auto 85.9 % (45-73); Platelet Count 132 X10*3/uL (160-400); Red Blood Count 5.27 X10*6/uL (4.20-5.50); Red Cell Distribution Width 14.2 % (11.0-16.0); White Blood Count 13.9 X10*3/uL (4.8-10.8)
[2024-09-07 07:38] LABS: Anion Gap 12 (12-20); Carbon Dioxide 23 mmol/L (22-29); Chloride 105 mmol/L (96-108); Potassium 3.6 mmol/L (3.3-5.1); Sodium 136 mmol/L (135-145)
[2024-09-07 07:53] VITALS: BP 142/65; PULSE 91; RESP 17; TEMP 36.4; O2SAT 96
[2024-09-07] MEDS: Aspirin Enteric Coated 81 MG TABLET.DR PO (08:22)
[2024-09-07] MEDS: Multivitamin TABLET 1 TAB PO (08:22)
[2024-09-07] MEDS: 0.9 % Sodium Chloride Flush 3 ML SYRINGE IVFLUSH (08:22)
--- NOTE | 2024-09-07 08:34 | HO.PM.IMPN ---
Subjective Subjective Date of Service: 09/07/24 Interval History: Follow-up on acute pyelonephritis kidney stone with obstructive uropathy status post cystoscopy with stent placement of the night. She is clinically better today WBCs are going down no fever. Physical Exam Vital Signs: Vital Signs: Last Vital Signs Temp 97.5 F 09/07/24 07:53 Pulse 91 09/07/24 07:53 Resp 17 09/07/24 07:53 BP 142/65 H 09/07/24 07:53 Pulse Ox 96 09/07/24 07:53 O2 Del Method Room Air 09/07/24 07:53 O2 Flow Rate 3 09/06/24 23:40 Oxygen Flow Rate 2 09/05/24 18:06 BMI result Body Mass Index 50.7 Const: Other: General: AO X 3, no acute distress Resp: CTA bilateral CVS: S1,S2,RRR GI: +BS, NT, no distention : no flank tenderness Skin: No rash Neuro: motor grossly intact Psych: appropriate affect Objective Data Active Medications Acetaminophen (Acetaminophen 325 Mg Tablet) 650 mg PO Q6H PRN PRN Reason: Pain, Mild 1-3,fever,headache Last Admin: 09/07/24 06:44 Dose: 650 mg Documented By: RIKA Aspirin (Aspirin Enteric Coated 81 Mg Tablet.Dr) 81 mg PO DAILY [facility] Last Admin: 09/07/24 08:22 Dose: 81 mg Documented By: WESTLEY Calcium Carbonate (Calcium Carbonate 750 Mg Tab.Chew) 750 mg PO Q4H PRN PRN Reason: Heartburn Piperacillin Sod/Tazobactam (Sod 3.375 gm/ Sodium Chloride) 50 mls @ 100 mls/hr IV Q6H [facility] Last Admin: 09/07/24 08:22 Dose: 100 mls/hr Documented By: WESTLEY Lactated Ringer's (Lr) 1,000 mls @ 125 mls/hr IVCONT .Q8H [facility] Last Admin: 09/07/24 06:06 Dose: 125 mls/hr Documented By: RIKA Vancomycin HCl 1,500 mg/ (Sodium Chloride) 500 mls @ 333.333 mls/hr IV Q24H [facility] Magnesium Hydroxide (Milk Of Magnesia 30 Ml Oral.Susp) 30 ml PO DAILY PRN PRN Reason: Constipation Melatonin (Melatonin 3 Mg Tablet) 6 mg PO BEDTIME PRN PRN Reason: Insomnia Multivitamins/Vitamin C (Multivitamin Tablet) 1 tab PO DAILY [facility] Last Admin: 09/07/24 08:22 Dose: 1 tab Documented By: WESTLEY Naloxone HCl (Naloxone Hcl 0.4 Mg/Ml Vial) 0.04 mg IVPUSH Q5M PRN PRN Reason: Excessive sedation or RR < 8 Ondansetron HCl (Ondansetron Hcl 4 Mg/2 Ml Vial) 4 mg IVPUSH Q8H PRN PRN Reason: Nausea and Vomiting Pharmacy Consult (Consult Rx Vancomycin Dosing) 1 each MISCELLANE DAILY PRN PRN Reason: Consult order Sodium Chloride (0.9 % Sodium Chloride Flush 3 Ml Syringe) 3 ml IVFLUSH QSHIFT [facility] Last Admin: 09/07/24 08:22 Dose: 3 ml Documented By: WESTLEY Labs 09/07/24 05:29 09/07/24 05:29 Labs: Laboratory Results - last 24 hr 09/07/24 05:29 MCV 89.0 MCH 30.2 MCHC 33.9 RDW 14.2 Plt Count 132 L MPV 11.0 Immature Gran % (Auto) 0.4 Neut % (Auto) 85.9 H Lymph % (Auto) 4.[address] [place] % (Auto) 8.7 Eos % (Auto) 0.1 Baso % (Auto) 0.2 Lymph # (Auto) 0.[address] [place] # (Auto) 1.2 Eos # (Auto) 0.0 Baso # (Auto) 0.0 Abs Immat Gran (auto) 0.06 H Absolute Neuts (auto) 11.9 H Absolute Nucleated RBC 0.000 Nucleated RBC % (auto) 0.0 Hold Purple Top SEE NOTE Anion Gap 12 Estim Creat Clear Calc 101.4 Estimated GFR > 60 Microbiology Microbiology Results: Microbiology 09/05/24 18:58 Blood Culture - Preliminary Blood - Venous No growth after 24 hours. 09/05/24 18:34 Blood Culture - Preliminary Blood - Venous Prelim: GPR Gram Stain only Assessment and Plan (1) Pyelonephritis: Status: Acute (2) Acute UTI: Status: Acute (3) Sepsis: Status: Acute Plan 69/F w/ chronic AFib on Eliquis, hypertension, obesity, tobacco use disorder who presents to the emergency department for evaluation of weakness, fever and found sepsis d/t UTi/pyeloneprhitis and kidney stones Sepsis due to acute pyelonephritis, infected kidney stone was on ceftriaxone, changed to zosyn 09/06 d/t gram positive donya in blood CT show 1. Mild left hydronephrosis secondary to a 2.1 x 1.0 cm UPJ calculus. 2. Bilateral nephrolithiasis as described. s/p post cystoscopy, left stent placement on 09/06 follow cultures Elevated troponin, likely type 2 in the setting of above, has trended down Persistent atrial fibrillation continue metoprolol for rate control she was not on anticoagulation prior to coming was given eliquis before surgery and will discusss continuing this as she was not keen on this Hypertension restart metoprolol 100 bid and lisinorpil 2.5 mg daily Obesity: Counseled regarding diet and exercise Tobacco use disorder: Counseled regarding cessation DVT prophylaxis: debbiex DNR/DN Quality Stroke Does the patient have a stroke diagnosis?: No VTE Prior VTE?: No VTE Risk Level:: Medical - moderate - high VTE Device Contraindication: Treatment Not Indicated VTE Drug Contraindication: N/A - Med Ordered
[2024-09-07 09:51] VITALS: BP 129/64; PULSE 86
[2024-09-07] MEDS: Metoprolol Tartrate 100 MG TABLET PO ×2 (09:54→21:23)
[2024-09-07] MEDS: lisinopriL 2.5 MG TABLET PO (09:54)
[2024-09-07] MEDS: vancomycin HCL 750 MG in 0.9 % Sodium Chloride 250 ML 265 MG IV (10:53)
--- NOTE | 2024-09-07 12:04 | P.PNUR_ITS ---
Subjective Subjective Date of Service: 09/07/24 Interval history: Slowly improving White count remains elevated Urine remains cloudy Continue with Hameed catheter and IV fluids Hameed catheter can be removed tomorrow morning Urine culture taken from left kidney is pending Physical Exam 2 Vital Signs: Vital Signs: Last Vital Signs Temp 97.5 F 09/07/24 07:53 Pulse 86 09/07/24 09:51 Resp 17 09/07/24 07:53 BP 129/64 09/07/24 09:51 Pulse Ox 96 09/07/24 07:53 O2 Del Method Nasal Cannula 09/07/24 07:53 O2 Flow Rate 3 09/07/24 07:53 Oxygen Flow Rate 2 09/05/24 18:06 BMI result Body Mass Index 50.7 Const: General: cooperative, healthy appearing, comfortable and no acute distress Orientation/consciousness: patient oriented x3 HEENT: Face and sinus: Yes normal facial exam Mouth: moist mucous membranes Neck: Neck: Yes normal visual inspection, Yes full ROM and Yes trachea midline Chest: Chest palpation & inspection: normal inspection of the chest Resp: Effort & Inspection: normal respiratory effort, able to speak in complete sentences and no respiratory distress GI: Inspection: Yes normal to inspection Back/Spine/Pelvis: Cervical Spine: normal cervical lordosis Thoracic/Lumbar Spine: thoracic and lumbar spine normal to inspection Skin: General skin exam: no rashes or lesions noted Neuro: General: patient oriented x3, tone normal and moves all extremities Extrem: General: Yes normal to inspection and Yes capillary refill normal Urology Results Labs 09/07/24 05:29 09/07/24 05:29 Labs: Laboratory Results - last 24 hr 09/07/24 05:29 WBC 13.9 H RBC 5.27 Hgb 15.9 Hct 46.9 MCV 89.0 MCH 30.2 MCHC 33.9 RDW 14.2 Plt Count 132 L MPV 11.0 Immature Gran % (Auto) 0.4 Neut % (Auto) 85.9 H Lymph % (Auto) 4.7 L [place] % (Auto) 8.7 Eos % (Auto) 0.1 Baso % (Auto) 0.2 Lymph # (Auto) 0.7 L [place] # (Auto) 1.2 Eos # (Auto) 0.0 Baso # (Auto) 0.0 Abs Immat Gran (auto) 0.06 H Absolute Neuts (auto) 11.9 H Absolute Nucleated RBC 0.000 Nucleated RBC % (auto) 0.0 Hold Purple Top SEE NOTE Sodium 136 Potassium 3.6 Chloride 105 Carbon Dioxide 23 Anion Gap 12 Creatinine 0.74 Estim Creat Clear Calc 101.4 Estimated GFR > 60 Progress Note: A&P Assessment and plan (1) Nephrolithiasis: Status: Acute (2) Pyelonephritis: Status: Acute Time Spent With Patient Time: Total time managing care of this patient today ____ minutes. Progress Note: Quality Stroke Does the patient have a stroke diagnosis?: No
--- NOTE | 2024-09-07 14:14 | HO.POSTANES ---
Post Anesthesia Evaluation Post Anesthesia Evaluation Date of Service: 09/07/24 Vital Signs: Vital Signs Temp Pulse Resp BP Pulse Ox O2 Del Method O2 Flow Rate 09/07/24 09:51 86 129/64 09/07/24 07:53 97.5 F 91 17 142/65 H 96 Nasal Cannula 3 Anesthesia: Monitored Mental Status: Awake Pain Control: Satisfactory Nausea/Vomiting: None Hydration: Adequate Anesthesia-Related Issues: No Anes. Related Issues
[2024-09-07 15:30] VITALS: BP 142/62; PULSE 77; RESP 18; TEMP 36.6; O2SAT 97
[2024-09-07 16:05] LABS: CDiff Gene PCR NEGATIVE (Negative)
[2024-09-07] MEDS: Loperamide HCl 2 MG CAPSULE PO (17:18)
[2024-09-07 17:21] VITALS: O2SAT 97
[2024-09-07 21:24] LABS: Vancomycin Trough 5.4 mcg/mL (10.0-20.0)
[2024-09-07 23:47] VITALS: BP 137/82; PULSE 72; RESP 19; TEMP 36; O2SAT 97
[2024-09-08] MEDS: Piperacillin Sodium/Tazobactam 3.375 GM in 0.9 % Sodium Chloride 50 ML IV ×2 (01:30→09:06)
[2024-09-08] MEDS: Lactated Ringers 1,000 ML 125 ML IVCONT ×2 (01:30→09:52)
[2024-09-08 06:28] LABS: Hematocrit 46.3 % (37.0-47.0); Hemoglobin 15.5 g/dl (12.0-16.0); Mean Corpuscular HGB Conc 33.5 g/dl (31.0-35.0); Mean Corpuscular Volume 89.6 fL (80.0-98.0); Mean Platelet Volume 10.7 fL (9.4-12.3); Platelet Count 149 X10*3/uL (160-400); Red Blood Count 5.17 X10*6/uL (4.20-5.50); Red Cell Distribution Width 14.3 % (11.0-16.0); White Blood Count 11.2 X10*3/uL (4.8-10.8)
[2024-09-08 06:45] LABS: Anion Gap 11 (12-20); Blood Urea Nitrogen 9 mg/dL (9-16); Calcium 8.8 mg/dL (8.4-10.2); Carbon Dioxide 28 mmol/L (22-29); Chloride 104 mmol/L (96-108); Creatinine Clr Calc Pharmacy 105.7; Estimated Glomerular Filt Rate > 60; Glucose Random 105 mg/dL (60-115); Potassium 3.7 mmol/L (3.3-5.1); Sodium 139 mmol/L (135-145)
[2024-09-08 08:00] VITALS: BP 150/69; PULSE 78; RESP 18; TEMP 36.5; O2SAT 97
[2024-09-08] MEDS: lisinopriL 2.5 MG TABLET PO (09:05)
[2024-09-08] MEDS: Aspirin Enteric Coated 81 MG TABLET.DR PO (09:05)
[2024-09-08] MEDS: Multivitamin TABLET 1 TAB PO (09:06)
[2024-09-08] MEDS: Metoprolol Tartrate 100 MG TABLET PO ×2 (09:06→20:33)
[2024-09-08] MEDS: 0.9 % Sodium Chloride Flush 3 ML SYRINGE IVFLUSH ×2 (09:07→20:35)
[2024-09-08] MEDS: Enoxaparin Sodium 40 MG/0.4 ML SYRINGE SUBCUT (09:49)
--- NOTE | 2024-09-08 12:17 | P.PNIM_ITS ---
Subjective Subjective Date of Service: 09/08/24 Interval History: Overall feeling better except SYLVESTER, no fever, WBC down, Physical Exam 2 Vital Signs: Vital Signs: Last Vital Signs Temp 97.7 F 09/08/24 08:00 Pulse 78 09/08/24 08:00 Resp 18 09/08/24 08:00 BP 150/69 H 09/08/24 08:00 Pulse Ox 97 09/08/24 08:00 O2 Del Method Room Air 09/08/24 08:00 O2 Flow Rate 3 09/07/24 23:47 Oxygen Flow Rate 3 09/07/24 17:21 BMI result Body Mass Index 50.7 Const: Other: General: AO X 3, no acute distress Resp: CTA bilateral CVS: S1,S2,RRR GI: +BS, NT, no distention Skin: No rash Neuro: motor grossly intact, no focal deficit Psych: appropriate affect Objective Data Active Medications Acetaminophen (Acetaminophen 325 Mg Tablet) 650 mg PO Q6H PRN PRN Reason: Pain, Mild 1-3,fever,headache Last Admin: 09/07/24 23:53 Dose: 650 mg Documented By: RIKA Aspirin (Aspirin Enteric Coated 81 Mg Tablet.Dr) 81 mg PO DAILY [facility] Last Admin: 09/08/24 09:05 Dose: 81 mg Documented By: WESTLEY Calcium Carbonate (Calcium Carbonate 750 Mg Tab.Chew) 750 mg PO Q4H PRN PRN Reason: Heartburn Enoxaparin Sodium (Enoxaparin Sodium 40 Mg/0.4 Ml Syringe) 40 mg SUBCUT Q24H [facility] Last Admin: 09/08/24 09:49 Dose: 40 mg Documented By: WESTLEY Piperacillin Sod/Tazobactam (Sod 3.375 gm/ Sodium Chloride) 50 mls @ 100 mls/hr IV Q6H [facility] Last Infusion: 09/08/24 09:52 Dose: Infused Documented By: WESTLEY Lactated Ringer's (Lr) 1,000 mls @ 125 mls/hr IVCONT .Q8H [facility] Last Admin: 09/08/24 09:52 Dose: 125 mls/hr Documented By: WESTLEY Lisinopril (Lisinopril 2.5 Mg Tablet) 2.5 mg PO DAILY [facility]; Protocol Last Admin: 09/08/24 09:05 Dose: 2.5 mg Documented By: WESTLEY Loperamide HCl (Loperamide Hcl 2 Mg Capsule) 2 mg PO Q4H PRN PRN Reason: Diarrhea Last Admin: 09/07/24 17:18 Dose: 2 mg Documented By: WESTLEY Magnesium Hydroxide (Milk Of Magnesia 30 Ml Oral.Susp) 30 ml PO DAILY PRN PRN Reason: Constipation Melatonin (Melatonin 3 Mg Tablet) 6 mg PO BEDTIME PRN PRN Reason: Insomnia Metoprolol Tartrate (Metoprolol Tartrate 100 Mg Tablet) 100 mg PO BID [facility]; Protocol Last Admin: 09/08/24 09:06 Dose: 100 mg Documented By: WESTLEY Multivitamins/Vitamin C (Multivitamin Tablet) 1 tab PO DAILY [facility] Last Admin: 09/08/24 09:06 Dose: 1 tab Documented By: WESTLEY Naloxone HCl (Naloxone Hcl 0.4 Mg/Ml Vial) 0.04 mg IVPUSH Q5M PRN PRN Reason: Excessive sedation or RR < 8 Ondansetron HCl (Ondansetron Hcl 4 Mg/2 Ml Vial) 4 mg IVPUSH Q8H PRN PRN Reason: Nausea and Vomiting Sodium Chloride (0.9 % Sodium Chloride Flush 3 Ml Syringe) 3 ml IVFLUSH QSNEFT [facility] Last Admin: 09/08/24 09:07 Dose: 3 ml Documented By: WESTLEY Labs 09/08/24 05:31 09/08/24 05:31 Labs: Laboratory Results - last 24 hr 09/07/24 09/07/24 09/08/24 14:34 20:52 05:31 MCV 89.6 MCH 30.0 MCHC 33.5 RDW 14.3 Plt Count 149 L MPV 10.7 Absolute Nucleated RBC 0.000 Nucleated RBC % (auto) 0.0 Anion Gap 11 L Estim Creat Clear Calc 105.7 Estimated GFR > 60 Random Glucose 105 Calcium 8.8 Vancomycin Trough 5.4 L C. difficile Tox B Gene NEGATIVE Microbiology Microbiology Results: Microbiology 09/06/24 18:04 Urine Culture - Preliminary Urine Other - Kidney Left Culture in progress. 09/05/24 18:34 Blood Culture - Final Blood - Venous Proteus mirabilis 09/05/24 18:58 Blood Culture - Preliminary Blood - Venous No growth after 48 hours. 09/05/24 Unknown Urine Culture - Final Urine clean catch - Clean Catch Midstream No growth. Assessment and Plan (1) Pyelonephritis: Status: Acute (2) Acute UTI: Status: Acute (3) Sepsis: Status: Acute Plan 69/F w/ chronic AFib on Eliquis, hypertension, obesity, tobacco use disorder who presents to the emergency department for evaluation of weakness, fever and found sepsis d/t UTi/pyeloneprhitis and kidney stones Sepsis due to acute pyelonephritis, infected kidney stone was on ceftriaxone, changed to zosyn 09/06 d/t gram positive donya in blood CT show 1. Mild left hydronephrosis secondary to a 2.1 x 1.0 cm UPJ calculus. 2. Bilateral nephrolithiasis as described. s/p post cystoscopy, left stent placement on 09/06. Remove hewitt today Blood culture showing Proteus sensitive to ceftriaxone, tiane zosyagustina back to ceftriaxone and ultimately Ceftin for 10 days, ID consult Elevated troponin, likely type 2 in the setting of above, has trended down Persistent atrial fibrillation continue metoprolol for rate control She is declining all forms of anticoagulation including eliquis, xarelto or coumadin and want to be just on ASA, she understand there is increased chance of stroke. Hypertension continue metoprolol 100 bid and lisinorpil 2.5 mg daily Diarrhea, resolved, cdif negative SYLVESTER, PRN tylenol if perists then imaging Obesity: Counseled regarding diet and exercise Tobacco use disorder: Counseled regarding cessation DVT prophylaxis: lovenox, out of bed, ambulate DNR/DN Quality Stroke Does the patient have a stroke diagnosis?: No VTE Prior VTE?: No VTE Risk Level:: Medical - moderate - high VTE Device Contraindication: Treatment Not Indicated VTE Drug Contraindication: N/A - Med Ordered
[2024-09-08] MEDS: cefTRIAXone sodium 2 GM VIAL IVPUSH (13:56)
[2024-09-08 15:27] VITALS: BP 166/78; PULSE 86; RESP 19; TEMP 36.9; O2SAT 92
--- NOTE | 2024-09-08 17:15 | P.PNUR_ITS ---
Subjective Subjective Date of Service: 09/08/24 Interval history: Slow subjective improvement Objectively creatinine at baseline, WBC Hameed Culture positive Proteus on blood confirming urosepsis Initial urine culture negative Awaiting targeted urine culture from renal aspiration Switching to oral antibiotics tomorrow Will need 2 weeks of antibiotics Follow-up procedure left side to be scheduled Physical Exam 2 Vital Signs: Vital Signs: Last Vital Signs Temp 98.4 F 09/08/24 15:27 Pulse 86 09/08/24 15:27 Resp 19 09/08/24 15:27 BP 166/78 H 09/08/24 15:27 Pulse Ox 92 09/08/24 15:27 O2 Del Method Nasal Cannula 09/08/24 15:27 O2 Flow Rate 1 09/08/24 15:27 Oxygen Flow Rate 3 09/07/24 17:21 BMI result Body Mass Index 50.7 Const: General: cooperative, healthy appearing, comfortable and no acute distress Orientation/consciousness: patient oriented x3 HEENT: Face and sinus: Yes normal facial exam Mouth: moist mucous membranes Neck: Neck: Yes normal visual inspection, Yes full ROM and Yes trachea midline Chest: Chest palpation & inspection: normal inspection of the chest Resp: Effort & Inspection: normal respiratory effort, able to speak in complete sentences and no respiratory distress GI: Inspection: Yes normal to inspection Back/Spine/Pelvis: Cervical Spine: normal cervical lordosis Thoracic/Lumbar Spine: thoracic and lumbar spine normal to inspection Skin: General skin exam: no rashes or lesions noted Neuro: General: patient oriented x3, tone normal and moves all extremities Extrem: General: Yes normal to inspection and Yes capillary refill normal Urology Results Labs 09/08/24 05:31 09/08/24 05:31 Labs: Laboratory Results - last 24 hr 09/07/24 09/08/24 20:52 05:31 WBC 11.2 H RBC 5.17 Hgb 15.5 Hct 46.3 MCV 89.6 MCH 30.0 MCHC 33.5 RDW 14.3 Plt Count 149 L MPV 10.7 Absolute Nucleated RBC 0.000 Nucleated RBC % (auto) 0.0 Sodium 139 Potassium 3.7 Chloride 104 Carbon Dioxide 28 Anion Gap 11 L BUN 9 Creatinine 0.71 Estim Creat Clear Calc 105.7 Estimated GFR > 60 Random Glucose 105 Calcium 8.8 Vancomycin Trough 5.4 L Progress Note: A&P Assessment and plan (1) Sepsis: Status: Acute (2) Nephrolithiasis: Status: Acute Plan Antibiotic treatment as per culture indication Will need 2 weeks of therapy secondary to urosepsis and pyelonephritis Will plan outpatient stone procedure Time Spent With Patient Time: Total time managing care of this patient today ____ minutes. Progress Note: Quality Stroke Does the patient have a stroke diagnosis?: No
[2024-09-08 20:33] VITALS: BP 137/63; PULSE 104
[2024-09-08 23:45] VITALS: BP 168/78; PULSE 88; RESP 18; TEMP 36.1; O2SAT 94
[2024-09-09] MEDS: Melatonin 3 MG TABLET 6 MG PO ×2 (01:25→22:44)
--- NOTE | 2024-09-09 01:29 | PC.NURSE ---
pt c/o difficulty sleeping medicated with melatonin 6mg po at 0125.
[2024-09-09 06:23] LABS: Hematocrit 44.2 % (37.0-47.0); Hemoglobin 14.8 g/dl (12.0-16.0); Mean Corpuscular HGB Conc 33.5 g/dl (31.0-35.0); Mean Corpuscular Volume 89.5 fL (80.0-98.0); Mean Platelet Volume 10.5 fL (9.4-12.3); Platelet Count 161 X10*3/uL (160-400); Red Blood Count 4.94 X10*6/uL (4.20-5.50); Red Cell Distribution Width 14.2 % (11.0-16.0); White Blood Count 9.9 X10*3/uL (4.8-10.8)
[2024-09-09 06:39] LABS: Anion Gap 11 (12-20); Blood Urea Nitrogen 8 mg/dL (9-16); Calcium 8.6 mg/dL (8.4-10.2); Carbon Dioxide 29 mmol/L (22-29); Chloride 103 mmol/L (96-108); Estimated Glomerular Filt Rate > 60; Glucose Random 117 mg/dL (60-115); Potassium 3.2 mmol/L (3.3-5.1); Sodium 140 mmol/L (135-145)
[2024-09-09 08:00] VITALS: BP 143/76; PULSE 75; RESP 17; TEMP 36.3; O2SAT 94
--- NOTE | 2024-09-09 08:45 | PC.NURSE ---
Pt taken off of 1L NC 02 per Md Albarado
[2024-09-09] MEDS: Aspirin Enteric Coated 81 MG TABLET.DR PO (08:50)
[2024-09-09] MEDS: Potassium Chloride ER 20 MEQ TAB.ER.PRT 40 MEQ PO (08:51)
[2024-09-09] MEDS: Multivitamin TABLET 1 TAB PO (08:51)
[2024-09-09] MEDS: Metoprolol Tartrate 100 MG TABLET PO ×2 (08:51→19:40)
[2024-09-09] MEDS: lisinopriL 2.5 MG TABLET PO (08:51)
[2024-09-09] MEDS: 0.9 % Sodium Chloride Flush 3 ML SYRINGE IVFLUSH ×2 (08:52→19:42)
[2024-09-09] MEDS: Loperamide HCl 2 MG CAPSULE PO ×2 (08:55→19:40)
--- NOTE | 2024-09-09 09:19 | PC.NURSE ---
Pt sats maintaining at 85-86% on room air . Md Albarado notified placed back on 1L
--- NOTE | 2024-09-09 09:25 | HO.PM.IMPN ---
Subjective Subjective Date of Service: 09/09/24 Interval History: Patient feels well and wishing to go home soon, she is on oxygen for no particular reason and desat when O2 was removed. Physical Exam Vital Signs: Vital Signs: Last Vital Signs Temp 97.3 F 09/09/24 08:00 Pulse 75 09/09/24 08:00 Resp 17 09/09/24 08:00 BP 143/76 H 09/09/24 08:00 Pulse Ox 94 09/09/24 08:00 O2 Del Method Nasal Cannula 09/09/24 08:00 O2 Flow Rate 1 09/09/24 08:00 Oxygen Flow Rate 3 09/07/24 17:21 BMI result Body Mass Index 50.7 Objective Data Active Medications Acetaminophen (Acetaminophen 325 Mg Tablet) 650 mg PO Q6H PRN PRN Reason: Pain, Mild 1-3,fever,headache Last Admin: 09/07/24 23:53 Dose: 650 mg Documented By: RIKA Aspirin (Aspirin Enteric Coated 81 Mg Tablet.) 81 mg PO DAILY [facility] Last Admin: 09/09/24 08:50 Dose: 81 mg Documented By: ANTONIA Calcium Carbonate (Calcium Carbonate 750 Mg Tab.Chew) 750 mg PO Q4H PRN PRN Reason: Heartburn Ceftriaxone Sodium (Ceftriaxone Sodium 2 Gm Vial) 2 gm IVPUSH Q24H [facility] Last Admin: 09/08/24 13:56 Dose: 2 gm Documented By: WESTLEY Enoxaparin Sodium (Enoxaparin Sodium 40 Mg/0.4 Ml Syringe) 40 mg SUBCUT Q24H [facility] Last Admin: 09/09/24 08:50 Dose: Not Given Documented By: ANTONIA Non-Admin Reason: Patient Refused Lisinopril (Lisinopril 2.5 Mg Tablet) 2.5 mg PO DAILY [facility]; Protocol Last Admin: 09/09/24 08:51 Dose: 2.5 mg Documented By: ANTONIA Loperamide HCl (Loperamide Hcl 2 Mg Capsule) 2 mg PO Q4H PRN PRN Reason: Diarrhea Last Admin: 09/09/24 08:55 Dose: 2 mg Documented By: ANTONIA Magnesium Hydroxide (Milk Of Magnesia 30 Ml Oral.Susp) 30 ml PO DAILY PRN PRN Reason: Constipation Melatonin (Melatonin 3 Mg Tablet) 6 mg PO BEDTIME PRN PRN Reason: Insomnia Last Admin: 09/09/24 01:25 Dose: 6 mg Documented By: RIKA Metoprolol Tartrate (Metoprolol Tartrate 100 Mg Tablet) 100 mg PO BID [facility]; Protocol Last Admin: 09/09/24 08:51 Dose: 100 mg Documented By: ANTONIA Multivitamins/Vitamin C (Multivitamin Tablet) 1 tab PO DAILY [facility] Last Admin: 09/09/24 08:51 Dose: 1 tab Documented By: ANTONIA Naloxone HCl (Naloxone Hcl 0.4 Mg/Ml Vial) 0.04 mg IVPUSH Q5M PRN PRN Reason: Excessive sedation or RR < 8 Ondansetron HCl (Ondansetron Hcl 4 Mg/2 Ml Vial) 4 mg IVPUSH Q8H PRN PRN Reason: Nausea and Vomiting Sodium Chloride (0.9 % Sodium Chloride Flush 3 Ml Syringe) 3 ml IVFLUSH QSNDFT [facility] Last Admin: 09/09/24 08:52 Dose: 3 ml Documented By: ANTONIA Labs 09/09/24 05:47 09/09/24 05:47 Labs: Laboratory Results - last 24 hr 09/09/24 05:47 MCV 89.5 MCH 30.0 MCHC 33.5 RDW 14.2 Plt Count 161 MPV 10.5 Absolute Nucleated RBC 0.000 Nucleated RBC % (auto) 0.0 Anion Gap 11 L Estim Creat Clear Calc 121.0 Estimated GFR > 60 Random Glucose 117 H Calcium 8.6 Microbiology Microbiology Results: Microbiology 09/06/24 18:04 Urine Culture - Preliminary Urine Other - Kidney Left Culture in progress. 09/05/24 18:34 Blood Culture - Final Blood - Venous Proteus mirabilis Assessment and Plan (1) Pyelonephritis: Status: Acute (2) Acute UTI: Status: Acute (3) Sepsis: Status: Acute Plan 69/F w/ chronic AFib on Eliquis, hypertension, obesity, tobacco use disorder who presents to the emergency department for evaluation of weakness, fever and found sepsis d/t UTi/pyeloneprhitis and kidney stones Sepsis due to acute pyelonephritis, infected kidney stone was on ceftriaxone, changed to zosyn 09/06 d/t gram positive donya in blood CT show 1. Mild left hydronephrosis secondary to a 2.1 x 1.0 cm UPJ calculus. 2. Bilateral nephrolithiasis as described. s/p post cystoscopy, left stent placement on 09/06. Remove hewitt today Blood culture showing Proteus sensitive to ceftriaxone, brionna juan pablorobbiagustina back to ceftriaxone on 09/08 and ultimately Ceftin for 14 days, ID consult Hypoxia, unlear reason, assymptomatic , CXR. Incentive spirometry Elevated troponin, likely type 2 in the setting of above, has trended down Persistent atrial fibrillation continue metoprolol for rate control She is declining all forms of anticoagulation including eliquis, xarelto or coumadin and want to be just on ASA, she understand there is increased chance of stroke. Hypertension continue metoprolol 100 bid and lisinorpil 2.5 mg daily Diarrhea, resolved, cdif negative SYLVESTER, PRN tylenol if perists then imaging Obesity: Counseled regarding diet and exercise Tobacco use disorder: Counseled regarding cessation DVT prophylaxis: lovenox, out of bed, ambulate DNR/DN Quality Stroke Does the patient have a stroke diagnosis?: No VTE Prior VTE?: No VTE Risk Level:: Medical - moderate - high VTE Device Contraindication: Treatment Not Indicated VTE Drug Contraindication: N/A - Med Ordered
[2024-09-09] MEDS: cefTRIAXone sodium 2 GM VIAL IVPUSH (13:39)
[2024-09-09 15:26] VITALS: BP 187/84; PULSE 73; RESP 17; TEMP 36.9; O2SAT 96
[2024-09-09 15:52] VITALS: BP 173/77
[2024-09-09 16:10] VITALS: O2SAT 91
[2024-09-09 19:34] VITALS: BP 175/84; PULSE 99; RESP 18; TEMP 37.2; O2SAT 92
[2024-09-10] VITALS: BP 142/65; PULSE 92; RESP 18; TEMP 36.7; O2SAT 98
--- NOTE | 2024-09-10 01:08 | MHC.PIE ---
p; o2 down to 84% with ambulation to bathroom and while asleep i; o2 1L NC placed i; dr cortez notified e; o2 sat 94 %. will cont to monitor
[2024-09-10 06:23] LABS: Hematocrit 47.2 % (37.0-47.0); Hemoglobin 15.6 g/dl (12.0-16.0); Mean Corpuscular HGB Conc 33.1 g/dl (31.0-35.0); Mean Corpuscular Hemoglobin 29.4 pg (27.0-33.0); Mean Corpuscular Volume 89.1 fL (80.0-98.0); Mean Platelet Volume 10.2 fL (9.4-12.3); Platelet Count 209 X10*3/uL (160-400); Red Cell Distribution Width 14.2 % (11.0-16.0)
[2024-09-10 06:38] LABS: Anion Gap 13 (12-20); Blood Urea Nitrogen 7 mg/dL (9-16); Calcium 8.9 mg/dL (8.4-10.2); Carbon Dioxide 33 mmol/L (22-29); Chloride 101 mmol/L (96-108); Creatinine Clr Calc Pharmacy 117.2; Estimated Glomerular Filt Rate > 60; Glucose Random 99 mg/dL (60-115); Potassium 3.3 mmol/L (3.3-5.1); Sodium 144 mmol/L (135-145)
[2024-09-10 07:14] VITALS: BP 159/80; PULSE 98; RESP 18; TEMP 36.6; O2SAT 96
[2024-09-10 07:58] VITALS: BP 159/80; PULSE 98; O2SAT 96
[2024-09-10 08:22] VITALS: BP 159/80; PULSE 98
[2024-09-10] MEDS: Metoprolol Tartrate 100 MG TABLET PO (08:22)
[2024-09-10] MEDS: lisinopriL 2.5 MG TABLET PO (08:22)
[2024-09-10] MEDS: Aspirin Enteric Coated 81 MG TABLET.DR PO (08:22)
[2024-09-10] MEDS: Multivitamin TABLET 1 TAB PO (08:23)
[2024-09-10] MEDS: 0.9 % Sodium Chloride Flush 3 ML SYRINGE IVFLUSH (08:23)
[2024-09-10] MEDS: Loperamide HCl 2 MG CAPSULE PO (08:23)
--- NOTE | 2024-09-10 08:50 | P.DS_ITS ---
DS: Providers Provider Date of Service: 09/10/24 Date of admission: 09/06/24 00:48 Date of discharge: 09/10/24 Primary care physician: Gabby Hernandez MD Consults: 09/06/24 12:20 Consult to Urology Stat Consulting [place] [facility] Reason for consultation: sepsis, uti, infected stone 09/08/24 12:22 Consult to Infectious Diseases Routine Consulting Provider[place] [facility] Reason for consultation: bacteremia Has provider been notified: No DS: Diagnosis Discharge Diagnosis (1) Pyelonephritis: Status: Acute (2) Acute UTI: Status: Acute (3) Sepsis: Status: Acute DS: Summary Hospital Course Hospital Course: Chief Complaint: Weakness This is a 69-year-old female with pertinent history of AFib on Eliquis, hypertension, obesity, tobacco use disorder who presents to the emergency department for evaluation of weakness. Patient states she has had malaise and easy fatigability that has been ongoing for a while. She fell on the day of presentation and could not get up. Denies dizziness or lightheadedness prior to the fall. Did not pass out. No loss of consciousness. No jerking movement of extremities. No tongue bite or urinary or bowel incontinence. Does endorse fevers and chills. Also noticed increased urinary urgency and change in color of urine. States he has not taken her Eliquis in more than 6 months. Denies chest pain, shortness of breath. In the emergency department, patient was found to be septic and urine concerning for UTI. Hospital course: 69/F w/ chronic AFib on Eliquis, hypertension, obesity, tobacco use disorder who presents to the emergency department for evaluation of weakness, fever and found sepsis d/t UTi/pyeloneprhitis and kidney stones Sepsis due to acute pyelonephritis, infected kidney stone was on ceftriaxone, changed to zosyn 09/06 d/t for gram positive donya in blood. CT show 1. Mild left hydronephrosis secondary to a 2.1 x 1.0 cm UPJ calculus. 2. Bilateral nephrolithiasis as described. s/p post cystoscopy, left stent placement on 09/06. Remove hewitt today Blood culture showing Proteus sensitive to ceftriaxone, change zosyn back to ceftriaxone on 09/08 and ultimately Ceftin for 14 days, Hypoxia, unclear reason, assymptomatic likely atelectasis and likely underlying emphysema from chronic tobacco use. CXR no acute finding. Incentive spirometry Elevated troponin, likely type 2 in the setting of above, has trended down Persistent atrial fibrillation, m continue metoprolol for rate control She is declining all forms of anticoagulation including eliquis, xarelto or coumadin and want to be just on ASA, she understand there is increased chance of stroke. Hypertension continue metoprolol 100 bid and lisinorpil 2.5 mg daily Diarrhea, resolved, cdif negative SYLVESTER, PRN tylenol if perists then imaging Obesity: Counseled regarding diet and exercise Tobacco use disorder: Counseled regarding cessation Time Attestation Discharge Coordination Time (in mins): 45 Quality: Safe Use of Opioids Does Pt have an Active Cancer Diagnosis on the Problem List?: No Quality: Stroke Does the patient have a stroke diagnosis?: No Physical Exam Vital Signs: Vital Signs: Last Vital Signs Temp 97.8 F 09/10/24 07:14 Pulse 98 09/10/24 08:22 Resp 18 09/10/24 07:14 BP 159/80 H 09/10/24 08:22 Pulse Ox 96 09/10/24 07:58 O2 Del Method Nasal Cannula 09/10/24 07:14 O2 Flow Rate 1 09/10/24 07:14 Oxygen Flow Rate 3 09/07/24 17:21 BMI result Body Mass Index 50.7 DS: Data Data Completed and Pending Labs on day of discharge: Laboratory Results - last 24 hr 09/10/24 05:42 WBC 10.0 RBC 5.30 Hgb 15.6 Hct 47.2 H MCV 89.1 MCH 29.4 MCHC 33.1 RDW 14.2 Plt Count 209 D MPV 10.2 Absolute Nucleated RBC 0.000 Nucleated RBC % (auto) 0.0 Sodium 144 Potassium 3.3 Chloride 101 Carbon Dioxide 33 H Anion Gap 13 BUN 7 L Creatinine 0.64 Estim Creat Clear Calc 117.2 Estimated GFR > 60 Random Glucose 99 Calcium 8.9 Preliminary micro results at discharge 09/05/24 18:58 Blood Culture - Preliminary Blood - Venous No growth after 48 hours. Discharge Plan Discharge Anticipated Discharge Date/Time: 09/06/24 13:39 Patient Disposition: Home, Self-Care Discharge Diagnosis: neutropenic fever Referrals: Gabby Covarrubias MD [Primary Care Provider] - 1 Week Discharge Medications: New cefuroxime axetil 500 mg tablet 500 mg PO BID 10 Days Qty: 20 0RF Continued lisinopril 2.5 mg tablet 2.5 mg PO DAILY 90 Days Qty: 90 3RF metoprolol tartrate 100 mg tablet 100 mg PO BID Qty: 180 0RF aspirin 81 mg Tablet,Delayed Release (Dr/Ec) 81 mg PO DAILY multivitamin Tablet 1 tab PO DAILY Diet: Advance to usual diet Activity on Discharge: As tolerated Stand Alone Forms: Patient Portal Discharge page Print Language: East Timorese Care Plan Goals: Acute pyelonephritis, kidney stone, sepsis. Health Concerns: Acute pyelonephritis Kidney stone Sepsis Plan of Treatment: Take cefuroxime as recommended and follow up with her primary care doctor within a week. Assessment: See above
--- NOTE | 2024-09-10 10:29 | PC.NURSE ---
O2 sat 96% on RA sitting in recliner
--- NOTE | 2024-09-10 10:43 | MHC.CM.PN ---
pt dcd home self care
[2024-09-10 11:15] VITALS: BP 150/80; PULSE 91; RESP 18; TEMP 36.8; O2SAT 93
== END 2024-09-10 11:26 | disposition home or self-care (01) | DRG 854 ==
LOC: HO.ED 23:33 → HO.EDOVER 09-06 00:53 → HO.S3 09-06 12:21
PROVIDERS: Urology; Admitting Provider Student in an Organized Health Care Education/Training Program; Emergency Provider Emergency Medicine; PCP Internal Medicine; Visit Provider Internal Medicine
PROC: 0TJB8ZZ Inspection of Bladder, Via Natural or Artificial Opening Endoscopic (ICD-10-PCS; CPT 52005; principal; 2024-09-06 20:00)
DX: A41.9 Sepsis, unspecified organism (principal); I48.19 Other persistent atrial fibrillation; N13.6 Pyonephrosis; Z68.43 Body mass index [BMI] 50.0-59.9, adult; J98.11 Atelectasis; J43.9 Emphysema, unspecified; R19.7 Diarrhea, unspecified; E66.9 Obesity, unspecified; Z71.3 Dietary counseling and surveillance; Z66 Do not resuscitate; F17.210 Nicotine dependence, cigarettes, uncomplicated; Z20.822 Contact with and (suspected) exposure to COVID-19; Z71.6 Tobacco abuse counseling; Z79.82 Long term (current) use of aspirin; Z79.899 Other long term (current) drug therapy
CPT/HCPCS: 0241U; 36415; 71045; 71250; 74176; 80048; 80051; 80076; 80202; 81001; 81003; 82565; 82803; 83605; 83735; 83880; 84484; 85025; 85027; 85610; 87040; 87077; 87086; 87088; 87186; 87205; 87493; 93005; 97162; 99285; C1758; C1769; C2617; J0131; J0456; J0696; J1650; J2003; J2543; J2704; J3010; J3370; J7120; Q9967

== ENCOUNTER → 2024-09-05 18:12 | Outpatient (BNV) | payer MEDICARE, SELFPAY | PROVIDERS: Emergency Provider Emergency Medicine; Visit Provider Radiology Diagnostic Radiology | DX: R06.02 Shortness of breath (principal); R50.9 Fever, unspecified | CPT/HCPCS: 71045; 71250 ==

== ENCOUNTER → 2024-09-05 18:17 | Outpatient (BNV) | payer MEDICARE, SELFPAY | PROVIDERS: Admitting Provider Student in an Organized Health Care Education/Training Program; Emergency Provider Emergency Medicine; PCP Internal Medicine; Visit Provider Internal Medicine Cardiovascular Disease | DX: I49.3 Ventricular premature depolarization (principal); I48.91 Unspecified atrial fibrillation | CPT/HCPCS: 93010 ==

== ENCOUNTER 2024-09-06 00:48 | Outpatient (BNV) | payer MEDICARE, SELFPAY | END 2024-09-06 10:39 | PROVIDERS: Admitting Provider Student in an Organized Health Care Education/Training Program; Emergency Provider Emergency Medicine; PCP Internal Medicine; Visit Provider Radiology Diagnostic Radiology | DX: N20.0 Calculus of kidney (principal); K57.30 Diverticulosis of large intestine without perforation or abscess without bleeding | CPT/HCPCS: 74176 ==

== ENCOUNTER → 2024-09-06 00:48 | Outpatient (BNV) | payer MEDICARE, SELFPAY | PROVIDERS: Admitting Provider Student in an Organized Health Care Education/Training Program; Emergency Provider Emergency Medicine; Visit Provider Student in an Organized Health Care Education/Training Program | DX: A41.9 Sepsis, unspecified organism (principal); N12 Tubulo-interstitial nephritis, not specified as acute or chronic; N39.0 Urinary tract infection, site not specified | CPT/HCPCS: 99232; 99239; 99499 ==

== ENCOUNTER → 2024-09-06 00:48 | Outpatient (BNV) | payer MEDICARE, SELFPAY | PROVIDERS: Admitting Provider Student in an Organized Health Care Education/Training Program; Emergency Provider Emergency Medicine; PCP Internal Medicine; Visit Provider Urology | DX: A41.9 Sepsis, unspecified organism (principal); N20.0 Calculus of kidney | CPT/HCPCS: 52332; 74420; 99222; 99232 ==

== ENCOUNTER 2024-09-17 14:28 | Outpatient (AMB) | payer MEDICARE, SELFPAY ==
--- NOTE | 2024-09-17 14:51 | MHC.PC.OV ---
Vital Signs 09/17/24 14:54 Height 5 ft 5 in Weight 225 lb 4.999 oz BMI 37.5 BP 140/80 H Blood Pressure Location Lt brachial Position Sitting Pulse 80 Pulse Source Pulse Oximeter Temp 97.1 F Temp Source Temporal Artery Scan Pulse Oximetry (%) 93 Oxygen Delivery Method Room Air Intake Visit Reasons: [facility] 09/10- UTI, AFIB Intake Note: Patient is here for hospital discharge and TCM follow up. Patient was discharged from [facility] on 09/10/24. Cosmetic Consultant Required: No Dish Room Worker: Not Required per policy Accompanied by: Self / Same As Patient Allergies rivaroxaban [Xarelto] Allergy (Severe, Verified 09/17/24 15:05) confusion Medication List - Last Reconciled 09/17/24 by ROBERTO Chew aspirin 81 mg PO DAILY cefuroxime axetil 500 mg PO BID 10 days lisinopril 5 mg PO DAILY metoprolol tartrate 100 mg PO BID multivitamin 1 tab PO DAILY Tobacco use date assessed: 09/17/24 Fall risk assessment: 1 Fall in past year Last assessed Fall Risk: 09/17/24 Dental Screening Dental Screen Date: 09/17/24 Did you have a dental visit in the last 12 months?: No Did you have a dental problem in the last 6 months where you did not have access to dental care?: No Was dental information given to patient?: Patient has dentist HPI [facility] 09/10- UTI, AFIB HPI Details The patient is a 69-year-old female with significant past medical history of AFib on aspirn (refusing other anticoagulation), hypertension, obesity, tobacco use disorder The patient is presenting today for transition of care due to hospitalization for sepsis related to UTI/pyelonephritis and kidney stones CT showed mild left hydronephrosis secondary ureteropelvic junction calculus in bilateral nephrolithiasis. A cystoscopy performed in a left stent was placed on 09/06. The patient blood culture showed Proteus that was treated with ceftriaxone, patient was being treated with Zosyn prior and ultimately Ceftin for 14 days. Unclear hypoxia, asymptomatic likely atelectasis and underlying in emphysema from chronic tobacco use. Chest x-ray with no acute findings. Elevated troponin, likely type 2 in the setting of above, has trended down In office: patient reports that she has not been feeling well and she should have not left the hospital She reports that she has not have a regular bowel(very lose) movement since she left the hospital The patient reports that she is having chest pain (epigastric); she characterizes it has pressure Reports feeling weak all over. Reports that she does not feel any improvements since going to the hospital Explained to patient that her body is recovering from a massive infection and she will need time to start feeling like herself again Will have the patient return in a month to keep a close eye on her, new labs ordered. EKG without any acute findings in office TCM TCM Information Date of Discharge 09/10/24 Discharged From [facility] Interactive Contact Date (Reference documentation from this date) 09/12/24 [facility] Medical History Persistent atrial fibrillation New onset atrial fibrillation Peripheral artery disease Cellulitis of leg, right COVID-19 Hypertension Surgical History History of cystoscopy History of hernia surgery History of embolectomy Social History Household Members: None Housing: Apartment Are you a primary neonatal intensive care unit nurse to a significant other at home: No Do you presently have visiting nurse or other home services: No Unable to assess alcohol history related to: Unknown Alcohol intake: current Alcohol intake frequency: does not drink Patient Tobacco Use Status: Current everyday Tobacco user Tobacco use type: Cigarette Cigarette Packs Per Day: 0.25 Cigarettes Per Day: 4 Years Smoked: 20 e-Cigarette/Vaping Use: Never Used Second Hand Smoke Exposure: Yes Substance Use Type: Marijuana service: No Current occupational status: retired Cognitive needs: Yes (Wheelchair, walker.) Hearing needs: No Vision needs: Yes (Glasses) Questionnaire PHQ-9 Over the last 2 weeks, how often have you been bothered by any of the following problems? 1. Little interest or pleasure in doing things: not at all 2. Feeling down, depressed, or hopeless: not at all 3. Trouble falling or staying asleep, or sleeping too much: not at all 4. Feeling tired or having little energy: not at all 5. Poor appetite or overeating: not at all 6. Feeling bad about yourself - or that you are a failure or have let yourself or your family down: not at all 7. Trouble concentrating on things, such as reading the newspaper or watching television: not at all 8. Moving or speaking so slowly that other people could have noticed. Or the opposite - being so fidgety or restless that you have been moving around a lot more than usual: not at all 9. Thoughts that you would be better off or of hurting yourself in some way: not at all Total score: 0 Depression Screening Interpretation: Negative Depression Screening Done: Yes 60726 - PHQ-9 Billing: Yes Source: Developed by Drs. Robb Mendoza, Ofelia Aguiar, Gautam Calderón and colleagues, with an educational lasha from [email or web address]. Thrive Questionnaire Date Thrive assessed: 09/06/24 AUDIT C Alcohol Use Questionnaire (AUDIT-C) 1. How often do you have a drink containing alcohol?: Monthly or less 2. How many drinks containing alcohol do you have on a typical day when you are drinking?: 1 or 2 Total Score: 1 MIS-7 AMB Questionnaire MIS-7 Date MIS - 7 assessed: 09/17/24 Feeling nervous, anxious, or on edge: 0 = Not at all Not being able to stop or control worryin = Not at all Worrying too much about different things: 0 = Not at all Trouble relaxin = Not at all Being so restless that it is hard to sit still: 0 = Not at all Becoming easily annoyed or irritable: 0 = Not at all Feeling afraid as if something awful might happen: 0 = Not at all Total MIS-7 score (0-4 normal; 5-9 mild; 10-14 moderate; 15-21 severe): 0 Source: Developed by Drs. Robb Mendoza, Ofelia Aguiar, Gautam Calderón and colleagues, with an educational lasha from [email or web address]. MIS-7 Assessment Billing MIS-7 Assessment Tool: MIS-7 Assessment 67230 Review of Systems Const Details: Denies chills, + fatigue, Denies fever(s), Denies headache(s) and+ weakness HEENT Denies change in vision, Denies dizziness, Denies headache(s), Denies hearing loss, Denies nasal congestion, Denies sinus pain, Denies sinus pressure and Denies sore throat Card +chest pain (characterized as chest pressure in epigastric region), Denies lightheadedness, + dyspnea (chronic) and Denies other (palpitations) Resp Denies cough, +dyspnea (chronic) and Denies wheezing GI Denies abdominal pain, Denies melena, Denies hematochezia, +change in bowel habits(diarrhea, on and off since being in hospital, C diff was negative the hospital), Denies dyspepsia and Denies nausea Denies hematuria and Denies dysuria Musc Denies abnormal gait, Denies myalgias, +arthralgias (bilateral knees), Denies numbness and Denies tingling Skin/Breast Denies rash, Denies unusual bruising and Denies wounds Neuro Denies abnormal gait, Denies dizziness, Denies headache(s), Denies memory loss, Denies numbness, Denies Sensory deficit (Neuro), Denies tingling and Denies weakness Psych Denies anxiety, Denies depression and Denies memory loss Endo Denies cold intolerance, +fatigue, Denies heat intolerance, Denies polydipsia and Denies polyuria Feliciano/Lymph Denies easy bleeding and Denies easy bruising Aller/Immun Denies wheezing Physical exam (Primary Care) Vital Signs: Last Vital Signs Temp 97.1 F 09/17/24 14:54 Pulse 80 09/17/24 14:54 BP 140/80 H 09/17/24 14:54 Pulse Ox 93 09/17/24 14:54 Oxygen Delivery Method Room Air 09/17/24 14:54 BMI result Body Mass Index 37.5 Tobacco/Smoking Status: Tobacco use Status Tobacco use date assessed 09/17/24 09/17/24 15:03 Patient Tobacco Use Status Current everyday Tobacco 09/17/24 15:03 Tobacco use type Cigarette 09/17/24 15:03 e-Cigarette/Vaping Use Never Used 09/17/24 15:03 PHQ-9: PHQ-9 Score PHQ-9: Total score 0 09/17/24 15:27 Depression Screening Interpretation: Negative Thrive Assessment: Date of Thrive Assessment Date Thrive assessed 09/06/24 09/17/24 15:03 Const Other: General: no acute distress, well developed, alert and awake Nutritional Appearance: well nourished Orientation/consciousness: patient oriented x3 [facility] Head: Yes normocephalic and Yes atraumatic Ears: hearing grossly normal bilaterally and TM's normal bilaterally General nose exam: Normal external nose present and Normal nares present Mouth: Normal oral and palatal mucosa present and moist mucous membranes Eyes Pupils: Equal, round and reactive pupils present and Pupil accommodation reflex normal EOM: EOMs intact bilaterally Neck Neck: Yes normal visual inspection, Yes no lymphadenopathy and Yes trachea midline Thyroid: Thyroid normal Carotids: no bruits Lymphatic: no lymphadenopathy noted Resp Effort & Inspection: normal respiratory effort Auscultation: clear to auscultation bilaterally Cardio Rate: regular rate Rhythm: regular rhythm Heart sounds: S1 normal heart sound present, S2 normal heart sound present, no gallops, no murmurs and no rubs GI Palpation (GI): Abdomen is soft and nontender to palpation Auscultation: normal bowel sounds General: Yes no CVA tenderness Back/Spine/Pelvis Back: no CVA tenderness Cervical Spine: cervical ROM normal and No Cervical spine tenderness Thoracic/Lumbar Spine: thoraco-lumbar ROM normal, No pain with thoraco-lumbar ROM, No thoracic spinal tenderness and No lumbar spinal tenderness Skin General: warm and dry. Normal skin color. Normal skin turgor Lesions: no lesions Wounds: no wounds Nails: normal Neuro General: patient oriented x3, gait normal Cranial nerves: Yes Equal, round and reactive pupils present Cognition (Neuro): normal cognition Gait exam (Neuro): Normal gait present Extrem General: Yes normal to inspection, No edema and No calf tenderness Psych Appearance: grossly normal Affect: normal affect Attitude: cooperative Thought process: Normal thought process present Office Procedures EKG 96620-[id number], Complete Coding Level of Care Code [facility] High MDM <= 7 Days Diagnoses Bilateral kidney stones N20.0 Pyelonephritis N12 Left ureteral stone N20.1 Class 2 severe obesity with serious comorbidity and body mass index (BMI) of 38.0 to 38.9 in adult, unspecified obesity type E66.812; E66.01; Z68.38 Obesity type: unspecified obesity type Serious obesity comorbidity presence: with serious comorbidity Congestive heart failure, NYHA class 1, unspecified congestive heart failure type I50.9 Congestive heart failure type: unspecified Hypertension, unspecified type I10 Hypertension type: unspecified Persistent atrial fibrillation I48.19 Cigarette smoker F17.210 Diarrhea, unspecified type R19.7 Diarrhea type: unspecified type CPT Codes EKG - CPT: 51655-[id number], Complete ([id number]) Additional Codes PHQ-9 - 47499 - PHQ-9 Billing: Yes ([id number]) MIS-7 Assessment Billing - MIS-7 Assessment Tool: MIS-7 Assessment 02929 ([id number]) Time Spent (min) 43 Assessment & Plan Assessment & Plan (1) Bilateral kidney stones: Code(s): N20.0 - Calculus of kidney Category: Medical Plan: Infected kidney stones patient was started on ceftriaxone, changes Zosyn on 09/06 Status post cystoscopy, left stent placement on 09/06, blood culture showing Proteus sensitive to ceftriaxone, switched back to ceftriaxone on 09/08 and ultimately Ceftin for 14 days (2) Pyelonephritis: Code(s): N12 - Tubulo-interstitial nephritis, not specified as acute or chronic Category: Medical Plan: Same as above (3) Left ureteral stone: Code(s): N20.1 - Calculus of ureter Category: Medical Plan: Same as above (4) Class 2 obesity with body mass index (BMI) of 38.0 to 38.9 in adult: Code(s): E66.9 - Obesity, unspecified; Z68.38 - Body mass index [BMI] 38.0-38.9, adult Category: Medical Qualifiers: Obesity type: unspecified obesity type Serious obesity comorbidity presence: with serious comorbidity Qualified Code(s): E66.812 - Obesity, class 2; E66.01 - Morbid (severe) obesity due to excess calories; Z68.38 - Body mass index [BMI] 38.0-38.9, adult Plan: Discussed dietary modification and activity as tolerated (5) CHF (congestive heart failure), NYHA class I: Code(s): I50.9 - Heart failure, unspecified Category: Medical Qualifiers: Congestive heart failure type: unspecified Qualified Code(s): I50.9 - Heart failure, unspecified Plan: The patient is followed by Cardiology. She used to take furosemide as needed, unclear when this was stopped (6) Hypertension: Code(s): I10 - Essential (primary) hypertension Category: Medical Qualifiers: Hypertension type: unspecified Qualified Code(s): I10 - Essential (primary) hypertension Plan: Reinforced low-sodium diet Continue metoprolol tartrate 100 mg b.i.d. and lisinopril 5 mg daily (7) Persistent atrial fibrillation: Code(s): I48.19 - Other persistent atrial fibrillation Category: Medical Plan: Continue metoprolol for rate control. The patient is declining all forms of anticoagulation including Eliquis, Xarelto or Coumadin and went to just be on aspirin, he understands there is increased chance of stroke (8) Cigarette smoker: Code(s): F17.210 - Nicotine dependence, cigarettes, uncomplicated Category: Social Hx Plan: Smoking cessation (9) Diarrhea: Code(s): R19.7 - Diarrhea, unspecified Category: Medical Qualifiers: Diarrhea type: unspecified type Qualified Code(s): R19.7 - Diarrhea, unspecified Plan: Diarrhea started on hospital, most likely due to multiple antibiotic usage. C diff negative in-hospital. Patient continued on cefuroxime axetil 500 mg BID. Diarrhea on and off at home, increase fluids intake on a days of diarrhea. Plan New labs ordered to be completed in a month. Patient to return in office within a month Orders: Orders Complete Blood Count Auto Diff 1 Month A41.9 - Sepsis, unspecified organism, I48.91 - Unspecified atrial fibrillation, I50.9 - Heart failure, unspecified, N20.1 - Calculus of ureter, N39.0 - Urinary tract infection, site not specified, R53.1 - Weakness Comprehensive [place]. Panel Fast 1 Month A41.9 - Sepsis, unspecified organism, I48.91 - Unspecified atrial fibrillation, I50.9 - Heart failure, unspecified, N20.1 - Calculus of ureter, N39.0 - Urinary tract infection, site not specified, R53.1 - Weakness Vitamin D 25-OH Total 1 Month A41.9 - Sepsis, unspecified organism, I48.91 - Unspecified atrial fibrillation, I50.9 - Heart failure, unspecified, N20.1 - Calculus of ureter, N39.0 - Urinary tract infection, site not specified, R53.1 - Weakness AMB EKG-In Office 09/17/24 Z13.6 - Encounter for screening for cardiovascular disorders TSH reflex Free T4 1 Month A41.9 - Sepsis, unspecified organism, I48.91 - Unspecified atrial fibrillation, I50.9 - Heart failure, unspecified, N20.1 - Calculus of ureter, N39.0 - Urinary tract infection, site not specified, R53.1 - Weakness UA CC w/rflx Micro + Cult 1 Month A41.9 - Sepsis, unspecified organism, I48.91 - Unspecified atrial fibrillation, I50.9 - Heart failure, unspecified, N20.1 - Calculus of ureter, N39.0 - Urinary tract infection, site not specified, R53.1 - Weakness B Type Natriuretic Peptide 1 Month A41.9 - Sepsis, unspecified organism, I48.91 - Unspecified atrial fibrillation, I50.9 - Heart failure, unspecified, N20.1 - Calculus of ureter, N39.0 - Urinary tract infection, site not specified, R53.1 - Weakness Medications: New albuterol sulfate 90 mcg/actuation 1 inh inhalation QID PRN 8.5 grams 2RF shortness of breath or wheezing
[2024-09-17 14:54] VITALS: BP 140/80; PULSE 80; TEMP 36.2; O2SAT 93; BMI 37.5
--- OUTSIDE RECORDS SUMMARY | 2024-09-17 18:11 | XMS_ITS | Encounter Summary ---
Author Organization [facility] Address [address] [place] [address] Care Team Providers Care Color Paste Mixing Supervisor Name Role Phone Gabby Covarrubias MD Primary Care Provider [phone] Encounter Details Date Type Department Care Team (Late st Contact Info) Description 08/22/2023 Telephone [facility] [place] [address] [place] [phone] Torsten Woody MD [address] [place] [address] Social History Tobacco Use Types Packs/Day Years Used Date Smoking Tobacco: Every Day Cigarettes Smokeless Tobacco: Never Comments:3 cig a day Pt states she smokes weed [facility] Utilities Answer Date Recorded In the past 12 months has [employer] electric, gas, oil, or water company threatened [...] place to sleep or slept in a assisted (including now)? No 07/19/2023 Sex and Gender Information Value Date Recorded Sex Assigned at Female 07/05/2023 3:24 PM EST Gender Identity Female 07/05/2023 3:24 PM EST Sexual Orientation Choose not to disclose 2022 3:24 PM EST documented as of this encounter Plan of Treatment Not on file documented as of this encounter Visit Diagnoses Not on filedocumented in this encounter Care Teams Color Paste Mixing Supervisor Relationship Specialty Start Date End Date Gabby Covarrubias MD [address] [place] [address] PCP - General Family Medicine 06/27/23 documented as of this encounter
--- OUTSIDE RECORDS SUMMARY | 2024-09-17 18:11 | XMS_ITS | Encounter Summary ---
Author Organization [facility] Address [address] [place] [address] Care Team Providers Care Automobile Mechanic Radiator Name Role Phone Gabby Covarrubias MD Primary Care Provider [phone] Encounter Details Date Type Department Care Team (Late st Contact Info) Description 08/21/2023 Scanned Document GENERIC EXTERNAL DATA DEPARTMENT Provider, Generic External Data Social History Tobacco Use Types Packs/Day Years Used Date Smoking Tobacco: Every Day Cigarettes Smokeless Tobacco: Never Comments:3 cig a day Pt states she smokes weed [facility] Utilities Answer Date Recorded In the past 12 months has [employer] electric, gas, oil, or water [employer] threatened to shut off services in your [...] place to sleep or slept in a prison (including now)? No 07/19/2023 Sex and Gender Information Value Date Recorded Sex Assigned at Female 07/05/2023 3:24 PM EST Gender Identity Female 07/05/2023 3:24 PM EST Sexual Orientation Choose not to disclose 2022 3:24 PM EST documented as of this encounter Plan of Treatment Not on file documented as of this encounter Visit Diagnoses Not on filedocumented in this encounter Care Teams Automobile Mechanic Radiator Relationship Specialty Start Date End Date Gabby Covarrubias MD [address] [place] [address] PCP - General Family Medicine 06/27/23 documented as of this encounter
--- OUTSIDE RECORDS SUMMARY | 2024-09-17 18:11 | XMS_ITS | Encounter Summary ---
Author Organization [facility] Address [address] [place] [address] Care Team Providers Care Functional Tester Name Role Phone Gabby Covarrubias MD Primary Care Provider [phone] Encounter Details Date Type Department Care Team (Late st Contact Info) Description 09/29/2023 Scanned Document [facility] Vascular & Endovascular Surgery [address] [place] [address] Vascular Surgery, Scan Social History Tobacco Use Types Packs/Day Years Used Date Smoking Tobacco: Every Day Cigarettes Smokeless Tobacco: Never Comments:3 cig a day Pt states she smokes weed [facility] Utilities Answer Date Recorded In the past 12 months has [employer] electric, gas, oil, or water company threatened [...] place to sleep or slept in a group home (including now)? No 07/19/2023 Sex and Gender Information Value Date Recorded Sex Assigned at Female 07/05/2023 3:24 PM EST Gender Identity Female 07/05/2023 3:24 PM EST Sexual Orientation Choose not to disclose 2022 3:24 PM EST documented as of this encounter Plan of Treatment Not on file documented as of this encounter Visit Diagnoses Not on filedocumented in this encounter Care Teams Functional Tester Relationship Specialty Start Date End Date Gabby Covarrubias MD [address] [place] [address] PCP - General Family Medicine 06/27/23 documented as of this encounter
--- OUTSIDE RECORDS SUMMARY | 2024-09-17 18:11 | XMS_ITS | Encounter Summary ---
Author Organization [facility] Address [address] [place] [address] Care Team Providers Care Line Maintenance Technician Name Role Phone Gabby Covarrubias MD Primary Care Provider [phone] Encounter Details Date Type Department Care Team (Late st Contact Info) Description 09/14/2023 Scanned Document [facility] Vascular & Endovascular Surgery [address] [place] [address] Vascular Surgery, Scan Social History Tobacco Use Types Packs/Day Years Used Date Smoking Tobacco: Every Day Cigarettes Smokeless Tobacco: Never Comments:3 cig a day Pt states she smokes weed [facility] Utilities Answer Date Recorded In the past 12 months has [employer] electric, gas, oil, or water company threatened [...] place to sleep or slept in a long term (including now)? No 07/19/2023 Sex and Gender Information Value Date Recorded Sex Assigned at Female 07/05/2023 3:24 PM EST Gender Identity Female 07/05/2023 3:24 PM EST Sexual Orientation Choose not to disclose 2022 3:24 PM EST documented as of this encounter Plan of Treatment Not on file documented as of this encounter Visit Diagnoses Not on filedocumented in this encounter Care Teams Line Maintenance Technician Relationship Specialty Start Date End Date Gabby Covarrubias MD [address] [place] [address] PCP - General Family Medicine 06/27/23 documented as of this encounter
--- OUTSIDE RECORDS SUMMARY | 2024-09-17 18:11 | XMS_ITS | Clinical Summary ---
Author Organization [facility] Address [address] [place] [address] Care Team Providers Care Plow And Boring Machine Tender Name Role Phone Gabby Covarrubias MD Primary Care Provider [phone] Allergies Active Allergy Reactions Criticality Noted Date [...] Problem Noted Date Diagnosed Date Atherosclerosis of [place] of right lower extremity with intermittent claudication 10/12/2023 Non-healing surgical wound 09/20/2023 Wound infection after surgery 07/18/2023 Ischemia of right lower extremity 06/27/2023 Social History Tobacco Use Types Packs/Day Years Used Date Smoking Tobacco: Every Day Cigarettes Smokeless Tobacco: Never Comments:3 cig a day Pt states she smokes weed [facility] [employer]ities Answer Date Recorded In the past 12 months has [employer], gas, oil, or water [employer] threatened to shut off services in your [...] place to sleep or slept in a custodial (including now)? No 07/19/2023 Sex and Gender [...] Agents on File Name Relationship Healthcare Agent [facility] Communication Kiel Rothmarco antonio Adult child 4. Next of Kin ( Spouse, Adult Child, Parent, Adult Sibling, Grandparent) Sung Mcclure Adult child 4. Next of Kin ( Spouse, Adult Child, Parent, Adult Sibling, Grandparent) Care Teams Plow And Boring Machine Tender Relationship Specialty Start Date End Date Gabby Covarrubias MD [address] [place], [place] [id number] PCP - General Family Medicine 06/27/23
--- OUTSIDE RECORDS SUMMARY | 2024-09-17 18:11 | XMS_ITS | Encounter Summary ---
Author Organization [facility] Address [address] [place] [address] Care Team Providers Care Horse Trader Name Role Phone Gabby Covarrubias MD Primary Care Provider [phone] Encounter Details Date Type Department Care Team (Late st Contact Info) Description 09/04/2023 Telephone [facility] Vascular & Endovascular Surgery [place] [address] [place] [phone] Torsten Woody MD [address] [place] [address] Social History Tobacco Use Types Packs/Day Years Used Date Smoking Tobacco: Every Day Cigarettes Smokeless Tobacco: Never Comments:3 cig a day Pt states she smokes weed [facility] Utilities Answer Date Recorded In the past 12 months has [employer] electric, gas, oil, or water company threatened [...] on filedocumented in this encounter Care Teams Horse Trader Relationship Specialty Start Date End Date Gabby Covarrubias MD [address] [place] [address] PCP - General Family Medicine 06/27/23 documented as of this encounter
--- OUTSIDE RECORDS SUMMARY | 2024-09-17 18:11 | XMS_ITS | Encounter Summary ---
Author Organization [facility] Address [address] [place] [address] Care Team Providers Care Asset Protection Greeter Name Role Phone Gabby Covarrubias MD Primary Care Provider [phone] Encounter Details Date Type Department Care Team (Late st Contact Info) Description 07/07/2023 Telephone [facility] Vascular & Endovascular Surgery [address] [place] [address] Torsten Woody MD [address] [place] [id number] Social History Tobacco Use Types Packs/Day Years Used Date Smoking Tobacco: Never Assessed [facility] Utilities Answer Date Recorded In the past 12 months has e electric, gas, oil, or water company threatened to shut off services in your home? No 06/28/2023 AUDIT-C Answer Date Recorded Q1: How often do you have a drink containing alcohol? Never 06/28/2023 Q2: How many drinks containi ng alcohol do you have on a typical day when you are drinking? Patient does not drink Q3: How often do you have si x or more drinks on one occasion? Never 06/28/2023 Overall Financial Resource Strain (CARDIA) Answe r Date Recorded How hard is it for you to pa y for the very basics like food, housing, medical care, and heating? Not hard at all 06/28/2023 PHQ-2 Answer Date Recorded PHQ-2 Total Score 0 06/28/2023 Hunger Vital Sign Answer Date Recorded Within the past 12 months, y ou worried that your food would run out before you got the money to buy more. Never true 06/28/20 Within the past 12 months, t he food you bought just didn't last and you didn't have money to get more. Never true 06/28/2023 PRAPARE - Transportation Answer Date Re corded In the past 12 months, has l ack of transportation kept you from medical appointments or from getting medications? No 12/2022 In the past 12 months, has l ack of transportation kept you from meetings, work, or from getting things needed for daily living? No 06/28/2023 Housing Stability Vital Sign Answer Bon e Recorded In the last 12 months, was t here a time when you were not able to pay the mortgage or rent on time? No 06/28/2023 In the last 12 months, how many places have you lived? 1 06/28/2023 In the last 12 months, was t here a time when you did not have a steady place to sleep or slept in a care home (including now)? No 06/28/2023 Sex and Gender Information Value Date Recorded Sex Assigned at Female 07/05/2023 3:24 PM EST Gender Identity Female 07/05/2023 3:24 PM EST Sexual Orientation Choose not to disclose 2022 3:24 PM EST documented as of this encounter Plan of Treatment Not on file documented as of this encounter Visit Diagnoses Not on filedocumented in this encounter Additional Health Concerns Infection Onset Date Last Indicated Resolved Time R/O C. Difficile 07/18/2023 07/18/2023 07/19/2023 7:24 AM EST documented as of this encounter Care Teams Asset Protection Greeter Relationship Specialty Start Date End Date Gabby Covarrubias MD [address] [place] [address] PCP - General Family Medicine 06/27/23 documented as of this encounter
== END 2024-09-17 15:44 | disposition home or self-care (01) ==
PROVIDERS: PCP Internal Medicine
DX: I50.9 Heart failure, unspecified (principal); E66.01 Morbid (severe) obesity due to excess calories; I48.19 Other persistent atrial fibrillation; E66.812 Obesity, class 2; Z68.38 Body mass index [BMI] 38.0-38.9, adult; N20.0 Calculus of kidney; N20.1 Calculus of ureter; N12 Tubulo-interstitial nephritis, not specified as acute or chronic; I10 Essential (primary) hypertension; F17.210 Nicotine dependence, cigarettes, uncomplicated; R19.7 Diarrhea, unspecified

== ENCOUNTER → 2024-09-17 14:28 | Outpatient (BNVA) | payer MEDICARE, SELFPAY | PROVIDERS: PCP Internal Medicine | DX: N20.0 Calculus of kidney (principal); N12 Tubulo-interstitial nephritis, not specified as acute or chronic; N20.1 Calculus of ureter; E66.01 Morbid (severe) obesity due to excess calories; Z68.38 Body mass index [BMI] 38.0-38.9, adult; I11.0 Hypertensive heart disease with heart failure; I50.9 Heart failure, unspecified; I48.19 Other persistent atrial fibrillation; R19.7 Diarrhea, unspecified; F17.210 Nicotine dependence, cigarettes, uncomplicated; Z71.6 Tobacco abuse counseling; Z71.3 Dietary counseling and surveillance | CPT/HCPCS: 93005; 96127; 99496 ==

== ENCOUNTER 2024-09-20 14:25 | Outpatient (REF) | payer MEDICARE, SELFPAY ==
--- NOTE | ~2024-09-20 | XR_ITS ---
EXAMINATION: XR ABDOMEN KUB CLINICAL INDICATION: N20.0 - Calculus of kidney COMPARISON: Collated to [facility] from [place] dated September 06, 2024. TECHNIQUE: AP view of the abdomen. FINDINGS: Left-sided ureteral stent with the upper pigtail overlapping the left kidney shadow and the lower pigtail overlapping the bladder shadow. Vascular clips right upper quadrant abdomen. Dystrophic calcifications overlapping the mid to lower pole left kidney shadow region. Liver shadow below the rib cage. Multilevel thoracolumbar spondylosis. Multiple metallic coils in the lower abdomen and overlapping the sacrum likely related to the mesh. XR/XR KUB IMPRESSION: Left-sided ureteral stent. Left-sided nephrolithiasis. Please refer to the CT Electronically signed by: Jaxon Díaz MD 09/20/2024 03:47 PM [facility]
--- OUTSIDE RECORDS SUMMARY | 2024-09-20 16:38 | XMS_ITS | Encounter Summary ---
Author Organization [facility] Address [address] [place] [address] Care Team Providers Care Instructional Services Specialist Name Role Phone Gabby Covarrubias MD Primary Care Provider [phone] Encounter Details Date Type Department Care Team (Late st Contact Info) Description 08/22/2023 Telephone [facility] Vascular & Endovascular Surgery [place] [address] [place] [phone] Torsten Woody MD [address] [place] [address] Social History Tobacco Use Types Packs/Day Years Used Date Smoking Tobacco: Every Day Cigarettes Smokeless Tobacco: Never Comments:3 cig a day Pt states she smokes weed [facility] Utilities Answer Date Recorded In the past 12 months has [employer] electric, gas, oil, or water company threatened [...] place to sleep or slept in a skilled nursing (including now)? No 07/19/2023 Sex and Gender Information Value Date Recorded Sex Assigned at Female 07/05/2023 3:24 PM EST Gender Identity Female 07/05/2023 3:24 PM EST Sexual Orientation Choose not to disclose 2022 3:24 PM EST documented as of this encounter Plan of Treatment Not on file documented as of this encounter Visit Diagnoses Not on filedocumented in this encounter Care Teams Instructional Services Specialist Relationship Specialty Start Date End Date Gabby Covarrubias MD [address] [place] [address] PCP - General Family Medicine 06/27/23 documented as of this encounter
--- OUTSIDE RECORDS SUMMARY | 2024-09-20 16:38 | XMS_ITS | Clinical Summary ---
Author Organization [facility] Address [address] [place] [address] Care Team Providers Care Labor Arbitrator Hearing Office Name Role Phone Gabby Covarrubias MD Primary Care Provider [phone] Allergies Active Allergy Reactions Criticality Noted Date [...] Problem Noted Date Diagnosed Date Atherosclerosis of [place] of right lower extremity with intermittent claudication 10/12/2023 Non-healing surgical wound 09/20/2023 Wound infection after surgery 07/18/2023 Ischemia of right lower extremity 06/27/2023 Social History Tobacco Use Types Packs/Day Years Used Date Smoking Tobacco: Every Day Cigarettes Smokeless Tobacco: Never Comments:3 cig a day Pt states she smokes weed [facility] [employer]ities Answer Date Recorded In the past 12 months has [employer], gas, oil, or water [employer] threatened to shut off services in your [...] place to sleep or slept in a fpc (including now)? No 07/19/2023 Sex and Gender [...] File Name Relationship Healthcare [facility] Communication Kiel Rothmarco antonio Adult child 4. Next of Kin ( Spouse, Adult Child, Parent, Adult Sibling, Grandparent) Sung Mcclure Adult child 4. Next of Kin ( Spouse, Adult Child, Parent, Adult Sibling, Grandparent) Care Teams Labor Arbitrator Hearing Office Relationship Specialty Start Date End Date Gabby Covarrubias MD [address] [place], [place] [id number] PCP - General Family Medicine 06/27/23
--- OUTSIDE RECORDS SUMMARY | 2024-09-20 16:38 | XMS_ITS | Encounter Summary ---
Author Organization [facility] Address [address] [place] [address] Care Team Providers Care Manager Quality Improvement Name Role Phone Gabby Covarrubias MD Primary Care Provider [phone] Encounter Details Date Type Department Care Team (Late st Contact Info) Description 07/07/2023 Telephone [facility] Vascular & Endovascular Surgery [address] [place] [address] Torsten Woody MD [address] [place] [address] Social History Tobacco Use Types Packs/Day Years Used Date Smoking Tobacco: Never Assessed [facility] Utilities Answer Date Recorded In [...] slept in a assisted (including now)? No 06/28/2023 Sex and Gender [...] documented as of this encounter Care Teams Manager Quality Improvement Relationship Specialty Start Date End Date Gabby Covarrubias MD [address] [place] [address] PCP - General Family Medicine 06/27/23 documented as of this encounter
--- OUTSIDE RECORDS SUMMARY | 2024-09-20 16:38 | XMS_ITS | Encounter Summary ---
Author Organization [facility] Address [address] [place] [address] Care Team Providers Care Marriage And Family Therapist Name Role Phone Gabby Covarrubias MD Primary Care Provider [phone] Encounter Details Date Type Department Care Team (Late st Contact Info) Description 09/04/2023 Telephone [facility] Vascular & Endovascular Surgery [place] [address] [place] [phone] Torsten Woody MD [address] [place] [address] Social History Tobacco Use Types Packs/Day Years Used Date Smoking Tobacco: Every Day Cigarettes Smokeless Tobacco: Never Comments:3 cig a day Pt states she smokes weed [facility] Utilities Answer Date Recorded In the past 12 months has [employer] electric, gas, oil, or water company threatened [...] on filedocumented in this encounter Care Teams Marriage And Family Therapist Relationship Specialty Start Date End Date Gabby Covarrubias MD [address] [place] [address] PCP - General Family Medicine 06/27/23 documented as of this encounter
--- OUTSIDE RECORDS SUMMARY | 2024-09-20 16:38 | XMS_ITS | Encounter Summary ---
Author Organization [facility] Address [address] [place] [address] Care Team Providers Care Salvage Winder And Inspector Name Role Phone Gabby Covarrubias MD Primary Care Provider Encounter Details Date Type Department Care Team (Late st Contact Info) Description 08/21/2023 Scanned Document GENERIC EXTERNAL DATA DEPARTMENT Provider, Generic External Data Social History Tobacco Use Types Packs/Day Years Used Date Smoking Tobacco: Every Day Cigarettes Smokeless Tobacco: Never Comments:3 cig a day Pt states she smokes weed [facility] Utilities Answer Date Recorded In the past 12 months has [employer], gas, oil, or water [employer] threatened to shut off services in your [...] place to sleep or slept in a alf (including now)? No 07/19/2023 Sex and Gender Information Value Date Recorded Sex Assigned at Female 07/05/2023 3:24 PM EST Gender Identity Female 07/05/2023 3:24 PM EST Sexual Orientation Choose not to disclose 2022 3:24 PM EST documented as of this encounter Plan of Treatment Not on file documented as of this encounter Visit Diagnoses Not on filedocumented in this encounter Care Teams Salvage Winder And Inspector Relationship Specialty Start Date End Date Gabby Covarrubias MD [address] [place] [address] PCP - General Family Medicine 06/27/23 documented as of this encounter
--- OUTSIDE RECORDS SUMMARY | 2024-09-20 16:38 | XMS_ITS | Encounter Summary ---
Author Organization [facility] Address [address] [place] [address] Care Team Providers Care Certified Professional Coder Name Role Phone Gabby Covarrubias MD Primary Care Provider [phone] Encounter Details Date Type Department Care Team (Late st Contact Info) Description 09/29/2023 Scanned Document [facility] Vascular & Endovascular Surgery [address] [place] [address] Vascular Surgery, Scan Social History Tobacco Use Types Packs/Day Years Used Date Smoking Tobacco: Every Day Cigarettes Smokeless Tobacco: Never Comments:3 cig a day Pt states she smokes weed [facility] Utilities Answer Date Recorded In the past 12 months has [employer] electric, gas, oil, or water company threatened [...] place to sleep or slept in a residential (including now)? No 07/19/2023 Sex and Gender Information Value Date Recorded Sex Assigned at Female 07/05/2023 3:24 PM EST Gender Identity Female 07/05/2023 3:24 PM EST Sexual Orientation Choose not to disclose 2022 3:24 PM EST documented as of this encounter Plan of Treatment Not on file documented as of this encounter Visit Diagnoses Not on filedocumented in this encounter Care Teams Certified Professional Coder Relationship Specialty Start Date End Date Gabby Covarrubias MD [address] [place] [address] PCP - General Family Medicine 06/27/23 documented as of this encounter
--- OUTSIDE RECORDS SUMMARY | 2024-09-20 16:38 | XMS_ITS | Encounter Summary ---
Author Organization [facility] Address [address] [place] [address] Care Team Providers Care Side Laster Tack Name Role Phone Gabby Covarrubias MD Primary Care Provider [phone] Encounter Details Date Type Department Care Team (Late st Contact Info) Description 09/14/2023 Scanned Document [facility] Vascular & Endovascular Surgery [address] [place] [address] Vascular Surgery, Scan Social History Tobacco Use Types Packs/Day Years Used Date Smoking Tobacco: Every Day Cigarettes Smokeless Tobacco: Never Comments:3 cig a day Pt states she smokes weed [facility] Utilities Answer Date Recorded In the past 12 months has [employer] electric, gas, oil, or water company threatened [...] on filedocumented in this encounter Care Teams Side Laster Tack Relationship Specialty Start Date End Date Gabby Covarrubias MD [address] [place] [address] PCP - General Family Medicine 06/27/23 documented as of this encounter
== END 2024-09-20 14:26 | disposition home or self-care (01) ==
LOC: HO.XRAY 14:25
PROVIDERS: Absent Provider Urology
DX: N20.0 Calculus of kidney (principal); N20.1 Calculus of ureter
CPT/HCPCS: 74018

== ENCOUNTER → 2024-09-20 14:33 | Outpatient (BNV) | payer MEDICARE, SELFPAY | PROVIDERS: Absent Provider Urology; Visit Provider Radiology Diagnostic Radiology | DX: N20.0 Calculus of kidney (principal); Z96.0 Presence of urogenital implants | CPT/HCPCS: 74018 ==

== ENCOUNTER 2024-09-25 14:47 | Outpatient (AMB) | payer MEDICARE, SELFPAY ==
[2024-09-25 14:48] VITALS: BP 126/82; PULSE 70; O2SAT 93; BMI 37.4
--- NOTE | 2024-09-25 14:48 | MHC.PC.OV ---
Vital Signs 09/25/24 14:48 Height 5 ft 5 in Weight 224 lb 13.944 oz BMI 37.4 BP 126/82 Blood Pressure Location Lt brachial Position Sitting Pulse 70 Pulse Source Pulse Oximeter Pulse Oximetry (%) 93 Oxygen Delivery Method Room Air Intake Visit Reasons: Red left Eye Resident Services Coordinator Required: No Accompanied by: Self / Same As Patient Allergies rivaroxaban [Xarelto] Allergy (Severe, Verified 09/25/24 14:59) confusion Medication List - Last Reconciled 09/25/24 by Carine Fuentes PA-C albuterol sulfate 90 mcg/actuation 1 inh inhalation QID PRN aspirin 81 mg PO DAILY cefuroxime axetil 500 mg PO BID 10 days lisinopril 5 mg PO DAILY metoprolol tartrate 100 mg PO BID multivitamin 1 tab PO DAILY Tobacco use date assessed: 09/25/24 Fall risk assessment: 1 Fall in past year Last assessed Fall Risk: 09/25/24 Dental Screening Dental Screen Date: 09/17/24 Did you have a dental visit in the last 12 months?: No Did you have a dental problem in the last 6 months where you did not have access to dental care?: No Was dental information given to patient?: No HPI Red left Eye HPI Details 69-year-old female with past medical history of hypertension, atrial fibrillation, tobacco abuse, obesity, congestive heart failure last seen by nurse practitioner 08/2024 coming in for acute problem. Presenting with left eye redness initially noticed the previous evening. There are no reports of pain, vision changes, or discharge from the affected eye. Environmental dryness at home may be a contributory factor. Recently discharged from the hospital where she was treated for sepsis with antibiotics. She denies significant strain or trauma that could account for the subconjunctival hemorrhage. [facility] Medical History Persistent atrial fibrillation New onset atrial fibrillation Peripheral artery disease Cellulitis of leg, right COVID-19 Hypertension Surgical History History of cystoscopy History of hernia surgery History of embolectomy Social History Household Members: None Housing: Apartment Are you a primary health care facility administrator to a significant other at home: No Do you presently have visiting nurse or other home services: No Unable to assess alcohol history related to: Unknown Alcohol intake: current Alcohol intake frequency: does not drink Patient Tobacco Use Status: Current everyday Tobacco user Tobacco use type: Cigarette Cigarette Packs Per Day: 0.25 Cigarettes Per Day: 4 Years Smoked: 20 e-Cigarette/Vaping Use: Never Used Second Hand Smoke Exposure: Yes Substance Use Type: Marijuana service: No Current occupational status: retired Cognitive needs: Yes (Wheelchair, walker.) Hearing needs: No Vision needs: Yes (Glasses) Questionnaire PHQ-9 Over the last 2 weeks, how often have you been bothered by any of the following problems? 1. Little interest or pleasure in doing things: not at all 2. Feeling down, depressed, or hopeless: not at all 3. Trouble falling or staying asleep, or sleeping too much: not at all 4. Feeling tired or having little energy: not at all 5. Poor appetite or overeating: not at all 6. Feeling bad about yourself - or that you are a failure or have let yourself or your family down: not at all 7. Trouble concentrating on things, such as reading the newspaper or watching television: not at all 8. Moving or speaking so slowly that other people could have noticed. Or the opposite - being so fidgety or restless that you have been moving around a lot more than usual: not at all 9. Thoughts that you would be better off or of hurting yourself in some way: not at all Total score: 0 Depression Screening Interpretation: Negative Depression Screening Done: Yes 56942 - PHQ-9 Billing: Yes Source: Developed by Drs. Robb Mendoza, Ofelia Aguiar, Gautam Calderón and colleagues, with an educational lasha from [employer]. Thrive Questionnaire Date Thrive assessed: 09/25/24 I am a: Patient What is your living situation today?: I have a steady place to live Within the past 12 months, did the food you bought not last and you didn't have the money to get more?: Never true Within the past 12 months, did you worry whether your food would run out before you got money to buy more?: Never true Do you have trouble paying for medicines?: No Do you have trouble getting transportation to medical appointments?: No Do you have trouble paying your heating and electricity bill?: No Do you have trouble taking care of your child, family member or friend?: No Do you have trouble with day-to-day activities such as bathing, preparing meals, shopping, managing finances, etc.?: No Are you currently unemployed and looking for a job?: No Are you interested in more education?: No Please select the resources that you would like help with: None Currently or been in a relationship where the following occur: No concerns reported THRIVE Score: 0 AUDIT C Alcohol Use Questionnaire (AUDIT-C) 1. How often do you have a drink containing alcohol?: Monthly or less 2. How many drinks containing alcohol do you have on a typical day when you are drinking?: 1 or 2 3. How often do you have six or more drinks on one occasion?: Never Total Score: 1 MIS-7 AMB Questionnaire MIS-7 Date MIS - 7 assessed: 09/25/24 Feeling nervous, anxious, or on edge: 0 = Not at all Not being able to stop or control worryin = Not at all Worrying too much about different things: 0 = Not at all Trouble relaxin = Not at all Being so restless that it is hard to sit still: 0 = Not at all Becoming easily annoyed or irritable: 0 = Not at all Feeling afraid as if something awful might happen: 0 = Not at all Total MIS-7 score (0-4 normal; 5-9 mild; 10-14 moderate; 15-21 severe): 0 Source: Developed by Drs. Robb Mendoza, Ofelia Aguiar, Gautam Calderón and colleagues, with an educational lasha from [employer]. MIS-7 Assessment Billing MIS-7 Assessment Tool: MIS-7 Assessment 48297 Review of Systems Const Denies body aches, Denies chills, Denies fever(s) and Denies poor appetite Eyes Reports as per HPI ENT Reports no additional complaints and Denies dizziness Card Denies chest pain, Denies lightheadedness and Denies dyspnea Resp Denies cough and Denies dyspnea GI Reports no additional complaints Reports no additional complaints Musc Reports no additional complaints and Denies abnormal gait Skin/Breast Reports system reviewed and no additional complaints, except as documented Neuro Denies abnormal gait and Denies dizziness Psych Reports no additional complaints Physical exam (Primary Care) Vital Signs: Last Vital Signs Pulse 70 09/25/24 14:48 BP 126/82 09/25/24 14:48 Pulse Ox 98 09/25/24 14:48 Oxygen Delivery Method Room Air 09/25/24 14:48 BMI result Body Mass Index 37.4 Tobacco/Smoking Status: Tobacco use Status Tobacco use date assessed 09/17/24 09/17/24 15:03 Patient Tobacco Use Status Current everyday Tobacco 09/17/24 15:03 Tobacco use type Cigarette 09/17/24 15:03 e-Cigarette/Vaping Use Never Used 09/17/24 15:03 Depression Screening Interpretation: Negative Thrive Assessment: Date of Thrive Assessment Date Thrive assessed 09/06/24 09/17/24 15:03 Currently or been in a relationship where the following occur: No concerns reported Const General: cooperative, healthy appearing, comfortable and no acute distress Orientation/consciousness: patient oriented x3 HENMT Head: Yes normocephalic Ears: hearing grossly normal bilaterally General nose exam: Normal external nose present Eyes Other: Redness noted in the affected eye, consistent with subconjunctival hemorrhage, no discharge observed. Extraocular movements intact and pupils are PERRL General: appearance normal, both eyes and all related structures Conjunctivae: conjunctival abnormal left subconjunctival hemorrhage Neck Neck: Yes full ROM and Yes no lymphadenopathy Resp Effort & Inspection: normal respiratory effort Auscultation: clear to auscultation bilaterally, no crackles, no rales, no rhonchi and no wheezes Cardio Rate: regular rate Rhythm: regular rhythm Skin General skin exam: no rashes or lesions noted Neuro General: patient oriented x3 Gait exam (Neuro): Normal gait present Extrem General: Yes normal to inspection, Yes full ROM and No edema Psych Affect: normal affect Attitude: cooperative Insight: Good insight present (Psych) Judgement: Good judgement present (Psych) Coding Level of Care Code Est Pt Level 3 (04796) Diagnoses Subconjunctival hemorrhage H11.30 Cigarette smoker F17.210 Additional Codes MIS-7 Assessment Billing - MIS-7 Assessment Tool: MIS-7 Assessment 35319 ([id number]) PHQ-9 - 06337 - PHQ-9 Billing: Yes ([id number]) Assessment & Plan Assessment & Plan (1) Subconjunctival hemorrhage: Code(s): H11.30 - Conjunctival hemorrhage, unspecified eye Category: Medical Plan: The subconjunctival hemorrhage in the patient is expected to resolve on its own over time. Artificial tears can be used for symptomatic relief of dry eyes. No immediate treatment is necessary for the redness. Follow-up is advised if there is any change in vision or if discharge develops. The patient was reassured about the non-infectious nature of the condition. She was informed about differentiating this from potential conjunctivitis. Environmental dryness may contribute to eye issues, and addressing this can be helpful. (2) Cigarette smoker: Code(s): F17.210 - Nicotine dependence, cigarettes, uncomplicated Category: Social Hx Plan: Smoking cigarettes and the use of tobacco can be harmful. We discussed the importance of stopping and options to aid in smoking cessation. Nicotine replacement therapy was declined today Plan Patient was informed and verbally consented to the use of an ambient scribe for clinic note documentation during this visit. This note was constructed using voice recognition software. While every effort has been made to ensure accuracy and screen printing press operator, still areas may have been included sometimes these areas may affect the content or meeting of the given symptoms. Total time spent caring for the patient today was 20 minutes. This includes time spent before the visit reviewing the chart, time spent during the visit, and time spent after the visit and documentation.
--- OUTSIDE RECORDS SUMMARY | 2024-09-25 17:54 | XMS_ITS | Clinical Summary ---
Author Organization [facility] Address [address] [place] [address] Care Team Providers Care Director Of Collections Name Role Phone Gabby Covarrubias MD Primary Care Provider [phone] Allergies Active Allergy Reactions Criticality Noted Date [...] Problem Noted Date Diagnosed Date Atherosclerosis of [place] of right lower extremity with intermittent claudication 10/12/2023 Non-healing surgical wound 09/20/2023 Wound infection after surgery 07/18/2023 Ischemia of right lower extremity 06/27/2023 Social History Tobacco Use Types Packs/Day Years Used Date Smoking Tobacco: Every Day Cigarettes Smokeless Tobacco: Never Comments:3 cig a day Pt states she smokes weed [facility] [employer] Answer Date Recorded In the past 12 months has [employer], gas, oil, or water [employer] threatened to shut off services in your [...] place to sleep or slept in a jail (including now)? No 07/19/2023 Sex and Gender [...] Agents on File Name Relationship [facility] Kiel Rothmarco antonio Adult child 4. Next of Kin ( Spouse, Adult Child, Parent, Adult Sibling, Grandparent) Sung Mcclure Adult child 4. Next of Kin ( Spouse, Adult Child, Parent, Adult Sibling, Grandparent) Care Teams Director Of Collections Relationship Specialty Start Date End Date Gabby Covarrubias MD [address] [place], [place] [id number] PCP - General Family Medicine 06/27/23
--- OUTSIDE RECORDS SUMMARY | 2024-09-25 17:54 | XMS_ITS | Encounter Summary ---
Author Organization [facility] Address [address] [place] [address] Care Team Providers Care Flight Attendant Ramp Name Role Phone Gabby Covarrubias MD Primary Care Provider [phone] Encounter Details Date Type Department Care Team (Late st Contact Info) Description 09/04/2023 Telephone [facility] Vascular & Endovascular Surgery [place] [address] [place] [phone] Torsten Woody MD [address] [place] [address] Social History Tobacco Use Types Packs/Day Years Used Date Smoking Tobacco: Every Day Cigarettes Smokeless Tobacco: Never Comments:3 cig a day Pt states she smokes weed [facility] Utilities Answer Date Recorded In the past 12 months has [employer] electric, gas, oil, or water company threatened [...] place to sleep or slept in a fdc (including now)? No 07/19/2023 Sex and Gender Information Value Date Recorded Sex Assigned at Female 07/05/2023 3:24 PM EST Gender Identity Female 07/05/2023 3:24 PM EST Sexual Orientation Choose not to disclose 2022 3:24 PM EST documented as of this encounter Plan of Treatment Not on file documented as of this encounter Visit Diagnoses Not on filedocumented in this encounter Care Teams Flight Attendant Ramp Relationship Specialty Start Date End Date Gabby Covarrubias MD [address] [place] [address] PCP - General Family Medicine 06/27/23 documented as of this encounter
--- OUTSIDE RECORDS SUMMARY | 2024-09-25 17:54 | XMS_ITS | Encounter Summary ---
Author Organization [facility] Address [address] [place] [address] Care Team Providers Care [employer] Repairer Name Role Phone Gabby Covarrubias MD Primary Care Provider [phone] Encounter Details Date Type Department Care Team (Late st Contact Info) Description 07/07/2023 Telephone [facility] Vascular & Endovascular Surgery [address] [place] [address] Torsten Woody MD [address] [place] [id number] Social History Tobacco Use Types Packs/Day Years Used Date Smoking Tobacco: Never Assessed [facility] Utilities Answer Date Recorded In the [...] slept in a prison (including now)? No 06/28/2023 Sex and Gender [...] documented as of this encounter Care Teams [employer] Repairer Relationship Specialty Start Date End Date Gabby Covarrubias MD [address] [place] [address] PCP - General Family Medicine 06/27/23 documented as of this encounter
--- OUTSIDE RECORDS SUMMARY | 2024-09-25 17:54 | XMS_ITS | Encounter Summary ---
Author Organization [facility] Address [address] [place] [address] Care Team Providers Care Ways Operator Name Role Phone Gabby Covarrubias MD Primary Care Provider [phone] Encounter Details Date Type Department Care Team (Late st Contact Info) Description 09/29/2023 Scanned Document [facility] Vascular & Endovascular Surgery [address] [place] [address] Vascular Surgery, Scan Social History Tobacco Use Types Packs/Day Years Used Date Smoking Tobacco: Every Day Cigarettes Smokeless Tobacco: Never Comments:3 cig a day Pt states she smokes weed [facility] Utilities Answer Date Recorded In the past 12 months has [employer] electric, gas, oil, or water company threatened [...] place to sleep or slept in a intermediate (including now)? No 07/19/2023 Sex and Gender Information Value Date Recorded Sex Assigned at Female 07/05/2023 3:24 PM EST Gender Identity Female 07/05/2023 3:24 PM EST Sexual Orientation Choose not to disclose 2022 3:24 PM EST documented as of this encounter Plan of Treatment Not on file documented as of this encounter Visit Diagnoses Not on filedocumented in this encounter Care Teams Ways Operator Relationship Specialty Start Date End Date Gabby Covarrubias MD [address] [place] [address] PCP - General Family Medicine 06/27/23 documented as of this encounter
--- OUTSIDE RECORDS SUMMARY | 2024-09-25 17:54 | XMS_ITS | Encounter Summary ---
Author Organization [facility] Address [address] [place] [address] Care Team Providers Care Base Draw Operator Name Role Phone Gabby Covarrubias MD Primary Care Provider [phone] Encounter Details Date Type Department Care Team (Late st Contact Info) Description 08/21/2023 Scanned Document GENERIC EXTERNAL DATA DEPARTMENT Provider, Generic External Data Social History Tobacco Use Types Packs/Day Years Used Date Smoking Tobacco: Every Day Cigarettes Smokeless Tobacco: Never Comments:3 cig a day Pt states she smokes weed [facility] Utilities Answer Date Recorded In the past 12 months has [employer] electric, gas, oil, or water [employer] threatened to shut off services in your [...] on filedocumented in this encounter Care Teams Base Draw Operator Relationship Specialty Start Date End Date Gabby Covarrubias MD [address] [place] [address] PCP - General Family Medicine 06/27/23 documented as of this encounter
--- OUTSIDE RECORDS SUMMARY | 2024-09-25 17:54 | XMS_ITS | Encounter Summary ---
Author Organization [facility] Address [address] [place] [address] Care Team Providers Care Lacquer Mixer Name Role Phone Gabby Covarrubias MD Primary Care Provider [phone] Encounter Details Date Type Department Care Team (Late st Contact Info) Description 08/22/2023 Telephone [facility] Vascular & Endovascular Surgery [place] [address] [place] [phone] Torsten Woody MD [address] [place] [address] Social History Tobacco Use Types Packs/Day Years Used Date Smoking Tobacco: Every Day Cigarettes Smokeless Tobacco: Never Comments:3 cig a day Pt states she smokes weed [facility] Utilities Answer Date Recorded In the past 12 months has [email or web address] electric, gas, oil, or water company threatened [...] place to sleep or slept in a long-term (including now)? No 07/19/2023 Sex and Gender Information Value Date Recorded Sex Assigned at Female 07/05/2023 3:24 PM EST Gender Identity Female 07/05/2023 3:24 PM EST Sexual Orientation Choose not to disclose 2022 3:24 PM EST documented as of this encounter Plan of Treatment Not on file documented as of this encounter Visit Diagnoses Not on filedocumented in this encounter Care Teams Lacquer Mixer Relationship Specialty Start Date End Date Gabby Covarrubias MD [address] [place] [address] PCP - General Family Medicine 06/27/23 documented as of this encounter
--- OUTSIDE RECORDS SUMMARY | 2024-09-25 17:54 | XMS_ITS | Encounter Summary ---
Author Organization [facility] Address [address] [place] [address] Care Team Providers Care Chemical Blender Name Role Phone Gabby Covarrubias MD Primary Care Provider [phone] Encounter Details Date Type Department Care Team (Late st Contact Info) Description 09/14/2023 Scanned Document [facility] Vascular & Endovascular Surgery [address] [place] [address] Vascular Surgery, Scan Social History Tobacco Use Types Packs/Day Years Used Date Smoking Tobacco: Every Day Cigarettes Smokeless Tobacco: Never Comments:3 cig a day Pt states she smokes weed [facility] Utilities Answer Date Recorded In the past 12 months has [employer] electric, gas, oil, or water company threatened [...] on filedocumented in this encounter Care Teams Chemical Blender Relationship Specialty Start Date End Date Gabby Covarrubias MD [address] [place] [address] PCP - General Family Medicine 06/27/23 documented as of this encounter
== END 2024-09-25 15:22 | disposition home or self-care (01) ==
DX: H11.30 Conjunctival hemorrhage, unspecified eye (principal); F17.210 Nicotine dependence, cigarettes, uncomplicated

== ENCOUNTER → 2024-09-25 14:47 | Outpatient (BNVA) | payer MEDICARE, SELFPAY | DX: H11.32 Conjunctival hemorrhage, left eye (principal); F17.210 Nicotine dependence, cigarettes, uncomplicated; Z71.6 Tobacco abuse counseling | CPT/HCPCS: 96127; 99212 ==

== ENCOUNTER 2024-09-26 15:34 | Outpatient (AMB) | payer MEDICARE, SELFPAY ==
--- NOTE | 2024-09-26 15:34 | A.OFFVIS_ITS ---
Intake Visit Reasons: Discuss Procedure/KUB Intake Note: Patient is present for DISCUSS PROCEDURE/KUB Urology Medication:NONE Antibiotic Allergy:NONE Blood Thinner:ASPIRIN Religious Education Director Required: No Allergies rivaroxaban [Xarelto] Allergy (Severe, Verified 09/26/24 15:36) confusion HPI Comments Details: 09/26/24--Chacha was initially evaluated by Urology consultation, while an inpatient. She is a 69-year-old female presenting with obstructive ureteral stone and nephrolithiasis. An acute kidney stone episode was evaluated via CT imaging on 09/06/24, revealing significant stone burden in the left kidney, including a 2.1 cm obstructive ureteral calculus and a large 1.7 cm stone needing intervention. The CT scan also discovered a small 2 mm stone in the right kidney. In response, a left ureteral stent was placed by Dr. Bautista to alleviate renal obstruction. Following the procedure, the patient acknowledges feeling weak from hospitalization and hesitates on undergoing another surgical procedure. Despite the size of stones prompting lithotripsy, the procedure was deferred to a later date for patient-centered considerations, agreeing upon further evaluation after an additional period for recuperation. The stent continues to function without urgent complications, ensuring renal drainage and preventing obstruction. Results - Imaging: CT scan dated 09/06/24 demonstrates a 1.7 cm stone in the left kidney upper pole, a 2.1 cm stone in the proximal left ureter, and a 2 mm stone in the right kidney upper pole - Procedure: Left ureteral stent successfully placed [facility] Medical History Persistent atrial fibrillation New onset atrial fibrillation Peripheral artery disease Cellulitis of leg, right COVID-19 Hypertension Surgical History History of cystoscopy History of hernia surgery History of embolectomy Social History Household Members: None Housing: Apartment Are you a primary reservoir caretaker to a significant other at home: No Do you presently have visiting nurse or other home services: No Unable to assess alcohol history related to: Unknown Alcohol intake: current Alcohol intake frequency: does not drink Patient Tobacco Use Status: Current everyday Tobacco user Tobacco use type: Cigarette Cigarette Packs Per Day: 0.25 Cigarettes Per Day: 4 Years Smoked: 20 e-Cigarette/Vaping Use: Never Used Second Hand Smoke Exposure: Yes Substance Use Type: Marijuana service: No Current occupational status: retired Cognitive needs: Yes (Wheelchair, walker.) Hearing needs: No Vision needs: Yes (Glasses) Review of Systems Const All systems reviewed & are unremarkable except as noted in HPI and below Reports no additional complaints Eyes Reports no additional complaints ENT Reports no additional complaints Card Reports no additional complaints Resp Reports no additional complaints GI Reports no additional complaints Reports as per HPI Musc Reports no additional complaints Skin/Breast Reports system reviewed and no additional complaints, except as documented Neuro Reports no additional complaints Psych Reports no additional complaints Endo Reports no additional complaints Feliciano/Lymph Reports no additional complaints Aller/Immun Reports no additional complaints Telehealth Telehealth Telehealth Platform: Telephone Location of provider rendering services: practice address Location of patient: address on file Patient Identification confirmed using: Name, : Yes Telehealth method: voice only Patient verbally consented to treatment: Yes Patient verbally consented to billing insurance company: Yes Patient informed of any privacy concerns related to visit: Yes Minutes spent on Phone/Video with Pt.: 18 Assessment & Plan Assessment & Plan (1) Pyelonephritis: Code(s): N12 - Tubulo-interstitial nephritis, not specified as acute or chronic Category: Medical (2) Nephrolithiasis: Code(s): N20.0 - Calculus of kidney Category: Medical (3) Weakness: Code(s): R53.1 - Weakness Category: Medical (4) Ureteral stent present: Code(s): Z96.0 - Presence of urogenital implants Category: Medical Plan Plan I have decided to delay any surgical intervention due to the patient?s reported weakness and desire for non-immediate procedure due to recent hospitalization. Scheduled follow-up in four to five weeks; at that time, the patient?s recovery from hospitalization will be reassessed, and new imaging will evaluate the stone's status relative to the ureter. The current stent assures renal drainage remains unobstructed. Patient Instructions: The patient had an opportunity to ask questions regarding treatment plan. The patient expressed understanding and agreement with the above treatment plan. The patient is aware they should contact our office by phone for worsening of their current condition or the appearance of new symptoms. Compliance is encouraged with any medications and followup testing that is ordered. It is a privilege to be allowed the opportunity to participate in the urologic care of your patient. If you have any questions or concerns regarding treatment for the above conditions please do not hesitate to contact me. The office telephone contact is [phone]. This note is constructed in part using voice recognition software. While every effort has been made to ensure accuracy fiscal accounting clerk errors may have been included. Yours sincerely, Edmundo Spencer MD Scribe Plan - Not visible on output: Patient was informed and verbally consented to the use of an ambient scribe for clinic note documentation during this visit. Coding Level of Care Code Tele Est Pt Level 4 (23910) Diagnoses Pyelonephritis N12 Nephrolithiasis N20.0 Weakness R53.1 Ureteral stent present Z96.0
--- OUTSIDE RECORDS SUMMARY | 2024-09-26 19:00 | XMS_ITS | Clinical Summary ---
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 10/12/2023 Non-healing surgical wound 09/20/2023 Wound infection after surgery 07/18/2023 Ischemia of right lower extremity 06/27/2023 Social History Tobacco Use Types Packs/Day Years Used Date Smoking Tobacco: Every Day Cigarettes Smokeless Tobacco: Never Comments:3 cig a day Pt states she smokes weed [facility] [employer] Answer Date Recorded In the past 12 months has [employer], gas, oil, or water [employer] threatened to shut off services in your [...] Agents on File Name Relationship [facility] Kiel Rothmarco antonio Adult child 4. Next of Kin ( Spouse, Adult Child, Parent, Adult Sibling, Grandparent) Sung Mcclure Adult child 4. Next of Kin ( Spouse, Adult Child, Parent, Adult Sibling, Grandparent) Care Teams Battery Engineer Relationship Specialty Start Date End Date Gabby Covarrubias MD [address] [place], [place] [id number] PCP - General Family Medicine 06/27/23
--- OUTSIDE RECORDS SUMMARY | 2024-09-26 19:00 | XMS_ITS | Encounter Summary ---
Author Organization [facility] Address [address] [place] [address] Care Team Providers Care Ferry Terminal Agent Name Role Phone Gabby Covarrubias MD Primary Care Provider [phone] Encounter Details Date Type Department Care Team (Late st Contact Info) Description 09/04/2023 Telephone [facility] Vascular & Endovascular Surgery [place] [address] [place] [phone] Torsten Woody MD [address] [place] [address] Social History Tobacco Use Types Packs/Day Years Used Date Smoking Tobacco: Every Day Cigarettes Smokeless Tobacco: Never Comments:3 cig a day Pt states she smokes weed [facility] Utilities Answer Date Recorded In the past 12 months has [employer] electric, gas, oil, or water company threatened [...] place to sleep or slept in a fci (including now)? No 07/19/2023 Sex and Gender Information Value Date Recorded Sex Assigned at Female 07/05/2023 3:24 PM EST Gender Identity Female 07/05/2023 3:24 PM EST Sexual Orientation Choose not to disclose 2022 3:24 PM EST documented as of this encounter Plan of Treatment Not on file documented as of this encounter Visit Diagnoses Not on filedocumented in this encounter Care Teams Ferry Terminal Agent Relationship Specialty Start Date End Date Gabby Covarrubias MD [address] [place] [address] PCP - General Family Medicine 06/27/23 documented as of this encounter
--- OUTSIDE RECORDS SUMMARY | 2024-09-26 19:00 | XMS_ITS | Encounter Summary ---
Author Organization [facility] Address [address] [place] [address] Care Team Providers Care C D Reactor Operator Name Role Phone Gabby Covarrubias MD Primary Care Provider [phone] Encounter Details Date Type Department Care Team (Late st Contact Info) Description 09/14/2023 Scanned Document [facility] Vascular & Endovascular Surgery [address] [place] [address] Vascular Surgery, Scan Social History Tobacco Use Types Packs/Day Years Used Date Smoking Tobacco: Every Day Cigarettes Smokeless Tobacco: Never Comments:3 cig a day Pt states she smokes weed [facility] Utilities Answer Date Recorded In the past 12 months has [employer] electric, gas, oil, or water company threatened [...] place to sleep or slept in a [place] (including now)? No 07/19/2023 Sex and Gender Information Value Date Recorded Sex Assigned at Female 07/05/2023 3:24 PM EST Gender Identity Female 07/05/2023 3:24 PM EST Sexual Orientation Choose not to disclose 2022 3:24 PM EST documented as of this encounter Plan of Treatment Not on file documented as of this encounter Visit Diagnoses Not on filedocumented in this encounter Care Teams C D Reactor Operator Relationship Specialty Start Date End Date Gabby Covarrubias MD [address] [place] [address] PCP - General Family Medicine 06/27/23 documented as of this encounter
--- OUTSIDE RECORDS SUMMARY | 2024-09-26 19:00 | XMS_ITS | Encounter Summary ---
Author Organization [facility] Address [address] [place] [address] Care Team Providers Care Mathematician Name Role Phone Gabby Covarrubias MD Primary Care Provider [phone] Encounter Details Date Type Department Care Team (Late st Contact Info) Description 08/21/2023 Scanned Document GENERIC EXTERNAL DATA DEPARTMENT Provider, Generic External Data Social History Tobacco Use Types Packs/Day Years Used Date Smoking Tobacco: Every Day Cigarettes Smokeless Tobacco: Never Comments:3 cig a day Pt states she smokes weed [facility] Utilities Answer Date Recorded In the past 12 months has [employer], gas, oil, or water [employer] threatened to shut off services in your [...] on filedocumented in this encounter Care Teams Mathematician Relationship Specialty Start Date End Date Gabby Covarrubias MD [address] [place] [address] PCP - General Family Medicine 06/27/23 documented as of this encounter
--- OUTSIDE RECORDS SUMMARY | 2024-09-26 19:00 | XMS_ITS | Encounter Summary ---
Author Organization [facility] Address [address] [place] [address] Care Team Providers Care Structural Welder Name Role Phone Gabby Covarrubias MD Primary Care Provider [phone] Encounter Details Date Type Department Care Team (Late st Contact Info) Description 07/07/2023 Telephone [facility] Vascular & Endovascular Surgery [address] [place] [address] Torsten Woody MD [address] [place] [address] Social History Tobacco Use Types Packs/Day Years Used Date Smoking Tobacco: Never Assessed [facility] Utilities Answer Date Recorded In the [...] slept in a long-term (including now)? No 06/28/2023 Sex and Gender [...] documented as of this encounter Care Teams Structural Welder Relationship Specialty Start Date End Date Gabby Covarrubias MD [address] [place] [address] PCP - General Family Medicine 06/27/23 documented as of this encounter
--- OUTSIDE RECORDS SUMMARY | 2024-09-26 19:00 | XMS_ITS | Encounter Summary ---
Author Organization [facility] Address [address] [place] [address] Care Team Providers Care Manager Of Photography Name Role Phone Gabby Covarrubias MD Primary Care Provider [phone] Encounter Details Date Type Department Care Team (Late st Contact Info) Description 09/29/2023 Scanned Document [facility] Vascular & Endovascular Surgery [address] [place] [address] Vascular Surgery, Scan Social History Tobacco Use Types Packs/Day Years Used Date Smoking Tobacco: Every Day Cigarettes Smokeless Tobacco: Never Comments:3 cig a day Pt states she smokes weed [facility] Utilities Answer Date Recorded In the past 12 months has [employer] electric, gas, oil, or water company threatened [...] on filedocumented in this encounter Care Teams Manager Of Photography Relationship Specialty Start Date End Date Gabby Covarrubias MD [address] [place] [address] PCP - General Family Medicine 06/27/23 documented as of this encounter
--- OUTSIDE RECORDS SUMMARY | 2024-09-26 19:00 | XMS_ITS | Encounter Summary ---
Author Organization [facility] Address [address] [place] [address] Care Team Providers Care Energy Efficient Site Manager Name Role Phone Gabby Covarrubias MD Primary Care Provider [phone] Encounter Details Date Type Department Care Team (Late st Contact Info) Description 08/22/2023 Telephone [facility] Vascular & Endovascular Surgery [place] [address] [place] [phone] Torsten Woody MD [address] [place] [address] Social History Tobacco Use Types Packs/Day Years Used Date Smoking Tobacco: Every Day Cigarettes Smokeless Tobacco: Never Comments:3 cig a day Pt states she smokes weed [facility] Utilities Answer Date Recorded In the past 12 months has [employer] electric, gas, oil, or water company threatened [...] place to sleep or slept in a penitentiary (including now)? No 07/19/2023 Sex and Gender Information Value Date Recorded Sex Assigned at Female 07/05/2023 3:24 PM EST Gender Identity Female 07/05/2023 3:24 PM EST Sexual Orientation Choose not to disclose 2022 3:24 PM EST documented as of this encounter Plan of Treatment Not on file documented as of this encounter Visit Diagnoses Not on filedocumented in this encounter Care Teams Energy Efficient Site Manager Relationship Specialty Start Date End Date Gabby Covarrubias MD [address] [place] [address] PCP - General Family Medicine 06/27/23 documented as of this encounter
== END 2024-09-26 16:00 | disposition home or self-care (01) ==
LOC: HO.HUSH 15:34
PROVIDERS: Visit Provider Urology
DX: N12 Tubulo-interstitial nephritis, not specified as acute or chronic (principal); N20.0 Calculus of kidney; R53.1 Weakness; Z96.0 Presence of urogenital implants
CPT/HCPCS: 99214

== ENCOUNTER → 2024-09-26 15:34 | Outpatient (BNVA) | payer MEDICARE, SELFPAY | PROVIDERS: Visit Provider Urology ==

== ENCOUNTER 2024-11-04 12:26 | Outpatient (REF) | payer MEDICARE, SELFPAY ==
[2024-11-04 12:53] LABS: MANUAL DIFF FLAG NO
[2024-11-04 13:06] LABS: Basophils Absolute Auto 0.1 X10*3/uL (0.0-0.2); Basophils Percent Auto 1.1 % (0-2); Eosinophils Absolute Auto 0.2 X10*3/uL (0.0-0.4); Eosinophils Percent Auto 2.1 % (0-4); Hematocrit 50.3 % (37.0-47.0); Hemoglobin 16.5 g/dl (12.0-16.0); Imm Gran Abs Auto 0.02 X10*3/uL (0.00-0.03); Imm Gran Pct Auto 0.3 % (0.0-0.4); Lymphocytes Absolute Auto 2.1 X10*3/uL (1.2-4.9); Lymphocytes Percent Auto 28.3 % (20-40); Mean Corpuscular HGB Conc 32.8 g/dl (31.0-35.0); Mean Corpuscular Hemoglobin 29.9 pg (27.0-33.0); Mean Corpuscular Volume 91.3 fL (80.0-98.0); Mean Platelet Volume 9.7 fL (9.4-12.3); Monocytes Absolute Auto 0.5 X10*3/uL (0.1-1.2); Monocytes Percent Auto 6.8 % (2-11); Neutrophils Absolute Auto 4.6 x10*3/uL (2.0-8.3); Neutrophils Percent Auto 61.4 % (45-73); Platelet Count 214 X10*3/uL (160-400); Red Blood Count 5.51 X10*6/uL (4.20-5.50); Red Cell Distribution Width 14.4 % (11.0-16.0); White Blood Count 7.5 X10*3/uL (4.8-10.8)
[2024-11-04 14:01] LABS: Alanine Aminotransferase 12 U/L (0-31); Albumin Level 3.5 g/dL (3.5-5.0); Alkaline Phosphatase 78 U/L (39-117); Anion Gap 9 (12-20); Aspartate Amino Transferase 20 U/L (5-31); Bilirubin Total 0.3 mg/dL (0.0-1.0); Blood Urea Nitrogen 11 mg/dL (9-16); Calcium 9.1 mg/dL (8.4-10.2); Carbon Dioxide 30 mmol/L (22-29); Chloride 106 mmol/L (96-108); Estimated Glomerular Filt Rate > 60; Glucose Fasting 85 mg/dL (60-99); Sodium 141 mmol/L (135-145)
[2024-11-04 14:05] LABS: B Type Natriuretic Peptide 153 pg/mL (<100)
[2024-11-04 14:07] LABS: Appearance Urine Clear; Color Urine Yellow; Glucose Urine UA Negative (Negative); Leukocyte Esterase Urine Moderate (2+) (Negative); Nitrite Urine Negative (Negative); UMIC TRIGGER UACC YES; Urine Blood Small (1+) (Negative); Urine Ketones Negative (Negative); Urine Protein 30 (1+) mg/dL (Neg-Trace)
[2024-11-04 14:10] LABS: TSH reflex Free T4 0.75 uIU/mL (0.32-4.0)
[2024-11-04 14:12] LABS: Bacteria Urine Trace (None Seen); Hyaline Casts Urine 0-2 /LPF (0-2); RBC Urine >20 /HPF (0-2); UACC Culture Trigger YES
--- OUTSIDE RECORDS SUMMARY | 2024-11-04 14:21 | XMS_ITS | Encounter Summary ---
Author Organization [facility] Address [address] [place] [address] Care Team Providers Care Broth Mixer Name Role Phone Gabby Covarrubias MD Primary Care Provider [phone] Encounter Details Date Type Department Care Team (Late st Contact Info) Description 07/07/2023 Telephone [facility] Vascular & Endovascular Surgery [address] [place] [address] [place] [address] Torsten Woody MD [address] [place] [address] Social History Tobacco Use Types Packs/Day Years Used Date Smoking Tobacco: Never Assessed [facility] Utilities Answer Date Recorded In [...] in a skilled nursing (including now)? No 06/28/2023 Sex and Gender [...] documented as of this encounter Care Teams Broth Mixer Relationship Specialty Start Date End Date Gabby Covarrubias MD [address] [place] [address] PCP - General Family Medicine 06/27/23 documented as of this encounter
--- OUTSIDE RECORDS SUMMARY | 2024-11-04 14:21 | XMS_ITS | Encounter Summary ---
Author Organization [facility] Address [address] [place] [address] Care Team Providers Care Professor Of Communication Name Role Phone Gabby Covarrubias MD Primary Care Provider [phone] Encounter Details Date Type Department Care Team (Late st Contact Info) Description 08/22/2023 Telephone [facility] Vascular & Endovascular Surgery [place] [address] [place] [phone] Torsten Woody MD [address] [place] [address] Social History Tobacco Use Types Packs/Day Years Used Date Smoking Tobacco: Every Day Cigarettes Smokeless Tobacco: Never Comments:3 cig a day Pt states she smokes weed [facility] Utilities Answer Date Recorded In the past 12 months has [employer] electric, gas, oil, or water company threatened [...] on filedocumented in this encounter Care Teams Professor Of Communication Relationship Specialty Start Date End Date Gabby Covarrubias MD [address] [place] [address] PCP - General Family Medicine 06/27/23 documented as of this encounter
--- OUTSIDE RECORDS SUMMARY | 2024-11-04 14:21 | XMS_ITS | Encounter Summary ---
Author Organization [facility] Address [address] [place] [address] Care Team Providers Care Washing Machine Installer Name Role Phone Gabby Covarrubias MD Primary Care Provider [phone] Encounter Details Date Type Department Care Team (Late st Contact Info) Description 08/21/2023 Scanned Document GENERIC EXTERNAL DATA DEPARTMENT Provider, Generic External Data Social History Tobacco Use Types Packs/Day Years Used Date Smoking Tobacco: Every Day Cigarettes Smokeless Tobacco: Never Comments:3 cig a day Pt states she smokes weed [facility] Utilities Answer Date Recorded In the past 12 months has [employer], gas, oil, or water [employer] ? threatened to shut off services in your [...] place to sleep or slept in a [facility] (including now)? No 07/19/2023 Sex and Gender Information Value Date Recorded Sex Assigned at Female 07/05/2023 3:24 PM EST Gender Identity Female 07/05/2023 3:24 PM EST Sexual Orientation Choose not to disclose 2022 3:24 PM EST documented as of this encounter Plan of Treatment Not on file documented as of this encounter Visit Diagnoses Not on filedocumented in this encounter Care Teams Washing Machine Installer Relationship Specialty Start Date End Date Gabby Covarrubias MD [address] [place] [address] PCP - General Family Medicine 06/27/23 documented as of this encounter
--- OUTSIDE RECORDS SUMMARY | 2024-11-04 14:21 | XMS_ITS | Clinical Summary ---
Author Organization [facility] Address [address] [place] [address] Care Team Providers Care Campus Chaplain Name Role Phone Gabby Covarrubias MD Primary [...] Problem Noted Date Diagnosed Date Atherosclerosis of [place] luc[place] of right lower extremity with intermittent claudication 10/12/2023 Non-healing surgical wound 09/20/2023 Wound infection after surgery 07/18/2023 Ischemia of right lower extremity 06/27/2023 Social History Tobacco Use Types Packs/Day Years Used Date Smoking Tobacco: Every Day Cigarettes Smokeless Tobacco: Never Comments:3 cig a day Pt states she smokes weed [facility] [employer] Answer Date Recorded In the past 12 months has [employer], gas, oil, or water [employer] threatened to shut off services in your [...] Agents on File Name Relationship Healthcare [facility] Kiel Rothmarco antonio Adult child 4. Next of Kin ( Spouse, Adult Child, Parent, Adult Sibling, Grandparent) Sung Mcclure Adult child 4. Next of Kin ( Spouse, Adult Child, Parent, Adult Sibling, Grandparent) Care Teams Campus Chaplain Relationship Specialty Start Date End Date Gabby Covarrubias MD [address] [place], [place] [id number] PCP - General Family Medicine 06/27/23
--- OUTSIDE RECORDS SUMMARY | 2024-11-04 14:21 | XMS_ITS | Encounter Summary ---
Author Organization [facility] Address [address] [place] [address] Care Team Providers Care Manager Testing Name Role Phone Gabby Covarrubias MD Primary Care Provider [phone] Encounter Details Date Type Department Care Team (Late st Contact Info) Description 09/14/2023 Scanned Document [facility] Vascular & Endovascular Surgery [address] [place] [address] Vascular Surgery, Scan Social History Tobacco Use Types Packs/Day Years Used Date Smoking Tobacco: Every Day Cigarettes Smokeless Tobacco: Never Comments:3 cig a day Pt states she smokes weed [facility] Utilities Answer Date Recorded In the past 12 months has [employer] electric, gas, oil, or water company threatened [...] filedocumented in this encounter Care Teams Manager Testing Relationship Specialty Start Date End Date Gabby Covarrubias MD [address] [place] [address] PCP - General Family Medicine 06/27/23 documented as of this encounter
--- OUTSIDE RECORDS SUMMARY | 2024-11-04 14:21 | XMS_ITS | Encounter Summary ---
Author Organization [facility] Address [address] [place] [address] Care Team Providers Care Dietetic Technician Registered Name Role Phone Gabby Covarrubias MD Primary Care Provider [phone] Encounter Details Date Type Department Care Team (Late st Contact Info) Description 09/29/2023 Scanned Document [facility] Vascular & Endovascular Surgery [address] [place] [address] Vascular Surgery, Scan Social History Tobacco Use Types Packs/Day Years Used Date Smoking Tobacco: Every Day Cigarettes Smokeless Tobacco: Never Comments:3 cig a day Pt states she smokes weed [facility] Utilities Answer Date Recorded In the past 12 months has [employer] electric, gas, oil, or water company threatened [...] place to sleep or slept in a half-way (including now)? No 07/19/2023 Sex and Gender Information Value Date Recorded Sex Assigned at Female 07/05/2023 3:24 PM EST Gender Identity Female 07/05/2023 3:24 PM EST Sexual Orientation Choose not to disclose 2022 3:24 PM EST documented as of this encounter Plan of Treatment Not on file documented as of this encounter Visit Diagnoses Not on filedocumented in this encounter Care Teams Dietetic Technician Registered Relationship Specialty Start Date End Date Gabby Covarrubias MD [address] [place] [address] PCP - General Family Medicine 06/27/23 documented as of this encounter
--- OUTSIDE RECORDS SUMMARY | 2024-11-04 14:21 | XMS_ITS | Encounter Summary ---
Author Organization [facility] Address [address] [place] [address] Care Team Providers Care Principal Process Engineer Name Role Phone Gabby Covarrubias MD Primary Care Provider [phone] Encounter Details Date Type Department Care Team (Late st Contact Info) Description 09/04/2023 Telephone [facility] Vascular & Endovascular Surgery [place] [address] [place] [phone] Torsten Woody MD [address] [place] [address] Social History Tobacco Use Types Packs/Day Years Used Date Smoking Tobacco: Every Day Cigarettes Smokeless Tobacco: Never Comments:3 cig a day Pt states she smokes weed [facility] Utilities Answer Date Recorded In the past 12 months has [employer] electric, gas, oil, or water company threatened [...] on filedocumented in this encounter Care Teams Principal Process Engineer Relationship Specialty Start Date End Date Gabby Covarrubias MD [address] [place] [address] PCP - General Family Medicine 06/27/23 documented as of this encounter
== END 2024-11-04 12:27 | disposition home or self-care (01) ==
LOC: HO.LAB 12:26
DX: N20.1 Calculus of ureter (principal); A41.9 Sepsis, unspecified organism; R53.1 Weakness; N39.0 Urinary tract infection, site not specified; I48.91 Unspecified atrial fibrillation; I50.9 Heart failure, unspecified
CPT/HCPCS: 36415; 80053; 81001; 81003; 82306; 83880; 84443; 85025; 87086

== ENCOUNTER 2024-11-13 14:45 | Outpatient (AMB) | payer MEDICARE, SELFPAY ==
[2024-11-13 14:57] VITALS: BP 116/78; PULSE 60; RESP 18; TEMP 36.8; O2SAT 96; BMI 39.2
--- NOTE | 2024-11-13 14:57 | A.OFFPC_ITS ---
Vital Signs 11/13/24 14:57 Height 5 ft 5 in Weight 235 lb 10.786 oz BMI 39.2 BP 116/78 Blood Pressure Location Lt brachial Position Sitting Respiration 18 Pulse 60 Pulse Source Pulse Oximeter Temp 98.3 F Temp Source Oral Pulse Oximetry (%) 96 Oxygen Delivery Method Room Air Intake Visit Reasons: uti/chf Leasing Consultant Required: No Accompanied by: Self / Same As Patient Allergies rivaroxaban [Xarelto] Allergy (Severe, Verified 11/13/24 15:24) confusion Medication List - Last Reconciled 11/13/24 by ROBERTO Chew albuterol sulfate 90 mcg/actuation 1 inh inhalation QID PRN aspirin 81 mg PO DAILY lisinopril 5 mg PO DAILY metoprolol succinate ER 100 mg PO DAILY metoprolol tartrate 100 mg PO ONCE multivitamin 1 tab PO DAILY Tobacco use date assessed: 11/13/24 Fall risk assessment: 1 Fall in past year Last assessed Fall Risk: 11/13/24 Dental Screening Dental Screen Date: 11/13/24 Did you have a dental visit in the last 12 months?: Yes Did you have a dental problem in the last 6 months where you did not have access to dental care?: No Was dental information given to patient?: Patient has dentist HPI uti/chf HPI Details The patient is a 69-year-old female presenting with the need to discuss her blood pressure management. She has a history of essential hypertension for which she has been on metoprolol. At a recent hospital stay, it was discovered that she had been incorrectly administering metoprolol tartrate once daily instead of the intended twice daily dosage. Her home blood pressure is currently noted at 160 mmHg. Due to irregular sleep habits, she experiences difficulty maintaining consistent medication schedules; hence, a switch to a long-acting formulation of metoprolol has been discussed to aid compliance. In addition, the patient has a documented history of heart failure and asthma, both of which require ongoing management. She experienced increased smoking habits when stressed or anxious, particularly around healthcare settings. Despite her conditions, she reports enjoying a good quality of life, spends time with family, and engages in everyday activities. However, she has also noted knee discomfort and has yet to proceed with cortisone injections due to previous high steroids usage. [facility] Medical History Persistent atrial fibrillation New onset atrial fibrillation Peripheral artery disease Cellulitis of leg, right COVID-19 Hypertension Surgical History History of cystoscopy History of hernia surgery History of embolectomy Social History Household Members: None Housing: Apartment Are you a primary career development specialist to a significant other at home: No Do you presently have visiting nurse or other home services: No Unable to assess alcohol history related to: Unknown Alcohol intake: current Alcohol intake frequency: does not drink Patient Tobacco Use Status: Current everyday Tobacco user Tobacco use type: Cigarette Cigarette Packs Per Day: 0.25 Cigarettes Per Day: 5 Years Smoked: 20 e-Cigarette/Vaping Use: Never Used Second Hand Smoke Exposure: Yes Substance Use Type: Marijuana service: No Current occupational status: retired Cognitive needs: Yes (Wheelchair, walker, cane) Hearing needs: No Vision needs: Yes (Glasses) Questionnaire Thrive Questionnaire Date Thrive assessed: 11/13/24 I am a: Patient What is your living situation today?: I have a steady place to live Within the past 12 months, did the food you bought not last and you didn't have the money to get more?: Never true Within the past 12 months, did you worry whether your food would run out before you got money to buy more?: Never true Do you have trouble paying for medicines?: No Do you have trouble getting transportation to medical appointments?: No Do you have trouble paying your heating and electricity bill?: No Do you have trouble taking care of your child, family member or friend?: No Do you have trouble with day-to-day activities such as bathing, preparing meals, shopping, managing finances, etc.?: No Are you currently unemployed and looking for a job?: No Are you interested in more education?: No Please select the resources that you would like help with: None Currently or been in a relationship where the following occur: No concerns reported THRIVE Score: 0 AUDIT C Alcohol Use Questionnaire (AUDIT-C) 1. How often do you have a drink containing alcohol?: Monthly or less 2. How many drinks containing alcohol do you have on a typical day when you are drinking?: 1 or 2 3. How often do you have six or more drinks on one occasion?: Never Total Score: 1 Score Reviewed/Action Taken: No MIS-7 AMB Questionnaire MIS-7 Date MIS - 7 assessed: 09/25/24 Source: Developed by Drs. Robb Mendoza, Ofelia Aguiar, Gautam Calderón and colleagues, with an educational lasha from [employer]. Review of Systems Const Denies headache(s) Eyes Denies loss of vision ENT Denies vertigo, Denies dizziness, Denies headache(s) and Denies sore throat Card Denies chest pain, Denies leg edema and Denies lightheadedness Resp Denies cough, Denies hemoptysis and Denies wheezing GI Denies abdominal pain, Denies melena, Denies constipation, Denies diarrhea and Denies vomiting Denies urinary frequency, Denies dysuria and Denies urinary urgency Musc Reports arthralgias (bilateral knee), Denies joint swelling, Denies numbness and Denies tingling Neuro Denies Abnormal speech present, Denies behavioral changes, Denies vertigo, Denies dizziness, Denies headache(s), Denies loss of vision, Denies memory loss, Denies numbness and Denies tingling Psych Denies anxiety, Denies behavioral changes, Denies depression, Denies memory loss and Denies panic attacks Feliciano/Lymph Denies easy bleeding and Denies easy bruising Aller/Immun Denies wheezing Physical exam (Primary Care) Vital Signs: Last Vital Signs Temp 98.3 F 11/13/24 14:57 Pulse 60 11/13/24 14:57 Resp 18 11/13/24 14:57 BP 116/78 11/13/24 14:57 Pulse Ox 96 11/13/24 14:57 Oxygen Delivery Method Room Air 11/13/24 14:57 BMI result Body Mass Index 39.2 Tobacco/Smoking Status: Tobacco use Status Tobacco use date assessed 11/13/24 11/13/24 14:59 Patient Tobacco Use Status Current everyday Tobacco 11/13/24 14:59 Tobacco use type Cigarette 11/13/24 14:59 e-Cigarette/Vaping Use Never Used 11/13/24 14:59 Thrive Assessment: Date of Thrive Assessment Date Thrive assessed 11/13/24 11/13/24 14:59 Currently or been in a relationship where the following occur: No concerns reported Const General: healthy appearing, no acute distress, alert and awake Nutritional Appearance: well nourished Orientation/consciousness: oriented to person, oriented to place and oriented to time HENMT Ears: external ears normal General nose exam: Normal external nose present Eyes Conjunctivae: conjunctivae normal Sclerae: sclerae normal Pupils: Equal, round and reactive pupils present Neck Neck: Yes no lymphadenopathy and Yes no JVD Thyroid: Thyroid normal Carotids: no bruits Resp Effort & Inspection: normal respiratory effort and not tachypneic Auscultation: no crackles, no rales, no rhonchi and no wheezes Cardio Rate: regular rate Rhythm: regular rhythm Heart sounds: no murmurs and normal S1 and S2 GI Palpation (GI): Soft to palpation, nontender, no hepatomegaly and no splenomegaly Auscultation: normal bowel sounds Skin General skin exam: no rashes or lesions noted and dry skin Neuro General: oriented to person, oriented to place and oriented to time Cranial nerves: Yes Equal, round and reactive pupils present Speech: No Abnormal speech present Gait exam (Neuro): Normal gait present Motor exam (neuro): no tremor noted Extrem Right upper extremity: full ROM Left upper extremity: full ROM Right lower extremity: full ROM; no edema Left lower extremity: full ROM; no edema Psych Mental Status: mental status grossly normal Speech and movement: Normal speech and movement present Affect: normal affect Attitude: cooperative Thought process: Normal thought process present Results Reviewed Results Reviewed: Selected Entries 09/17/24 14:54 Pulse Rate 80 Laboratory Tests 11/04/24 11/04/24 12:45 12:47 WBC 7.5 RBC 5.51 H Hgb 16.5 H Hct 50.3 H MCV 91.3 MCH 29.9 RDW 14.4 Plt Count 214 Sodium 141 Potassium 4.0 D Chloride 106 Carbon Dioxide 30 H Anion Gap 9 L BUN 11 Creatinine 0.70 Estimated GFR > 60 Fasting Glucose 85 Calcium 9.1 Total Bilirubin 0.3 AST 20 ALT 12 Alkaline Phosphatase 78 B-Natriuretic Peptide 153 H Total Protein 7.0 Albumin 3.5 25-OH Vitamin D Total 31.0 TSH 0.75 Urine Color Yellow Urine Appearance Clear Urine pH 7.0 Ur Specific [place] 1.010 Urine Protein 30 (1+) H Urine Glucose (UA) Negative Urine Ketones Negative Urine Blood Small (1+) H Urine Nitrite Negative Ur Leukocyte Esterase Moderate (2+) H Urine RBC >20 H Urine WBC 11-20 H Ur Squamous Epith Cells 6-10 Urine Bacteria Trace Hyaline Casts 0-2 Coding Level of Care Code Est Pt Level 4 (33179) Diagnoses Congestive heart failure, NYHA class 1, unspecified congestive heart failure type I50.9 Congestive heart failure type: unspecified Atrial fibrillation with RVR I48.91 Cigarette smoker F17.210 Chronic pain of both knees M25.561; M25.562; G89.29 Chronicity: chronic Hypertension, unspecified type I10 Hypertension type: unspecified Time Spent (min) 39 Assessment & Plan Assessment & Plan (1) CHF (congestive heart failure), NYHA class I: Code(s): I50.9 - Heart failure, unspecified Category: Medical Qualifiers: Congestive heart failure type: unspecified Qualified Code(s): I50.9 - Heart failure, unspecified (2) Atrial fibrillation with RVR: Code(s): I48.91 - Unspecified atrial fibrillation Category: Medical (3) Cigarette smoker: Code(s): F17.210 - Nicotine dependence, cigarettes, uncomplicated Category: Social Hx (4) Bilateral knee pain: Code(s): M25.561 - Pain in right knee; M25.562 - Pain in left knee Category: Medical Qualifiers: Chronicity: chronic Qualified Code(s): M25.561 - Pain in right knee; M25.562 - Pain in left knee; G89.29 - Other chronic pain (5) Hypertension: Code(s): I10 - Essential (primary) hypertension Category: Medical Qualifiers: Hypertension type: unspecified Qualified Code(s): I10 - Essential (primary) hypertension Plan We discussed transitioning the patient to a long-acting metoprolol to facilitate effective control of essential hypertension and improve adherence with once- daily dosing. Current use of cortisone injections for symptomatic knee discomfort, existing heart failure and asthma were evaluated, emphasizing inhaler use during symptoms. Medications prescribed during her hospital stay were examined and unnecessary antibiotic continuity was addressed. Smoking reduction due to elevated red blood cell counts was recommended. BNP increased from last evaluation, but still below the point of concerns. Routine preventative health care, vaccinations, and potential new health risks, such as exposure to emerging diseases, were discussed for future consideration. The patient refused to follow up sooner than 6 months, per patient, she lived a good life and whenever her lord is ready for her she is ready. Continue lisinopril 5 mg daily, metoprolol succinate ER 100 mg daily and aspirin 81 mg daily. Patient was informed and verbally consented to the use of an ambient scribe for clinic note documentation during this visit. Orders: Orders Complete Blood Count Auto Diff 6 Months E66.9 - Obesity, unspecified, I10 - Essential (primary) hypertension, I48.91 - Unspecified atrial fibrillation, I50.9 - Heart failure, unspecified, N20.0 - Calculus of kidney, R53.1 - Weakness Lipid Panel 6 Months E66.9 - Obesity, unspecified, I10 - Essential (primary) hypertension, I48.91 - Unspecified atrial fibrillation, I50.9 - Heart failure, unspecified, N20.0 - Calculus of kidney, R53.1 - Weakness UA CC w/rflx Micro + Cult 6 Months E66.9 - Obesity, unspecified, I10 - Essential (primary) hypertension, I48.91 - Unspecified atrial fibrillation, I50.9 - Heart failure, unspecified, N20.0 - Calculus of kidney, R53.1 - Weakness B Type Natriuretic Peptide 6 Months E66.9 - Obesity, unspecified, I10 - Essential (primary) hypertension, I48.91 - Unspecified atrial fibrillation, I50.9 - Heart failure, unspecified, N20.0 - Calculus of kidney, R53.1 - Weakness Comprehensive [place]. Panel Fast 6 Months E66.9 - Obesity, unspecified, I10 - Essential (primary) hypertension, I48.91 - Unspecified atrial fibrillation, I50.9 - Heart failure, unspecified, N20.0 - Calculus of kidney, R53.1 - Weakness TSH reflex Free T4 6 Months E66.9 - Obesity, unspecified, I10 - Essential (primary) hypertension, I48.91 - Unspecified atrial fibrillation, I50.9 - Heart failure, unspecified, N20.0 - Calculus of kidney, R53.1 - Weakness Vitamin D 25-OH Total 6 Months E66.9 - Obesity, unspecified, I10 - Essential (primary) hypertension, I48.91 - Unspecified atrial fibrillation, I50.9 - Heart failure, unspecified, N20.0 - Calculus of kidney, R53.1 - Weakness Glucose Fasting 6 Months E66.9 - Obesity, unspecified, I10 - Essential (primary) hypertension, I48.91 - Unspecified atrial fibrillation, I50.9 - Heart failure, unspecified, N20.0 - Calculus of kidney, R53.1 - Weakness Medications: New metoprolol succinate ER 100 mg PO DAILY 60 tabs 3RF I10 - Essential (primary) hypertension Patient Instructions: - Continue taking your blood pressure medication as prescribed. - Monitor your blood pressure weekly. - Reduce smoking and consider less stressful ways to relax. - If knee pain persists, follow through with cortisone injections. - Use inhaler as needed for asthma symptoms, particularly when allergens are high. - Ensure vaccinations are up to date. - Schedule routine follow-ups and return immediately if new symptoms arise.
--- OUTSIDE RECORDS SUMMARY | 2024-11-13 17:31 | XMS_ITS | Encounter Summary ---
Author Organization [facility] Address [address] [place] [address] Care Team Providers Care Sheep Herder Name Role Phone Gabby Covarrubias MD Primary Care Provider [phone] Encounter Details Date Type Department Care Team (Late st Contact Info) Description 08/21/2023 Scanned Document GENERIC EXTERNAL DATA DEPARTMENT Provider, Generic External Data Social History Tobacco Use Types Packs/Day Years Used Date Smoking Tobacco: Every Day Cigarettes Smokeless Tobacco: Never Comments:3 cig a day Pt states she smokes weed [facility] Utilities Answer Date Recorded In the past 12 months has [employer] electric, gas, oil, or water [employer] threatened to shut off services in your [...] to sleep or slept in a senior care (including now)? No 07/19/2023 Comments Unknown Sex and Gender Information Value Date Recorded Sex Assigned at Female 07/05/2023 3:24 PM EST Legal Sex Female 6:57 PM EST Gender Identity Female 07/05/2023 3:24 PM EST Sexual Orientation Choose not to disclose 2022 3:24 PM EST documented as of this encounter Plan of Treatment Not on file documented as of this encounter Visit Diagnoses Not on filedocumented in this encounter Care Teams Sheep Herder Relationship Specialty Start Date End Date Gabby Covarrubias MD [address] [place] [id number] PCP - General Family Medicine 06/27/23 documented as of this encounter
--- OUTSIDE RECORDS SUMMARY | 2024-11-13 17:31 | XMS_ITS | Encounter Summary ---
Author Organization [facility] Address [address] [place] [address] Care Team Providers Care Elementary School Band Director Name Role Phone Gabby Covarrubias MD Primary Care Provider [phone] Encounter Details Date Type Department Care Team (Late st Contact Info) Description 09/04/2023 Telephone [facility] Vascular & Endovascular Surgery [place] [address] [place] [phone] Torsten Woody MD [address] [place] [address] Social History Tobacco Use Types Packs/Day Years Used Date Smoking Tobacco: Every Day Cigarettes Smokeless Tobacco: Never Comments:3 cig a day Pt states she smokes weed [facility] Utilities Answer Date Recorded In the past 12 months has [employer] electric, gas, oil, or water company threatened [...] a senior living (including now)? No 07/19/2023 Comments Unknown Sex [...] on filedocumented in this encounter Care Teams Elementary [employer] Band Director Relationship Specialty Start Date End Date Gabby Covarrubias MD [address] [place] [id number] PCP - General Family Medicine 06/27/23 documented as of this encounter
--- OUTSIDE RECORDS SUMMARY | 2024-11-13 17:31 | XMS_ITS | Encounter Summary ---
Author Organization [facility] Address [address] [place] [address] Care Team Providers Care Event Marketing Intern Name Role Phone Gabby Covarrubias MD Primary Care Provider [phone] Encounter Details Date Type Department Care Team (Late st Contact Info) Description 07/07/2023 Telephone [facility] Vascular & Endovascular Surgery [address] [place] [address] Torsten Woody MD [address] [place] [id number] Social History Tobacco Use Types Packs/Day Years Used Date Smoking Tobacco: Never Assessed [facility] Utilities Answer Date Recorded In [...] money to buy more. Never true 06/28/20 23 Within the past 12 months, t [...] in a group home (including now)? No 06/28/2023 Comments Unknown Sex and Gender Information Value [...] documented as of this encounter Care Teams Event Marketing Intern Relationship Specialty Start Date End Date Gabby Covarrubias MD [address] [place] [address] PCP - General Family Medicine 06/27/23 documented as of this encounter
--- OUTSIDE RECORDS SUMMARY | 2024-11-13 17:31 | XMS_ITS | Encounter Summary ---
Author Organization [facility] Address [address] [place] [address] Care Team Providers Care Underground Conduit Installer Name Role Phone Gabby Covarrubias MD Primary Care Provider [phone] Encounter Details Date Type Department Care Team (Late st Contact Info) Description 09/14/2023 Scanned Document [facility] Vascular & Endovascular Surgery [address] [place] [address] Vascular Surgery, Scan Social History Tobacco Use Types Packs/Day Years Used Date Smoking Tobacco: Every Day Cigarettes Smokeless Tobacco: Never Comments:3 cig a day Pt states she smokes weed [facility] Utilities Answer Date Recorded In the past 12 months has [employer] electric, gas, oil, or water company threatened [...] in a custodial (including now)? No 07/19/2023 Comments Unknown Sex [...] on filedocumented in this encounter Care Teams Underground Conduit Installer Relationship Specialty Start Date End Date Gabby Covarrubias MD [address] [place] [address] PCP - General Family Medicine 06/27/23 documented as of this encounter
--- OUTSIDE RECORDS SUMMARY | 2024-11-13 17:31 | XMS_ITS | Encounter Summary ---
Author Organization [facility] Address [address] [place] [address] Care Team Providers Care Lens Polisher Name Role Phone Gabby Covarrubias MD Primary Care Provider [phone] Encounter Details Date Type Department Care Team (Late st Contact Info) Description 09/29/2023 Scanned Document [facility] Vascular & Endovascular Surgery [address] [place] [address] Vascular Surgery, Scan Social History Tobacco Use Types Packs/Day Years Used Date Smoking Tobacco: Every Day Cigarettes Smokeless Tobacco: Never Comments:3 cig a day Pt states she smokes weed [facility] Utilities Answer Date Recorded In the past 12 months has [employer] electric, gas, oil, or water company threatened [...] in a correction (including now)? No 07/19/2023 Comments Unknown Sex [...] on filedocumented in this encounter Care Teams Lens Polisher Relationship Specialty Start Date End Date Gabby Covarrubias MD [address] [place] [address] PCP - General Family Medicine 06/27/23 documented as of this encounter
--- OUTSIDE RECORDS SUMMARY | 2024-11-13 17:31 | XMS_ITS | Clinical Summary ---
Author Organization [facility] Address [address] [place] [address] Care Team Providers Care Motor Assembler Name Role Phone Gabby Covarrubias MD Primary Care Provider [phone] Allergies Active Allergy Reactions Criticality Noted Date Comments Rivaroxaban Delirium/Confusion/Psychosis Low 2022 Medications lisinopril (PRINIVIL,ZeSTR IL) 2.5 MG tabletIndicatio ns:Hypertension Take 1 tablet (2.5 mg total) by mouth daily. Active metoPROLOL TARTRATE (LOPRESSOR) 100 MG tabletIndicatio ns:Hypertension Take 1 tablet (100 mg total) by mouth 2 (two) times a day. Active apixaban (ELIQUIS) 5 MG tabletIndicatio ns:Critical limb ischemia of right lower extremity (HCC) Take 1 tablet (5 mg total) by mouth 2 (two) times a day. Do not start before July 07, 2023. 60 tablet 3 Active aspirin enteric coated (ECOTRIN LOW STRENGTH) 81 MG EC tabletIndicatio ns:Critical limb ischemia of right lower extremity (HCC) Take 1 tablet (81 mg total) by mouth daily. 30 tablet 3 3 Active atorvastatin (LIPITOR) 40 MG tabletIndicatio ns:Critical limb ischemia of right lower extremity (HCC) Take 1 tablet (40 mg total) by mouth daily. 30 tablet 3 Active acetaminophen (TYLENOL) 325 MG tabletIndicatio ns:Wound infection after surgery Take 2 tablets (650 mg total) by mouth 4 times daily (every 6 hours) as needed for mild pain. 4 Active furosemide (LASIX) 40 MG tabletIndicatio ns:Wound infection after surgery Take 1 tablet (40 mg total) by mouth daily. 4 Active gabapentin (NEURONTIN) 300 MG capsuleIndicati ons:Wound infection after surgery Take 1 capsule (300 mg total) by mouth 3 (three) times a day. 4 Active multivitamin with minerals (Oncovite) Tab tablet Take 1 tablet by mouth daily. Active ascorbic acid (VITAMIN C) 500 MG tablet Take 1 tablet (500 mg total) by mouth daily. 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 No 07/19/2023 AUDIT-C Answer Date Recorded Q1: How often do you have a drink containing alcohol? Never 07/18/2023 Q2: How many drinks containi ng alcohol do you have on a typical day when you are drinking? Patient does not drink 3 Q3: How often do you have si [...] in a usp (including now)? No 07/19/2023 Comments Unknown Sex [...] on patient's age to complete this topic Insurance MEDICARE PART A & B MEDICARE PART A & B Advance Directives * Full Code (Latest Code [...] Agents on File Name Relationship Healthcare Agent Relationshi p Communication Kiel Lee Adult child 4. Next of Kin ( Spouse, Adult Child, Parent, Adult Sibling, Grandparent) Sung Mcclure Adult child 4. Next of Kin ( Spouse, Adult Child, Parent, Adult Sibling, Grandparent) Care Teams Motor Assembler Relationship Specialty Start Date End Date Gabby Covarrubias MD [address] [place] [address] PCP - General Family Medicine 06/27/23
--- OUTSIDE RECORDS SUMMARY | 2024-11-13 17:31 | XMS_ITS | Encounter Summary ---
Author Organization [facility] Address [address] [place] [address] Care Team Providers Care Wood Tile Installer Name Role Phone Gabby Covarrubias MD Primary Care Provider [phone] Encounter Details Date Type Department Care Team (Late st Contact Info) Description 08/22/2023 Telephone [facility] Vascular & Endovascular Surgery [place] [address] [facility] [address] [place] [phone] Torsten Woody MD [address] [place] [address] Social History Tobacco Use Types Packs/Day Years Used Date Smoking Tobacco: Every Day Cigarettes Smokeless Tobacco: Never Comments:3 cig a day Pt states she smokes weed [facility] Utilities Answer Date Recorded In the past 12 months has [employer] electric, gas, oil, or water company threatened [...] in a mcc (including now)? No 07/19/2023 Comments Unknown Sex [...] on filedocumented in this encounter Care Teams Wood Tile Installer Relationship Specialty Start Date End Date Gabby Covarrubias MD [address] [place] [address] PCP - General Family Medicine 06/27/23 documented as of this encounter
== END 2024-11-13 15:50 | disposition home or self-care (01) ==
LOC: HO.HMCH 14:46
DX: I50.9 Heart failure, unspecified (principal); I48.91 Unspecified atrial fibrillation; F17.210 Nicotine dependence, cigarettes, uncomplicated; M25.561 Pain in right knee; M25.562 Pain in left knee; G89.29 Other chronic pain; I10 Essential (primary) hypertension

== ENCOUNTER → 2024-11-13 14:45 | Outpatient (BNVA) | payer MEDICARE, SELFPAY | DX: I11.0 Hypertensive heart disease with heart failure (principal); I50.9 Heart failure, unspecified; I48.91 Unspecified atrial fibrillation; M25.561 Pain in right knee; M25.562 Pain in left knee; G89.29 Other chronic pain; F17.210 Nicotine dependence, cigarettes, uncomplicated; Z71.6 Tobacco abuse counseling | CPT/HCPCS: 99212 ==

== ENCOUNTER 2024-12-06 13:58 | Outpatient (REF) | payer MEDICARE, SELFPAY ==
--- NOTE | ~2024-12-06 | CT_ITS ---
EXAMINATION: CT ABDOMEN PELVIS WITHOUT IV CONTRAST HISTORY: N20.1 - Calculus of ureter COMPARISON: Comparison is made with the prior examination dated 09/06/2024. TECHNIQUE: CT scan of the abdomen and pelvis was performed without contrast using standard departmental protocol. Coronal and sagittal reformatted images were generated and reviewed. Oral contrast material was not administered per department protocol. This CT exam was performed with one or more of the following dose reduction techniques: automated exposure control, adjustment of the mA and/or kV according to patient size, use of iterative reconstruction technique. DLP: 631 mGy-cm FINDINGS: LOWER CHEST: The visualized lung bases are clear. There is no pleural effusion. CARDIOVASCULATURE: The heart is normal in size. There is no pericardial effusion. LIVER: The liver is normal in size and contour. The liver has an unremarkable unenhanced appearance. GALLBLADDER / BILE DUCTS: The gallbladder is surgically absent. There is no intra or extrahepatic biliary ductal dilatation. SPLEEN: The spleen is normal in size and has an unremarkable unenhanced appearance. PANCREAS: The pancreas has an unremarkable unenhanced appearance. ADRENAL GLANDS: Unremarkable. KIDNEYS/RETROPERITONEUM: There is a 3 mm nonobstructing calculus in the interpolar region of the right kidney. There is no right hydronephrosis. There has been interval placement of a left nephroureteral stent. Again seen are multiple left renal calculi including a 1.5 cm calculus in the interpolar region and calculi at the lower pole measuring 6 mm and 11 mm. There is a 6 mm calculus adjacent to the stent at the UPJ. There is no hydronephrosis. LYMPH NODES: No retroperitoneal lymphadenopathy is identified in the abdomen or pelvis. VASCULATURE: The abdominal aorta demonstrates atherosclerotic calcification, but is normal in caliber. MESENTERY/PERITONEUM: No free fluid. No masses. There is no free intraperitoneal gas. STOMACH: The stomach is collapsed, limiting evaluation. SMALL BOWEL: The small bowel is normal in caliber. COLON: There is diverticulosis of the sigmoid colon, without evidence of diverticulitis. APPENDIX: Normal. URINARY BLADDER/PELVIC ORGANS: The urinary bladder is collapsed, limiting evaluation. The uterus has an unremarkable unenhanced appearance. BONES / SOFT TISSUES: An anterior abdominal wall mesh is again seen in place. There is a ventral hernia just to the left of the mesh containing an unobstructed portion of the transverse colon. There is degenerative disc disease of the spine. CT/CT kidney stone IMPRESSION: Left nephroureteral stent in place. 6 mm calculus at the UPJ. Additional bilateral nephrolithiasis as described. Electronically signed by: Robb Silver MD 12/06/2024 03:37 PM EDT
--- OUTSIDE RECORDS SUMMARY | 2024-12-06 14:01 | XMS_ITS | Encounter Summary ---
Author Organization [facility] Address [address] [place] [address] Care Team Providers Care Director Of Pupil Personnel Program Name Role Phone Gabby Covarrubias MD Primary Care Provider [phone] Encounter Details Date Type Department Care Team (Late st Contact Info) Description 08/21/2023 Scanned Document GENERIC EXTERNAL DATA DEPARTMENT Provider, Generic External Data Social History Tobacco Use Types Packs/Day Years Used Date Smoking Tobacco: Every Day Cigarettes Smokeless Tobacco: Never Comments:3 cig a day Pt states she smokes weed [facility] Utilities Answer Date Recorded In the past 12 months has [employer] electric, gas, oil, or water [employer] threatened to shut off services in your [...] on filedocumented in this encounter Care Teams Director Of Pupil Personnel Program Relationship Specialty Start Date End Date Gabby Covarrubias MD [address] [place] [address] PCP - General Family Medicine 06/27/23 documented as of this encounter
--- OUTSIDE RECORDS SUMMARY | 2024-12-06 14:01 | XMS_ITS | Encounter Summary ---
Author Organization [facility] Address [address] [place] [address] Care Team Providers Care Licensed Land Surveyor Name Role Phone Gabby Covarrubias MD Primary Care Provider [phone] Encounter Details Date Type Department Care Team (Late st Contact Info) Description 08/22/2023 Telephone [facility] Vascular & Endovascular Surgery [place] [address] [facility] [address] [address] [place] [phone] Torsten Woody MD [address] [place] [address] Social History Tobacco Use Types Packs/Day Years Used Date Smoking Tobacco: Every Day Cigarettes Smokeless Tobacco: Never Comments:3 cig a day Pt states she smokes weed [facility] Utilities Answer Date Recorded In the past 12 months has [employer] electric, gas, oil, or water company threatened [...] in a assisted (including now)? No 07/19/2023 Comments Unknown Sex [...] on filedocumented in this encounter Care Teams Licensed Land Surveyor Relationship Specialty Start Date End Date Gabby Covarrubias MD [address] [place] [address] PCP - General Family Medicine 06/27/23 documented as of this encounter
--- OUTSIDE RECORDS SUMMARY | 2024-12-06 14:01 | XMS_ITS | Clinical Summary ---
Author Organization [facility] Address [address] [place] [address] Care Team Providers Care Role Player Name Role Phone Gabby Covarrubias MD Primary Care Provider [phone] Allergies Active Allergy Reactions Criticality Noted Date [...] Problem Noted Date Diagnosed Date Atherosclerosis of [place] ar [place] of right lower extremity with intermittent claudication 10/12/2023 Non-healing surgical wound 09/20/2023 Wound infection after surgery 07/18/2023 Ischemia of right lower extremity 06/27/2023 Social History Tobacco Use Types Packs/Day Years Used Date Smoking Tobacco: Every Day Cigarettes Smokeless Tobacco: Never Comments:3 cig a day Pt states she smokes weed [facility] L[employer] Answer Date Recorded In the past 12 months has [employer], gas, oil, or water [employer] threatened to shut off services in your [...] Density (Females,Ag es 65 and older) 2020 COVID-19 Vaccine (2023-2 5 season) 2024 Influenza Vaccine 02/21/2025 RSV Vaccine 60 years and old er [...] Child, Parent, Adult Sibling, Grandparent) Care Teams Role Player Relationship Specialty Start Date End Date Gabby Covarrubias MD [address] [place] [address] PCP - General Family Medicine 06/27/23
--- OUTSIDE RECORDS SUMMARY | 2024-12-06 14:01 | XMS_ITS | Encounter Summary ---
Author Organization [facility] Address [address] [place] [address] Care Team Providers Care Hose Maker Name Role Phone Gabby Covarrubias MD Primary Care Provider [phone] Encounter Details Date Type Department Care Team (Late st Contact Info) Description 07/07/2023 Telephone [facility] Vascular & Endovascular Surgery [address] [place] [address] Torsten Woody MD [address] [place] [address] Social History Tobacco Use Types Packs/Day Years Used Date Smoking Tobacco: Never Assessed [facility] Utilities Answer Date Recorded In the past [...] in a senior living (including now)? No 06/28/2023 Comments Unknown Sex [...] documented as of this encounter Care Teams Hose Maker Relationship Specialty Start Date End Date Gabby Covarrubias MD [address] [place] [address] PCP - General Family Medicine 06/27/23 documented as of this encounter
--- OUTSIDE RECORDS SUMMARY | 2024-12-06 14:01 | XMS_ITS | Encounter Summary ---
Author Organization [facility] Address [address] [place] [address] Care Team Providers Care Correction Officer [place] [facility] Name Role Phone Gabby Covarrubias MD Primary Care Provider [phone] Encounter Details Date Type Department Care Team (Late st Contact Info) Description 09/14/2023 Scanned Document [facility] Vascular & Endovascular Surgery [address] [place] [address] Vascular Surgery, Scan Social History Tobacco Use Types Packs/Day Years Used Date Smoking Tobacco: Every Day Cigarettes Smokeless Tobacco: Never Comments:3 cig a day Pt states she smokes weed [facility] Utilities Answer Date Recorded In the past 12 months has [employer] electric, gas, oil, or water company threatened [...] on filedocumented in this encounter Care Teams Correction Officer [place] [facility] Relationship Specialty Start Date End Date Gabby Covarrubias MD [address] [place] [address] PCP - General Family Medicine 06/27/23 documented as of this encounter
--- OUTSIDE RECORDS SUMMARY | 2024-12-06 14:01 | XMS_ITS | Encounter Summary ---
Author Organization [facility] Address [address] [place] [address] Care Team Providers Care Decay Control Operator Name Role Phone Gabby Covarrubias MD Primary Care Provider [phone] Encounter Details Date Type Department Care Team (Late st Contact Info) Description 09/04/2023 Telephone [facility] Vascular & Endovascular Surgery [place] [address] [facility] [address] [place] [phone] Torsten Woody MD [address] [place] [address] Social History Tobacco Use Types Packs/Day Years Used Date Smoking Tobacco: Every Day Cigarettes Smokeless Tobacco: Never Comments:3 cig a day Pt states she smokes weed [facility] Utilities Answer Date Recorded In the past 12 months has [employer] electric, gas, oil, or water company threatened [...] a skilled nursing (including now)? No 07/19/2023 Comments Unknown Sex [...] on filedocumented in this encounter Care Teams Decay Control Operator Relationship Specialty Start Date End Date Gabby Covarrubias MD [address] [place] [address] PCP - General Family Medicine 06/27/23 documented as of this encounter
--- OUTSIDE RECORDS SUMMARY | 2024-12-06 14:01 | XMS_ITS | Encounter Summary ---
Author Organization [facility] Address [address] [place] [address] Care Team Providers Care Managing Director Name Role Phone Gabby Covarrubias MD Primary Care Provider [phone] Encounter Details Date Type Department Care Team (Late st Contact Info) Description 09/29/2023 Scanned Document [facility] Vascular & Endovascular Surgery [address] [place] [address] Vascular Surgery, Scan Social History Tobacco Use Types Packs/Day Years Used Date Smoking Tobacco: Every Day Cigarettes Smokeless Tobacco: Never Comments:3 cig a day Pt states she smokes weed [facility] Utilities Answer Date Recorded In the past 12 months has [facility] electric, gas, oil, or water company threatened [...] in a fdc (including now)? No 07/19/2023 Comments Unknown Sex [...] on filedocumented in this encounter Care Teams Managing Director Relationship Specialty Start Date End Date Gabby Covarrubias MD [address] [place] [address] PCP - General Family Medicine 06/27/23 documented as of this encounter
== END 2024-12-06 13:59 | disposition home or self-care (01) ==
LOC: HO.CT 13:58
PROVIDERS: Visit Provider Urology
DX: N20.0 Calculus of kidney (principal); N20.1 Calculus of ureter; N12 Tubulo-interstitial nephritis, not specified as acute or chronic
CPT/HCPCS: 74176

== ENCOUNTER → 2024-12-06 14:01 | Outpatient (BNV) | payer MEDICARE, SELFPAY | PROVIDERS: Visit Provider Radiology Diagnostic Radiology | DX: N20.2 Calculus of kidney with calculus of ureter (principal) | CPT/HCPCS: 74176 ==

== ENCOUNTER 2025-01-03 16:00 | Outpatient (AMB) | payer MEDICARE, SELFPAY ==
--- NOTE | 2025-01-03 16:01 | MHC.OFFVIS ---
Intake Visit Reasons: Kidney Stone/CT Intake Note: Patient is present via telehealth for kidney stone/CT Abdomen/Pelvis CT 12/06 Urology Medication:NONE Antibiotic Allergy:NONE Blood Thinner:ASPIRIN Checkering Machine Operator Required: No Allergies rivaroxaban (Xarelto) Allergy (Severe, Verified 01/03/25 16:01) confusion Medication List - Last Reconciled 01/03/25 by Edmundo Spencer MD albuterol sulfate 90 mcg/actuation 1 inh inhalation QID PRN aspirin 81 mg PO DAILY lisinopril 5 mg PO DAILY metoprolol succinate ER 100 mg PO DAILY multivitamin 1 tab PO DAILY HPI Comments Details: 01/03/25--Reviewed CT- Left ureteral stent, calculus Left UPJ. Pt states feeling better, energy improved. Discussed schedule Left ESWL. LV--09/26/24--Chacha was initially evaluated by Urology consultation, while an inpatient. She is a 69-year-old female presenting with obstructive ureteral stone and nephrolithiasis. An acute kidney stone episode was evaluated via CT imaging on 09/06/24, revealing significant stone burden in the left kidney, including a 2.1 cm obstructive ureteral calculus and a large 1.7 cm stone needing intervention. The CT scan also discovered a small 2 mm stone in the right kidney. In response, a left ureteral stent was placed by Dr. Bautista to alleviate renal obstruction. Following the procedure, the patient acknowledges feeling weak from hospitalization and hesitates on undergoing another surgical procedure. Despite the size of stones prompting lithotripsy, the procedure was deferred to a later date for patient-centered considerations, agreeing upon further evaluation after an additional period for recuperation. The stent continues to function without urgent complications, ensuring renal drainage and preventing obstruction. Results - Imaging: CT scan dated 09/06/24 demonstrates a 1.7 cm stone in the left kidney upper pole, a 2.1 cm stone in the proximal left ureter, and a 2 mm stone in the right kidney upper pole - Procedure: Left ureteral stent successfully placed [facility] Medical History Persistent atrial fibrillation New onset atrial fibrillation Peripheral artery disease Cellulitis of leg, right COVID-19 Hypertension Surgical History History of cystoscopy History of hernia surgery History of embolectomy Social History Household Members: None Housing: Apartment Are you a primary careers adviser to a significant other at home: No Do you presently have visiting nurse or other home services: No Unable to assess alcohol history related to: Unknown Alcohol intake: current Alcohol intake frequency: does not drink Patient Tobacco Use Status: Current everyday Tobacco user Tobacco use type: Cigarette Cigarette Packs Per Day: 0.25 Cigarettes Per Day: 5 Years Smoked: 20 e-Cigarette/Vaping Use: Never Used Second Hand Smoke Exposure: Yes Substance Use Type: Marijuana service: No Current occupational status: retired Cognitive needs: Yes (Wheelchair, walker, cane) Hearing needs: No Vision needs: Yes (Glasses) Review of Systems Const All systems reviewed & are unremarkable except as noted in HPI and below Reports no additional complaints Eyes Reports no additional complaints ENT Reports no additional complaints Card Reports no additional complaints Resp Reports no additional complaints GI Reports no additional complaints Reports as per HPI Musc Reports no additional complaints Skin/Breast Reports system reviewed and no additional complaints, except as documented Neuro Reports no additional complaints Psych Reports no additional complaints Endo Reports no additional complaints Feliciano/Lymph Reports no additional complaints Aller/Immun Reports no additional complaints Telehealth Telehealth Telehealth Platform: Telephone Location of provider rendering services: practice address Location of patient: address on file Patient Identification confirmed using: Name, : Yes Telehealth method: voice only Patient verbally consented to treatment: Yes Patient verbally consented to billing insurance company: Yes Patient informed of any privacy concerns related to visit: Yes Minutes spent on Phone/Video with Pt.: 14 Results Reviewed Results Reviewed: Date of Service: 12/06/24 EXAMINATION: CT ABDOMEN PELVIS WITHOUT IV CONTRAST HISTORY: N20.1 - Calculus of ureter COMPARISON: Comparison is made with the prior examination dated 09/06/2024. TECHNIQUE: CT scan of the abdomen and pelvis was performed without contrast using standard departmental protocol. Coronal and sagittal reformatted images were generated and reviewed. Oral contrast material was not administered per department protocol. This CT exam was performed with one or more of the following dose reduction techniques: automated exposure control, adjustment of the mA and/or kV according to patient size, use of iterative reconstruction technique. DLP: 631 mGy-cm FINDINGS: LOWER CHEST: The visualized lung bases are clear. There is no pleural effusion. CARDIOVASCULATURE: The heart is normal in size. There is no pericardial effusion. LIVER: The liver is normal in size and contour. The liver has an unremarkable unenhanced appearance. GALLBLADDER / BILE DUCTS: The gallbladder is surgically absent. There is no intra or extrahepatic biliary ductal dilatation. SPLEEN: The spleen is normal in size and has an unremarkable unenhanced appearance. PANCREAS: The pancreas has an unremarkable unenhanced appearance. ADRENAL GLANDS: Unremarkable. KIDNEYS/RETROPERITONEUM: There is a 3 mm nonobstructing calculus in the interpolar region of the right kidney. There is no right hydronephrosis. There has been interval placement of a left nephroureteral stent. Again seen are multiple left renal calculi including a 1.5 cm calculus in the interpolar region and calculi at the lower pole measuring 6 mm and 11 mm. There is a 6 mm calculus adjacent to the stent at the UPJ. There is no hydronephrosis. LYMPH NODES: No retroperitoneal lymphadenopathy is identified in the abdomen or pelvis. VASCULATURE: The abdominal aorta demonstrates atherosclerotic calcification, but is normal in caliber. MESENTERY/PERITONEUM: No free fluid. No masses. There is no free intraperitoneal gas. STOMACH: The stomach is collapsed, limiting evaluation. SMALL BOWEL: The small bowel is normal in caliber. COLON: There is diverticulosis of the sigmoid colon, without evidence of diverticulitis. APPENDIX: Normal. URINARY BLADDER/PELVIC ORGANS: The urinary bladder is collapsed, limiting evaluation. The uterus has an unremarkable unenhanced appearance. BONES / SOFT TISSUES: An anterior abdominal wall mesh is again seen in place. There is a ventral hernia just to the left of the mesh containing an unobstructed portion of the transverse colon. There is degenerative disc disease of the spine. CT/CT kidney stone IMPRESSION: Left nephroureteral stent in place. 6 mm calculus at the UPJ. Additional bilateral nephrolithiasis as described. Assessment & Plan Assessment & Plan (1) Nephrolithiasis: Code(s): N20.0 - Calculus of kidney Category: Medical (2) Ureteral stent present: Code(s): Z96.0 - Presence of urogenital implants Category: Medical Plan Schedule Left ESWL, possible remove stent Patient Instructions: The patient had an opportunity to ask questions regarding treatment plan. The patient expressed understanding and agreement with the above treatment plan. The patient is aware they should contact our office by phone for worsening of their current condition or the appearance of new symptoms. Compliance is encouraged with any medications and followup testing that is ordered. It is a privilege to be allowed the opportunity to participate in the urologic care of your patient. If you have any questions or concerns regarding treatment for the above conditions please do not hesitate to contact me. The office telephone contact is [phone]. This note is constructed in part using voice recognition software. While every effort has been made to ensure accuracy electrical technology instructor errors may have been included. Yours sincerely, Edmundo Spencer MD Coding Level of Care Code Tele Est Pt Level 4 (80541) Diagnoses Nephrolithiasis N20.0 Ureteral stent present Z96.0
== END 2025-01-03 16:30 | disposition home or self-care (01) ==
LOC: HO.HUSH 16:00
PROVIDERS: Visit Provider Urology
DX: N20.0 Calculus of kidney (principal); Z96.0 Presence of urogenital implants
CPT/HCPCS: 99214

== ENCOUNTER → 2025-01-03 16:00 | Outpatient (BNVA) | payer MEDICARE, SELFPAY | PROVIDERS: Visit Provider Urology | DX: Z13.89 Encounter for screening for other disorder (principal) ==